=== PATIENT | male | born 1940 | race Caucasian/White ===

== ENCOUNTER 2017-03-02 06:58 | Day surgery (SDC) | payer MEDICARE, OTHER ==
[2017-02-28 13:22] VITALS: BMI 27.7
[~2017-03-02 06:58] MED LIST: HEPARIN SODIUM,PORCINE 5,000 UNIT/ML 1 ML VIAL SQ ONE; LACTATED RINGERS 1,000 ML IV SCH; ceFAZolin 2 GM in SODIUM CHLORIDE 0.9% 100 ML IVPB ONE; fentaNYL (PF) 50 MCG/ML 2 ML AMP IV PRN
[2017-03-02 07:57] LABS: Anisocytosis Slight; Basophils % (A) 0 %; CH 27.7; CHCM 29.9; Eosinophils # (A) 0.2 k/uL (0-0.7); Eosinophils % (A) 2 %; HCT 30.4 % (39.0-53.0); HDW 2.86; HGB 9.4 gm/dL (13.0-17.5); Hypochromasia Marked; Luc # (Auto) 0.19; Luc % (Auto) 3; Lymphocytes # (A) 1.1 k/uL (1.0-4.8); Lymphocytes % (A) 15 %; MCH 28.9 pg (25.0-35.0); MCHC 30.9 g/dL (31.0-37.0); MCV 93.3 fL (80.0-100.0); Mean Platelet Volume 8.1; Monocytes # (A) 0.6 k/uL (0-1.0); Monocytes % (A) 7 %; Neutrophils # (A) 5.5 k/uL (1.3-7.7); Neutrophils % (A) 73 %; RBC 3.26 m/uL (4.30-5.90); RDW 18.1 % (11.5-15.5); WBC 7.6 k/uL (3.8-10.6); WBC (Perox) 7.51
[2017-03-02] MEDS ORDERED: SODIUM CHLORIDE 0.9% 1,000 ML IV ONE (08:11)
[2017-03-02] MEDS ORDERED: LIDOCAINE 1% 20 ML VIAL (10MG/ML) FOR IV START INTRADERMA ONE (08:11)
[2017-03-02] MEDS ORDERED: DEXAMETHASONE SOD PHOSPHATE 10 MG/ML 1 ML VIAL IV ONE (08:12)
[2017-03-02] MEDS ORDERED: ONDANSETRON 4 MG/2 ML VIAL IVP ONE (08:12)
[2017-03-02 08:21] LABS: Calcium 8.9 mg/dL (8.4-10.2)
[2017-03-02] MEDS ORDERED: NEOSTIGMINE 1 MG/ML 10 ML VIAL ONE (08:34)
[2017-03-02] MEDS ORDERED: PROPOFOL 10 MG/ML 20 ML VIAL IV ONE (08:34)
[2017-03-02] MEDS ORDERED: SUCCINYLCHOLINE CHLORIDE 100 MG/5 ML SYR IV ONE (08:34)
[2017-03-02] MEDS ORDERED: GLYCOPYRROLATE 0.2 MG/ML 2 ML VIAL ONE (08:34)
[2017-03-02] MEDS ORDERED: ePHEDrine SULFATE/0.9% NACL/PF 50 MG/5 ML SYRINGE IV ONE (08:34)
[2017-03-02] MEDS ORDERED: MIDAZOLAM 2 MG/2 ML VIAL ONE (08:34)
[2017-03-02] MEDS ORDERED: fentaNYL (PF) 50 MCG/ML 2 ML AMP ONE (08:34)
[2017-03-02] MEDS ORDERED: ROCURONIUM BROMIDE 10 MG/ML 10 ML VIAL IV ONE (08:34)
[2017-03-02] MEDS ORDERED: MINERAL OIL 1 APPLIC/ML OIL TOPICAL ONE (09:02)
[2017-03-02] MEDS ORDERED: BUPIVACAIN-EPI 0.5%-1:200,000 30 ML VIAL SQ ONE ×2 (09:02)
[2017-03-02] MEDS ORDERED: HYDROcodone/APAP 5-325MG 1 EACH TAB PO PRN (10:03)
[2017-03-02] MEDS ORDERED: NALOXONE 0.4 MG/ML 1 ML VIAL IV PRN ×2 (10:03)
--- NOTE | 2017-03-02 10:07 | P.OP ---
Date of Procedure: 03/02/17 Procedure(s) Performed: PREOPERATIVE DIAGNOSIS: Renal failure, right more hernia POSTOPERATIVE DIAGNOSIS: Same PROCEDURE: Peritoneal dialysis catheter insertion, right inguinal herniorrhaphy with mesh SURGEON: Mirna EBL: Minimal ANESTHESIA: General COMPLICATIONS: None OPERATIVE PROCEDURE: The patient was placed in the operative table in the supine position. His abdomen was prepped and draped in usual sterile fashion. A small vertical incision was made in the left periumbilical location. Dissection down through the subcutaneous tissues took place using electrocautery. The anterior rectus was divided vertically using the scalpel. The rectus was bluntly. The posterior rectus was visualized. An 0 Vicryl pursestring was placed. A small opening in the posterior rectus fascia and peritoneum took place using a Metzenbaum scissors. There were no adhesions to the suture that was placed. The pigtail catheter was advanced into the pelvis over a stylette. No resistance was met. The inner cuff was secured to the fascia using the 0 Vicryl pursestring that was placed. The catheter was tunneled to an exit site in the left lateral lower quadrant. The catheter was connected to the 1 L bag of saline and approximated 800 mL of saline was easily introduced into the peritoneal cavity. The fluid was then allowed to evacuate. The majority of the fluid was returned. The anterior rectus fascia was then reapproximated using a running 0 Vicryl stitch. The subcutaneous tissues reprepped using 3-0 Vicryl sutures and the skin using 4-0 Monocryl sutures. The outpatient dialysis adapter was applied to the end of the catheter. Dermabond and subsequently a sterile dressing was placed over the operative site. An oblique incision was then made in the right groin. Dissection down through the subcutaneous tissues took place using electrocautery. The external oblique fascia was incised using a scalpel. This opening was lengthened using the Metzenbaum scissors. The spermatic cord was encircled with a Neil drain. The structures were identified and preserved. Careful dissection revealed an indirect hernia sac. This was carefully dissected back to the internal inguinal ring where it was ligated using 2 separate 0 silk stick tie sutures. A 3" x 6" Prolene mesh was cut to fit on the exposed fascia. This was sutured to the pubic tubercle the folding edge of the inguinal ligament and the conjoined tendon. A slit was created in the mesh and the mesh was wrapped around the spermatic cord and sutured back to itself. The external oblique was then reapproximated using a running 2-0 Vicryl suture. The subcutaneous tissues were reapproximated using a 3-0 Vicryl sutures. The skin was closed using 4-0 Monocryl sutures. Dermabond was then applied. DISPOSITION: Stable to recovery room
[2017-03-02] MEDS: HYDROmorphone 1 MG/ML 1 ML SYRINGE IVP PRN ×2 (10:20→10:26)
[2017-03-02 10:22] VITALS: TEMP 97.2
[2017-03-02] MEDS ORDERED: LACTATED RINGERS 1,000 ML IV ONE (10:28)
[2017-03-02] MEDS ORDERED: HYDROcodone/APAP 5-325MG 1 EACH TAB PO ONE (11:08)
[2017-03-02 12:21] VITALS: RESP 18
[2017-03-02 14:36] VITALS: BP 163/70; PULSE 54
== END 2017-03-02 15:11 | disposition home or self-care (01) ==
LOC: OR 06:58
PROVIDERS: ATTEND Surgery
DX: K40.90 Unilateral inguinal hernia, without obstruction or gangrene, not specified as recurrent (principal); I12.0 Hypertensive chronic kidney disease with stage 5 chronic kidney disease or end stage renal disease; M19.90 Unspecified osteoarthritis, unspecified site; Z86.73 Personal history of transient ischemic attack (TIA), and cerebral infarction without residual deficits; N25.81 Secondary hyperparathyroidism of renal origin; Z90.5 Acquired absence of kidney; J44.9 Chronic obstructive pulmonary disease, unspecified; E55.9 Vitamin D deficiency, unspecified; D50.9 Iron deficiency anemia, unspecified; N18.5 Chronic kidney disease, stage 5; Z95.1 Presence of aortocoronary bypass graft; Z88.8 Allergy status to other drugs, medicaments and biological substances; I25.10 Atherosclerotic heart disease of native coronary artery without angina pectoris; K21.9 Gastro-esophageal reflux disease without esophagitis; Z79.82 Long term (current) use of aspirin; Z79.899 Other long term (current) drug therapy
CPT/HCPCS: 80048; 85025; 88302; 49505; 49418; C1752; C1781; J2250; J1644; J1100; J2710; J0690; J2405; J3010; J1170; J0330; J2704

== ENCOUNTER 2017-03-02 19:56 | Emergency (ER) | payer MEDICARE, OTHER ==
[2017-03-02 20:39] VITALS: BP 172/76; PULSE 68; RESP 18; TEMP 97.8
--- NOTE | 2017-03-02 20:42 | ED ---
Male Urogenital HPI - General Chief complaint: Urogenital Stated complaint: Unable to urinate Time Seen by Provider: 03/02/17 20:24 Source: patient, family, RN notes reviewed Mode of arrival: wheelchair Limitations: no limitations - History of Present Illness Initial comments: This is a 76-year-old male who had a peritoneal dialysis catheter placed as well as a right hernia repair today. He catheterizes after the procedure. He couldn't pass urine who is back today with complaints of inability urinate. Also some increased bleeding around the peritoneal dialysis site. He denies any fevers chills nausea vomiting sweats shortness of breath or other new symptoms. He is in renal failure and is to start peritoneal dialysis soon. - Related Data Home Medications Medication Instructions Recorded Confirmed Aspirin [Adult Low Dose Aspirin EC] 81 mg PO DAILY 02/28/17 03/02/17 Diltiazem HCl [Cartia Xt] 120 mg PO BID 02/28/17 03/02/17 Epoetin Brandon [Procrit] 20,000 unit INJ [id number] PRN 02/28/17 03/02/17 Furosemide [Lasix] 20 mg PO DAILY PRN 02/28/17 03/02/17 HYDROcodone/APAP 5-325MG [[place] 1 tab PO Q6H PRN 02/28/17 03/02/17 5-325] Labetalol [Trandate] 100 mg PO BID 02/28/17 03/02/17 Nitroglycerin Sl Tabs [Nitrostat] 0.4 mg SUBLINGUAL Q5M PRN 02/28/17 03/02/17 Polyethylene Glycol 3350 [Miralax] 17 gm PO DAILY 02/28/17 03/02/17 Ranitidine HCl 150 mg PO DAILY PRN 02/28/17 03/02/17 Simvastatin [Zocor] 20 mg PO HS 02/28/17 03/02/17 hydrALAZINE HCL [Hydralazine HCl] 50 mg PO QAM 02/28/17 03/02/17 traZODone HCL [TraZODone HCl] 50 mg PO HS 02/28/17 03/02/17 Acetaminophen [Tylenol] 1,000 mg PO TID 03/02/17 03/02/17 Cholecalciferol [Vitamin D3] 5,000 unit PO DAILY 03/02/17 03/02/17 Isosorbide Dinitrate [Isordil] 10 mg PO BID 03/02/17 03/02/17 diphenhydrAMINE HCL [Benadryl] 25 mg PO QID PRN 03/02/17 03/02/17 hydrALAZINE HCL [Hydralazine HCl] 25 mg PO BID@1500,2200 03/02/17 03/02/17 Allergies Allergy/AdvReac Type Severity Reaction Status Date / Time tetanus and diphtheria Allergy Unknown Verified 03/02/17 21:19 toxoids diazepam [From Valium] AdvReac Anxiety Verified 03/02/17 21:19 Review of Systems ROS Statement: Those systems with pertinent positive or pertinent negative responses have been documented in the HPI. ROS Other: All systems not noted in ROS Statement are negative. Past Medical History Past Medical History: Coronary Artery Disease (CAD), COPD, CVA/TIA, Renal Disease Additional Past Medical History / Comment(s): anemia of unknown source, has had blood transfusions, frequent checks of HGB, inguinal hernia, PAD, has " multiple blockages in nedra. legs" History of Any Multi-Drug Resistant Organisms: None Reported Past Surgical History: Appendectomy, Coronary Bypass/CABG, Heart Catheterization With Stent, Orthopedic Surgery Additional Past Surgical History / Comment(s): right nephrectomy, PTBA of left kidney, arthroscopy of knee, carotid endartectomy, 3 bypass one failed. 6 or 7 stents to heart Past Anesthesia/Blood Transfusion Reactions: No Reported Reaction Additional Past Anesthesia/Blood Transfusion Reaction / Comment(s): has had blood transfusions without issues Date of Last Stent Placement:: 2006? Past Psychological History: Anxiety, Panic Disorder Smoking Status: Former smoker Past Alcohol Use History: None Reported Past Drug Use History: None Reported - Past Family History Son(s) Family Medical History: Cancer Additional Family Medical History / Comment(s): prostate General Exam - General Exam Comments Initial Comments: This is a well-developed well-nourished awake alert oriented 3 male Limitations: no limitations General appearance: alert, in no apparent distress Head exam: Present: atraumatic, normocephalic, normal inspection Eye exam: Present: normal appearance, PERRL, EOMI. Absent: scleral icterus, conjunctival injection, periorbital swelling ENT exam: Present: normal exam, mucous membranes moist Neck exam: Present: normal inspection. Absent: tenderness, meningismus, lymphadenopathy Respiratory exam: Present: normal lung sounds bilaterally. Absent: respiratory distress, wheezes, rales, rhonchi, stridor Cardiovascular Exam: Present: regular rate, normal rhythm, normal heart sounds. Absent: systolic murmur, diastolic murmur, rubs, gallop, clicks GI/Abdominal exam: Present: soft, normal bowel sounds, other (Distended bladder. The surgical site is examined with the dressing off. There was increased bleeding about the dressing at the site however no active bleeding this time.). Absent: distended, tenderness, guarding, rebound, rigid exam: Present: scrotal swelling, other (Uncircumcised genitalia) Extremities exam: Present: normal inspection, full ROM, normal capillary refill. Absent: tenderness, pedal edema, joint swelling, calf tenderness Back exam: Present: normal inspection Neurological exam: Present: alert, oriented X3, CN II-XII intact Psychiatric exam: Present: normal affect, normal mood Skin exam: Present: warm, dry, intact, normal color. Absent: rash Course Vital Signs 03/02/17 20:27 Temperature 97.8 F Pulse Rate 68 Respiratory 18 Rate Blood Pressure 172/76 O2 Sat by Pulse 92 L Oximetry Medical Decision Making - Medical Decision Making Patient did require a Salcedo catheter. He will be discharged with the same I did inspect the abdominal catheter entrance site no evidence of any active bleeding no dehiscence no evidence of infection. Dressing was placed by nursing staff. Disposition Clinical Impression: Acute urinary retention Disposition: HOME SELF-CARE Condition: Good Instructions: Urinary Retention in Men (ED) Referrals: Bess Mcclendon MD [Primary Care Provider] - 1-2 days
== END 2017-03-02 22:18 | disposition home or self-care (01) ==
LOC: SUPCPDRO 19:56 → EC 19:56
DX: R33.9 Retention of urine, unspecified (principal); I25.10 Atherosclerotic heart disease of native coronary artery without angina pectoris; J44.9 Chronic obstructive pulmonary disease, unspecified; F41.9 Anxiety disorder, unspecified; F41.0 Panic disorder [episodic paroxysmal anxiety]; Z87.891 Personal history of nicotine dependence; Z86.73 Personal history of transient ischemic attack (TIA), and cerebral infarction without residual deficits; Z79.82 Long term (current) use of aspirin; Z79.899 Other long term (current) drug therapy; Z88.7 Allergy status to serum and vaccine; Z88.8 Allergy status to other drugs, medicaments and biological substances
CPT/HCPCS: 51702; 51798; 99283

== ENCOUNTER 2017-03-03 09:41 | Emergency (ER) | payer MEDICARE, OTHER ==
--- NOTE | 2017-03-03 10:51 | ED ---
General Adult HPI - General Chief complaint: Urogenital Stated complaint: chest pain, needs catheter removed Time Seen by Provider: 03/03/17 10:00 Source: patient, RN notes reviewed Mode of arrival: wheelchair Limitations: no limitations - History of Present Illness Initial comments: This is a 76-year-old male who presents emergency department with past medical history significant for bypass surgery. Patient states he takes at least 3 nitroglycerin daily. Patient states he had surgery yesterday for a peritoneal catheter placement as well as an inguinal hernia. He went home last night but was unable to urinate some return to the emergency department. Patient came in and got a catheter placed and was up according to the family on and off all night long complaining of chest pain. Patient states it's no different than normal he states he took 6 nitroglycerin which is more than his average but not out of the ordinary. Patient states he feels no different than he does any other day he denies any shortness of breath or sweating. Patient denies any nausea vomiting. Patient's only complaint is that he does not like Having a catheter in place. Patient states he is only here today because his family made him come. Patient denies any fever chills per patient denies any abdominal pain. - Related Data Home Medications Medication Instructions Recorded Confirmed Aspirin [Adult Low Dose Aspirin EC] 81 mg PO DAILY 02/28/17 03/03/17 Diltiazem HCl [Cartia Xt] 120 mg PO BID 02/28/17 03/03/17 Epoetin Brandon [Procrit] 20,000 unit INJ [id number] PRN 02/28/17 03/03/17 Furosemide [Lasix] 20 mg PO DAILY PRN 02/28/17 03/03/17 HYDROcodone/APAP 5-325MG [[place] 1 tab PO Q6H PRN 02/28/17 03/03/17 5-325] Labetalol [Trandate] 100 mg PO BID 02/28/17 03/03/17 Nitroglycerin Sl Tabs [Nitrostat] 0.4 mg SUBLINGUAL Q5M PRN 02/28/17 03/03/17 Polyethylene Glycol 3350 [Miralax] 17 gm PO DAILY 02/28/17 03/03/17 Ranitidine HCl 150 mg PO DAILY PRN 02/28/17 03/03/17 Simvastatin [Zocor] 20 mg PO HS 02/28/17 03/03/17 hydrALAZINE HCL [Hydralazine HCl] 50 mg PO QAM 02/28/17 03/03/17 traZODone HCL [TraZODone HCl] 50 mg PO HS 02/28/17 03/03/17 Acetaminophen [Tylenol] 1,000 mg PO TID 03/02/17 03/03/17 Cholecalciferol [Vitamin D3] 5,000 unit PO DAILY 03/02/17 03/03/17 Isosorbide Dinitrate [Isordil] 10 mg PO BID 03/02/17 03/03/17 diphenhydrAMINE HCL [Benadryl] 25 mg PO QID PRN 03/02/17 03/03/17 hydrALAZINE HCL [Hydralazine HCl] 25 mg PO BID@1500,2200 03/02/17 03/03/17 Previous Rx's Medication Instructions Recorded Sodium Polystyrene Sulfonate 15 gm PO TID #180 ml 03/03/17 [Kayexalate] Allergies Allergy/AdvReac Type Severity Reaction Status Date / Time tetanus and diphtheria Allergy Unknown Verified 03/03/17 09:51 toxoids diazepam [From Valium] AdvReac Anxiety Verified 03/03/17 09:51 Review of Systems ROS Statement: Those systems with pertinent positive or pertinent negative responses have been documented in the HPI. ROS Other: All systems not noted in ROS Statement are negative. Past Medical History Past Medical History: Coronary Artery Disease (CAD), COPD, CVA/TIA, Renal Disease Additional Past Medical History / Comment(s): anemia of unknown source, has had blood transfusions, frequent checks of HGB, inguinal hernia, PAD, has " multiple blockages in nedra. legs" History of Any Multi-Drug Resistant Organisms: None Reported Past Surgical History: Appendectomy, Coronary Bypass/CABG, Heart Catheterization With Stent, Orthopedic Surgery Additional Past Surgical History / Comment(s): right nephrectomy, PTBA of left kidney, arthroscopy of knee, carotid endartectomy, 3 bypass one failed. 6 or 7 stents to heart Past Anesthesia/Blood Transfusion Reactions: No Reported Reaction Additional Past Anesthesia/Blood Transfusion Reaction / Comment(s): has had blood transfusions without issues Date of Last Stent Placement:: 2006? Past Psychological History: Anxiety, Panic Disorder Smoking Status: Former smoker Past Alcohol Use History: None Reported Past Drug Use History: None Reported - Past Family History Son(s) Family Medical History: Cancer Additional Family Medical History / Comment(s): prostate General Exam - General Exam Comments Initial Comments: GENERAL: Patient is well-developed and well-nourished. Patient is nontoxic and well- hydrated and is in no acute distress. ENT: Neck is soft and supple. No significant lymphadenopathy is noted. Oropharynx is clear. Moist mucous membranes. Neck has full range of motion without eliciting any pain. EYES: The sclera were anicteric and conjunctiva were pink and moist. Extraocular movements were intact and pupils were equal round and reactive to light. Eyelids were unremarkable. PULMONARY: Unlabored respirations. Good breath sounds bilaterally. No audible rales rhonchi or wheezing was noted. CARDIOVASCULAR: There is a regular rate and rhythm without any murmurs gallops or rubs. ABDOMEN: Soft and nontender with normal bowel sounds. No palpable organomegaly was noted. There is no palpable pulsatile mass. Patient has a catheter in place. SKIN: Skin is clear with no lesions or rashes and otherwise unremarkable. NEUROLOGIC: Patient is alert and oriented x3. Cranial nerves II through XII are grossly intact. Motor and sensory are also intact. Normal speech, volume and content. Symmetrical smile. MUSCULOSKELETAL: Normal extremities with adequate strength and full range of motion. LYMPHATICS: No significant lymphadenopathy is noted PSYCHIATRIC: Normal psychiatric evaluation. Limitations: no limitations Course Vital Signs 03/03/17 03/03/17 03/03/17 09:44 10:17 11:04 Temperature 97.6 F Pulse Rate 72 65 67 Respiratory 17 18 18 Rate Blood Pressure 170/76 167/75 145/68 O2 Sat by Pulse 94 L 95 95 Oximetry 03/03/17 12:29 Temperature 97.3 F L Pulse Rate 65 Respiratory 17 Rate Blood Pressure 166/75 O2 Sat by Pulse 96 Oximetry Medical Decision Making - Medical Decision Making EKG shows sinus rhythm with occasional PVCs at 70 bpm GA interval is 174 QRS is 1:30 QT interval 432 QTC is 466. Patient's EKG shows some T-wave inversions in leads 1 and aVL there is no ST segment elevation. Patient's cardiac enzymes were elevated and I indicated he needed to stay to have repeat levels and see cardiology he refused so is going to sign out AMA. Patient also wanted the Salcedo catheter removed so that was removed by the nursing staff. - Lab Data Result diagrams: 03/03/17 10:18 03/03/17 11:55 Lab Results 03/03/17 03/03/17 03/03/17 Range/Units 10:18 10:18 10:18 WBC 10.7 H (3.8-10.6) k/uL RBC 3.26 L (4.30-5.90) m/uL Hgb 9.2 L (13.0-17.5) gm/dL Hct 31.0 L (39.0-53.0) % MCV 95.1 (80.0-100.0) fL MCH 28.2 (25.0-35.0) pg MCHC 29.7 L (31.0-37.0) g/dL RDW 19.3 H (11.5-15.5) % Plt Count 182 (150-450) k/uL Neutrophils % 88 % Lymphocytes % 6 % Monocytes % 6 % Eosinophils % 0 % Basophils % 0 % Neutrophils # 9.4 H (1.3-7.7) k/uL Lymphocytes # 0.6 L (1.0-4.8) k/uL Monocytes # 0.6 (0-1.0) k/uL Eosinophils # 0.0 (0-0.7) k/uL Basophils # 0.0 (0-0.2) k/uL Hypochromasia Moderate Anisocytosis Slight Macrocytosis Slight PT (9.0-12.0) sec INR (<1.2) APTT (22.0-30.0) sec Sodium 134 L (137-145) mmol/L Potassium 5.5 H (3.5-5.1) mmol/L Chloride 105 (98-107) mmol/L Carbon Dioxide 15 L (22-30) mmol/L Anion Gap 14 mmol/L BUN 49 H (9-20) mg/dL Creatinine 4.65 H (0.66-1.25) mg/dL Est GFR (MDRD) Af Amer 15 (>60 ml/min/1.73 sqM) Est GFR (MDRD) Non-Af 12 (>60 ml/min/1.73 sqM) Glucose 121 H (74-99) mg/dL Calcium 9.3 (8.4-10.2) mg/dL Magnesium 2.2 (1.6-2.3) mg/dL Total Bilirubin 0.4 (0.2-1.3) mg/dL AST 15 L (17-59) U/L ALT 25 (21-72) U/L Alkaline Phosphatase 69 (38-126) U/L Total Creatine Kinase 101 (55-170) U/L CK-MB (CK-2) 4.6 H* (0.0-2.4) ng/mL CK-MB (CK-2) Rel Index 4.6 Troponin I 0.398 H* (0.000-0.034) ng/mL Total Protein 6.5 (6.3-8.2) g/dL Albumin 3.8 (3.5-5.0) g/dL 03/03/17 03/03/17 Range/Units 10:18 11:55 WBC (3.8-10.6) k/uL RBC (4.30-5.90) m/uL Hgb (13.0-17.5) gm/dL Hct (39.0-53.0) % MCV (80.0-100.0) fL MCH (25.0-35.0) pg MCHC (31.0-37.0) g/dL RDW (11.5-15.5) % Plt Count (150-450) k/uL Neutrophils % % Lymphocytes % % Monocytes % % Eosinophils % % Basophils % % Neutrophils # (1.3-7.7) k/uL Lymphocytes # (1.0-4.8) k/uL Monocytes # (0-1.0) k/uL Eosinophils # (0-0.7) k/uL Basophils # (0-0.2) k/uL Hypochromasia Anisocytosis Macrocytosis PT 10.7 (9.0-12.0) sec INR 1.1 (<1.2) APTT 24.2 (22.0-30.0) sec Sodium (137-145) mmol/L Potassium 5.6 H (3.5-5.1) mmol/L Chloride (98-107) mmol/L Carbon Dioxide (22-30) mmol/L Anion Gap mmol/L BUN (9-20) mg/dL Creatinine (0.66-1.25) mg/dL Est GFR (MDRD) Af Amer (>60 ml/min/1.73 sqM) Est GFR (MDRD) Non-Af (>60 ml/min/1.73 sqM) Glucose (74-99) mg/dL Calcium (8.4-10.2) mg/dL Magnesium (1.6-2.3) mg/dL Total Bilirubin (0.2-1.3) mg/dL AST (17-59) U/L ALT (21-72) U/L Alkaline Phosphatase (38-126) U/L Total Creatine Kinase (55-170) U/L CK-MB (CK-2) (0.0-2.4) ng/mL CK-MB (CK-2) Rel Index Troponin I (0.000-0.034) ng/mL Total Protein (6.3-8.2) g/dL Albumin (3.5-5.0) g/dL Disposition Clinical Impression: Chest pain, Renal failure, Hyperkalemia, Elevated troponin, Encounter for Salcedo catheter removal Disposition: Left Against Medical Advice Additional Instructions: Patient should follow-up with his primary medical care doctor so they can follow up on his hyperkalemia. Patient is having a more chest pain difficulty breathing or shortness of breath he needs to come back to the emergency department to be evaluated for his heart. Prescriptions: Sodium Polystyrene Sulfonate [Kayexalate] 15 gm PO TID #180 ml Referrals: Bess Mcclendon MD [Primary Care Provider] - 1-2 days Time of Disposition: 12:49
[2017-03-03 11:16] LABS: Anisocytosis Slight; Basophils % (A) 0 %; CH 28.8; CHCM 30.6; Eosinophils % (A) 0 %; HGB 9.2 gm/dL (13.0-17.5); Hypochromasia Moderate; Luc # (Auto) 0.11; Luc % (Auto) 1; Lymphocytes # (A) 0.6 k/uL (1.0-4.8); Lymphocytes % (A) 6 %; MCH 28.2 pg (25.0-35.0); MCHC 29.7 g/dL (31.0-37.0); MCV 95.1 fL (80.0-100.0); Macrocytosis Slight; Mean Platelet Volume 8.3; Monocytes # (A) 0.6 k/uL (0-1.0); Monocytes % (A) 6 %; Neutrophils # (A) 9.4 k/uL (1.3-7.7); Neutrophils % (A) 88 %; RBC 3.26 m/uL (4.30-5.90); RDW 19.3 % (11.5-15.5); WBC 10.7 k/uL (3.8-10.6); WBC (Perox) 11.34
[2017-03-03 11:22] LABS: INR 1.1 (<1.2); Partial Thromboplastin Time 24.2 sec (22.0-30.0); Prothrombin Time 10.7 sec (9.0-12.0)
[2017-03-03 11:27] LABS: Calcium 9.3 mg/dL (8.4-10.2); Magnesium 2.2 mg/dL (1.6-2.3); Potassium 5.5 mmol/L (3.5-5.1); Total Bilirubin 0.4 mg/dL (0.2-1.3); Total Protein 6.5 g/dL (6.3-8.2)
--- NOTE | 2017-03-03 11:31 | XR ---
EXAMINATION TYPE: XR chest 2V DATE OF EXAM: 03/03/2017 COMPARISON: NONE TECHNIQUE: PA and lateral views submitted. HISTORY: Shortness of breath FINDINGS: Aorta appears dilated measuring approximately 4.7 cm. There is a 1 cm nodule right upper lobe. Underl sheldon COPD, cardiomegaly and chronic interstitial lung disease suspected. There is fluid within the ma ifeanyi fissure. Small right pleural effusion. Hypertrophic and degenerative change of the spine. Postoperative changes seen in there is vascular calcifications in the axilla. IMPRESSION: 1. Interstitial pattern with small right effusion. Likely represents mild interstitial venous congest ion superimposed on a background of chronic interstitial lung disease and COPD. 2. 1 cm right upper lobe pulmonary nodule. Additional of the thoracic aorta measures approximately 4. 7 cm compatible with aneurysm. CT scan chest recommended.
[2017-03-03 12:08] LABS: Creatine Kinase MB 4.6 ng/mL (0.0-2.4); Troponin I 0.398 ng/mL (0.000-0.034)
[2017-03-03] MEDS ORDERED: SODIUM POLYSTYRENE SULFONATE 15 GM/60 ML BOTTLE PO ONE (12:53)
[2017-03-03 12:58] VITALS: BP 164/87; PULSE 69; RESP 18; TEMP 98
== END 2017-03-03 13:48 | disposition left against medical advice (07) ==
LOC: EC 09:41
DX: N19 Unspecified kidney failure (principal); E87.5 Hyperkalemia; R07.9 Chest pain, unspecified; R74.8 Abnormal levels of other serum enzymes; Z46.6 Encounter for fitting and adjustment of urinary device; I49.3 Ventricular premature depolarization; I25.10 Atherosclerotic heart disease of native coronary artery without angina pectoris; Z87.891 Personal history of nicotine dependence; Z79.82 Long term (current) use of aspirin; Z79.899 Other long term (current) drug therapy; Z88.7 Allergy status to serum and vaccine; Z88.8 Allergy status to other drugs, medicaments and biological substances; Z90.5 Acquired absence of kidney; Z98.890 Other specified postprocedural states; Z95.1 Presence of aortocoronary bypass graft
CPT/HCPCS: 36415; 71020; 80053; 82550; 82553; 83735; 84132; 84484; 85025; 85610; 85730; 93005; 99285

== ENCOUNTER 2017-03-03 23:49 | Inpatient (IN) | payer MEDICARE, OTHER ==
[2017-03-04] MEDS ORDERED: MORPHINE SULFATE 4 MG/ML SYRINGE IV STA (00:47)
[2017-03-04] MEDS ORDERED: NITROGLYCERIN OINT 1 INCH/GM PACKET TOPICAL STA (00:47)
[2017-03-04] MEDS ORDERED: ASPIRIN 81 MG PO STA (00:47)
[2017-03-04] MEDS ORDERED: HEPARIN SODIUM,PORCINE 5,000 UNIT/ML 1 ML VIAL IV PRN (00:48)
[2017-03-04] MEDS ORDERED: HEPARIN SODIUM,PORCINE 5,000 UNIT/ML 1 ML VIAL IV ONE (00:48)
[2017-03-04] MEDS ORDERED: RX INFO: IV CONTRAST WAS GIVEN 1 EACH MISC MISCELLANE PRN (00:50)
--- NOTE | 2017-03-04 00:59 | ED ---
SOB HPI - General Chief Complaint: Shortness of Breath Stated Complaint: Revisit-DASHA/Constipation Time Seen by Provider: 03/04/17 00:21 Source: patient Mode of arrival: wheelchair Limitations: no limitations - History of Present Illness Initial Comments: This patient is a 76-year-old man who presents with a number of complaints. The patient complains of being short of breath and having bilateral chest pain, that he refers to as being his usual angina. The patient states that he gets this pain every day. He usually takes up to 3 nitroglycerin per day for this. The pain had come on earlier today and over the course the day he has taken 6 nitroglycerin for it. The patient was seen here earlier today, told that his heart enzymes were elevated and it was recommended that he stay but he declined. Patient states that the chest pain and dyspnea did not resolve and so he would like to the reevaluated. He also is having a little bit of left lower abdominal pain that he indicates is at the site of the surgery. He states that it is not getting much more intense but it has been present since the surgery. Patient in addition has been having difficulties with urinary retention, having had a catheter after surgery. The catheter was discontinued this morning, and the patient states he was able to pass approximate 500 mL of urine over the course of the day. The patient is complaining of inability to have a bowel movement of the course the past week. MD Complaint: shortness of breath, chest pain Onset/Timin -: days(s) Severity: moderate Quality: aching Consistency: constant Improves With: nothing Worsens With: nothing Treatments Prior to Arrival: nitroglycerin - Related Data Home Medications Medication Instructions Recorded Confirmed Aspirin [Adult Low Dose Aspirin EC] 81 mg PO DAILY 02/28/17 03/04/17 Diltiazem HCl [Cartia Xt] 120 mg PO DAILY 02/28/17 03/04/17 Epoetin Brandon [Procrit] 20,000 unit INJ [id number] PRN 02/28/17 03/04/17 Furosemide [Lasix] 20 mg PO DAILY PRN 02/28/17 03/04/17 Nitroglycerin Sl Tabs [Nitrostat] 0.4 mg SUBLINGUAL Q5M PRN 02/28/17 03/04/17 Polyethylene Glycol 3350 [Miralax] 17 gm PO DAILY 02/28/17 03/04/17 Ranitidine HCl 150 mg PO DAILY PRN 02/28/17 03/04/17 Simvastatin [Zocor] 20 mg PO HS 02/28/17 03/04/17 traZODone HCL 50 mg PO HS 02/28/17 03/04/17 Cholecalciferol [Vitamin D3] 5,000 unit PO DAILY 03/02/17 03/04/17 Isosorbide Dinitrate [Isordil] 10 mg PO BID 03/02/17 03/04/17 diphenhydrAMINE HCL [Benadryl] 25 mg PO QID PRN 03/02/17 03/04/17 Previous Rx's Medication Instructions Recorded Clopidogrel [Plavix] 75 mg PO DAILY #0 tab 03/14/17 HYDROcodone/APAP 5-325MG [[place] 1 tab PO DAILY PRN #20 03/14/17 5-325] Metoprolol Tartrate [Lopressor] 50 mg PO BID tab 03/14/17 Ranolazine [Ranexa] 500 mg PO Q12HR tab 03/14/17 hydrALAZINE HCL [Apresoline] 50 mg PO TID tab 03/14/17 Allergies Allergy/AdvReac Type Severity Reaction Status Date / Time tetanus and diphtheria Allergy Unknown Verified 03/04/17 07:15 toxoids diazepam [From Valium] AdvReac Anxiety Verified 03/04/17 07:15 Review of Systems ROS Statement: Those systems with pertinent positive or pertinent negative responses have been documented in the HPI. ROS Other: All systems not noted in ROS Statement are negative. Constitutional: Denies: fever, chills Respiratory: Reports: dyspnea. Denies: cough, wheezes, hemoptysis Cardiovascular: Reports: chest pain, orthopnea. Denies: palpitations, dyspnea on exertion, edema, syncope Gastrointestinal: Reports: abdominal pain, constipation. Denies: nausea, vomiting, diarrhea, melena, hematochezia Genitourinary: Reports: as per HPI. Denies: dysuria, hematuria Musculoskeletal: Denies: back pain Skin: Denies: rash Neurological: Denies: headache, weakness, numbness Past Medical History Past Medical History: Coronary Artery Disease (CAD), COPD, CVA/TIA, Renal Disease Additional Past Medical History / Comment(s): anemia of unknown source, has had blood transfusions, frequent checks of HGB, inguinal hernia, PAD, has " multiple blockages in ned[place]. legs" History of Any Multi-Drug Resistant Organisms: None Reported Past Surgical History: Appendectomy, Coronary Bypass/CABG, Heart Catheterization With Stent, Orthopedic Surgery Additional Past Surgical History / Comment(s): right nephrectomy, PTBA of left kidney, arthroscopy of knee, carotid endartectomy, 3 bypass one failed. 6 or 7 stents to heart Past Anesthesia/Blood Transfusion Reactions: No Reported Reaction Additional Past Anesthesia/Blood Transfusion Reaction / Comment(s): has had blood transfusions without issues Date of Last Stent Placement:: 2006? Past Psychological History: Anxiety, Panic Disorder Smoking Status: Former smoker Past Alcohol Use History: None Reported Past Drug Use History: None Reported - Past Family History Son(s) Family Medical History: Cancer Additional Family Medical History / Comment(s): prostate Father Family Medical History: Coronary Artery Disease (CAD) Additional Family Medical History / Comment(s): Father in his late 60's during a cardiac cath when an artery was punctured. Mother Family Medical History: Coronary Artery Disease (CAD) Additional Family Medical History / Comment(s): Mother of an aneurysm "in her heart" in her late 60's. Brother(s) Additional Family Medical History / Comment(s): One brother at 52 yrs with CHF, another brother at 32 yrs from a [place]. General Exam Limitations: no limitations General appearance: alert, in distress Head exam: Present: atraumatic, normocephalic Eye exam: Present: normal appearance. Absent: scleral icterus, conjunctival injection ENT exam: Present: normal oropharynx Respiratory exam: Present: rales (Crackles at the bilateral bases). Absent: respiratory distress, wheezes, rhonchi, stridor, decreased breath sounds, prolonged expiratory Cardiovascular Exam: Present: regular rate, normal rhythm, normal heart sounds. Absent: systolic murmur, diastolic murmur, rubs, gallop GI/Abdominal exam: Present: soft, other (Patient's surgical site is clean dry and intact.). Absent: distended, tenderness, guarding, rebound, mass Extremities exam: Present: normal inspection, normal capillary refill. Absent: pedal edema, calf tenderness Back exam: Present: normal inspection. Absent: CVA tenderness (R), CVA tenderness (L) Neurological exam: Present: alert Skin exam: Present: warm, dry, intact, normal color. Absent: rash Course Vital Signs 03/03/17 03/04/17 03/04/17 23:53 00:38 00:39 Temperature 98.3 F Pulse Rate 86 89 Respiratory 20 22 22 Rate Blood Pressure 182/88 O2 Sat by Pulse 93 L 98 Oximetry 03/04/17 03/04/17 03/04/17 00:48 01:34 02:02 Temperature Pulse Rate 87 86 84 Respiratory 22 24 22 Rate Blood Pressure 175/75 179/85 168/74 O2 Sat by Pulse 98 93 L 94 L Oximetry 03/04/17 03/04/17 03/04/17 02:50 03:30 05:00 Temperature Pulse Rate 84 98 83 Respiratory 22 24 24 Rate Blood Pressure 179/82 168/74 166/78 O2 Sat by Pulse 94 L 94 L 94 L Oximetry 03/04/17 03/04/17 03/04/17 05:42 06:05 06:32 Temperature Pulse Rate 78 80 78 Respiratory 22 22 24 Rate Blood Pressure 149/69 168/76 161/70 O2 Sat by Pulse 95 95 97 Oximetry 03/04/17 03/04/17 07:01 07:53 Temperature 98.8 F Pulse Rate 78 78 Respiratory 22 20 Rate Blood Pressure 155/70 160/75 O2 Sat by Pulse 95 96 Oximetry Medical Decision Making - Medical Decision Making Patient is 76-year-old man with chest pains and elevated troponin. In addition , on the patient's chest x-ray he has widening of mediastinum and given his hypertension, he had computed tomography scan to rule out a dissection. There is no dissection only the visualized thoracic aneurysm. His cases been discussed with cardiology, Dr. Scott, and with the return to factory clerk, Dr. Ennis , and with Dr Olivera, from nephrology. Their recommendations have been incorporated. He has had significant improvement with medications. Will be admitted to intensive care unit. - Lab Data Result diagrams: 03/12/17 06:10 03/13/17 05:40 Lab Results 03/04/17 03/04/17 03/04/17 Range/Units 00:20 00:20 00:20 WBC 11.3 H (3.8-10.6) k/uL RBC 3.30 L (4.30-5.90) m/uL Hgb 9.5 L (13.0-17.5) gm/dL Hct 31.7 L (39.0-53.0) % MCV 95.9 (80.0-100.0) fL MCH 28.7 (25.0-35.0) pg MCHC 29.9 L (31.0-37.0) g/dL RDW 19.5 H (11.5-15.5) % Plt Count 190 (150-450) k/uL Neutrophils % 88 % Lymphocytes % 5 % Monocytes % 6 % Eosinophils % 1 % Basophils % 0 % Neutrophils # 9.9 H (1.3-7.7) k/uL Lymphocytes # 0.6 L (1.0-4.8) k/uL Monocytes # 0.6 (0-1.0) k/uL Eosinophils # 0.1 (0-0.7) k/uL Basophils # 0.0 (0-0.2) k/uL Hypochromasia Marked Anisocytosis Slight Macrocytosis Slight PT 10.7 (9.0-12.0) sec INR 1.1 (<1.2) APTT 25.9 (22.0-30.0) sec D-Dimer (<0.60) mg/L FEU Sodium (137-145) mmol/L Potassium (3.5-5.1) mmol/L Chloride (98-107) mmol/L Carbon Dioxide (22-30) mmol/L Anion Gap mmol/L BUN (9-20) mg/dL Creatinine (0.66-1.25) mg/dL Est GFR (MDRD) Af Amer (>60 ml/min/1.73 sqM) Est GFR (MDRD) Non-Af (>60 ml/min/1.73 sqM) Glucose (74-99) mg/dL Calcium (8.4-10.2) mg/dL Total Bilirubin (0.2-1.3) mg/dL AST (17-59) U/L ALT (21-72) U/L Alkaline Phosphatase (38-126) U/L Total Creatine Kinase 139 (55-170) U/L CK-MB (CK-2) 6.4 H* (0.0-2.4) ng/mL CK-MB (CK-2) Rel Index 4.6 Troponin I 1.000 H* (0.000-0.034) ng/mL NT-Pro-B Natriuret Pep pg/mL Total Protein (6.3-8.2) g/dL Albumin (3.5-5.0) g/dL 03/04/17 03/04/17 03/04/17 Range/Units 00:20 00:20 00:20 WBC (3.8-10.6) k/uL RBC (4.30-5.90) m/uL Hgb (13.0-17.5) gm/dL Hct (39.0-53.0) % MCV (80.0-100.0) fL MCH (25.0-35.0) pg MCHC (31.0-37.0) g/dL RDW (11.5-15.5) % Plt Count (150-450) k/uL Neutrophils % % Lymphocytes % % Monocytes % % Eosinophils % % Basophils % % Neutrophils # (1.3-7.7) k/uL Lymphocytes # (1.0-4.8) k/uL Monocytes # (0-1.0) k/uL Eosinophils # (0-0.7) k/uL Basophils # (0-0.2) k/uL Hypochromasia Anisocytosis Macrocytosis PT (9.0-12.0) sec INR (<1.2) APTT (22.0-30.0) sec D-Dimer 4.63 H (<0.60) mg/L FEU Sodium 133 L (137-145) mmol/L Potassium 5.0 (3.5-5.1) mmol/L Chloride 103 (98-107) mmol/L Carbon Dioxide 14 L (22-30) mmol/L Anion Gap 16 mmol/L BUN 53 H (9-20) mg/dL Creatinine 4.50 H (0.66-1.25) mg/dL Est GFR (MDRD) Af Amer 16 (>60 ml/min/1.73 sqM) Est GFR (MDRD) Non-Af 13 (>60 ml/min/1.73 sqM) Glucose 120 H (74-99) mg/dL Calcium 9.4 (8.4-10.2) mg/dL Total Bilirubin 0.5 (0.2-1.3) mg/dL AST 25 (17-59) U/L ALT 21 (21-72) U/L Alkaline Phosphatase 68 (38-126) U/L Total Creatine Kinase (55-170) U/L CK-MB (CK-2) (0.0-2.4) ng/mL CK-MB (CK-2) Rel Index Troponin I (0.000-0.034) ng/mL NT-Pro-B Natriuret Pep 39327 pg/mL Total Protein 6.6 (6.3-8.2) g/dL Albumin 3.9 (3.5-5.0) g/dL - EKG Data -: EKG Interpreted by Me EKG shows normal: sinus rhythm, axis (Normal), intervals (QRS duration slightly prolonged at 130 ms.) Rate: normal (Rate approximately 87 bpm) When compared to previous EKG there are: other Interpretation: LVH Critical Care Time Critical Care Time: Yes (35 minutes) Disposition Clinical Impression: Chest pain, Elevated troponin, Acute coronary syndrome, Thoracic aortic aneurysm Disposition: ADMITTED IP TO THIS HOSP Condition: Serious
[2017-03-04 01:06] LABS: Anisocytosis Slight; Basophils % (A) 0 %; CH 28.8; CHCM 30.4; Eosinophils # (A) 0.1 k/uL (0-0.7); Eosinophils % (A) 1 %; HCT 31.7 % (39.0-53.0); HDW 2.96; HGB 9.5 gm/dL (13.0-17.5); Hypochromasia Marked; Luc # (Auto) 0.09; Luc % (Auto) 1; Lymphocytes # (A) 0.6 k/uL (1.0-4.8); Lymphocytes % (A) 5 %; MCH 28.7 pg (25.0-35.0); MCHC 29.9 g/dL (31.0-37.0); MCV 95.9 fL (80.0-100.0); Macrocytosis Slight; Monocytes # (A) 0.6 k/uL (0-1.0); Monocytes % (A) 6 %; Neutrophils # (A) 9.9 k/uL (1.3-7.7); Neutrophils % (A) 88 %; RDW 19.5 % (11.5-15.5); WBC 11.3 k/uL (3.8-10.6); WBC (Perox) 11.87
[2017-03-04 01:19] LABS: INR 1.1 (<1.2); Partial Thromboplastin Time 25.9 sec (22.0-30.0); Prothrombin Time 10.7 sec (9.0-12.0)
[2017-03-04 01:21] LABS: Calcium 9.4 mg/dL (8.4-10.2); Total Bilirubin 0.5 mg/dL (0.2-1.3); Total Protein 6.6 g/dL (6.3-8.2)
[2017-03-04] MEDS ORDERED: ONDANSETRON 4 MG/2 ML VIAL IVP STA (01:30)
[2017-03-04 01:56] LABS: Creatine Kinase MB 6.4 ng/mL (0.0-2.4)
[2017-03-04] MEDS ORDERED: HYDROmorphone 1 MG/ML 1 ML SYRINGE IVP STA (03:35)
--- NOTE | 2017-03-04 03:47 | CT ---
EXAM: CT Angiography Chest Without and With Intravenous Contrast CLINICAL HISTORY: elevated [id number], SOB, r/o PE, hx of cath and stents, [id number]/100ml and 50ml saline, : Pain, r/o dissection TECHNIQUE: Axial computed tomographic angiography images of the chest without and with intravenous contrast using pulmonary embolism protocol. CTDI is 11. 8 mGy and DLP is 1339.5 mGy-cm. combined with CT abdomen dose. This CT exam was performed using one or more of the following dose reduction techniques: automated exposure control, adjustment of the mA and/or kV according to patient size, and/or use of iterative reconstruction technique. MIP reconstructed images were created and reviewed. Coronal and sagittal reformatted images were created and reviewed. Axial reformatted images were created and reviewed. COMPARISON: Chest x-ray today FINDINGS: Pulmonary arteries: No evidence of pulmonary embolism. Aorta: Atherosclerotic vascular disease. 4.2 cm aneurysmal ascending aorta. 4 cm at the proximal descending thoracic aorta, 4.2 cm distal descending thoracic aorta, 4.7 cm at the diaphragm. No evidence of dissection. No aortic leak or rupture. Lungs: Septal thickening and hazy lung opacities may be a pulmonary edema. Pleural space: Small right pleural effusion. Trace left pleural effusion. No pneumothorax. Heart: Cardiomegaly. Coronary artery disease. Evidence of cardiac surgery. No significant pericardial effusion. Bones/joints: Degenerative changes of the spine. No acute fracture. No dislocation. Soft tissues: Unremarkable. Lymph nodes: Small mediastinal lymph nodes. Calcified right hilar lymph nodes consistent with old granulomatous disease. IMPRESSION: 1. No evidence of pulmonary embolism. 2. Aortic aneurysm without dissection, or evidence of leak or rupture. 3. Septal thickening and hazy lung opacities likely pulmonary edema with small pleural effusions, greater on the right. Query CHF.
--- NOTE | 2017-03-04 04:03 | CT ---
EXAM: CT Angiography Abdomen Without and With Intravenous Contrast CLINICAL HISTORY: SOB, r/o PE, hx of cath and stents, hwrr276/100ml and 50ml saline, no prior, DLP 1339.50 recent cxr on 03-03-17 reports possible dissection, hx of appy, right nephrectomy and constipation, with sugery 2 days ago on hernia and dialysis catheter placement: dissection TECHNIQUE: Axial computed tomographic angiography images of the abdomen without and with intravenous contrast. CTDI is 11.8 mGy and DLP is 1339.5 mGy-cm. combined with CT chest dose This CT exam was performed using one or more of the following dose reduction techniques: automated exposure control, adjustment of the mA and/or kV according to patient size, and/or use of iterative reconstruction technique. MIP reconstructed images were created and reviewed. Coronal and sagittal reformatted images were created and reviewed. COMPARISON: No relevant prior studies available. FINDINGS: Lower thorax: Aortic aneurysm with the distal thoracic aorta measuring 4.7 cm at the hiatus of the diaphragmatic hiatus. Aorta measures 4.8 cm just above the SMA, 3.8 cm mid abdominal aorta and 3.2 cm above the bifurcation. There is 1.4 cm ectatic left common iliac artery. Aorta: Small pseudoaneurysm off the left posterior lateral wall of the mid abdominal aorta. No evidence of leak or rupture. No dissection. Celiac trunk and mesenteric arteries: No acute findings. No occlusion or significant stenosis. Renal arteries: Proximal left main renal artery stent. No occlusion or significant stenosis. Iliac arteries: There is a right common iliac artery stent. No occlusion. Liver: Unremarkable. No mass. Gallbladder and bile ducts: Unremarkable. No calcified stones. No ductal dilation. Pancreas: Unremarkable. No ductal dilation. No mass. Spleen: Unremarkable. No splenomegaly. Adrenals: Unremarkable. No mass. Kidneys and ureters: Right kidney absent. Small low-density lesions of the left kidney. Small hyperdense left renal cortical lesions, may be solid. No obstructive uropathy. Stomach and bowel: Large amount of stool within the colon measuring up to 7.7 cm is worrisome for constipation, possible obstipation. Suspicious areas of pneumatosis of the cecum. Small bowel is of normal caliber. No mucosal thickening. Intraperitoneal space: Unremarkable. No significant fluid collection. No free air. Bones/joints: No acute fracture. No dislocation. Soft tissues: Left anterior abdominal percutaneous dialysis catheter curled in the mid abdomen. Small fluid collection left anterior abdominal wall subcutaneous soft tissue may be small seromas or hematomas. Right lower anterior abdominal wall subcutaneous air likely due to recent procedure. Lymph nodes: Unremarkable. No enlarged lymph nodes. Other findings: IMPRESSION: 1. Abdominal aortic aneurysm measuring 4.8 cm just at the level of the SMA. Small pseudoaneurysm left posterior lateral wall of the mid abdominal aorta. No evidence of dissection, leak or rupture. 2. Severe atherosclerotic vascular disease with right JESUS and left main renal artery stents. 3. Right kidney absent. 4. Small low-density lesions of the left kidney. Small hyperdense left renal cortical lesions, may be solid. 5. Left anterior abdominal percutaneous dialysis catheter curled in the mid abdomen. Small fluid collections left anterior abdominal wall subcutaneous soft tissue may be small seromas or hematomas. 6. Right lower anterior abdominal wall subcutaneous air likely due to recent procedure. 7. Large amount of stool within the colon measuring up to 7.7 cm is worrisome for constipation, possible obstipation. Suspicious areas of pneumatosis of the cecum is nonspecific.
[2017-03-04] MEDS ORDERED: NITROGLYCERIN-D5W PMX 50 MG in DEXTROSE/WATER 1 250ML.BAG IV ONE (04:47)
[2017-03-04] MEDS ORDERED: hydrALAZINE HCL 50 MG TAB PO STA (04:49)
[2017-03-04] MEDS ORDERED: LABETALOL 100 MG TAB PO STA (04:49)
[2017-03-04] MEDS ORDERED: DILTIAZEM ORAL 60 MG TAB PO STA (04:50)
[2017-03-04] MEDS ORDERED: NITROGLYCERIN SL TABS 0.4 MG TAB SUBLINGUAL PRN (04:50)
[2017-03-04] MEDS ORDERED: diphenhydrAMINE 25 MG CAP PO PRN (04:54)
[2017-03-04] MEDS ORDERED: FAMOTIDINE 20 MG TAB PO PRN (04:54)
[2017-03-04] MEDS ORDERED: DARBEPOETIN ALFA 60 MCG/0.3 ML SYRINGE SQ PRN (04:54)
[2017-03-04] MEDS ORDERED: FUROSEMIDE 20 MG TAB PO PRN (04:54)
[2017-03-04] MEDS: HEPARIN SODIUM,PORCINE/D5W PMX 25,000 UNIT in DEXTROSE/WATER 1 500ML.BAG IV SCH (05:03)
[2017-03-04] MEDS ORDERED: SODIUM CHLORIDE 0.9% 1,000 ML IV STA ×2 (07:09→07:37)
[2017-03-04] MEDS: HYDROcodone/APAP 5-325MG 1 EACH TAB PO PRN ×3 (08:16→20:12)
[2017-03-04 08:30] LABS: Creatine Kinase MB 7.2 ng/mL (0.0-2.4); Troponin I 1.52 ng/mL (0.000-0.034)
--- NOTE | 2017-03-04 08:43 | P.NPCON ---
History of Present Illness - Reason for Consult chronic renal failure - History of Present Illness Reason for consultation: Chronic kidney disease History of present illness: Patient is a 76-year-old male seen in renal consultation for chronic kidney disease. Patient has chronic kidney disease stage V secondary to nephrosclerosis with atheromatous renal vascular disease. Patient underwent a right nephrectomy several years ago after a complication of appendectomy. He is also undergone PTBA of right renal artery for renal artery stenosis. There is also concern for underlying glomerulonephritis nephrotic range proteinuria however no renal biopsy was done due to his renal impairment and solitary kidney. Serologic workup as an outpatient was negative. Patient presented to the hospital with dyspnea and chest pain. Patient states he takes 3 tabs of Nitrol daily but his pain did not resolve this time. He did undergo a CTA and no evidence of aortic dissection was noted. However he does have a 4.8 cm aneurysm. His blood pressure was also elevated in the 170s to 180s on admission which is improving with medications. Most recent reading was 160/75. His pain is improved. However he remains dyspneic. Patient states he makes a good amount of urine. He is being prepared for peritoneal dialysis and had a PD catheter placed on March 02. No vomiting or diarrhea. Vital signs are stable. General: The patient appeared well nourished and normally developed. HEENT: Head exam is unremarkable. Neck is without jugular venous distension. LUNGS: Scattered rhonchi. Breath sounds decreased. HEART: Rate and Rhythm are regular. First and second heart sounds normal. No murmurs, rubs or gallops. ABDOMEN: Abdominal exam reveals normal bowel sounds. Non-tender and non- distended. EXTREMITITES: 1+ edema. Past Medical History Past Medical History: Coronary Artery Disease (CAD), COPD, CVA/TIA, Renal Disease Additional Past Medical History / Comment(s): anemia of unknown source, has had blood transfusions, frequent checks of HGB, inguinal hernia, PAD, has " multiple blockages in [place]. legs" History of Any Multi-Drug Resistant Organisms: None Reported Past Surgical History: Appendectomy, Coronary Bypass/CABG, Heart Catheterization With Stent, Orthopedic Surgery Additional Past Surgical History / Comment(s): right nephrectomy, PTBA of left kidney, arthroscopy of knee, carotid endartectomy, 3 bypass one failed. 6 or 7 stents to heart Past Anesthesia/Blood Transfusion Reactions: No Reported Reaction Additional Past Anesthesia/Blood Transfusion Reaction / Comment(s): has had blood transfusions without issues Date of Last Stent Placement:: 2006? Past Psychological History: Anxiety, Panic Disorder Smoking Status: Former smoker Past Alcohol Use History: None Reported Past Drug Use History: None Reported - Past Family History Son(s) Family Medical History: Cancer Additional Family Medical History / Comment(s): prostate Medications and Allergies Home Medications Medication Instructions Recorded Confirmed Type Aspirin [Adult Low Dose Aspirin EC] 81 mg PO DAILY 02/28/17 03/04/17 History Diltiazem HCl [Cartia Xt] 120 mg PO DAILY 02/28/17 03/04/17 History Epoetin [place] [Procrit] 20,000 unit INJ [id number] PRN 02/28/17 03/04/17 History Furosemide [Lasix] 20 mg PO DAILY PRN 02/28/17 03/04/17 History HYDROcodone/APAP 5-325MG [[place] 1 tab PO DAILY PRN 02/28/17 03/04/17 History 5-325] Labetalol [Trandate] 100 mg PO BID 02/28/17 03/04/17 History Nitroglycerin Sl Tabs [Nitrostat] 0.4 mg SUBLINGUAL Q5M PRN 02/28/17 03/04/17 History Polyethylene Glycol 3350 [Miralax] 17 gm PO DAILY 02/28/17 03/04/17 History Ranitidine HCl 150 mg PO DAILY PRN 02/28/17 03/04/17 History Simvastatin [Zocor] 20 mg PO HS 02/28/17 03/04/17 History hydrALAZINE HCL [Hydralazine HCl] 50 mg PO QAM 02/28/17 03/04/17 History traZODone HCL [TraZODone HCl] 50 mg PO HS 02/28/17 03/04/17 History Cholecalciferol [Vitamin D3] 5,000 unit PO DAILY 03/02/17 03/04/17 History Isosorbide Dinitrate [Isordil] 10 mg PO BID 03/02/17 03/04/17 History diphenhydrAMINE HCL [Benadryl] 25 mg PO QID PRN 03/02/17 03/04/17 History hydrALAZINE HCL [Hydralazine HCl] 25 mg PO BID@1500,2200 03/02/17 03/04/17 History Allergies Allergy/AdvReac Type Severity Reaction Status Date / Time tetanus and diphtheria Allergy Unknown Verified 03/04/17 07:15 toxoids diazepam [From Valium] AdvReac Anxiety Verified 03/04/17 07:15 Physical Exam Vitals: Vital Signs Temp Pulse Resp BP Pulse Ox 03/04/17 07:53 98.8 F 78 20 160/75 96 03/04/17 07:01 78 22 155/70 95 03/04/17 06:32 78 24 161/70 97 03/04/17 06:05 80 22 168/76 95 03/04/17 05:42 78 22 149/69 95 03/04/17 05:00 83 24 166/78 94 L 03/04/17 03:30 98 24 168/74 94 L 03/04/17 02:50 84 22 179/82 94 L 03/04/17 02:02 84 22 168/74 94 L 03/04/17 01:34 86 24 179/85 93 L 03/04/17 00:48 87 22 175/75 98 03/04/17 00:39 22 03/04/17 00:38 89 22 98 03/03/17 23:53 98.3 F 86 20 182/88 93 L Intake and Output 03/03/17 03/04/17 03/04/17 22:59 06:59 14:59 Other: Weight 80.603 kg Results - Lab Results Most recent lab results Calcium 9.4 mg/dL (8.4-10.2) 03/04/17 00:20 03/04/17 00:20 03/04/17 00:20 Assessment and Plan Plan: Assessment: #1. Chronic kidney disease stage IV secondary to nephrosclerosis and atheromatous renovascular disease. Patient also has a solitary left kidney. Also concern for glomerulonephritis due to proteinuria however no biopsy done due to solitary kidney. Patient is being prepared for peritoneal dialysis and had a catheter placed on March 02. #2. Dyspnea. There was concern for aortic dissection however was ruled out by CTA. Some evidence of fluid overload noted as well. Rule out cardiac etiology. #3. Anion gap metabolic acidosis secondary to chronic kidney disease. #4. Anemia of chronic kidney disease. Maintained on Aranesp. #5. Hypertension with chronic kidney disease. Partially volume sensitive. #6. Chronic kidney disease mineral bone disease. Plan: Hep-Lock IV fluids. Add Lasix 80 mg IV twice daily. Start oral sodium bicarbonate 1300 mg 3 times daily. Check phosphorus level. Resume home antihypertensives. I will add hydralazine 10 mg IV every 4 hours if systolic blood pressure greater than 160. No urgent need for renal replacement therapy at this time. Cardiology reccs pending. The patient did receive IV dye today for the CTA. However I will hold off on IV fluids as patient is quite dyspneic with edema. Thank you for the consultation. I will continue to follow the patient with you during his hospital stay.
[2017-03-04 08:51] LABS: Glucose,Whole Blood 116 mg/dL (75-99)
[2017-03-04] MEDS ORDERED: SODIUM POLYSTYRENE SULFONATE 15 GM/60 ML BOTTLE PO SCH (09:00)
[2017-03-04] MEDS: ACETAMINOPHEN TAB 500 MG TAB PO SCH ×3 (10:18→21:52)
[2017-03-04] MEDS: CHOLECALCIFEROL 1,000 UNIT TAB PO SCH (10:19)
[2017-03-04] MEDS: POLYETHYLENE GLYCOL 3350 17 GM POWD.PACK PO SCH (10:20)
[2017-03-04] MEDS: FUROSEMIDE 10 MG/ML 10 ML VIAL IV SCH ×2 (10:20→20:08)
[2017-03-04] MEDS: SODIUM BICARBONATE TAB 650 MG TAB PO SCH ×3 (10:21→21:52)
--- NOTE | 2017-03-04 11:15 | P.HPIM ---
History of Present Illness 77-year-old male came in with complains of chest pressure like sensation along which are as of breath and the patient has significant cardiac history. Patient chest pain was 8 x 10 in severity now around 6 x 10 in severity patient is on IV nitro drip and IV heparin. Patient has extensive complex history and patient had a history of coronary artery bypass grafting or locking with multiple stents in in the past. Patient had constant chest pain radiating down to the belly. Patient also had history of CK stage II 5 had episode peritoneal dialysis catheter that was placed recently patient also had a recent inguinal hernia repair on the right side with a possible hematoma in that area patient is presently on IV heparin drip on IV nitroglycerin drip. Patient's creatinine is around 4.5 and the patient had elevated troponin of around 1.5. Patient is admitted for non-ST elevation microinfarction patient does have pulmonary edema on the chest x-ray for which patient is an 80 IV twice a day of Lasix. Review of Systems REVIEW OF SYSTEMS: CONSTITUTIONAL: No fever, no malaise, no fatigue. HEENT: No recent visual problems or hearing problems. Denied any sore throat. CARDIOVASCULAR: no palpitations, no syncope. PULMONARY: No shortness of breath, no cough, no hemoptysis. GASTROINTESTINAL: No diarrhea, no nausea, no vomiting, no abdominal pain. Normoactive bowel sounds. NEUROLOGICAL: No headaches, no weakness, no numbness. HEMATOLOGICAL: Denies any bleeding or petechiae. GENITOURINARY: Denies any burning micturition, frequency, or urgency. MUSCULOSKELETAL/RHEUMATOLOGICAL: Denies any joint pain, swelling, or any muscle pain. ENDOCRINE: Denies any polyuria or polydipsia. The rest of the 14-point review of systems is negative. Past Medical History Past Medical History: Coronary Artery Disease (CAD), COPD, CVA/TIA, Renal Disease Additional Past Medical History / Comment(s): anemia of unknown source, has had blood transfusions, frequent checks of HGB, inguinal hernia, PAD, has " multiple blockages in ned[place]. legs" History of Any Multi-Drug Resistant Organisms: None Reported Past Surgical History: Appendectomy, Coronary Bypass/CABG, Heart Catheterization With Stent, Orthopedic Surgery Additional Past Surgical History / Comment(s): right nephrectomy, PTBA of left kidney, arthroscopy of knee, carotid endartectomy, 3 bypass one failed. 6 or 7 stents to heart Past Anesthesia/Blood Transfusion Reactions: No Reported Reaction Additional Past Anesthesia/Blood Transfusion Reaction / Comment(s): has had blood transfusions without issues Date of Last Stent Placement:: 2006? Smoking Status: Former smoker - Past Family History Son(s) Family Medical History: Cancer Additional Family Medical History / Comment(s): prostate Father Family Medical History: Coronary Artery Disease (CAD) Additional Family Medical History / Comment(s): Father in his late 60's during a cardiac cath when an artery was punctured. Mother Family Medical History: Coronary Artery Disease (CAD) Additional Family Medical History / Comment(s): Mother of an aneurysm "in her heart" in her late 60's. Brother(s) Additional Family Medical History / Comment(s): One brother at 52 yrs with CHF, another brother at 32 yrs from a ND. Medications and Allergies Home Medications Medication Instructions Recorded Confirmed Type Aspirin [Adult Low Dose Aspirin EC] 81 mg PO DAILY 02/28/17 03/04/17 History Diltiazem HCl [Cartia Xt] 120 mg PO DAILY 02/28/17 03/04/17 History Epoetin Brandon [Procrit] 20,000 unit INJ [id number] PRN 02/28/17 03/04/17 History Furosemide [Lasix] 20 mg PO DAILY PRN 02/28/17 03/04/17 History HYDROcodone/APAP 5-325MG [[place] 1 tab PO DAILY PRN 02/28/17 03/04/17 History 5-325] Labetalol [Trandate] 100 mg PO BID 02/28/17 03/04/17 History Nitroglycerin Sl Tabs [Nitrostat] 0.4 mg SUBLINGUAL Q5M PRN 02/28/17 03/04/17 History Polyethylene Glycol 3350 [Miralax] 17 gm PO DAILY 02/28/17 03/04/17 History Ranitidine HCl 150 mg PO DAILY PRN 02/28/17 03/04/17 History Simvastatin [Zocor] 20 mg PO HS 02/28/17 03/04/17 History hydrALAZINE HCL [Hydralazine HCl] 50 mg PO QAM 02/28/17 03/04/17 History traZODone HCL [TraZODone HCl] 50 mg PO HS 02/28/17 03/04/17 History Cholecalciferol [Vitamin D3] 5,000 unit PO DAILY 03/02/17 03/04/17 History Isosorbide Dinitrate [Isordil] 10 mg PO BID 03/02/17 03/04/17 History diphenhydrAMINE HCL [Benadryl] 25 mg PO QID PRN 03/02/17 03/04/17 History hydrALAZINE HCL [Hydralazine HCl] 25 mg PO BID@1500,2200 03/02/17 03/04/17 History Allergies Allergy/AdvReac Type Severity Reaction Status Date / Time tetanus and diphtheria Allergy Unknown Verified 03/04/17 07:15 toxoids diazepam [From Valium] AdvReac Anxiety Verified 03/04/17 07:15 Physical Exam Vitals: Vital Signs Temp Pulse Resp BP Pulse Ox 03/04/17 10:30 77 16 151/75 96 03/04/17 10:15 71 16 150/79 96 03/04/17 10:00 75 16 156/78 95 03/04/17 09:45 78 14 157/73 96 03/04/17 09:30 74 15 136/67 95 03/04/17 09:15 82 14 153/78 97 03/04/17 09:00 98.5 F 84 14 157/73 97 03/04/17 07:53 98.8 F 78 20 160/75 96 03/04/17 07:01 78 22 155/70 95 03/04/17 06:32 78 24 161/70 97 03/04/17 06:05 80 22 168/76 95 03/04/17 05:42 78 22 149/69 95 03/04/17 05:00 83 24 166/78 94 L 03/04/17 03:30 98 24 168/74 94 L 03/04/17 02:50 84 22 179/82 94 L 03/04/17 02:02 84 22 168/74 94 L 03/04/17 01:34 86 24 179/85 93 L 03/04/17 00:48 87 22 175/75 98 03/04/17 00:39 22 03/04/17 00:38 89 22 98 03/03/17 23:53 98.3 F 86 20 182/88 93 L Intake and Output 03/03/17 03/04/17 03/04/17 22:59 06:59 14:59 Intake Total 20 Output Total 250 Balance -230 Intake: IV 20 0.9 at KVO 20 Output: Urine 250 Other: Voiding Method Urinal Weight 80.603 kg 85.5 kg Patient Weight 03/05/17 06:59 Weight 85.5 kg PHYSICAL EXAMINATION: GENERAL: The patient is alert and oriented x3, not in any acute distress. Well developed, well nourished. HEENT: Pupils are round and equally reacting to light. EOMI. No scleral icterus. No conjunctival pallor. Normocephalic, atraumatic. No pharyngeal erythema. No thyromegaly. CARDIOVASCULAR: S1 and S2 present. No murmurs, rubs, or gallops. JVD is probably elevated. PULMONARY: Chest is clear to auscultation, no wheezing or crackles. ABDOMEN: Soft, nontender, nondistended, normoactive bowel sounds. No palpable organomegaly. MUSCULOSKELETAL: No joint swelling or deformity. EXTREMITIES: No cyanosis, clubbing, or pedal edema. NEUROLOGICAL: Gross neurological examination did not reveal any focal deficits. SKIN: No rashes. Results CBC & Chem 7: 03/04/17 00:20 03/04/17 00:20 Labs: Abnormal Lab Results - Last 24 Hours (Table) 03/04/17 03/04/17 03/04/17 Range/Units 00:20 00:20 00:20 WBC 11.3 H (3.8-10.6) k/uL RBC 3.30 L (4.30-5.90) m/uL Hgb 9.5 L (13.0-17.5) gm/dL Hct 31.7 L (39.0-53.0) % MCHC 29.9 L (31.0-37.0) g/dL RDW 19.5 H (11.5-15.5) % Neutrophils # 9.9 H (1.3-7.7) k/uL Lymphocytes # 0.6 L (1.0-4.8) k/uL D-Dimer (<0.60) mg/L FEU Sodium 133 L (137-145) mmol/L Carbon Dioxide 14 L (22-30) mmol/L BUN 53 H (9-20) mg/dL Creatinine 4.50 H (0.66-1.25) mg/dL Glucose 120 H (74-99) mg/dL POC Glucose (mg/dL) (75-99) mg/dL Phosphorus (2.5-4.5) mg/dL CK-MB (CK-2) 6.4 H* (0.0-2.4) ng/mL Troponin I 1.000 H* (0.000-0.034) ng/mL 03/04/17 03/04/17 03/04/17 Range/Units 00:20 07:10 07:10 WBC (3.8-10.6) k/uL RBC (4.30-5.90) m/uL Hgb (13.0-17.5) gm/dL Hct (39.0-53.0) % MCHC (31.0-37.0) g/dL RDW (11.5-15.5) % Neutrophils # (1.3-7.7) k/uL Lymphocytes # (1.0-4.8) k/uL D-Dimer 4.63 H (<0.60) mg/L FEU Sodium (137-145) mmol/L Carbon Dioxide (22-30) mmol/L BUN (9-20) mg/dL Creatinine (0.66-1.25) mg/dL Glucose (74-99) mg/dL POC Glucose (mg/dL) (75-99) mg/dL Phosphorus 5.6 H (2.5-4.5) mg/dL CK-MB (CK-2) 7.2 H* (0.0-2.4) ng/mL Troponin I 1.520 H* (0.000-0.034) ng/mL 03/04/17 Range/Units 08:49 WBC (3.8-10.6) k/uL RBC (4.30-5.90) m/uL Hgb (13.0-17.5) gm/dL Hct (39.0-53.0) % MCHC (31.0-37.0) g/dL RDW (11.5-15.5) % Neutrophils # (1.3-7.7) k/uL Lymphocytes # (1.0-4.8) k/uL D-Dimer (<0.60) mg/L FEU Sodium (137-145) mmol/L Carbon Dioxide (22-30) mmol/L BUN (9-20) mg/dL Creatinine (0.66-1.25) mg/dL Glucose (74-99) mg/dL POC Glucose (mg/dL) 116 H (75-99) mg/dL Phosphorus (2.5-4.5) mg/dL CK-MB (CK-2) (0.0-2.4) ng/mL Troponin I (0.000-0.034) ng/mL Thrombosis Risk Factor Assmnt - Choose All That Apply Any of the Below Risk Factors Present?: Yes Each Factor Represents 1 point: Abnormal pulmonary function (COPD), Acute ND, Medical pt on bed rest, Obesity (BMI >25) Other Risk Factors: Yes Each Risk Factor Represents 2 Points: Age 61-74 years Other congenital or acquired thrombophilia - If yes, enter type in comment: No Thrombosis Risk Factor Assessment Total Risk Factor Score: 6 Thrombosis Risk Factor Assessment Level: High Risk Assessment and Plan Plan: #1 non-ST elevation myocardial infarction: Patient on IV heparin drip patient does have a hematoma close clinical monitoring is needed and patient is on IV nitroglycerin drip. #2 congestive heart failure unsure whether patient has chronic systolic dysfunction at although patient does have acute exacerbation of COPD. Systolic function is not known at this time. #3 chronic kidney disease stage V: Patient may have acute kidney injury as well patient has a peroneal dialysis catheter in place and nephrology is following the patient. #4 possible right inguinal hematoma: Close clinical monitoring with repeat hemoglobin later in the day and the patient is on IV heparin at this time for non-ST elevation myocardial infarction. #5 hyponatremia: Hypervolemic hyponatremia which is expected to improve with IV Lasix. #6 hyperphosphatasemia: Secondary to metabolic bone disease from chronic kidney disease. #7 leukocytosis: Reactive in nature without any signs or symptoms of infection at this time. #8 history of severe coronary artery disease. #9 atherosclerotic renovascular and peripheral vascular disease. #10 hypertension #11 hyperlipidemia #12 recent right inguinal hernia repair. #13 COPD without any acute exacerbation
--- NOTE | 2017-03-04 11:49 | P.CNPUL ---
History of Present Illness Consult date: 03/04/17 Reason for consult: chest pain History of present illness: 77-year-old male patient who underwent a repair of a inguinal hernia and insertion of a peritoneal catheter for hemodialysis by general surgery on 2016. Since then the patient is been having episodes it chest pain. He had been in the emergency department for the same. He was noted to have elevated troponins however he decided to be released and go home. Yesterday the patient started having chest pain along with shortness of breath and based on his extensive cardiac history the patient came back to the burst department and the patient was found to have post his troponins which peaked at 1.5 and abnormal EKG that showed ST segment depressions involving the anterolateral leads in addition to sinus rhythm with LVH and widening of QRS with repolarization abnormality. An underlying SEPTAL infarct cannot be completely excluded. D- dimer was elevated at 4.6. The proBNP elevated was 33,000. Creatinine was abnormal due to his chronic renal failure with a creatinine of 4.5. A CT aorta the chest was done and it showed aortic aneurysm in the distal thoracic aorta measuring 4.7 cm in size at the level of the hiatus of the diaphragm. Aorta measures 4.8 cm size just above the SMA. 3.8 cm in the mid abdomen at 3.2 cm just above the bifurcation. There is also evidence of evidence of subcutaneous air likely related to the recent dialysis catheter insertion and the peritoneal cavity. There is also evidence of fecal impaction. CT of the chest was also done and it showed no evidence of any pulmonary embolism. The aortic aneurysm was noted without any dissection. There is also evidence of pulmonary edema with small bilateral pleural effusion right more than left. This is consistent with CHF. The patient also has been producing urine and he was in the process of being prepared for dialysis. Nephrology saw the patient special that his current contrast intake and to give the patient Lasix 80 mg IV every 12 hours. At this point that the patient is resting comfortably in the intensive care unit. He is minimal diffuse chest pain, on and off of varying severity. The patient has undergone coronary artery bypass surgery for diffuse CAD back in 1986. Since then he has had multiple myocardial infarctions for which she has required cardiac catheterization a total of 6 or 7 stents have been inserted over the years. 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 He has also known to have carotid artery disease and undergone right carotid endarterectomy. Review of Systems Constitutional: Reports fatigue, Reports poor appetite, Reports weakness Eyes: denies blurred vision, denies bulging eye, denies decreased vision Ears: deny: decreased hearing, ear discharge, earache Ears, nose, mouth and throat: Denies headache, Denies sore throat Cardiovascular: Reports chest pain, Reports decreased exercise tolerance, Reports dyspnea on exertion, Reports palpitations, Reports shortness of breath Respiratory: Reports dyspnea Gastrointestinal: Reports constipation Genitourinary: Reports as per HPI Musculoskeletal: Denies myalgias Musculoskeletal: bilateral: ankle swelling, absent: ankle pain, ankle stiffness Integumentary: Denies pruritus, Denies rash Neurological: Reports weakness (Right lower extremity and right upper extremity related to a CVA in the past), Denies numbness Psychiatric: Reports depression Endocrine: Denies fatigue, Denies weight change Past Medical History Past Medical History: Coronary Artery Disease (CAD), COPD, CVA/TIA, Renal Disease Additional Past Medical History / Comment(s): Coronary artery disease with a previous bypass surgery 1986, multiple previous myocardial infarctions with insertion of coronary stents at least 6 or 7 of them over the years, severe peripheral vascular disease with previous vascular intervention and stenting, carotid artery disease with a previous endarterectomy on the right, congestion heart failure, descending thoracic and abdominal aortic aneurysm please refer to the CTA report, hyperlipidemia, hypertension, stage 4-5 chronic renal failure awaiting peritoneal dialysis, right nephrectomy, left kidney vascular stent insertion, chronic anemia, recent right inguinal hernia repair on 2016 with insertion of a mesh, chronic lower oximetry edema, remote history of alcoholism, osteoarthritis, 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 History of Any Multi-Drug Resistant Organisms: None Reported Past Surgical History: Appendectomy, Coronary Bypass/CABG, Heart Catheterization With Stent, Orthopedic Surgery Additional Past Surgical History / Comment(s): right nephrectomy, PTBA of left kidney, arthroscopy of knee, carotid endartectomy, 3 bypass one failed. 6 or 7 stents to heart Past Anesthesia/Blood Transfusion Reactions: No Reported Reaction Additional Past Anesthesia/Blood Transfusion Reaction / Comment(s): has had blood transfusions without issues Date of Last Stent Placement:: 2006? Smoking Status: Former smoker - Past Family History Son(s) Family Medical History: Cancer Additional Family Medical History / Comment(s): prostate Father Family Medical History: Coronary Artery Disease (CAD) Additional Family Medical History / Comment(s): Father in his late 60's during a cardiac cath when an artery was punctured. Mother Family Medical History: Coronary Artery Disease (CAD) Additional Family Medical History / Comment(s): Mother of an aneurysm "in her heart" in her late 60's. Brother(s) Additional Family Medical History / Comment(s): One brother at 52 yrs with CHF, another brother at 32 yrs from a OR. Medications and Allergies Home Medications Medication Instructions Recorded Confirmed Type Aspirin [Adult Low Dose Aspirin EC] 81 mg PO DAILY 02/28/17 03/04/17 History Diltiazem HCl [Cartia Xt] 120 mg PO DAILY 02/28/17 03/04/17 History Epoetin Brandon [Procrit] 20,000 unit INJ [id number] PRN 02/28/17 03/04/17 History Furosemide [Lasix] 20 mg PO DAILY PRN 02/28/17 03/04/17 History HYDROcodone/APAP 5-325MG [[place] 1 tab PO DAILY PRN 02/28/17 03/04/17 History 5-325] Labetalol [Trandate] 100 mg PO BID 02/28/17 03/04/17 History Nitroglycerin Sl Tabs [Nitrostat] 0.4 mg SUBLINGUAL Q5M PRN 02/28/17 03/04/17 History Polyethylene Glycol 3350 [Miralax] 17 gm PO DAILY 02/28/17 03/04/17 History Ranitidine HCl 150 mg PO DAILY PRN 02/28/17 03/04/17 History Simvastatin [Zocor] 20 mg PO HS 02/28/17 03/04/17 History hydrALAZINE HCL [Hydralazine HCl] 50 mg PO QAM 02/28/17 03/04/17 History traZODone HCL [TraZODone HCl] 50 mg PO HS 02/28/17 03/04/17 History Cholecalciferol [Vitamin D3] 5,000 unit PO DAILY 03/02/17 03/04/17 History Isosorbide Dinitrate [Isordil] 10 mg PO BID 03/02/17 03/04/17 History diphenhydrAMINE HCL [Benadryl] 25 mg PO QID PRN 03/02/17 03/04/17 History hydrALAZINE HCL [Hydralazine HCl] 25 mg PO BID@1500,2200 03/02/17 03/04/17 History Allergies Allergy/AdvReac Type Severity Reaction Status Date / Time tetanus and diphtheria Allergy Unknown Verified 03/04/17 07:15 toxoids diazepam [From Valium] AdvReac Anxiety Verified 03/04/17 07:15 Physical Exam Vitals: Vital Signs Temp Pulse Resp BP Pulse Ox 03/04/17 10:30 77 16 151/75 96 03/04/17 10:15 71 16 150/79 96 03/04/17 10:00 75 16 156/78 95 03/04/17 09:45 78 14 157/73 96 03/04/17 09:30 74 15 136/67 95 03/04/17 09:15 82 14 153/78 97 03/04/17 09:00 98.5 F 84 14 157/73 97 03/04/17 07:53 98.8 F 78 20 160/75 96 03/04/17 07:01 78 22 155/70 95 03/04/17 06:32 78 24 161/70 97 03/04/17 06:05 80 22 168/76 95 03/04/17 05:42 78 22 149/69 95 03/04/17 05:00 83 24 166/78 94 L 03/04/17 03:30 98 24 168/74 94 L 03/04/17 02:50 84 22 179/82 94 L 03/04/17 02:02 84 22 168/74 94 L 03/04/17 01:34 86 24 179/85 93 L 03/04/17 00:48 87 22 175/75 98 03/04/17 00:39 22 03/04/17 00:38 89 22 98 03/03/17 23:53 98.3 F 86 20 182/88 93 L Intake and Output 03/03/17 03/04/17 03/04/17 22:59 06:59 14:59 Intake Total 20 Output Total 250 Balance -230 Intake: IV 20 0.9 at KVO 20 Output: Urine 250 Other: Voiding Method Urinal Weight 80.603 kg 85.5 kg Patient Weight 03/05/17 06:59 Weight 85.5 kg Gen. appearance is a mild degree of respiratory distress and episodic chest pains also being reported. Head is atraumatic normocephalic. Neck is positive for JVDs no goiter or neck masses point. There is a scar of a previous carotid endarterectomy on the right. Lung sounds are diminished bilaterally in the lung bases. Crackles are also appreciated lung bases. No wheezes or rhonchi. Heart sounds are regular, positive S1 and S2 without any significant murmurs.Abdominal exam revealed normal bowel sounds. The abdomen was soft, non- tender, and without masses, organomegaly, or appreciable enlargement of the abdominal aorta. The right inguinal surgical site is bruised and there is a potential he an underlying hematoma. No direct tenderness. No rebound tenderness. No guarding. The femoral pulses are obtainable . Extremities are showing + edema there is no cyanosis or clubbing. Pulses are quite diminished and there obtainable by Doppler signals. Skin is negative for any open wounds or sores or any ulceration. Neuro is or 83 and the neurologic exam is nonfocal at this point. Psych is negative for any mood or change in affect. Vascular the patient has Doppler signals in lower extremities bilaterally. The feet are cold. Pulses are present in the upper extremities bilaterally. Results - Laboratory Findings CBC and BMP: 03/04/17 00:20 03/04/17 00:20 PT/INR, D-dimer PT 10.7 sec (9.0-12.0) 03/04/17 00:20 INR 1.1 (<1.2) 03/04/17 00:20 D-Dimer 4.63 mg/L FEU (<0.60) H 03/04/17 00:20 Abnormal lab findings: Abnormal Labs 03/04/17 03/04/17 03/04/17 00:20 00:20 00:20 WBC 11.3 H RBC 3.30 L Hgb 9.5 L Hct 31.7 L MCHC 29.9 L RDW 19.5 H Neutrophils # 9.9 H Lymphocytes # 0.6 L D-Dimer Sodium 133 L Carbon Dioxide 14 L BUN 53 H Creatinine 4.50 H Glucose 120 H POC Glucose (mg/dL) Phosphorus CK-MB (CK-2) 6.4 H* Troponin I 1.000 H* 03/04/17 03/04/17 03/04/17 00:20 07:10 07:10 WBC RBC Hgb Hct MCHC RDW Neutrophils # Lymphocytes # D-Dimer 4.63 H Sodium Carbon Dioxide BUN Creatinine Glucose POC Glucose (mg/dL) Phosphorus 5.6 H CK-MB (CK-2) 7.2 H* Troponin I 1.520 H* 03/04/17 08:49 WBC RBC Hgb Hct MCHC RDW Neutrophils # Lymphocytes # D-Dimer Sodium Carbon Dioxide BUN Creatinine Glucose POC Glucose (mg/dL) 116 H Phosphorus CK-MB (CK-2) Troponin I - Diagnostic Findings Chest x-ray: image reviewed Assessment and Plan Plan: Assessment 1 acute non-ST segment elevation myocardial infarction with secondary chest pain shortness of breath 2 acute CHF exacerbation secondary to above. ProBNP is elevated and the CAT scan of the chest showing CHF/edema with small better pleural effusion. ProBNP level is quite elevated 3 chronic renal failure with stage 4-5 chronic kidney disease, awaiting hemodialysis. Is very much like to the patient will require dialysis soon as possible knowing that he has received conscious during this current hospitalization which probably is going to contribute to his renal failure progression 4 right inguinal hernia repair in 03/02/2017 along with placement of a mesh and insertion of a peritoneal dialysis catheter 5 right inguinal hematoma at the site of the surgical wound, note that the patient on IV heparin at this time 6 multivessel coronary disease with previous bypass surgery in 1986 7 multiple myocardial infarctions insertion of coronary stents at least 7 over the years and his 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 Peripheral vascular disease severe with previous vascular intervention and stenting 14 abdominal and descending thoracic aortic aneurysm, without evidence of any dissection 15 osteoarthritis 16 remote history of alcoholism 17 history of smoking 18 history of anxiety/panic. 19 hyponatremia probably a sedation was renal failure and Plan Titrate the nitroglycerin drip for blood pressure and chest pain. Continue aspirin. IV heparin and I'm going to ask the surgeon to immediately evaluated the right groin and was stopped IV heparin if there is resolution of any hematoma. Resume outpatient labetalol and Cardizem for now. Echocardiogram to assess his LV function. IV Lasix. Monitor renal function. We will discuss the possibility of initiating peritoneal dialysis with nephrology specially the patient is unable to produce adequate amount of urine output. He has some degree of fluid overload at this point currently 2 shortness of breath. Unsure if the cardiac catheter she is being planned however this may be a possibility. We will try to obtain records from his museum curator of his regarding his previous cardiac evaluations. Continue hydralazine for blood pressure control. Continue Zocor. Continue Procrit for chronic anemia. Her gross his poor baseline above-mentioned comorbidities. Awaiting cardiology evaluation. Keep in ICU for now.
[2017-03-04 12:58] LABS: Creatine Kinase MB 7.9 ng/mL (0.0-2.4)
[2017-03-04 13:11] LABS: Anisocytosis Slight; Basophils % (A) 0 %; CH 27.8; CHCM 28.4; Eosinophils # (A) 0.2 k/uL (0-0.7); Eosinophils % (A) 2 %; HCT 30.3 % (39.0-53.0); HDW 2.73; HGB 8.9 gm/dL (13.0-17.5); Hypochromasia Marked; Immature Gran Flag Marked; Luc # (Auto) 0.15; Luc % (Auto) 1; Lymphocytes # (A) 0.7 k/uL (1.0-4.8); Lymphocytes % (A) 7 %; MCH 28.8 pg (25.0-35.0); MCHC 29.2 g/dL (31.0-37.0); MCV 98.6 fL (80.0-100.0); Macrocytosis Slight; Mean Platelet Volume 8.2; Monocytes # (A) 0.7 k/uL (0-1.0); Monocytes % (A) 6 %; Neutrophils # (A) 9.2 k/uL (1.3-7.7); Neutrophils % (A) 84 %; RBC 3.07 m/uL (4.30-5.90); RDW 18.4 % (11.5-15.5); WBC (Perox) 11.11
--- NOTE | 2017-03-04 13:31 | P.CRDCN ---
History of Present Illness Consult date: 03/04/17 Chief complaint: Chest discomfort History of present illness: This is a pleasant 76-year-old gentleman who sees a health associate out of the town with an extensive cardiac and vascular surgery consistent of coronary artery disease and prior coronary artery bypass grafting was performed in 1986 with unknown details about the bypasses, severe underlying peripheral arterial disease with prior angioplasty of bilateral femoral arteries, hypertension, and dyslipidemia, presented to the emergency room complaining of chest discomfort. The patient initially presented early yesterday and he refused to be admitted to the hospital. His chest discomfort get worse and it was associated with shortness of breath and he decided to come to the hospital. He was ruled in for acute coronary syndrome. The cardiac enzymes came in to be severe lead elevated. The patient continues to have ongoing chest discomfort at this point of time. Beside that he is stage V chronic kidney disease and he has paratonia dialysis in place but he did not start dialysis yet. Past Medical History Past Medical History: Coronary Artery Disease (CAD), COPD, CVA/TIA, Renal Disease Additional Past Medical History / Comment(s): Coronary artery disease with a previous bypass surgery 1986, multiple previous myocardial infarctions with insertion of coronary stents at least 6 or 7 of them over the years, severe peripheral vascular disease with previous vascular intervention and stenting, carotid artery disease with a previous endarterectomy on the right, congestion heart failure, descending thoracic and abdominal aortic aneurysm please refer to the CTA report, hyperlipidemia, hypertension, stage 4-5 chronic renal failure awaiting peritoneal dialysis, right nephrectomy, left kidney vascular stent insertion, chronic anemia, recent right inguinal hernia repair on 2016 with insertion of a mesh, chronic lower oximetry edema, remote history of alcoholism, osteoarthritis, 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 History of Any Multi-Drug Resistant Organisms: None Reported Past Surgical History: Appendectomy, Coronary Bypass/CABG, Heart Catheterization With Stent, Orthopedic Surgery Additional Past Surgical History / Comment(s): right nephrectomy, PTBA of left kidney, arthroscopy of knee, carotid endartectomy, 3 bypass one failed. 6 or 7 stents to heart Past Anesthesia/Blood Transfusion Reactions: No Reported Reaction Additional Past Anesthesia/Blood Transfusion Reaction / Comment(s): has had blood transfusions without issues Date of Last Stent Placement:: 2006? Smoking Status: Former smoker - Past Family History Son(s) Family Medical History: Cancer Additional Family Medical History / Comment(s): prostate Father Family Medical History: Coronary Artery Disease (CAD) Additional Family Medical History / Comment(s): Father in his late 60's during a cardiac cath when an artery was punctured. Mother Family Medical History: Coronary Artery Disease (CAD) Additional Family Medical History / Comment(s): Mother of an aneurysm "in her heart" in her late 60's. Brother(s) Additional Family Medical History / Comment(s): One brother at 52 yrs with CHF, another brother at 32 [address] from a CT. Medications and Allergies Home Medications Medication Instructions Recorded Confirmed Type Aspirin [Adult Low Dose Aspirin EC] 81 mg PO DAILY 02/28/17 03/04/17 History Diltiazem HCl [Cartia Xt] 120 mg PO DAILY 02/28/17 03/04/17 History Epoetin Brandon [Procrit] 20,000 unit INJ [id number] PRN 02/28/17 03/04/17 History Furosemide [Lasix] 20 mg PO DAILY PRN 02/28/17 03/04/17 History HYDROcodone/APAP 5-325MG [[place] 1 tab PO DAILY PRN 02/28/17 03/04/17 History 5-325] Labetalol [Trandate] 100 mg PO BID 02/28/17 03/04/17 History Nitroglycerin Sl Tabs [Nitrostat] 0.4 mg SUBLINGUAL Q5M PRN 02/28/17 03/04/17 History Polyethylene Glycol 3350 [Miralax] 17 gm PO DAILY 02/28/17 03/04/17 History Ranitidine HCl 150 mg PO DAILY PRN 02/28/17 03/04/17 History Simvastatin [Zocor] 20 mg PO HS 02/28/17 03/04/17 History hydrALAZINE HCL [Hydralazine HCl] 50 mg PO QAM 02/28/17 03/04/17 History traZODone HCL [TraZODone HCl] 50 mg PO HS 02/28/17 03/04/17 History Cholecalciferol [Vitamin D3] 5,000 unit PO DAILY 03/02/17 03/04/17 History Isosorbide Dinitrate [Isordil] 10 mg PO BID 03/02/17 03/04/17 History diphenhydrAMINE HCL [Benadryl] 25 mg PO QID PRN 03/02/17 03/04/17 History hydrALAZINE HCL [Hydralazine HCl] 25 mg PO BID@1500,2200 03/02/17 03/04/17 History Allergies Allergy/AdvReac Type Severity Reaction Status Date / Time tetanus and diphtheria Allergy Unknown Verified 03/04/17 07:15 toxoids diazepam [From Valium] AdvReac Anxiety Verified 03/04/17 07:15 Physical Exam Vitals: Vital Signs Temp Pulse Resp BP Pulse Ox 03/04/17 12:00 98.3 F 60 12 130/58 94 L 03/04/17 11:30 64 14 135/63 95 03/04/17 11:00 68 15 146/73 94 L 03/04/17 10:30 77 16 151/75 96 03/04/17 10:15 71 16 150/79 96 03/04/17 10:00 75 16 156/78 95 03/04/17 09:45 78 14 157/73 96 03/04/17 09:30 74 15 136/67 95 03/04/17 09:15 82 14 153/78 97 03/04/17 09:00 98.5 F 84 14 157/73 97 03/04/17 07:53 98.8 F 78 20 160/75 96 03/04/17 07:01 78 22 155/70 95 03/04/17 06:32 78 24 161/70 97 03/04/17 06:05 80 22 168/76 95 03/04/17 05:42 78 22 149/69 95 03/04/17 05:00 83 24 166/78 94 L 03/04/17 03:30 98 24 168/74 94 L 03/04/17 02:50 84 22 179/82 94 L 03/04/17 02:02 84 22 168/74 94 L 03/04/17 01:34 86 24 179/85 93 L 03/04/17 00:48 87 22 175/75 98 03/04/17 00:39 22 03/04/17 00:38 89 22 98 03/03/17 23:53 98.3 F 86 20 182/88 93 L Intake and Output 09/03/04/17 03/04/17 22:59 06:59 14:59 Intake Total 208.288 Output Total 475 Balance -266.712 Intake: IV 60 0.9 at KVO 60 Intake, IV Titration 148.288 Amount Heparin Sodium,Porcine/ 148.288 D5w Pmx 25,000 unit In Dextrose/Water 1 500ml. bag @ 12 UNITS/KG/HR 19. 34 mls/hr IV .Q24H [facility] Rx #:[id number] Output: Urine 475 Other: Voiding Method Urinal Weight 80.603 kg 85.5 kg Patient Weight 03/05/17 06:59 Weight 85.5 kg - Constitutional General appearance: no acute distress Results 03/04/17 07:10 03/04/17 00:20 Cardiac Enzymes 03/04/17 03/04/17 03/04/17 Range/Units 00:20 00:20 07:10 AST 25 (17-59) U/L CK-MB (CK-2) 6.4 H* 7.2 H* (0.0-2.4) ng/mL Troponin I 1.000 H* 1.520 H* (0.000-0.034) ng/mL 03/04/17 Range/Units 11:48 AST (17-59) U/L CK-MB (CK-2) 7.9 H* (0.0-2.4) ng/mL Troponin I 2.000 H* (0.000-0.034) ng/mL Coagulation 03/04/17 03/04/17 03/04/17 Range/Units 00:20 07:10 11:48 PT 10.7 (9.0-12.0) sec APTT 25.9 29.4 31.4 H (22.0-30.0) sec CBC 03/04/17 03/04/17 Range/Units 00:20 07:10 WBC 11.3 H 11.0 H (3.8-10.6) k/uL RBC 3.30 L 3.07 L (4.30-5.90) m/uL Hgb 9.5 L 8.9 L (13.0-17.5) gm/dL Hct 31.7 L 30.3 L (39.0-53.0) % Plt Count 190 215 (150-450) k/uL Comprehensive Metabolic Panel 03/04/17 Range/Units 00:20 Sodium 133 L (137-145) mmol/L Potassium 5.0 (3.5-5.1) mmol/L Chloride 103 (98-107) mmol/L Carbon Dioxide 14 L (22-30) mmol/L BUN 53 H (9-20) mg/dL Creatinine 4.50 H (0.66-1.25) mg/dL Glucose 120 H (74-99) mg/dL Calcium 9.4 (8.4-10.2) mg/dL AST 25 (17-59) U/L ALT 21 (21-72) U/L Alkaline Phosphatase 68 (38-126) U/L Total Protein 6.6 (6.3-8.2) g/dL Albumin 3.9 (3.5-5.0) g/dL Current Medications Generic Name Dose Route Start Last Admin Trade Name Freq PRN Reason Stop Dose Admin Acetaminophen 1,000 mg 03/04/17 09:00 03/04/17 10:18 Tylenol Tab PO 1,000 mg TID [facility]ASS Administration Hydrocodone Bitart/Acetaminophen 1 each 03/04/17 04:54 03/04/17 08:16 [place] 5-325 PO 1 each Q6H PRN Administration Pain Aspirin 81 mg 03/05/17 09:00 Aspirin PO DAILY [facility] Atorvastatin Calcium 10 mg 03/04/17 21:00 Lipitor PO HS [facility] Cholecalciferol 5,000 unit 03/04/17 09:00 03/04/17 10:19 Vitamin D3 PO 5,000 unit DAILY CASS Administration Darbepoetin Brandon 60 mcg 03/04/17 04:54 Aranesp SQ [id number] PRN If HBG is below 10 Diltiazem HCl 120 mg 03/04/17 21:00 Cardizem Cd PO BID [facility] Diphenhydramine HCl 25 mg 03/04/17 04:54 Benadryl PO QID PRN Allergy Symptoms Famotidine 20 mg 03/04/17 13:00 Pepcid IV Q12HR [facility] Furosemide 20 mg 03/04/17 04:54 Lasix PO DAILY PRN Edema Furosemide 80 mg 03/04/17 09:00 03/04/17 10:20 Lasix IV 80 mg Q12HR [facility] Administration Heparin Sodium (Porcine) 0 unit 03/04/17 00:48 Heparin IV PER PROTOCOL PRN Low PTT Protocol Hydralazine HCl 50 mg 03/05/17 09:00 Apresoline PO QAM [facility] Hydralazine HCl 25 mg 03/04/17 15:00 Apresoline PO BID@1500,2200 [facility] Hydralazine HCl 10 mg 03/04/17 08:41 Apresoline IVP Q4HR PRN Blood Pressure - High Heparin Sodium/Dextrose 25,000 500 mls @ 19.34 mls/hr 03/04/17 01:00 12:44 unit/ IV Solution IV 15 units/kg/hr .Q24H [facility] 24.18 mls/hr Protocol Titration 12 UNITS/KG/HR Nitroglycerin/Dextrose 50 mg/ 250 mls @ 6 mls/hr 03/04/17 04:47 03/04/17 05: 08 IV Solution IV 03/05/17 04:46 20 mcg/min .Q24H ONE 6 mls/hr Protocol Administration 20 MCG/MIN Isosorbide Dinitrate 10 mg 03/05/17 09:00 Isordil PO BID [facility] Labetalol HCl 100 mg 03/04/17 21:00 Trandate PO BID [facility] Lactulose 30 gm 03/04/17 16:00 Cephulac PO TID [facility] Miscellaneous Information 1 each 03/04/17 00:50 Rx Info: Iv Contrast Was Given MISCELLANE 03/06/17 00:51 DAILY PRN Per Protocol Nitroglycerin 0.4 mg 03/04/17 04:50 Nitrostat SUBLINGUAL Q5M PRN Chest Pain Polyethylene Glycol 17 gm 03/04/17 09:00 03/04/17 10:20 Miralax PO 17 gm DAILY [facility] Administration Sodium Bicarbonate 1,300 mg 03/04/17 09:00 03/04/17 10:21 Sodium Bicarbonate Tab PO 1,300 mg TID [facility] Administration Trazodone HCl 50 mg 03/04/17 21:00 Desyrel PO HS [facility] Intake and Output 03/03/17 03/04/17 03/04/17 22:59 06:59 14:59 Intake Total 208.288 Output Total 475 Balance -266.712 Intake: IV 60 0.9 at KVO 60 Intake, IV Titration 148.288 Amount Heparin Sodium,Porcine/ 148.288 D5w Pmx 25,000 unit In Dextrose/Water 1 500ml. bag @ 12 UNITS/KG/HR 19. 34 mls/hr IV .Q24H [facility] Rx #:[id number] Output: Urine 475 Other: Voiding Method Urinal Weight 80.603 kg 85.5 kg Patient Weight 03/05/17 06:59 Weight 85.5 kg 03/04/17 07:10 03/04/17 00:20 Assessment and Plan Plan: This is a 76-year-old gentleman with known CAD and prior CABG, PAD and prior revascularization, as well as multiple comorbid conditions was admitted to the hospital with chest discomfort and was ruled in for acute coronary event. Currently the patient is on aspirin, heparin, beta j luis, and statin. Also he is on IV nitroglycerin which we will continue and titrate for the chest discomfort. The patient is a stage IV chronic kidney disease and he is a predialysis. He needs to have a heart catheterization. I will communicate with a neighborhood service center director. Meanwhile continue the current medical treatment. Obtain echocardiogram was Doppler.
[2017-03-04 13:50] LABS: Calcium 8.9 mg/dL (8.4-10.2); Magnesium 2.2 mg/dL (1.6-2.3); Potassium 4.7 mmol/L (3.5-5.1)
[2017-03-04] MEDS: FAMOTIDINE 20 MG/2 ML VIAL IV SCH ×2 (14:34→20:08)
--- NOTE | 2017-03-04 15:31 | XR ---
EXAMINATION TYPE: XR chest 1V DATE OF EXAM: 03/04/2017 COMPARISON: Prior chest x-ray dated 03/03/2017, chest CT 03/04/2017 HISTORY: Abnormal chest x-ray TECHNIQUE: Single frontal view of the chest is obtained. FINDINGS: Patient is post median sternotomy and the heart is enlarged. There are overlying cardiac l milton. Interstitium and central vascularity are prominent. No pneumothorax or pleural effusion evident . Dense vascular calcifications are present. Possible aortic aneurysm present within the thorax. IMPRESSION: There may be a component of volume overload, pulmonary venous hypertension and interstit ial edema.
[2017-03-04] MEDS: hydrALAZINE HCL 25 MG TAB PO SCH ×2 (15:40→21:54)
[2017-03-04] MEDS: LACTULOSE 20 GM/30 ML CUP PO SCH ×2 (15:41→21:52)
--- NOTE | 2017-03-04 20:02 | P.GSCN ---
History of Present Illness Consult date: 03/04/17 Reason for Consult: Right groin hematoma History of present illness: Patient is well-known to our service. The patient underwent a right inguinal herniorrhaphy and a concurrent peritoneal dialysis catheter insertion on 03/02. Following that the patient had issues requiring return to the ER including both chest pain and urinary retention. The patient was found to have elevated troponin but signed himself out AMA apparently. He came back to the hospital yesterday evening and was admitted for was thought to represent an acute ME. He is currently on a heparin drip. Cardiac catheterization is planned. He did have some ecchymosis in the right groin and this was noted increased slightly through the day today on anticoagulation. He denies pain in the right groin. He says he is having some pain at the catheter entrance site however. He did have a CAT scan performed but this did not include the pelvis. There is significant right-sided constipation noted without obstruction obvious. He had some air within the subcutaneous tissues at the operative site without large hematoma however this did not go low enough. He has passing gas. No bowel movement since surgery. Review of Systems The patient denies any acute changes in vision or hearing, no dysphagia or odynophagia, no dysuria or hematuria, no headache, no runny nose, no rectal bleeding or melena, no unexplained weight loss Past Medical History Past Medical History: Coronary Artery Disease (CAD), COPD, CVA/TIA, Renal Disease Additional Past Medical History / Comment(s): Coronary artery disease with a previous bypass surgery 1986, multiple previous myocardial infarctions with insertion of coronary stents at least 6 or 7 of them over the years, severe peripheral vascular disease with previous vascular intervention and stenting, carotid artery disease with a previous endarterectomy on the right, congestion heart failure, descending thoracic and abdominal aortic aneurysm please refer to the CTA report, hyperlipidemia, hypertension, stage 4-5 chronic renal failure awaiting peritoneal dialysis, right nephrectomy, left kidney vascular stent insertion, chronic anemia, recent right inguinal hernia repair on 2016 with insertion of a mesh, chronic lower oximetry edema, remote history of alcoholism, osteoarthritis, 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 History of Any Multi-Drug Resistant Organisms: None Reported Past Surgical History: Appendectomy, Coronary Bypass/CABG, Heart Catheterization With Stent, Orthopedic Surgery Additional Past Surgical History / Comment(s): right nephrectomy, PTBA of left kidney, arthroscopy of knee, carotid endartectomy, 3 bypass one failed. 6 or 7 stents to heart Past Anesthesia/Blood Transfusion Reactions: No Reported Reaction Additional Past Anesthesia/Blood Transfusion Reaction / Comm: has had blood transfusions without issues Date of Last Stent Placement:: 2006? Smoking Status: Former smoker - Past Family History Son(s) Family Medical History: Cancer Additional Family Medical History / Comment(s): prostate Father Family Medical History: Coronary Artery Disease (CAD) Additional Family Medical History / Comment(s): Father in his late 60's during a cardiac cath when an artery was punctured. Mother Family Medical History: Coronary Artery Disease (CAD) Additional Family Medical History / Comment(s): Mother of an aneurysm "in her heart" in her late 60's. Brother(s) Additional Family Medical History / Comment(s): One brother at 52 yrs with CHF, another brother at 32 yrs from a ME. Medications and Allergies Home Medications Medication Instructions Recorded Confirmed Type Aspirin [Adult Low Dose Aspirin EC] 81 mg PO DAILY 02/28/17 03/04/17 History Diltiazem HCl [Cartia Xt] 120 mg PO DAILY 02/28/17 03/04/17 History Epoetin Brandon [Procrit] 20,000 unit INJ [id number] PRN 02/28/17 03/04/17 History Furosemide [Lasix] 20 mg PO DAILY PRN 02/28/17 03/04/17 History HYDROcodone/APAP 5-325MG [[place] 1 tab PO DAILY PRN 02/28/17 03/04/17 History 5-325] Labetalol [Trandate] 100 mg PO BID 02/28/17 03/04/17 History Nitroglycerin Sl Tabs [Nitrostat] 0.4 mg SUBLINGUAL Q5M PRN 02/28/17 03/04/17 History Polyethylene Glycol 3350 [Miralax] 17 gm PO DAILY 02/28/17 03/04/17 History Ranitidine HCl 150 mg PO DAILY PRN 02/28/17 03/04/17 History Simvastatin [Zocor] 20 mg PO HS 02/28/17 03/04/17 History hydrALAZINE HCL [Hydralazine HCl] 50 mg PO QAM 02/28/17 03/04/17 History traZODone HCL [TraZODone HCl] 50 mg PO HS 02/28/17 03/04/17 History Cholecalciferol [Vitamin D3] 5,000 unit PO DAILY 03/02/17 03/04/17 History Isosorbide Dinitrate [Isordil] 10 mg PO BID 03/02/17 03/04/17 History diphenhydrAMINE HCL [Benadryl] 25 mg PO QID PRN 03/02/17 03/04/17 History hydrALAZINE HCL [Hydralazine HCl] 25 mg PO BID@1500,2200 03/02/17 03/04/17 History Allergies Allergy/AdvReac Type Severity Reaction Status Date / Time tetanus and diphtheria Allergy Unknown Verified 03/04/17 07:15 toxoids diazepam [From Valium] AdvReac Anxiety Verified 03/04/17 07:15 Surgical - Exam Vital Signs Temp Pulse Resp BP Pulse Ox 98.3 F 86 20 182/88 93 L 03/03/17 23:53 03/03/17 23:53 03/03/17 23:53 03/03/17 23:53 03/03/17 23:53 Physical exam: General: Well-developed, well-nourished HEENT: Normocephalic, sclerae nonicteric Abdomen: Mild incisional tenderness, mild distention, bowel sounds present, ecchymosis right groin without sizable hematoma Extremities: Edema present Neuro: Alert and oriented Results - Labs 03/04/17 07:10 03/04/17 07:10 Abnormal Lab Results - Last 24 Hours (Table) 03/04/17 03/04/17 03/04/17 Range/Units 00:20 00:20 00:20 WBC 11.3 H (3.8-10.6) k/uL RBC 3.30 L (4.30-5.90) m/uL Hgb 9.5 L (13.0-17.5) gm/dL Hct 31.7 L (39.0-53.0) % MCHC 29.9 L (31.0-37.0) g/dL RDW 19.5 H (11.5-15.5) % Neutrophils # 9.9 H (1.3-7.7) k/uL Lymphocytes # 0.6 L (1.0-4.8) k/uL APTT (22.0-30.0) sec D-Dimer (<0.60) mg/L FEU Sodium 133 L (137-145) mmol/L Carbon Dioxide 14 L (22-30) mmol/L BUN 53 H (9-20) mg/dL Creatinine 4.50 H (0.66-1.25) mg/dL Glucose 120 H (74-99) mg/dL POC Glucose (mg/dL) (75-99) mg/dL Phosphorus (2.5-4.5) mg/dL CK-MB (CK-2) 6.4 H* (0.0-2.4) ng/mL Troponin I 1.000 H* (0.000-0.034) ng/mL 03/04/17 03/04/17 03/04/17 Range/Units 00:20 07:10 07:10 WBC (3.8-10.6) k/uL RBC (4.30-5.90) m/uL Hgb (13.0-17.5) gm/dL Hct (39.0-53.0) % MCHC (31.0-37.0) g/dL RDW (11.5-15.5) % Neutrophils # (1.3-7.7) k/uL Lymphocytes # (1.0-4.8) k/uL APTT (22.0-30.0) sec D-Dimer 4.63 H (<0.60) mg/L FEU Sodium (137-145) mmol/L Carbon Dioxide (22-30) mmol/L BUN (9-20) mg/dL Creatinine (0.66-1.25) mg/dL Glucose (74-99) mg/dL POC Glucose (mg/dL) (75-99) mg/dL Phosphorus 5.6 H (2.5-4.5) mg/dL CK-MB (CK-2) 7.2 H* (0.0-2.4) ng/mL Troponin I 1.520 H* (0.000-0.034) ng/mL 03/04/17 03/04/17 03/04/17 Range/Units 07:10 07:10 08:49 WBC 11.0 H (3.8-10.6) k/uL RBC 3.07 L (4.30-5.90) m/uL Hgb 8.9 L (13.0-17.5) gm/dL Hct 30.3 L (39.0-53.0) % MCHC 29.2 L (31.0-37.0) g/dL RDW 18.4 H (11.5-15.5) % Neutrophils # 9.2 H (1.3-7.7) k/uL Lymphocytes # 0.7 L (1.0-4.8) k/uL APTT (22.0-30.0) sec D-Dimer (<0.60) mg/L FEU Sodium 135 L (137-145) mmol/L Carbon Dioxide 13 L (22-30) mmol/L BUN 53 H (9-20) mg/dL Creatinine 4.43 H (0.66-1.25) mg/dL Glucose 105 H (74-99) mg/dL POC Glucose (mg/dL) 116 H (75-99) mg/dL Phosphorus (2.5-4.5) mg/dL CK-MB (CK-2) (0.0-2.4) ng/mL Troponin I (0.000-0.034) ng/mL 03/04/17 03/04/17 03/04/17 Range/Units 11:48 11:48 18:56 WBC (3.8-10.6) k/uL RBC (4.30-5.90) m/uL Hgb (13.0-17.5) gm/dL Hct (39.0-53.0) % MCHC (31.0-37.0) g/dL RDW (11.5-15.5) % Neutrophils # (1.3-7.7) k/uL Lymphocytes # (1.0-4.8) k/uL APTT 31.4 H 43.9 H (22.0-30.0) sec D-Dimer (<0.60) mg/L FEU Sodium (137-145) mmol/L Carbon Dioxide (22-30) mmol/L BUN (9-20) mg/dL Creatinine (0.66-1.25) mg/dL Glucose (74-99) mg/dL POC Glucose (mg/dL) (75-99) mg/dL Phosphorus (2.5-4.5) mg/dL CK-MB (CK-2) 7.9 H* (0.0-2.4) ng/mL Troponin I 2.000 H* (0.000-0.034) ng/mL Diabetes panel 03/04/17 03/04/17 Range/Units 00:20 07:10 Sodium 133 L 135 L (137-145) mmol/L Potassium 5.0 4.7 (3.5-5.1) mmol/L Chloride 103 105 (98-107) mmol/L Carbon Dioxide 14 L 13 L (22-30) mmol/L BUN 53 H 53 H (9-20) mg/dL Creatinine 4.50 H 4.43 H (0.66-1.25) mg/dL Glucose 120 H 105 H (74-99) mg/dL Calcium 9.4 8.9 (8.4-10.2) mg/dL AST 25 (17-59) U/L ALT 21 (21-72) U/L Alkaline Phosphatase 68 (38-126) U/L Total Protein 6.6 (6.3-8.2) g/dL Albumin 3.9 (3.5-5.0) g/dL Calcium panel 03/04/17 03/04/17 03/04/17 Range/Units 00:20 07:10 07:10 Calcium 9.4 8.9 (8.4-10.2) mg/dL Phosphorus 5.6 H (2.5-4.5) mg/dL Albumin 3.9 (3.5-5.0) g/dL Pituitary panel 03/04/17 03/04/17 Range/Units 00:20 07:10 Sodium 133 L 135 L (137-145) mmol/L Potassium 5.0 4.7 (3.5-5.1) mmol/L Chloride 103 105 (98-107) mmol/L Carbon Dioxide 14 L 13 L (22-30) mmol/L BUN 53 H 53 H (9-20) mg/dL Creatinine 4.50 H 4.43 H (0.66-1.25) mg/dL Glucose 120 H 105 H (74-99) mg/dL Calcium 9.4 8.9 (8.4-10.2) mg/dL Adrenal panel 03/04/17 03/04/17 Range/Units 00:20 07:10 Sodium 133 L 135 L (137-145) mmol/L Potassium 5.0 4.7 (3.5-5.1) mmol/L Chloride 103 105 (98-107) mmol/L Carbon Dioxide 14 L 13 L (22-30) mmol/L BUN 53 H 53 H (9-20) mg/dL Creatinine 4.50 H 4.43 H (0.66-1.25) mg/dL Glucose 120 H 105 H (74-99) mg/dL Calcium 9.4 8.9 (8.4-10.2) mg/dL Total Bilirubin 0.5 (0.2-1.3) mg/dL AST 25 (17-59) U/L ALT 21 (21-72) U/L Alkaline Phosphatase 68 (38-126) U/L Total Protein 6.6 (6.3-8.2) g/dL Albumin 3.9 (3.5-5.0) g/dL Assessment and Plan (1) Groin hematoma Narrative/Plan: Continue IV heparin. We'll monitor incisional sites. Continue stool softeners. Status: Acute
[2017-03-04] MEDS: traZODone HCL 50 MG TAB PO SCH (20:07)
[2017-03-04] MEDS: ATORVASTATIN 10 MG TAB PO SCH (20:08)
[2017-03-04] MEDS: LABETALOL 100 MG TAB PO SCH (20:08)
[2017-03-04] MEDS: DILTIAZEM CD 120 MG CAP.ER.24H PO SCH (20:08)
[2017-03-04] MEDS: BISACODYL 10 MG SUPP RECTAL SCH (20:12)
[2017-03-04] MEDS: hydrALAZINE HCL 20 MG/ML 1 ML VIAL IVP PRN (20:37)
--- NOTE | 2017-03-04 21:47 | ECHOF ---
Referral Reason:Eval LV function/NON stemi MEASUREMENTS -------- HEIGHT: 170.2 cm WEIGHT: 85.3 kg BP: 136/57 RVIDd: 2.5 cm (< 3.3) IVSd: 1.1 cm (0.6 - 1.1) LVIDd: 5.0 cm (3.9 - 5.3) LVPWd: 1.1 cm (0.6 - 1.1) IVSs: 1.2 cm LVIDs: 4.1 cm LVPWs: 1.5 cm LAESV Index (A-L): 33.00 ml/m Ao Diam: 3.4 cm (2.0 - 3.7) AV Cusp: 1.5 cm (1.5 - 2.6) LA Diam: 4.6 cm (2.7 - 3.8) MV EXCURSION: 19.436 mm (> 18.000) MV EF SLOPE: 89 mm/s (70 - 150) EPSS: 3.1 cm MV E Andrew: 1.12 m/s MV DecT: 221 ms MV A Andrew: 0.54 m/s MV E/A Ratio: 2.09 RAP: 15.00 mmHg RVSP: 43.11 mmHg FINDINGS -------- Sinus rhythm with extra systolic beats. This was a technically adequate study. The left ventricular size is normal. There is borderline concentric left ventricular hypertrophy. Overall left ventricular systolic function is moderate-severely impaired with, an EF between 30 - 35 %. Global hypokinesis The right ventricle is mild to moderately enlarged. The right ventricular systolic function is mildly impaired. LA is midly dilated 29-33ml/m2. RA appears enlarged. Aortic valve is trileaflet and is mildly thickened. There is no evidence of aortic regurgitation. There is no evidence of aortic stenosis. The mitral valve leaflets are mildly thickened. There is trace to mild mitral regurgitation. Trace tricuspid regurgitation present. There is mild pulmonary hypertension. The right ventricular systolic pressure, as measured by Doppler, is 43.11mmHg. The aortic root size is normal. The inferior vena cava is dilated with poor inspiratory collapse which is consistent with estimated right atrial pressure of 20 mmHg. There is no pericardial effusion. CONCLUSIONS -------- 1. Sinus rhythm with extra systolic beats. 2. RA appears enlarged. 3. Aortic valve is trileaflet and is mildly thickened. 4. The mitral valve leaflets are mildly thickened. 5. There is trace to mild mitral regurgitation. 6. Trace tricuspid regurgitation present. 7. There is mild pulmonary hypertension. 8. The right ventricular systolic pressure, as measured by Doppler, is 43.11mmHg. 9. The aortic root size is normal. 10. The inferior vena cava is dilated with poor inspiratory collapse which is consistent with estimated right atrial pressure of 20 mmHg. 11. There is no pericardial effusion. 12. This was a technically adequate study. 13. The left ventricular size is normal. 14. There is borderline concentric left ventricular hypertrophy. 15. Overall left ventricular systolic function is moderate-severely impaired with, an EF between 30 - 35 %. 16. Global hypokinesis 17. The right ventricle is mild to moderately enlarged. 18. The right ventricular systolic function is mildly impaired. 19. LA is midly dilated 29-33ml/m2. DOOR WORKER: Lj Stratton RDCS
[2017-03-05] MEDS: HEPARIN SODIUM,PORCINE/D5W PMX 25,000 UNIT in DEXTROSE/WATER 1 500ML.BAG IV SCH (01:17)
[2017-03-05 05:07] LABS: Anisocytosis Slight; Basophils % (A) 0 %; CH 28.7; CHCM 30.2; Eosinophils # (A) 0.2 k/uL (0-0.7); Eosinophils % (A) 2 %; HCT 28.6 % (39.0-53.0); HDW 2.88; HGB 8.4 gm/dL (13.0-17.5); Hypochromasia Marked; Luc # (Auto) 0.11; Luc % (Auto) 1; Lymphocytes # (A) 0.8 k/uL (1.0-4.8); Lymphocytes % (A) 9 %; MCH 28.1 pg (25.0-35.0); MCHC 29.3 g/dL (31.0-37.0); Macrocytosis Slight; Mean Platelet Volume 8.4; Monocytes # (A) 0.7 k/uL (0-1.0); Monocytes % (A) 8 %; Neutrophils # (A) 6.7 k/uL (1.3-7.7); Neutrophils % (A) 79 %; RBC 2.98 m/uL (4.30-5.90); WBC 8.5 k/uL (3.8-10.6); WBC (Perox) 9.03
[2017-03-05 05:35] LABS: Calcium 8.9 mg/dL (8.4-10.2); Magnesium 2.2 mg/dL (1.6-2.3); Phosphorus 6.7 mg/dL (2.5-4.5); Total Bilirubin 0.5 mg/dL (0.2-1.3); Total Protein 6.1 g/dL (6.3-8.2)
[2017-03-05] MEDS: HYDROcodone/APAP 5-325MG 1 EACH TAB PO PRN ×4 (05:44→22:46)
[2017-03-05 06:16] LABS: Potassium 4.1 mmol/L (3.5-5.1)
[2017-03-05] MEDS: NITROGLYCERIN-D5W PMX 50 MG in DEXTROSE/WATER 1 250ML.BAG IV SCH ×2 (06:48→22:50)
[2017-03-05] MEDS: hydrALAZINE HCL 20 MG/ML 1 ML VIAL IVP PRN (06:50)
--- NOTE | 2017-03-05 07:44 | XR ---
EXAMINATION TYPE: XR chest 1V DATE OF EXAM: 03/05/2017 HISTORY: F/U. REFERENCE: Previous study dated 03/04/2017. FINDINGS: The heart is enlarged. There is vascular congestion and subtle interstitial change. Pleural spaces are clear. IMPRESSION: FINDINGS MOST CONSISTENT WITH MILD HEART FAILURE. THIS IS ESSENTIALLY UNCHANGED FROM PREVIOUS.
[2017-03-05] MEDS: CHOLECALCIFEROL 1,000 UNIT TAB PO SCH (08:48)
[2017-03-05] MEDS: LABETALOL 100 MG TAB PO SCH ×2 (08:49→20:34)
[2017-03-05] MEDS: SODIUM BICARBONATE TAB 650 MG TAB PO SCH ×3 (08:49→22:01)
[2017-03-05] MEDS: ASPIRIN 81 MG PO SCH (08:50)
[2017-03-05] MEDS: DILTIAZEM CD 120 MG CAP.ER.24H PO SCH ×2 (08:50→20:34)
[2017-03-05] MEDS: POLYETHYLENE GLYCOL 3350 17 GM POWD.PACK PO SCH (08:50)
[2017-03-05] MEDS: FUROSEMIDE 10 MG/ML 10 ML VIAL IV SCH ×2 (08:51→20:34)
[2017-03-05] MEDS: FAMOTIDINE 20 MG/2 ML VIAL IV SCH ×2 (08:51→20:34)
[2017-03-05] MEDS: hydrALAZINE HCL 50 MG TAB PO SCH (08:51)
[2017-03-05] MEDS: LACTULOSE 20 GM/30 ML CUP PO SCH ×4 (08:52→22:05)
[2017-03-05] MEDS ORDERED: ISOSORBIDE DINITRATE 10 MG TAB PO SCH (09:00)
--- NOTE | 2017-03-05 10:06 | P.PN ---
Subjective Principal diagnosis: Hematoma Patient still having chest pain and some shortness of breath. Denies groin discomfort. He says he has ongoing discomfort at his dialysis insertion site. For the nursing staff there is been any ongoing low volume bloody fluid emanating from the catheter exit site. Per the nursing staff a hematoma has developed at the left paramedian incision site. Objective - Vital Signs Vital signs: Vital Signs Temp 98.6 F 03/05/17 08:00 Pulse 89 03/05/17 09:30 Resp 21 03/05/17 09:30 BP 118/76 03/05/17 09:30 Pulse Ox 97 03/05/17 09:30 Intake & Output 03/04/17 03/05/17 03/05/17 18:59 06:59 18:59 Intake Total 388.388 599.345 365.98 Output Total 1340 1725 600 Balance -951.612 -1125.655 -234.02 Weight 85.5 kg 86.3 kg Intake: IV 180 130 20 0.9 at KVO 180 130 20 Intake, IV Titration 208.388 319.345 225.98 Amount Heparin Sodium,Porcine/ 148.288 319.345 224.68 D5w Pmx 25,000 unit In Dextrose/Water 1 500ml. bag @ 12 UNITS/KG/HR 19. 34 mls/hr IV .Q24H [facility] Rx #:[id number] Nitroglycerin-D5w Pmx 50 60.1 mg In Dextrose/Water 1 250ml.bag @ 20 MCG/MIN 6 mls/hr IV .Q24H [facility] Rx#: [id number] Nitroglycerin-D5w Pmx 50 1.3 mg In Dextrose/Water 1 250ml.bag @ 20 MCG/MIN 6 mls/hr IV .Q24H [facility] Rx#: [id number] Oral 150 120 Output: Urine 1340 1725 600 Other: Voiding Method Urinal Urinal # Voids 0 - Exam Abdomen: Soft, slightly distended, right groin hematoma stable, ecchymosis essentially unchanged in that location, left paramedian incision with hematoma present that was not there yesterday evening, mildly tender, nonpulsatile - Labs CBC & Chem 7: 03/05/17 04:55 03/05/17 04:55 Labs: Abnormal Lab Results - Last 24 Hours (Table) 03/04/17 03/04/1703/04/17 Range/Units 07:10 07:10 07:10 WBC 11.0 H (3.8-10.6) k/uL RBC 3.07 L (4.30-5.90) m/uL Hgb 8.9 L (13.0-17.5) gm/dL Hct 30.3 L (39.0-53.0) % MCHC 29.2 L (31.0-37.0) g/dL RDW 18.4 H (11.5-15.5) % Neutrophils # 9.2 H (1.3-7.7) k/uL Lymphocytes # 0.7 L (1.0-4.8) k/uL APTT (22.0-30.0) sec Sodium 135 L (137-145) mmol/L Carbon Dioxide 13 L (22-30) mmol/L BUN 53 H (9-20) mg/dL Creatinine 4.43 H (0.66-1.25) mg/dL Glucose 105 H (74-99) mg/dL Phosphorus 5.6 H (2.5-4.5) mg/dL CK-MB (CK-2) (0.0-2.4) ng/mL Troponin I (0.000-0.034) ng/mL Total Protein (6.3-8.2) g/dL Albumin (3.5-5.0) g/dL 03/04/17 03/04/17 03/04/17 Range/Units 11:48 11:48 18:56 WBC (3.8-10.6) k/uL RBC (4.30-5.90) m/uL Hgb (13.0-17.5) gm/dL Hct (39.0-53.0) % MCHC (31.0-37.0) g/dL RDW (11.5-15.5) % Neutrophils # (1.3-7.7) k/uL Lymphocytes # (1.0-4.8) k/uL APTT 31.4 H 43.9 H (22.0-30.0) sec Sodium (137-145) mmol/L Carbon Dioxide (22-30) mmol/L BUN (9-20) mg/dL Creatinine (0.66-1.25) mg/dL Glucose (74-99) mg/dL Phosphorus (2.5-4.5) mg/dL CK-MB (CK-2) 7.9 H* (0.0-2.4) ng/mL Troponin I 2.000 H* (0.000-0.034) ng/mL Total Protein (6.3-8.2) g/dL Albumin (3.5-5.0) g/dL 03/04/17 03/05/17 03/05/17 Range/Units 23:51 04:55 04:55 WBC (3.8-10.6) k/uL RBC 2.98 L (4.30-5.90) m/uL Hgb 8.4 L (13.0-17.5) gm/dL Hct 28.6 L (39.0-53.0) % MCHC 29.3 L (31.0-37.0) g/dL RDW 19.0 H (11.5-15.5) % Neutrophils # (1.3-7.7) k/uL Lymphocytes # 0.8 L (1.0-4.8) k/uL APTT 56.4 H (22.0-30.0) sec Sodium (137-145) mmol/L Carbon Dioxide 17 L (22-30) mmol/L BUN 56 H (9-20) mg/dL Creatinine 4.40 H (0.66-1.25) mg/dL Glucose 104 H (74-99) mg/dL Phosphorus 6.7 H (2.5-4.5) mg/dL CK-MB (CK-2) (0.0-2.4) ng/mL Troponin I (0.000-0.034) ng/mL Total Protein 6.1 L (6.3-8.2) g/dL Albumin 3.4 L (3.5-5.0) g/dL 03/05/17 03/05/17 Range/Units 04:55 04:55 WBC (3.8-10.6) k/uL RBC (4.30-5.90) m/uL Hgb (13.0-17.5) gm/dL Hct (39.0-53.0) % MCHC (31.0-37.0) g/dL RDW (11.5-15.5) % Neutrophils # (1.3-7.7) k/uL Lymphocytes # (1.0-4.8) k/uL APTT 59.6 H (22.0-30.0) sec Sodium (137-145) mmol/L Carbon Dioxide (22-30) mmol/L BUN (9-20) mg/dL Creatinine (0.66-1.25) mg/dL Glucose (74-99) mg/dL Phosphorus (2.5-4.5) mg/dL CK-MB (CK-2) (0.0-2.4) ng/mL Troponin I 1.800 H* (0.000-0.034) ng/mL Total Protein (6.3-8.2) g/dL Albumin (3.5-5.0) g/dL Assessment and Plan (1) Groin hematoma Narrative/Plan: Case discussed with the blintze roller. The heparin had already been held. I did discuss this with cardiology as well and they were comfortable with heparin being held. Considerations for cardiac catheterization still underway. We'll follow closely with you. Status: Acute
[2017-03-05] MEDS: BISACODYL 10 MG SUPP RECTAL SCH (12:21)
--- NOTE | 2017-03-05 13:33 | P.PN ---
Subjective 77-year-old male patient who underwent a repair of a inguinal hernia and insertion of a peritoneal catheter for hemodialysis by general surgery on 2016. Since then the patient is been having episodes it chest pain. He had been in the emergency department for the same. He was noted to have elevated troponins however he decided to be released and go home. Yesterday the patient started having chest pain along with shortness of breath and based on his extensive cardiac history the patient came back to the burst department and the patient was found to have post his troponins which peaked at 1.5 and abnormal EKG that showed ST segment depressions involving the anterolateral leads in addition to sinus rhythm with LVH and widening of QRS with repolarization abnormality. An underlying SEPTAL infarct cannot be completely excluded. D- dimer was elevated at 4.6. The proBNP elevated was 33,000. Creatinine was abnormal due to his chronic renal failure with a creatinine of 4.5. A CT aorta the chest was done and it showed aortic aneurysm in the distal thoracic aorta measuring 4.7 cm in size at the level of the hiatus of the diaphragm. Aorta measures 4.8 cm size just above the SMA. 3.8 cm in the mid abdomen at 3.2 cm just above the bifurcation. There is also evidence of evidence of subcutaneous air likely related to the recent dialysis catheter insertion and the peritoneal cavity. There is also evidence of fecal impaction. CT of the chest was also done and it showed no evidence of any pulmonary embolism. The aortic aneurysm was noted without any dissection. There is also evidence of pulmonary edema with small bilateral pleural effusion right more than left. This is consistent with CHF. The patient also has been producing urine and he was in the process of being prepared for dialysis. Nephrology saw the patient special that his current contrast intake and to give the patient Lasix 80 mg IV every 12 hours. At this point that the patient is resting comfortably in the intensive care unit. He is minimal diffuse chest pain, on and off of varying severity. The patient has undergone coronary artery bypass surgery for diffuse CAD back in 1986. Since then he has had multiple myocardial infarctions for which she has required cardiac catheterization a total of 6 or 7 stents have been inserted over the years. He was being followed up by energy derivatives trader in [facility]. 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 He has also known to have carotid artery disease and undergone right carotid endarterectomy. On 03/05/2017, the patient is being seen in follow-up in intensive care unit. On and off is still having chest pain. He still IV heparin. IV heparin was stopped this morning I give the patient is developing some increased hematoma over the anterior abdominal wall at the site of the insertion of the peritoneal dialysis catheter. There is also a hematoma in his right groin area/and this has extended to his scrotum and back. Nevertheless the right inguinal hematomas quite soft. Hemoglobin is dropped by half a gram and for that reason I stopped IV heparin. Awaiting final cardiology recommendations regarding the possibility of the need for cardiac catheterization. Meanwhile the patient is receiving Lasix and he is diuresing well and he is a negative fluid balance. Renal function stable with a GFR of 13 and a creatinine of 4.4. No hyperkalemia. Hemoglobin is at 8.4. The chest x-ray showed CHF and unchanged compared to yesterday's study. The echocardiogram showed an ejection fraction of 30-35% with some dilation of the right ventricle and right atrium. The right ventricular systolic pressure was 43 mmHg. No other major abnormalities noted. Objective - Vital Signs Vital signs: Vital Signs Temp 98.6 F 03/05/17 08:00 Pulse 69 03/05/17 11:00 Resp 14 03/05/17 11:00 BP 137/70 03/05/17 11:00 Pulse Ox 98 03/05/17 11:00 Intake & Output 03/04/17 03/05/17 03/05/17 18:59 06:59 18:59 Intake Total 388.388 599.345 665.98 Output Total 1340 1725 1200 Balance -951.612 -1125.655 -534.02 Weight 85.5 kg 86.3 kg 86.3 kg Intake: IV 180 130 80 0.9 at KVO 180 130 80 Intake, IV Titration 208.388 319.345 225.98 Amount Heparin Sodium,Porcine/ 148.288 319.345 224.68 D5w Pmx 25,000 unit In Dextrose/Water 1 500ml. bag @ 12 UNITS/KG/HR 19. 34 mls/hr IV .Q24H [facility] Rx #:[id number] Nitroglycerin-D5w Pmx 50 60.1 mg In Dextrose/Water 1 250ml.bag @ 20 MCG/MIN 6 mls/hr IV .Q24H [facility] Rx#: [id number] Nitroglycerin-D5w Pmx 50 1.3 mg In Dextrose/Water 1 250ml.bag @ 20 MCG/MIN 6 mls/hr IV .Q24H [facility] Rx#: [id number] Oral 150 360 Output: Urine 1340 1725 1200 Other: Voiding Method Urinal Urinal Urinal # Voids 0 0 - Exam Gen. appearance is a mild degree of respiratory distress and episodic chest pains also being reported. Head is atraumatic normocephalic. Neck is positive for JVDs no goiter or neck masses point. There is a scar of a previous carotid endarterectomy on the right. Lung sounds are diminished bilaterally in the lung bases. Crackles are also appreciated lung bases. No wheezes or rhonchi. Heart sounds are regular, positive S1 and S2 without any significant murmurs.Abdominal exam revealed normal bowel sounds. The abdomen was soft, non- tender, and without masses, organomegaly, or appreciable enlargement of the abdominal aorta. The right inguinal surgical site is bruised and there is a potential he an underlying hematoma. The hematomas extending to his scrotum and to the back. There is also another hematoma over the anterior abdominal wall and set of the surgical wound site for peritoneal catheter insertion. This hematomas is slightly more firm and has also increased in size compared to yesterday's evaluation. No direct tenderness. No rebound tenderness. No guarding. The femoral pulses are obtainable . Extremities are showing + edema there is no cyanosis or clubbing. Pulses are quite diminished and there obtainable by Doppler signals. Skin is negative for any open wounds or sores or any ulceration. Neuro is or 83 and the neurologic exam is nonfocal at this point. Psych is negative for any mood or change in affect. Vascular the patient has Doppler signals in lower extremities bilaterally. The feet are cold. Pulses are present in the upper extremities bilaterally. - Labs CBC & Chem 7: 03/05/17 04:55 03/05/17 04:55 Labs: Abnormal Lab Results - Last 24 Hours (Table) 03/04/17 03/04/17 03/04/17 Range/Units 07:10 18:56 23:51 RBC (4.30-5.90) m/uL Hgb (13.0-17.5) gm/dL Hct (39.0-53.0) % MCHC (31.0-37.0) g/dL RDW (11.5-15.5) % Lymphocytes # (1.0-4.8) k/uL APTT 43.9 H 56.4 H (22.0-30.0) sec Sodium 135 L (137-145) mmol/L Carbon Dioxide 13 L (22-30) mmol/L BUN 53 H (9-20) mg/dL Creatinine 4.43 H (0.66-1.25) mg/dL Glucose 105 H (74-99) mg/dL Phosphorus (2.5-4.5) mg/dL Troponin I (0.000-0.034) ng/mL Total Protein (6.3-8.2) g/dL Albumin (3.5-5.0) g/dL 03/05/17 03/05/17 03/05/17 Range/Units 04:55 04:55 04:55 RBC 2.98 L (4.30-5.90) m/uL Hgb 8.4 L (13.0-17.5) gm/dL Hct 28.6 L (39.0-53.0) % MCHC 29.3 L (31.0-37.0) g/dL RDW 19.0 H (11.5-15.5) % Lymphocytes # 0.8 L (1.0-4.8) k/uL APTT 59.6 H (22.0-30.0) sec Sodium (137-145) mmol/L Carbon Dioxide 17 L (22-30) mmol/L BUN 56 H (9-20) mg/dL Creatinine 4.40 H (0.66-1.25) mg/dL Glucose 104 H (74-99) mg/dL Phosphorus 6.7 H (2.5-4.5) mg/dL Troponin I (0.000-0.034) ng/mL Total Protein 6.1 L (6.3-8.2) g/dL Albumin 3.4 L (3.5-5.0) g/dL 03/05/17 Range/Units 04:55 RBC (4.30-5.90) m/uL Hgb (13.0-17.5) gm/dL Hct (39.0-53.0) % MCHC (31.0-37.0) g/dL RDW (11.5-15.5) % Lymphocytes # (1.0-4.8) k/uL APTT (22.0-30.0) sec Sodium (137-145) mmol/L Carbon Dioxide (22-30) mmol/L BUN (9-20) mg/dL Creatinine (0.66-1.25) mg/dL Glucose (74-99) mg/dL Phosphorus (2.5-4.5) mg/dL Troponin I 1.800 H* (0.000-0.034) ng/mL Total Protein (6.3-8.2) g/dL Albumin (3.5-5.0) g/dL Assessment and Plan Plan: Assessment 1 acute non-ST segment elevation myocardial infarction with secondary chest pain shortness of breath. The patient continues to have episodes of chest pain and IV heparin has been discontinued due to evaluation of an abdominal and the right inguinal hematoma. 2 acute CHF exacerbation secondary to above. ProBNP is elevated and the CAT scan of the chest showing CHF/edema with small better pleural effusion. ProBNP level is quite elevated 3 chronic renal failure with stage 4-5 chronic kidney disease, awaiting hemodialysis. Is very much like to the patient will require dialysis soon as possible knowing that he has received contrast dye during this current hospitalization which probably is going to contribute to his renal failure progression 4 right inguinal hernia repair in 03/02/2017 along with placement of a mesh and insertion of a peritoneal dialysis catheter 5 right inguinal hematoma at the site of the surgical wound, in addition to another hematoma over the anterior abdominal wall and the site of insertion of a PD catheter. Hematoma slightly extended in size on physical examination along with that there is some mild drop in hemoglobin for that reason we'll stop the anticoagulation for now. There was evidence inspected by the general surgeon. 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 Peripheral vascular disease severe with previous vascular intervention and stenting 14 abdominal and descending thoracic aortic aneurysm, without evidence of any dissection 15 osteoarthritis 16 remote history of alcoholism 17 history of smoking 18 history of anxiety/panic. 19 hyponatremia , improved and the sodium level is up to 137 Plan Monitor the hematoma. Stop IV heparin. Cardiology to make a decision on the need for cardiac catheterization. Continue IV Lasix. Monitor urine output. Monitor electrolytes. Monitor renal function. He remains in congestion heart failure. Prognosis extremely poor baseline above-mentioned comorbidities. We' ll follow. Keep him in ICU for now.
--- NOTE | 2017-03-05 13:50 | P.PN ---
Subjective Principal diagnosis: Non-STEMI This is a pleasant 76-year-old gentleman who sees a bicycle mechanic out of the town with an extensive cardiac and vascular surgery consistent of coronary artery disease and prior coronary artery bypass grafting was performed in 1986 with unknown details about the bypasses, severe underlying peripheral arterial disease with prior angioplasty of bilateral femoral arteries, hypertension, and dyslipidemia, presented to the emergency room complaining of chest discomfort. The patient initially presented early yesterday and he refused to be admitted to the hospital. His chest discomfort get worse and it was associated with shortness of breath and he decided to come to the hospital. He was ruled in for acute coronary syndrome. The cardiac enzymes came in to be severe lead elevated. On follow-up with the patient today and March 062016, he continues to have chest discomfort. He still on nitro drip. The heparin drip was stopped in view of hematoma which was enlarging. Beside that he is on dual antiplatelet therapy and statin as well as beta j luis. Objective - Vital Signs Vital signs: Vital Signs Temp 98.0 F 03/05/17 12:00 Pulse 72 03/05/17 13:30 Resp 30 H 03/05/17 13:30 BP 133/58 03/05/17 13:30 Pulse Ox 95 03/05/17 13:30 Intake & Output 03/04/17 03/05/17 03/05/17 18:59 06:59 18:59 Intake Total 388.388 599.345 665.98 Output Total 1340 1725 1200 Balance -951.612 -1125.655 -534.02 Weight 85.5 kg 86.3 kg 86.3 kg Intake: IV 180 130 80 0.9 at KVO 180 130 80 Intake, IV Titration 208.388 319.345 225.98 Amount Heparin Sodium,Porcine/ 148.288 319.345 224.68 D5w Pmx 25,000 unit In Dextrose/Water 1 500ml. bag @ 12 UNITS/KG/HR 19. 34 mls/hr IV .Q24H [facility] Rx #:[id number] Nitroglycerin-D5w Pmx 50 60.1 mg In Dextrose/Water 1 250ml.bag @ 20 MCG/MIN 6 mls/hr IV .Q24H [facility] Rx#: [id number] Nitroglycerin-D5w Pmx 50 1.3 mg In Dextrose/Water 1 250ml.bag @ 20 MCG/MIN 6 mls/hr IV .Q24H [facility] Rx#: [id number] Oral 150 360 Output: Urine 1340 1725 1200 Other: Voiding Method Urinal Urinal Urinal # Voids 0 0 - Constitutional General appearance: Present: no acute distress - Respiratory Respiratory: bilateral: rales - Cardiovascular Rhythm: regular Heart sounds: normal: S1, S2 - Labs CBC & Chem 7: 03/05/17 04:55 03/05/17 04:55 Labs: Abnormal Lab Results - Last 24 Hours (Table) 03/04/17 03/04/17 03/04/17 Range/Units 07:10 18:56 23:51 RBC (4.30-5.90) m/uL Hgb (13.0-17.5) gm/dL Hct (39.0-53.0) % MCHC (31.0-37.0) g/dL RDW (11.5-15.5) % Lymphocytes # (1.0-4.8) k/uL APTT 43.9 H 56.4 H (22.0-30.0) sec Sodium 135 L (137-145) mmol/L Carbon Dioxide 13 L (22-30) mmol/L BUN 53 H (9-20) mg/dL Creatinine 4.43 H (0.66-1.25) mg/dL Glucose 105 H (74-99) mg/dL Phosphorus (2.5-4.5) mg/dL Troponin I (0.000-0.034) ng/mL Total Protein (6.3-8.2) g/dL Albumin (3.5-5.0) g/dL 03/05/17 03/05/17 03/05/17 Range/Units 04:55 04:55 04:55 RBC 2.98 L (4.30-5.90) m/uL Hgb 8.4 L (13.0-17.5) gm/dL Hct 28.6 L (39.0-53.0) % MCHC 29.3 L (31.0-37.0) g/dL RDW 19.0 H (11.5-15.5) % Lymphocytes # 0.8 L (1.0-4.8) k/uL APTT 59.6 H (22.0-30.0) sec Sodium (137-145) mmol/L Carbon Dioxide 17 L (22-30) mmol/L BUN 56 H (9-20) mg/dL Creatinine 4.40 H (0.66-1.25) mg/dL Glucose 104 H (74-99) mg/dL Phosphorus 6.7 H (2.5-4.5) mg/dL Troponin I (0.000-0.034) ng/mL Total Protein 6.1 L (6.3-8.2) g/dL Albumin 3.4 L (3.5-5.0) g/dL 03/05/17 Range/Units 04:55 RBC (4.30-5.90) m/uL Hgb (13.0-17.5) gm/dL Hct (39.0-53.0) % MCHC (31.0-37.0) g/dL RDW (11.5-15.5) % Lymphocytes # (1.0-4.8) k/uL APTT (22.0-30.0) sec Sodium (137-145) mmol/L Carbon Dioxide (22-30) mmol/L BUN (9-20) mg/dL Creatinine (0.66-1.25) mg/dL Glucose (74-99) mg/dL Phosphorus (2.5-4.5) mg/dL Troponin I 1.800 H* (0.000-0.034) ng/mL Total Protein (6.3-8.2) g/dL Albumin (3.5-5.0) g/dL Assessment and Plan Plan: This is a 76-year-old gentleman with known CAD and prior CABG, PAD and prior revascularization, as well as multiple comorbid conditions was admitted to the hospital with chest discomfort and was ruled in for acute coronary event. Currently the patient is on aspirin, heparin, beta j luis, and statin. Also he is on IV nitroglycerin which we will continue and titrate for the chest discomfort. The patient is a stage IV chronic kidney disease and he is a predialysis. He needs to have a heart catheterization. I will communicate with a grades 9 thru 12 visiting teacher. Meanwhile continue the current medical treatment.
[2017-03-05] MEDS: ACETAMINOPHEN TAB 500 MG TAB PO SCH ×3 (14:21→22:01)
[2017-03-05] MEDS: hydrALAZINE HCL 25 MG TAB PO SCH ×2 (16:58→22:01)
[2017-03-05 18:01] LABS: Anisocytosis Slight; Basophils % (A) 0 %; CH 28.8; CHCM 30.2; Eosinophils # (A) 0.2 k/uL (0-0.7); Eosinophils % (A) 3 %; HCT 28.2 % (39.0-53.0); HDW 2.83; HGB 8.4 gm/dL (13.0-17.5); Hypochromasia Marked; Luc # (Auto) 0.14; Luc % (Auto) 2; Lymphocytes # (A) 0.7 k/uL (1.0-4.8); Lymphocytes % (A) 10 %; MCH 28.7 pg (25.0-35.0); MCHC 29.9 g/dL (31.0-37.0); MCV 96.2 fL (80.0-100.0); Macrocytosis Slight; Mean Platelet Volume 7.8; Monocytes # (A) 0.7 k/uL (0-1.0); Monocytes % (A) 9 %; Neutrophils # (A) 5.6 k/uL (1.3-7.7); Neutrophils % (A) 76 %; RBC 2.94 m/uL (4.30-5.90); WBC 7.4 k/uL (3.8-10.6); WBC (Perox) 8.26
[2017-03-05] MEDS: traZODone HCL 50 MG TAB PO SCH (20:34)
[2017-03-05] MEDS: ATORVASTATIN 10 MG TAB PO SCH (22:01)
--- NOTE | 2017-03-05 22:59 | PN ---
PROGRESS NOTE Patient is seen for followup for CKD, stage 5. He was admitted to the hospital 1 day after PD catheter placement and had chest pain and ruled in for non-ST elevation ND. The patient was on heparin and developed bleeding in the abdominal wall. He seems to have a hematoma. He is otherwise doing fairly okay with no ongoing chest pain. He is maintained on low-dose nitroglycerin drip. Hemoglobin appears to be stable at about 8.4 g/dL. Cardiology is considering cardiac catheterization. EXAMINATION: Blood pressure is 127, 62, heart rate 77 per minute. Patient is afebrile. HEART: S1, S2. LUNGS: Bilateral breath sounds are heard. ABDOMEN: Soft. There is an abdominal wall hematoma noted in the anterior abdomen as well as the site of the hernia repair. PHYSICIAN INTERNIST: Grossly intact. Patient moving all 4 extremities. LUNGS: Clear with decreased breath sounds at bases. HEART: Sounds are heard. There is no evidence of edema in his lower extremities. LABS: Sodium 137, potassium 4.1, chloride 103, BUN 56, serum creatinine 4.4, CO2 17. Hemoglobin 8.4 g/dL. Phosphorus 6.7. Troponin was at 2.0. It is now at 1.8. ASSESSMENT: 1. Chronic kidney disease stage 5, currently not yet on dialysis. Patient had his peritoneal dialysis catheter placed about 2 days ago. He has a fair amount of urine output. If cardiac catheterization is needed, we can proceed with the procedure, as patient will be starting dialysis soon. 2. Bruising/hematoma in abdominal wall, fairly stable. Heparin is on hold. Repeat hemoglobin is stable at 8.4 g/dL. 3. Anemia of chronic disease. Patient is maintained on Aranesp. 4. Status post [id number] myocardial infarction. PLAN: Okay to proceed with cardiac catheterization from Nephrology standpoint. Continue with Aranesp. Continue with the IV Lasix. Patient will be evaluated for need for renal replacement therapy on a daily basis. MMODL / IJN: [id number] /
--- NOTE | 2017-03-05 23:38 | P.PN ---
Subjective Principal diagnosis: Acute non-ST elevated OR Patient is a 76-year-old male with a known history of coronary artery disease and history of CABG, CKD stage 5 and had peritoneal dialysis as well as recent right inguinal hernia repair came to the hospital with complaints of pressure- like sensation in the chest and was found to have elevated troponin level. Patient is being treated for acute non-ST elevated OR. Chest x-ray initially showed pulmonary edema. On 03/05/2017 Patient was found to have possible hematoma at the peritoneal masses catheter insertion and also right inguinal area. IV heparin has been stopped. Cardiology and nephrology and pulmonary is following this patient. Chest x-ray showed pulmonary edema consistent with CHF. 2-D echo cardiac exam showed his ejection fraction 30-35 percent. Patient denied any complaints of chest pain are worse and short of breath patient does complain of pain at the surgical site and abdominal. Patient has been afebrile. No nausea vomiting. Patient is diuresing well with IV Lasix. All other 14 point review of systems negative except level. Current medications reviewed Objective - Vital Signs Vital signs: Vital Signs Temp 98.0 F 03/05/17 12:00 Pulse 77 03/05/17 19:00 Resp 15 03/05/17 19:00 BP 127/62 03/05/17 19:00 Pulse Ox 97 03/05/17 19:00 Intake & Output 03/05/17 03/05/17 03/06/17 06:59 18:59 06:59 Intake Total 717.706 1902.98 20 Output Total 1725 1550 120 Balance -1125.655 -174.02 -100 Weight 86.3 kg 86.3 kg Intake: IV 130 190 20 0.9 at KVO 130 190 20 Intake, IV Titration 319.345 225.98 Amount Heparin Sodium,Porcine/ 319.345 224.68 D5w Pmx 25,000 unit In Dextrose/Water 1 500ml. bag @ 12 UNITS/KG/HR 19. 34 mls/hr IV .Q24H [facility] Rx #:[id number] Nitroglycerin-D5w Pmx 50 1.3 mg In Dextrose/Water 1 250ml.bag @ 20 MCG/MIN 6 mls/hr IV .Q24H [facility] Rx#: [id number] Oral 150 960 Output: Urine 1725 1550 120 Other: Voiding Method Urinal Urinal Urinal # Voids 0 0 0 - Exam PHYSICAL EXAMINATION: Patient is lying in the bed comfortably, no acute distress, awake alert and oriented.. HEENT: Normocephalic. Neck is supple. Pupils reactive. Nostrils clear. Oral cavity is moist. Ears reveal no drainage. Neck reveals no JVD, carotid bruits, or thyromegaly. CHEST EXAMINATION: Trachea is central. Symmetrical expansion. Bilateral bases are diminished sounds and crackles present CARDIAC: Normal S1, S2 with no gallops. No murmurs ABDOMEN: Soft. Bowel sounds normal. No tenderness. Bruising over the right inguinal surgical site as well as peritoneal dialysis catheter insertion site. Increased swelling compared to yesterday with possible hematoma Extremities 2+ edema. No clubbing or cyanosis . Pulses feeble Neurologically awake, alert, oriented x3 with well-coordinated movements. Skin: no rash or skin lesions Musculoskeletal: no joint swelling or deformity. - Labs CBC & Chem 7: 03/05/17 17:36 03/05/17 04:55 Labs: Abnormal Lab Results - Last 24 Hours (Table) 03/04/17 03/05/17 03/05/17 Range/Units 23:51 04:55 04:55 RBC 2.98 L (4.30-5.90) m/uL Hgb 8.4 L (13.0-17.5) gm/dL Hct 28.6 L (39.0-53.0) % MCHC 29.3 L (31.0-37.0) g/dL RDW 19.0 H (11.5-15.5) % Lymphocytes # 0.8 L (1.0-4.8) k/uL APTT 56.4 H (22.0-30.0) sec Carbon Dioxide 17 L (22-30) mmol/L BUN 56 H (9-20) mg/dL Creatinine 4.40 H (0.66-1.25) mg/dL Glucose 104 H (74-99) mg/dL Phosphorus 6.7 H (2.5-4.5) mg/dL Troponin I (0.000-0.034) ng/mL Total Protein 6.1 L (6.3-8.2) g/dL Albumin 3.4 L (3.5-5.0) g/dL 03/05/17 03/05/17 03/05/17 Range/Units 04:55 04:55 17:36 RBC 2.94 L (4.30-5.90) m/uL Hgb 8.4 L (13.0-17.5) gm/dL Hct 28.2 L (39.0-53.0) % MCHC 29.9 L (31.0-37.0) g/dL RDW 19.0 H (11.5-15.5) % Lymphocytes # 0.7 L (1.0-4.8) k/uL APTT 59.6 H (22.0-30.0) sec Carbon Dioxide (22-30) mmol/L BUN (9-20) mg/dL Creatinine (0.66-1.25) mg/dL Glucose (74-99) mg/dL Phosphorus (2.5-4.5) mg/dL Troponin I 1.800 H* (0.000-0.034) ng/mL Total Protein (6.3-8.2) g/dL Albumin (3.5-5.0) g/dL Assessment and Plan Plan: #1 acute non-ST elevation myocardial infarction: Patient was on IV heparin. Stopped due to worsening abdominal wall swelling with possible hematoma at the surgical site. #2 acute CHF with systolic dysfunction ejection fraction 30-35%. #3 chronic kidney disease stage V: Patient may have acute kidney injury as well patient has a peroneal dialysis catheter in place and nephrology is following the patient. #4 possible right inguinal hematoma #5 right inguinal hernia repair in 03/02/2017 along with placement of a mesh and insertion of a peritoneal dialysis catheter #6 hyponatremia: Hypervolemic hyponatremia which is expected to improve with IV Lasix. #7 hyperphosphatasemia: Secondary to metabolic bone disease from chronic kidney disease. #8 history of severe coronary artery disease. With the multiple stents in the past. #9 atherosclerotic renovascular and peripheral vascular disease and carotid endarterectomy. 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 Plan: IV heparin has been on hold due to developing hematoma. Continue to monitor H& H. Patient will be continued on IV Lasix due to CHF and pulmonary edema. Continue with home blood pressures medications. Continue with aspirin and statins. Nephrology and pulmonary is following this patient. Awaiting cardiology recommendations. Prognosis is guarded. Further recommendations based on the clinical course. Time with Patient: Greater than 30
[2017-03-06] MEDS: HEPARIN SODIUM,PORCINE/D5W PMX 25,000 UNIT in DEXTROSE/WATER 1 500ML.BAG IV SCH (03:26)
[2017-03-06 04:56] LABS: Anisocytosis Slight; Basophils % (A) 0 %; CH 28.9; CHCM 30.3; Eosinophils # (A) 0.2 k/uL (0-0.7); Eosinophils % (A) 2 %; HCT 30.5 % (39.0-53.0); HDW 2.83; HGB 9.3 gm/dL (13.0-17.5); Hypochromasia Moderate; Luc # (Auto) 0.13; Luc % (Auto) 2; Lymphocytes # (A) 0.8 k/uL (1.0-4.8); Lymphocytes % (A) 9 %; MCH 29.5 pg (25.0-35.0); MCHC 30.6 g/dL (31.0-37.0); MCV 96.4 fL (80.0-100.0); Macrocytosis Slight; Mean Platelet Volume 7.6; Monocytes # (A) 0.7 k/uL (0-1.0); Monocytes % (A) 9 %; Neutrophils # (A) 6.5 k/uL (1.3-7.7); Neutrophils % (A) 78 %; RBC 3.16 m/uL (4.30-5.90); RDW 19.1 % (11.5-15.5); WBC 8.3 k/uL (3.8-10.6); WBC (Perox) 8.13
[2017-03-06 05:11] LABS: Calcium 9.2 mg/dL (8.4-10.2); Magnesium 2.2 mg/dL (1.6-2.3); Phosphorus 7.1 mg/dL (2.5-4.5)
[2017-03-06] MEDS: HYDROcodone/APAP 5-325MG 1 EACH TAB PO PRN (05:26)
[2017-03-06 05:33] LABS: INR 1.1 (<1.2); Prothrombin Time 10.6 sec (9.0-12.0)
--- NOTE | 2017-03-06 07:01 | XR ---
EXAMINATION TYPE: XR chest 1V DATE OF EXAM: 03/06/2017 HISTORY: F/U. REFERENCE: Previous study dated 03/05/2017. FINDINGS: The heart remains enlarged. Pulmonary vasculature has improved. No definite interstitial ch ronna is seen at this time. I cannot exclude tiny, bilateral effusions. IMPRESSION: IMPROVING CHANGES OF CONGESTIVE HEART FAILURE.
[2017-03-06] MEDS: CHOLECALCIFEROL 1,000 UNIT TAB PO SCH (08:31)
[2017-03-06] MEDS: LACTULOSE 20 GM/30 ML CUP PO SCH ×3 (08:31→23:04)
[2017-03-06] MEDS: FUROSEMIDE 10 MG/ML 10 ML VIAL IV SCH ×2 (08:31→21:37)
[2017-03-06] MEDS: ACETAMINOPHEN TAB 500 MG TAB PO SCH ×3 (08:31→21:39)
[2017-03-06] MEDS: POLYETHYLENE GLYCOL 3350 17 GM POWD.PACK PO SCH (08:31)
[2017-03-06] MEDS: SODIUM BICARBONATE TAB 650 MG TAB PO SCH ×3 (08:32→23:02)
[2017-03-06] MEDS: ASPIRIN 81 MG PO SCH (08:32)
[2017-03-06] MEDS: DILTIAZEM CD 120 MG CAP.ER.24H PO SCH ×2 (08:32→21:37)
[2017-03-06] MEDS: LABETALOL 100 MG TAB PO SCH ×2 (08:32→21:39)
[2017-03-06] MEDS: FAMOTIDINE 20 MG/2 ML VIAL IV SCH ×2 (08:33→21:38)
[2017-03-06] MEDS: hydrALAZINE HCL 50 MG TAB PO SCH (08:33)
[2017-03-06] MEDS: ONDANSETRON 4 MG/2 ML VIAL IVP PRN (09:03)
--- NOTE | 2017-03-06 10:03 | P.PN ---
Subjective Principal diagnosis: Hematoma Patient doing well today. Still no flatus or bowel movement. Mild abdominal discomfort. Tolerating liquid diet. Pulmonary status stable. Objective - Vital Signs Vital signs: Vital Signs Temp 98.6 F 03/06/17 04:30 Pulse 87 03/06/17 07:30 Resp 30 H 03/06/17 07:30 BP 164/80 03/06/17 07:30 Pulse Ox 97 03/06/17 07:30 Intake & Output 03/05/17 03/06/17 03/06/17 18:59 06:59 18:59 Intake Total 1375.98 263.125 Output Total 1550 1620 Balance -174.02 -1356.875 Weight 86.3 kg 83.3 kg Intake: IV 190 110 0.9 at KVO 190 110 Intake, IV Titration 225.98 153.125 Amount Heparin Sodium,Porcine/ 224.68 D5w Pmx 25,000 unit In Dextrose/Water 1 500ml. bag @ 12 UNITS/KG/HR 19. 34 mls/hr IV .Q24H [facility] Rx #:[id number] Nitroglycerin-D5w Pmx 50 1.3 153.125 mg In Dextrose/Water 1 250ml.bag @ 20 MCG/MIN 6 mls/hr IV .Q24H [facility] Rx#: [id number] Oral 960 Output: Urine 1550 1620 Other: Voiding Method Urinal Urinal # Voids 0 0 - Exam Abdomen: Soft, mild distention, minimal tenderness, incision clean and dry - Labs CBC & Chem 7: 03/06/17 04:11 03/06/17 04:11 Labs: Abnormal Lab Results - Last 24 Hours (Table) 03/05/17 03/06/17 03/06/17 Range/Units 17:36 04:11 04:11 RBC 2.94 L 3.16 L (4.30-5.90) m/uL Hgb 8.4 L 9.3 L (13.0-17.5) gm/dL Hct 28.2 L 30.5 L (39.0-53.0) % MCHC 29.9 L 30.6 L (31.0-37.0) g/dL RDW 19.0 H 19.1 H (11.5-15.5) % Lymphocytes # 0.7 L 0.8 L (1.0-4.8) k/uL Carbon Dioxide 20 L (22-30) mmol/L BUN 56 H (9-20) mg/dL Creatinine 4.70 H (0.66-1.25) mg/dL Glucose 115 H (74-99) mg/dL Phosphorus 7.1 H (2.5-4.5) mg/dL Assessment and Plan (1) Groin hematoma Narrative/Plan: Will advance diet at this time. Continue IC observation for now. Status: Acute
[2017-03-06] MEDS ORDERED: MAG HYDROX/AL HYDROX/SIMETH 30 ML CUP PO PRN (12:40)
--- NOTE | 2017-03-06 12:50 | P.PN ---
Subjective 77-year-old male patient who underwent a repair of a inguinal hernia and insertion of a peritoneal catheter for hemodialysis by general surgery on 2016. Since then the patient is been having episodes it chest pain. He had been in the emergency department for the same. He was noted to have elevated troponins however he decided to be released and go home. Yesterday the patient started having chest pain along with shortness of breath and based on his extensive cardiac history the patient came back to the burst department and the patient was found to have post his troponins which peaked at 1.5 and abnormal EKG that showed ST segment depressions involving the anterolateral leads in addition to sinus rhythm with LVH and widening of QRS with repolarization abnormality. An underlying SEPTAL infarct cannot be completely excluded. D- dimer was elevated at 4.6. The proBNP elevated was 33,000. Creatinine was abnormal due to his chronic renal failure with a creatinine of 4.5. A CT aorta the chest was done and it showed aortic aneurysm in the distal thoracic aorta measuring 4.7 cm in size at the level of the hiatus of the diaphragm. Aorta measures 4.8 cm size just above the SMA. 3.8 cm in the mid abdomen at 3.2 cm just above the bifurcation. There is also evidence of evidence of subcutaneous air likely related to the recent dialysis catheter insertion and the peritoneal cavity. There is also evidence of fecal impaction. CT of the chest was also done and it showed no evidence of any pulmonary embolism. The aortic aneurysm was noted without any dissection. There is also evidence of pulmonary edema with small bilateral pleural effusion right more than left. This is consistent with CHF. The patient also has been producing urine and he was in the process of being prepared for dialysis. Nephrology saw the patient special that his current contrast intake and to give the patient Lasix 80 mg IV every 12 hours. At this point that the patient is resting comfortably in the intensive care unit. He is minimal diffuse chest pain, on and off of varying severity. The patient has undergone coronary artery bypass surgery for diffuse CAD back in 1986. Since then he has had multiple myocardial infarctions for which she has required cardiac catheterization a total of 6 or 7 stents have been inserted over the years. He was being followed up by endoscopy nurse in [facility]. 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 He has also known to have carotid artery disease and undergone right carotid endarterectomy. On 03/05/2017, the patient is being seen in follow-up in intensive care unit. On and off is still having chest pain. He still IV heparin. IV heparin was stopped this morning I give the patient is developing some increased hematoma over the anterior abdominal wall at the site of the insertion of the peritoneal dialysis catheter. There is also a hematoma in his right groin area/and this has extended to his scrotum and back. Nevertheless the right inguinal hematomas quite soft. Hemoglobin is dropped by half a gram and for that reason I stopped IV heparin. Awaiting final cardiology recommendations regarding the possibility of the need for cardiac catheterization. Meanwhile the patient is receiving Lasix and he is diuresing well and he is a negative fluid balance. Renal function stable with a GFR of 13 and a creatinine of 4.4. No hyperkalemia. Hemoglobin is at 8.4. The chest x-ray showed CHF and unchanged compared to yesterday's study. The echocardiogram showed an ejection fraction of 30-35% with some dilation of the right ventricle and right atrium. The right ventricular systolic pressure was 43 mmHg. No other major abnormalities noted. On 03/06/2017, the patient is being seen in follow-up. He is still having on and off chest pain. I took the patient off heparin due to concern of a abdominal hematoma and the right groin hematoma. The hematoma itself is unchanged and stable for today. The patient is clinically the same. He remains in CHF. He continues to have angina. He will be undergoing a cardiac catheterization tomorrow. He remains on nitroglycerin drip which is being titrated based on his chest pain. The patient's renal function is stable and his GFR is still around 10. He'll be undergoing a cardiac catheterization by Dr. Snow tomorrow. He is on IV Lasix 80 mg every 12 hours. The patient is producing urine output and the negative of 2 L for yesterday another 1.5 L for today. Chest x-ray is consistent with CHF. Objective - Vital Signs Vital signs: Vital Signs Temp 97.2 F L 03/06/17 08:30 Pulse 79 03/06/17 10:00 Resp 14 03/06/17 10:00 BP 151/64 03/06/17 10:00 Pulse Ox 98 03/06/17 10:00 Intake & Output 03/05/17 03/06/17 03/06/17 18:59 06:59 18:59 Intake Total 1375.98 263.125 270 Output Total 1550 1620 600 Balance -174.02 -1356.875 -330 Weight 86.3 kg 83.3 kg 83.3 kg Intake: IV 190 110 30 0.9 at KVO 190 110 30 Intake, IV Titration 225.98 153.125 Amount Heparin Sodium,Porcine/ 224.68 D5w Pmx 25,000 unit In Dextrose/Water 1 500ml. bag @ 12 UNITS/KG/HR 19. 34 mls/hr IV .Q24H [facility] Rx #:[id number] Nitroglycerin-D5w Pmx 50 1.3 153.125 mg In Dextrose/Water 1 250ml.bag @ 20 MCG/MIN 6 mls/hr IV .Q24H [facility] Rx#: [id number] Oral 960 240 Output: Urine 1550 1620 400 Emesis 200 Other: Voiding Method Urinal Urinal Urinal # Voids 0 0 0 - Exam Gen. appearance is a mild degree of respiratory distress and episodic chest pains also being reported. Head is atraumatic normocephalic. Neck is positive for JVDs no goiter or neck masses point. There is a scar of a previous carotid endarterectomy on the right. Lung sounds are diminished bilaterally in the lung bases. Crackles are also appreciated lung bases. No wheezes or rhonchi. Heart sounds are regular, positive S1 and S2 without any significant murmurs.Abdominal exam revealed normal bowel sounds. The abdomen was soft, non- tender, and without masses, organomegaly, or appreciable enlargement of the abdominal aorta. The right inguinal surgical site is bruised and there is a potential he an underlying hematoma. The hematomas extending to his scrotum and to the back. There is also another hematoma over the anterior abdominal wall and set of the surgical wound site for peritoneal catheter insertion. This hematomas is slightly more firm and has also increased in size compared to yesterday's evaluation. No direct tenderness. No rebound tenderness. No guarding. The femoral pulses are obtainable . Extremities are showing + edema there is no cyanosis or clubbing. Pulses are quite diminished and there obtainable by Doppler signals. Skin is negative for any open wounds or sores or any ulceration. Neuro is or 83 and the neurologic exam is nonfocal at this point. Psych is negative for any mood or change in affect. Vascular the patient has Doppler signals in lower extremities bilaterally. The feet are cold. Pulses are present in the upper extremities bilaterally. - Labs CBC & Chem 7: 03/06/17 04:11 03/06/17 04:11 Labs: Abnormal Lab Results - Last 24 Hours (Table) 03/05/17 03/06/17 03/06/17 Range/Units 17:36 04:11 04:11 RBC 2.94 L 3.16 L (4.30-5.90) m/uL Hgb 8.4 L 9.3 L (13.0-17.5) gm/dL Hct 28.2 L 30.5 L (39.0-53.0) % MCHC 29.9 L 30.6 L (31.0-37.0) g/dL RDW 19.0 H 19.1 H (11.5-15.5) % Lymphocytes # 0.7 L 0.8 L (1.0-4.8) k/uL Carbon Dioxide 20 L (22-30) mmol/L BUN 56 H (9-20) mg/dL Creatinine 4.70 H (0.66-1.25) mg/dL Glucose 115 H (74-99) mg/dL Phosphorus 7.1 H (2.5-4.5) mg/dL Assessment and Plan Plan: Assessment 1 acute non-ST segment elevation myocardial infarction with secondary chest pain shortness of breath. The patient continues to have episodes of chest pain and IV heparin has been discontinued due to evaluation of an abdominal and the right inguinal hematoma. 2 acute CHF exacerbation secondary to above. ProBNP is elevated and the CAT scan of the chest showing CHF/edema with small better pleural effusion. ProBNP level is quite elevated 3 chronic renal failure with stage 4-5 chronic kidney disease, awaiting hemodialysis. Is very much like to the patient will require dialysis soon as possible knowing that he has received contrast dye during this current hospitalization which probably is going to contribute to his renal failure progression 4 right inguinal hernia repair in 03/02/2017 along with placement of a mesh and insertion of a peritoneal dialysis catheter 5 right inguinal hematoma at the site of the surgical wound, in addition to another hematoma over the anterior abdominal wall and the site of insertion of a PD catheter. 6 multivessel coronary disease with previous bypass surgery in 1986 7 multiple myocardial infarctions insertion of coronary stents at least 7 over the years and his endoscopy nurse at [facility] 8 COPD was currently inactive in stable 9 CVA with some minimal residual right-sided weakness 10 hyperlipidemia 11 hypertension 12 chronic anemia maintained on Aranesp injections 13 Peripheral vascular disease severe with previous vascular intervention and stenting 14 abdominal and descending thoracic aortic aneurysm, without evidence of any dissection 15 osteoarthritis 16 remote history of alcoholism 17 history of smoking 18 history of anxiety/panic. 19 hyponatremia , improved and the sodium level is up to 137 Plan Monitor the hematoma. We'll keep the patient off heparin. Titrate the nitroglycerin for chest pain. Continue diuresis and the patient has been a negative fluid balance of more than 3-1/2 L over the past 2 days. Chest x-ray still consistent with CHF. The patient is still having some shortness of breath and he has positive neck veins and it remains in heart failure. He'll be undergoing a cardiac catheterization tomorrow regarding his ongoing angina and chest pain. Meanwhile, continue IV Lasix and monitor renal function. He is producing adequate amount of urine output. The hematoma is stable. This was also suspected by general surgery. Condition is critical. Prognosis poor. We'll continue to follow.
[2017-03-06] MEDS: BISACODYL 10 MG SUPP RECTAL SCH (12:54)
--- NOTE | 2017-03-06 14:02 | P.PN ---
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 The patient initially presented early yesterday and he refused to be admitted to the hospital. His chest discomfort get worse and it was associated with shortness of breath and he decided to come to the hospital. He was ruled in for acute coronary syndrome. The cardiac enzymes came in to be severe lead elevated. On follow-up with the patient today and March [id number], he continues to have chest discomfort. He still on nitro drip. The heparin drip was stopped in view of hematoma which was enlarging. Beside that he is on dual antiplatelet therapy and statin as well as beta j luis. Objective - Vital Signs Vital signs: Vital Signs Temp 97.2 F L 03/06/17 08:30 Pulse 79 03/06/17 10:00 Resp 14 03/06/17 10:00 BP 151/64 03/06/17 10:00 Pulse Ox 98 03/06/17 10:00 Intake & Output 03/05/17 03/06/17 03/06/17 18:59 06:59 18:59 Intake Total 1375.98 263.125 270 Output Total 1550 1620 600 Balance -174.02 -1356.875 -330 Weight 86.3 kg 83.3 kg 83.3 kg Intake: IV 190 110 30 0.9 at KVO 190 110 30 Intake, IV Titration 225.98 153.125 Amount Heparin Sodium,Porcine/ 224.68 D5w Pmx 25,000 unit In Dextrose/Water 1 500ml. bag @ 12 UNITS/KG/HR 19. 34 mls/hr IV .Q24H [facility] Rx #:[id number] Nitroglycerin-D5w Pmx 50 1.3 153.125 mg In Dextrose/Water 1 250ml.bag @ 20 MCG/MIN 6 mls/hr IV .Q24H [facility] Rx#: [id number] Oral 960 240 Output: Urine 1550 1620 400 Emesis 200 Other: Voiding Method Urinal Urinal Urinal # Voids 0 0 0 - Constitutional General appearance: Present: no acute distress - Respiratory Respiratory: bilateral: diminished - Cardiovascular Heart sounds: normal: S1, S2 Abnormal Heart Sounds: Present: systolic murmur - Labs CBC & Chem 7: 03/06/17 04:11 03/06/17 04:11 Labs: Abnormal Lab Results - Last 24 Hours (Table) 03/05/17 03/06/17 03/06/17 Range/Units 17:36 04:11 04:11 RBC 2.94 L 3.16 L (4.30-5.90) m/uL Hgb 8.4 L 9.3 L (13.0-17.5) gm/dL Hct 28.2 L 30.5 L (39.0-53.0) % MCHC 29.9 L 30.6 L (31.0-37.0) g/dL RDW 19.0 H 19.1 H (11.5-15.5) % Lymphocytes # 0.7 L 0.8 L (1.0-4.8) k/uL Carbon Dioxide 20 L (22-30) mmol/L BUN 56 H (9-20) mg/dL Creatinine 4.70 H (0.66-1.25) mg/dL Glucose 115 H (74-99) mg/dL Phosphorus 7.1 H (2.5-4.5) mg/dL Assessment and Plan Plan: This is a 76-year-old gentleman with known CAD and prior CABG, PAD and prior revascularization, as well as multiple comorbid conditions was admitted to the hospital with chest discomfort and was ruled in for acute coronary event. Currently the patient is on aspirin, heparin, beta j luis, and statin. We will proceed with a heart catheterization tomorrow.
[2017-03-06] MEDS ORDERED: MINERAL OIL 133 ML ENEMA RECTAL STA (14:38)
[2017-03-06] MEDS: hydrALAZINE HCL 25 MG TAB PO SCH ×2 (15:14→23:04)
--- NOTE | 2017-03-06 21:32 | PN ---
PROGRESS NOTE Patient is seen for followup for CKD, stage 5. Currently patient remains in the ICU. He states he still feels poorly. He is complaining of some abdominal pain secondary to the abdominal wall hematoma. No other new complaints. He denies any chest pains. EXAMINATION: Blood pressure 135/64, heart rate 71 per minute. Patient is afebrile. Examination of the heart, S1 and S2. Examination of the lungs, bilateral breath sounds are heard. Decreased breath sounds at bases. Abdomen is soft. There is tenderness noted at the site of the bruising. Bruising in the right groin area also is stable. 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 LABS: Serum creatinine 4.7, sodium 137, potassium 4.0, hemoglobin 9.3 g/dL. ASSESSMENT: 1. Chronic kidney disease, stage 5, not yet on dialysis, status post PD catheter placement on 03/02/2017. At this time, patient does not need to start hemodialysis and we can continue to monitor for now. He is maintained on Lasix 80 mg IV q.12 hours for fluid overload, which we can continue. 2. Fluid overload, currently stable and improved. Chest x-ray from today shows improving changes of congestive heart failure. 3. Abdominal wall hematoma and bleeding at the site of the inguinal hernia repair, currently stable. Hemoglobin has not dropped further. 4. Non-ST elevation myocardial infarction. Scheduled for cardiac cath tomorrow. PLAN: Continue current dose of Lasix, monitor hemoglobin and we will continue to evaluate on a daily basis for need for hemodialysis. The PD catheter is not ready yet, however, if he can get by with 1 week post placement of catheter we can possibly start low volume exchanges. However, in view of the inguinal hernia repair, I feel it will be better to start hemodialysis rather than PD as we would like the abdomen to rest with the recent hernia repair and the abdominal wall hematoma. MMODL / IJN: [id number] /
[2017-03-06] MEDS: ATORVASTATIN 10 MG TAB PO SCH (21:37)
[2017-03-06] MEDS: traZODone HCL 50 MG TAB PO SCH (21:39)
--- NOTE | 2017-03-06 23:43 | P.PN ---
Subjective Principal diagnosis: Acute non-ST elevated MS Patient is a 76-year-old male with a known history of coronary artery disease and history of CABG, CKD stage 5 and had peritoneal dialysis as well as recent right inguinal hernia repair came to the hospital with complaints of pressure- like sensation in the chest and was found to have elevated troponin level. Patient is being treated for acute non-ST elevated MS. Chest x-ray initially showed pulmonary edema. On 03/05/2017 Patient was found to have possible hematoma at the peritoneal masses catheter insertion and also right inguinal area. IV heparin has been stopped. Cardiology and nephrology and pulmonary is following this patient. Chest x-ray showed pulmonary edema consistent with CHF. 2-D echo cardiac exam showed his ejection fraction 30-35 percent. Patient denied any complaints of chest pain are worse and short of breath patient does complain of pain at the surgical site and abdominal. Patient has been afebrile. No nausea vomiting. Patient is diuresing well with IV Lasix. 03/06/2017 Patient is still having chest pain in the morning today. Patient is being continued on nitro drip. Right inguinal hematoma seems to be reduced in size. Hemoglobin is stable. Patient denied any short of breath. No nausea vomiting. No fever no chills. Cardiac catheterization tomorrow. All other 14 point review of systems negative except level. Current medications reviewed Objective - Vital Signs Vital signs: Vital Signs Temp 98.4 F 03/06/17 20:00 Pulse 79 03/06/17 20:00 Resp 15 03/06/17 20:00 BP 135/55 03/06/17 20:00 Pulse Ox 93 L 03/06/17 20:00 Intake & Output 03/06/17 03/06/17 03/07/17 06:59 18:59 06:59 Intake Total 263.125 940 20 Output Total 1620 2775 160 Balance -1356.875 -1835 -140 Weight 83.3 kg 83.3 kg Intake: IV 110 100 20 0.9 at KVO 110 100 20 Intake, IV Titration 153.125 Amount Nitroglycerin-D5w Pmx 50 153.125 mg In Dextrose/Water 1 250ml.bag @ 20 MCG/MIN 6 mls/hr IV .Q24H [facility] Rx#: [id number] Oral 840 Output: Urine 1620 2475 160 Emesis 300 Other: Voiding Method Urinal Urinal # Voids 0 0 # Bowel Movements 2 - Exam PHYSICAL EXAMINATION: Patient is lying in the bed comfortably, no acute distress, awake alert and oriented.. HEENT: Normocephalic. Neck is supple. Pupils reactive. Nostrils clear. Oral cavity is moist. Ears reveal no drainage. Neck reveals no JVD, carotid bruits, or thyromegaly. CHEST EXAMINATION: Trachea is central. Symmetrical expansion. Bilateral bases are diminished sounds and crackles present CARDIAC: Normal S1, S2 with no gallops. No murmurs ABDOMEN: Soft. Bowel sounds normal. No tenderness. Bruising over the right inguinal surgical site as well as peritoneal dialysis catheter insertion site. Increased swelling compared to yesterday with possible hematoma Extremities 2+ edema. No clubbing or cyanosis . Pulses feeble Neurologically awake, alert, oriented x3 with well-coordinated movements. Skin: no rash or skin lesions Musculoskeletal: no joint swelling or deformity. - Labs CBC & Chem 7: 03/06/17 04:11 03/06/17 04:11 Labs: Abnormal Lab Results - Last 24 Hours (Table) 03/06/17 03/06/17 Range/Units 04:11 04:11 RBC 3.16 L (4.30-5.90) m/uL Hgb 9.3 L (13.0-17.5) gm/dL Hct 30.5 L (39.0-53.0) % MCHC 30.6 L (31.0-37.0) g/dL RDW 19.1 H (11.5-15.5) % Lymphocytes # 0.8 L (1.0-4.8) k/uL Carbon Dioxide 20 L (22-30) mmol/L BUN 56 H (9-20) mg/dL Creatinine 4.70 H (0.66-1.25) mg/dL Glucose 115 H (74-99) mg/dL Phosphorus 7.1 H (2.5-4.5) mg/dL Assessment and Plan Plan: #1 acute non-ST elevation myocardial infarction: Patient was on IV heparin. Stopped due to worsening abdominal wall swelling with possible hematoma at the surgical site. #2 acute CHF with systolic dysfunction ejection fraction 30-35%. #3 chronic kidney disease stage V: Patient may have acute kidney injury as well patient has a peroneal dialysis catheter in place and nephrology is following the patient. #4 possible right inguinal hematoma #5 right inguinal hernia repair in 03/02/2017 along with placement of a mesh and insertion of a peritoneal dialysis catheter #6 hyponatremia: Hypervolemic hyponatremia which is expected to improve with IV Lasix. #7 hyperphosphatasemia: Secondary to metabolic bone disease from chronic kidney disease. #8 history of severe coronary artery disease. With the multiple stents in the past. #9 atherosclerotic renovascular and peripheral vascular disease and carotid endarterectomy. 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 Plan: IV heparin has been on hold due to developing hematoma. Continue to monitor H& H. Patient will be continued on IV Lasix due to CHF and pulmonary edema. Continue with home blood pressures medications. Continue with aspirin and statins. Nephrology and pulmonary is following this patient. Cardiology is planning for catheterization tomorrow. Prognosis is guarded. Further recommendations based on the clinical course. Time with Patient: Greater than 30
[2017-03-07] MEDS: NITROGLYCERIN-D5W PMX 50 MG in DEXTROSE/WATER 1 250ML.BAG IV SCH ×3 (03:00→09:33)
[2017-03-07] MEDS: HEPARIN SODIUM,PORCINE/D5W PMX 25,000 UNIT in DEXTROSE/WATER 1 500ML.BAG IV SCH (03:11)
[2017-03-07 04:50] LABS: Anisocytosis Slight; Basophils % (A) 0 %; CH 28.7; CHCM 30.6; Eosinophils # (A) 0.1 k/uL (0-0.7); Eosinophils % (A) 1 %; HCT 28.3 % (39.0-53.0); HDW 2.77; HGB 8.5 gm/dL (13.0-17.5); Hypochromasia Moderate; Luc # (Auto) 0.09; Luc % (Auto) 1; Lymphocytes # (A) 0.5 k/uL (1.0-4.8); Lymphocytes % (A) 7 %; MCH 28.6 pg (25.0-35.0); MCHC 30.1 g/dL (31.0-37.0); MCV 94.8 fL (80.0-100.0); Macrocytosis Slight; Mean Platelet Volume 7.7; Monocytes # (A) 0.6 k/uL (0-1.0); Monocytes % (A) 8 %; Neutrophils # (A) 6.3 k/uL (1.3-7.7); Neutrophils % (A) 82 %; RBC 2.98 m/uL (4.30-5.90); RDW 18.9 % (11.5-15.5); WBC 7.7 k/uL (3.8-10.6); WBC (Perox) 8.04
[2017-03-07 05:11] LABS: Calcium 8.8 mg/dL (8.4-10.2); Magnesium 2.3 mg/dL (1.6-2.3); Phosphorus 6.6 mg/dL (2.5-4.5); Potassium 3.5 mmol/L (3.5-5.1)
--- NOTE | 2017-03-07 08:22 | XR ---
EXAMINATION TYPE: XR chest 1V DATE OF EXAM: 03/07/2017 COMPARISON: 03/06/2017 HISTORY: Follow-up abnormal x-ray TECHNIQUE: Single frontal view of the chest is obtained. FINDINGS: Postsurgical change and cardiomegaly stable. Atherosclerotic change of the left axilla art harley. Ectasia and prominence of the thoracic aorta stable. Interstitium is unchanged. No sizable pneumothorax tiny right-sided pleural effusion stable. No consolidative pneumonia. IMPRESSION: 1. Stable mild central interstitial prominence may been the basis of residual venous congestion. 2. Stable tiny right pleural effusion. 3. cardiomegaly and thoracic aortic enlargement.
[2017-03-07] MEDS ORDERED: LIDOCAINE 2% INJ 20 MG/ML (20 ML MDV) ONE (08:57)
[2017-03-07] MEDS ORDERED: ASPIRIN 325 MG TAB ONE (08:57)
[2017-03-07] MEDS ORDERED: MIDAZOLAM 2 MG/2 ML VIAL ONE ×2 (09:07→09:57)
[2017-03-07] MEDS ORDERED: diphenhydrAMINE 50 MG/ML 1 ML VIAL ONE (09:08)
[2017-03-07] MEDS ORDERED: ASPIRIN 325 MG TAB PO ONE (09:20)
[2017-03-07] MEDS ORDERED: IV FLUID CONTINUATION 500 ML IV ONE (09:31)
[2017-03-07] MEDS: MIDAZOLAM 2 MG/2 ML VIAL IV ONE ×2 (09:42→09:46)
[2017-03-07] MEDS ORDERED: diphenhydrAMINE 50 MG/ML 1 ML VIAL IVP ONE (09:42)
[2017-03-07] MEDS ORDERED: LIDOCAINE 2% INJ 20 MG/ML SQ ONE (09:45)
[2017-03-07] MEDS ORDERED: fentaNYL (PF) 50 MCG/ML 2 ML AMP ONE (09:49)
[2017-03-07] MEDS ORDERED: fentaNYL (PF) 50 MCG/ML 2 ML AMP IV ONE (09:52)
[2017-03-07] MEDS ORDERED: MIDAZOLAM 2 MG/2 ML VIAL IV ONE (10:01)
[2017-03-07] MEDS ORDERED: IODIXANOL 320 MG/ML 100 ML INTRAARTER ONE (10:36)
[2017-03-07] MEDS ORDERED: RX INFO: IV CONTRAST WAS GIVEN 1 EACH MISC MISCELLANE PRN (10:37)
[2017-03-07] MEDS ORDERED: SODIUM CHLORIDE 0.9% 1,000 ML IV SCH (10:45)
--- NOTE | 2017-03-07 11:00 | CC ---
CARDIAC CATHETERIZATION REPORT DATE OF SERVICE: 03/07/2017 PERFORMING PHYSICIAN: Sae France MD. PROCEDURE PERFORMED: 1. Selective left and right coronary angiogram. 2. Left internal mammary artery angiogram. 3. Right internal mammary artery angiogram. 4. Selective left common femoral artery angiogram. INDICATION: This is a pleasant 76-year-old gentleman who is known to have CAD and prior coronary artery bypass grafting in 1993 where based on the last heart catheterization in 2014, he was found to have severe triple-vessel CAD with patent STEPHENS to the left circumflex and patent STEPHENS to LAD, presented to the hospital with chest discomfort and was ruled in for acute non-STEMI. He continues to have ongoing chest discomfort during his stay in the ICU. In view of that, we decided to pursue with a heart catheterization. APPROACH: Left common femoral artery. COMPLICATION: None. LEVEL OF SEDATION: Moderate with sedation length of 45 minutes. PROCEDURE DESCRIPTION: After obtaining informed consent, the patient was brought to the [facility]. The left common femoral artery was cannulated using micropuncture technique under ultrasound guidance, the micropuncture wire passed easily. Then I placed a 6-Yoruba sheath in the left common femoral artery. Subsequently, I did selective left and right coronary angiogram using JL4 and JR4 catheters. After that, I did right internal mammary artery angiogram using a Pettus catheter and left internal mammary artery angiogram using an IM catheter. The procedure was completed without any complication. SELECTIVE CORONARY ANGIOGRAM: 1. The left main is 100% occluded by the ostium. 2. The right coronary artery is 100% occluded as well by the ostium. 3. Coronary bypass angiogram. The CHAS to LAD is patent. 4. The STEPHENS to the left circumflex is patent as well. CONCLUSION: 1. Occluded left main coronary artery. 2. Occluded right coronary artery. 3. Patent CHAS to left anterior descending artery. 4. Patent STEPHENS to left circumflex. POSTPROCEDURE MANAGEMENT: Maximize medical treatment and follow up with the patient. MMODL / IJN: [id number] /
[2017-03-07] MEDS: ACETAMINOPHEN TAB 500 MG TAB PO SCH ×3 (11:45→21:51)
[2017-03-07] MEDS: ASPIRIN 81 MG PO SCH (11:46)
[2017-03-07] MEDS: CHOLECALCIFEROL 1,000 UNIT TAB PO SCH (11:46)
[2017-03-07] MEDS: BISACODYL 10 MG SUPP RECTAL SCH (11:46)
[2017-03-07] MEDS: DILTIAZEM CD 120 MG CAP.ER.24H PO SCH ×2 (11:47→21:51)
[2017-03-07] MEDS: FAMOTIDINE 20 MG/2 ML VIAL IV SCH (11:47)
[2017-03-07] MEDS: FUROSEMIDE 10 MG/ML 10 ML VIAL IV SCH ×2 (11:48→22:22)
[2017-03-07] MEDS: SODIUM BICARBONATE TAB 650 MG TAB PO SCH ×3 (11:50→21:51)
[2017-03-07] MEDS: POLYETHYLENE GLYCOL 3350 17 GM POWD.PACK PO SCH (11:50)
[2017-03-07] MEDS: LACTULOSE 20 GM/30 ML CUP PO SCH ×3 (11:51→21:59)
[2017-03-07] MEDS: LABETALOL 100 MG TAB PO SCH ×2 (11:51→21:50)
[2017-03-07] MEDS: hydrALAZINE HCL 50 MG TAB PO SCH (11:51)
[2017-03-07] MEDS: CLOPIDOGREL 75 MG TAB PO SCH (11:56)
[2017-03-07] MEDS: SEVELAMER 800 MG TAB PO SCH ×2 (13:09→18:28)
--- NOTE | 2017-03-07 14:06 | P.PN ---
Subjective Principal diagnosis: Acute non-ST segment elevation myocardial infarction 77-year-old male patient who underwent a repair of a inguinal hernia and insertion of a peritoneal catheter for hemodialysis by general surgery on 2016. Since then the patient is been having episodes it chest pain. He had been in the emergency department for the same. He was noted to have elevated troponins however he decided to be released and go home. Yesterday the patient started having chest pain along with shortness of breath and based on his extensive cardiac history the patient came back to the burst department and the patient was found to have post his troponins which peaked at 1.5 and abnormal EKG that showed ST segment depressions involving the anterolateral leads in addition to sinus rhythm with LVH and widening of QRS with repolarization abnormality. An underlying SEPTAL infarct cannot be completely excluded. D- dimer was elevated at 4.6. The proBNP elevated was 33,000. Creatinine was abnormal due to his chronic renal failure with a creatinine of 4.5. A CT aorta the chest was done and it showed aortic aneurysm in the distal thoracic aorta measuring 4.7 cm in size at the level of the hiatus of the diaphragm. Aorta measures 4.8 cm size just above the SMA. 3.8 cm in the mid abdomen at 3.2 cm just above the bifurcation. There is also evidence of evidence of subcutaneous air likely related to the recent dialysis catheter insertion and the peritoneal cavity. There is also evidence of fecal impaction. CT of the chest was also done and it showed no evidence of any pulmonary embolism. The aortic aneurysm was noted without any dissection. There is also evidence of pulmonary edema with small bilateral pleural effusion right more than left. This is consistent with CHF. The patient also has been producing urine and he was in the process of being prepared for dialysis. Nephrology saw the patient special that his current contrast intake and to give the patient Lasix 80 mg IV every 12 hours. At this point that the patient is resting comfortably in the intensive care unit. He is minimal diffuse chest pain, on and off of varying severity. The patient has undergone coronary artery bypass surgery for diffuse CAD back in 1986. Since then he has had multiple myocardial infarctions for which she has required cardiac catheterization a total of 6 or 7 stents have been inserted over the years. He was being followed up by [facility] in [facility]. 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 He has also known to have carotid artery disease and undergone right carotid endarterectomy. On 03/05/2017, the patient is being seen in follow-up in intensive care unit. On and off is still having chest pain. He still IV heparin. IV heparin was stopped this morning I give the patient is developing some increased hematoma over the anterior abdominal wall at the site of the insertion of the peritoneal dialysis catheter. There is also a hematoma in his right groin area/and this has extended to his scrotum and back. Nevertheless the right inguinal hematomas quite soft. Hemoglobin is dropped by half a gram and for that reason I stopped IV heparin. Awaiting final cardiology recommendations regarding the possibility of the need for cardiac catheterization. Meanwhile the patient is receiving Lasix and he is diuresing well and he is a negative fluid balance. Renal function stable with a GFR of 13 and a creatinine of 4.4. No hyperkalemia. Hemoglobin is at 8.4. The chest x-ray showed CHF and unchanged compared to yesterday's study. The echocardiogram showed an ejection fraction of 30-35% with some dilation of the right ventricle and right atrium. The right ventricular systolic pressure was 43 mmHg. No other major abnormalities noted. On 03/06/2017, the patient is being seen in follow-up. He is still having on and off chest pain. I took the patient off heparin due to concern of a abdominal hematoma and the right groin hematoma. The hematoma itself is unchanged and stable for today. The patient is clinically the same. He remains in CHF. He continues to have angina. He will be undergoing a cardiac catheterization tomorrow. He remains on nitroglycerin drip which is being titrated based on his chest pain. The patient's renal function is stable and his GFR is still around 10. He'll be undergoing a cardiac catheterization by Dr. Snow tomorrow. He is on IV Lasix 80 mg every 12 hours. The patient is producing urine output and the negative of 2 L for yesterday another 1.5 L for today. Chest x-ray is consistent with CHF. Patient was reevaluated today on 03/07/2017, underwent cardiac catheterization, and the plan is mostly medical therapy. Report of the cardiac catheterization was noted. Pulmonary-ramos, the patient denies any cough no wheezing no shortness of breath and no chest pain at present. Chest x-ray showed mild interstitial prominence and tiny right pleural effusion. Labs were reviewed, hemoglobin is 8.5 WBC count is 7.7. Basic metabolic profile is normal, BUN is 56 creatinine is 4.70. Objective - Vital Signs Vital signs: Vital Signs Temp 98.6 F 03/07/17 08:00 Pulse 57 L 03/07/17 13:30 Resp 13 03/07/17 13:30 BP 98/39 03/07/17 13:30 Pulse Ox 99 03/07/17 13:30 Intake & Output 03/06/17 03/07/17 03/07/17 18:59 06:59 18:59 Intake Total 940 249.300 172.875 Output Total 2775 280 500 Balance -1835 -30.700 -327.125 Weight 83.3 kg 81.6 kg Intake: IV 100 120 129 0.9 at KVO 100 120 50 Intake, IV Titration 129.300 43.875 Amount Nitroglycerin-D5w Pmx 50 129.300 43.875 mg In Dextrose/Water 1 250ml.bag @ 20 MCG/MIN 6 mls/hr IV .Q24H [facility] Rx#: [id number] Oral 840 Output: Urine 2475 280 500 Emesis 300 Other: Voiding Method Urinal Urinal # Voids 0 1 # Bowel Movements 1 1 - Exam Gen. appearance is a mild degree of respiratory distress and episodic chest pains also being reported. Head is atraumatic normocephalic. Neck is positive for JVDs no goiter or neck masses point. There is a scar of a previous carotid endarterectomy on the right. Lung sounds are diminished bilaterally in the lung bases. Crackles are also appreciated lung bases. No wheezes or rhonchi. Heart sounds are regular, positive S1 and S2 without any significant murmurs. Abdominal exam revealed normal bowel sounds. The abdomen was soft, non-tender, and without masses, organomegaly, or appreciable enlargement of the abdominal aorta. The right inguinal surgical site is bruised and there is a potential he an underlying hematoma. The hematomas extending to his scrotum and to the back There is also another hematoma over the anterior abdominal wall and set of the surgical wound site for peritoneal catheter insertion. This hematomas is slightly more firm and has also increased in size compared to yesterday's evaluation. No direct tenderness. No rebound tenderness. No guarding. The femoral pulses are obtainable . Extremities are showing + edema there is no cyanosis or clubbing. Pulses are quite diminished and there obtainable by Doppler signals. Skin is negative for any open wounds or sores or any ulceration. Neuro is or 83 and the neurologic exam is nonfocal at this point. Psych is negative for any mood or change in affect. Vascular the patient has Doppler signals in lower extremities bilaterally. The feet are cold. Pulses are present in the upper extremities bilaterally. - Labs CBC & Chem 7: 03/07/17 03:43 03/07/17 03:43 Labs: Abnormal Lab Results - Last 24 Hours (Table) 03/07/17 03/07/17 Range/Units 03:43 03:43 RBC 2.98 L (4.30-5.90) m/uL Hgb 8.5 L (13.0-17.5) gm/dL Hct 28.3 L (39.0-53.0) % MCHC 30.1 L (31.0-37.0) g/dL RDW 18.9 H (11.5-15.5) % Lymphocytes # 0.5 L (1.0-4.8) k/uL Carbon Dioxide 19 L (22-30) mmol/L BUN 56 H (9-20) mg/dL Creatinine 4.70 H (0.66-1.25) mg/dL Glucose 102 H (74-99) mg/dL Phosphorus 6.6 H (2.5-4.5) mg/dL Assessment and Plan Plan: 1 acute non-ST segment elevation myocardial infarction with secondary chest pain shortness of breath. The patient continues to have episodes of chest pain and IV heparin has been discontinued due to evaluation of an abdominal and the right inguinal hematoma. 2 acute CHF exacerbation secondary to above. ProBNP is elevated and the CAT scan of the chest showing CHF/edema with small better pleural effusion. ProBNP level is quite elevated 3 chronic renal failure with stage 4-5 chronic kidney disease, awaiting hemodialysis. Is very much like to the patient will require dialysis soon as possible knowing that he has received contrast dye during this current hospitalization which probably is going to contribute to his renal failure progression 4 right inguinal hernia repair in 03/02/2017 along with placement of a mesh and insertion of a peritoneal dialysis catheter 5 right inguinal hematoma at the site of the surgical wound, in addition to another hematoma over the anterior abdominal wall and the site of insertion of a PD catheter. 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 19 hyponatremia , improved and the sodium level is up to 137 Recommendation: Continue present supportive care measures, continue to monitor the hematoma, patient remains off heparin, his medical therapy for his acute myocardial infarction and coronary artery disease will be optimized by cardiology, surgery is not an option at this point according to cardiology. Renal ramos, the patient is being followed by nephrology, may eventually require peritoneal dialysis. Time with Patient: Less than 30
--- NOTE | 2017-03-07 15:37 | P.PN ---
Subjective Principal diagnosis: Hematoma Patient underwent his cardiac catheterization today. Apparently that study was better than expected. No new stents were placed. He did have multiple bowel movements last night. Only mild abdominal pain at this time. Objective - Vital Signs Vital signs: Vital Signs Temp 98.6 F 03/07/17 08:00 Pulse 59 L 03/07/17 15:15 Resp 15 03/07/17 15:15 BP 125/53 03/07/17 15:15 Pulse Ox 98 03/07/17 15:15 Intake & Output 03/06/17 03/07/17 03/07/17 18:59 06:59 18:59 Intake Total 940 249.300 206.075 Output Total 2775 280 500 Balance -1835 -30.700 -293.925 Weight 83.3 kg 81.6 kg Intake: IV 100 120 149 0.9 at KVO 100 120 70 Intake, IV Titration 129.300 57.075 Amount Nitroglycerin-D5w Pmx 50 129.300 57.075 mg In Dextrose/Water 1 250ml.bag @ 20 MCG/MIN 6 mls/hr IV .Q24H [facility] Rx#: [id number] Oral 840 Output: Urine 2475 280 500 Emesis 300 Other: Voiding Method Urinal Urinal # Voids 0 1 # Bowel Movements 1 1 - Exam Abdomen: Soft, mild distention, mild tenderness at catheter insertion site, hematoma smaller - Labs CBC & Chem 7: 03/07/17 03:43 03/07/17 03:43 Labs: Abnormal Lab Results - Last 24 Hours (Table) 03/07/17 03/07/17 Range/Units 03:43 03:43 RBC 2.98 L (4.30-5.90) m/uL Hgb 8.5 L (13.0-17.5) gm/dL Hct 28.3 L (39.0-53.0) % MCHC 30.1 L (31.0-37.0) g/dL RDW 18.9 H (11.5-15.5) % Lymphocytes # 0.5 L (1.0-4.8) k/uL Carbon Dioxide 19 L (22-30) mmol/L BUN 56 H (9-20) mg/dL Creatinine 4.70 H (0.66-1.25) mg/dL Glucose 102 H (74-99) mg/dL Phosphorus 6.6 H (2.5-4.5) mg/dL Assessment and Plan (1) Groin hematoma Narrative/Plan: Continue stool softeners. Advance diet. Status: Acute
[2017-03-07] MEDS: hydrALAZINE HCL 25 MG TAB PO SCH ×2 (16:12→21:50)
[2017-03-07] MEDS: ATORVASTATIN 10 MG TAB PO SCH (21:51)
[2017-03-07] MEDS: traZODone HCL 50 MG TAB PO SCH (21:51)
--- NOTE | 2017-03-07 23:51 | P.PN ---
Subjective Principal diagnosis: Acute non-ST elevated MD Patient is a 76-year-old male with a known history of coronary artery disease and history of CABG, CKD stage 5 and had peritoneal dialysis as well as recent right inguinal hernia repair came to the hospital with complaints of pressure- like sensation in the chest and was found to have elevated troponin level. Patient is being treated for acute non-ST elevated MD. Chest x-ray initially showed pulmonary edema. On 03/05/2017 Patient was found to have possible hematoma at the peritoneal masses catheter insertion and also right inguinal area. IV heparin has been stopped. Cardiology and nephrology and pulmonary is following this patient. Chest x-ray showed pulmonary edema consistent with CHF. 2-D echo cardiac exam showed his ejection fraction 30-35 percent. Patient denied any complaints of chest pain are worse and short of breath patient does complain of pain at the surgical site and abdominal. Patient has been afebrile. No nausea vomiting. Patient is diuresing well with IV Lasix. 03/06/2017 Patient is still having chest pain in the morning today. Patient is being continued on nitro drip. Right inguinal hematoma seems to be reduced in size. Hemoglobin is stable. Patient denied any short of breath. No nausea vomiting. No fever no chills. Cardiac catheterization tomorrow. 03/07/2017 Patient says that his abdominal pain is better. Patient had cardiac catheterization today and no new stents were placed. No complaints of chest pain or short of breath. No acute overnight serious issues. All other 14 point review of systems negative except level. Current medications reviewed Objective - Vital Signs Vital signs: Vital Signs Temp 98.4 F 03/07/17 16:00 Pulse 80 03/07/17 21:00 Resp 34 H 03/07/17 21:00 BP 136/63 03/07/17 21:00 Pulse Ox 99 03/07/17 21:00 Intake & Output 03/07/17 03/07/17 03/08/17 06:59 18:59 06:59 Intake Total 249.300 541.075 Output Total 280 1150 Balance -30.700 -608.925 Weight 81.6 kg Intake: IV 120 109 0.9 at KVO 120 30 Intake, IV Titration 129.300 432.075 Amount Nitroglycerin-D5w Pmx 50 129.300 57.075 mg In Dextrose/Water 1 250ml.bag @ 20 MCG/MIN 6 mls/hr IV .Q24H [facility] Rx#: [id number] Sodium Chloride 0.9% 1, 375 000 ml @ 75 mls/hr IV . [id number] [facility] Rx#:[id number] Output: Urine 280 1150 Other: Voiding Method Urinal # Voids 1 # Bowel Movements 1 1 - Exam PHYSICAL EXAMINATION: Patient is lying in the bed comfortably, no acute distress, awake alert and oriented.. HEENT: Normocephalic. Neck is supple. Pupils reactive. Nostrils clear. Oral cavity is moist. Ears reveal no drainage. Neck reveals no JVD, carotid bruits, or thyromegaly. CHEST EXAMINATION: Trachea is central. Symmetrical expansion. Bilateral bases are diminished sounds and crackles present CARDIAC: Normal S1, S2 with no gallops. No murmurs ABDOMEN: Soft. Bowel sounds normal. No tenderness. Bruising over the right inguinal surgical site as well as peritoneal dialysis catheter insertion site. Increased swelling compared to yesterday with possible hematoma Extremities 2+ edema. No clubbing or cyanosis . Pulses feeble Neurologically awake, alert, oriented x3 with well-coordinated movements. Skin: no rash or skin lesions Musculoskeletal: no joint swelling or deformity. - Labs CBC & Chem 7: 03/07/17 03:43 03/07/17 03:43 Labs: Abnormal Lab Results - Last 24 Hours (Table) 03/07/17 03/07/17 Range/Units 03:43 03:43 RBC 2.98 L (4.30-5.90) m/uL Hgb 8.5 L (13.0-17.5) gm/dL Hct 28.3 L (39.0-53.0) % MCHC 30.1 L (31.0-37.0) g/dL RDW 18.9 H (11.5-15.5) % Lymphocytes # 0.5 L (1.0-4.8) k/uL Carbon Dioxide 19 L (22-30) mmol/L BUN 56 H (9-20) mg/dL Creatinine 4.70 H (0.66-1.25) mg/dL Glucose 102 H (74-99) mg/dL Phosphorus 6.6 H (2.5-4.5) mg/dL Assessment and Plan Plan: #1 acute non-ST elevation myocardial infarction: Patient was on IV heparin. Stopped due to worsening abdominal wall swelling with possible hematoma at the surgical site. #2 acute CHF with systolic dysfunction ejection fraction 30-35%. #3 chronic kidney disease stage V: Patient may have acute kidney injury as well patient has a peroneal dialysis catheter in place and nephrology is following the patient. #4 possible right inguinal hematoma #5 right inguinal hernia repair in 03/02/2017 along with placement of a mesh and insertion of a peritoneal dialysis catheter #6 hyponatremia: Hypervolemic hyponatremia which is expected to improve with IV Lasix. #7 hyperphosphatasemia: Secondary to metabolic bone disease from chronic kidney disease. #8 history of severe coronary artery disease. With the multiple stents in the past. #9 atherosclerotic renovascular and peripheral vascular disease and carotid endarterectomy. 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 Plan: IV heparin has been on hold due to developing hematoma. Patient is status post cardiac catheterization today. No new stents were placed. Continue to monitor H&H. Patient will be continued on IV Lasix due to CHF and pulmonary edema. Continue with home blood pressures medications. Continue with aspirin and statins. Nephrology and pulmonary is following this patient. Prognosis is guarded with multiple medical problems and comorbid conditions. Further recommendations based on the clinical course. Time with Patient: Greater than 30
[2017-03-08] MEDS: HYDROcodone/APAP 5-325MG 1 EACH TAB PO PRN (04:30)
[2017-03-08 04:31] LABS: Anisocytosis Slight; Basophils % (A) 0 %; CH 28.9; CHCM 30.9; Eosinophils # (A) 0.3 k/uL (0-0.7); Eosinophils % (A) 3 %; HCT 29.4 % (39.0-53.0); HGB 8.7 gm/dL (13.0-17.5); Hypochromasia Moderate; Luc # (Auto) 0.13; Luc % (Auto) 1; Lymphocytes # (A) 0.7 k/uL (1.0-4.8); Lymphocytes % (A) 7 %; MCHC 29.7 g/dL (31.0-37.0); MCV 94.3 fL (80.0-100.0); Macrocytosis Slight; Mean Platelet Volume 7.7; Monocytes # (A) 0.8 k/uL (0-1.0); Monocytes % (A) 9 %; Neutrophils # (A) 7.3 k/uL (1.3-7.7); Neutrophils % (A) 80 %; RBC 3.12 m/uL (4.30-5.90); RDW 18.6 % (11.5-15.5); WBC 9.1 k/uL (3.8-10.6); WBC (Perox) 9.94
[2017-03-08 04:44] LABS: Magnesium 2.3 mg/dL (1.6-2.3); Phosphorus 5.4 mg/dL (2.5-4.5); Potassium 3.5 mmol/L (3.5-5.1)
[2017-03-08] MEDS: ONDANSETRON 4 MG/2 ML VIAL IVP PRN ×2 (05:44→12:12)
[2017-03-08] MEDS ORDERED: POTASSIUM CHLORIDE 20 MEQ, LIDOCAINE 2% INJ 20 MG in SODIUM CHLORIDE 0.9% 100 ML IVPB SCH (06:00)
[2017-03-08] MEDS: HYDROmorphone 1 MG/ML 1 ML SYRINGE IVP PRN ×5 (06:43→23:24)
[2017-03-08] MEDS: POTASSIUM CHLORIDE 10 MEQ, LIDOCAINE 2% INJ 10 MG in SODIUM CHLORIDE 0.9% 100 ML IVPB SCH ×3 (06:46→12:12)
--- NOTE | 2017-03-08 07:48 | XR ---
EXAMINATION TYPE: XR abdomen 1V DATE OF EXAM: 03/08/2017 6:52 AM CLINICAL HISTORY: Abdominal pain and distention TECHNIQUE: Two supine KUB images of the abdomen are obtained. COMPARISON: CT aorta from 4 days ago.. FINDINGS: Gas dilated small bowel loops occupy the majority of the abdomen. This is more prominent ve rsus prior study. There is persistent gas prominent colonic loops along the periphery. Vascular calcification is present. There is degenerative spurring and disc space narrowing in the vis ualized spine. Percutaneous drainage catheter overlies the pelvis may be related to peritoneal dialys is. The lung bases are not included. IMPRESSION: Overall nonspecific bowel gas pattern. Increasing small bowel gaseous distention and dila tation is noted.
--- NOTE | 2017-03-08 08:15 | CT ---
EXAMINATION TYPE: CT abdomen pelvis wo con DATE OF EXAM: 03/08/2017 HISTORY: Abdominal distention and pain CT DLP: 1046 mGycm. Automated Exposure Control for Dose Reduction was Utilized. TECHNIQUE: CT scan of the abdomen and pelvis is performed without oral or IV contrast. COMPARISON: CT abdomen and pelvis from 4 days earlier FINDINGS: Within the limitations of a non-contrast study, the following observations are made. LUNG BASES: Post CABG changes with mediastinal clips and sternal wires is minimally imaged. There is persistent tiny right pleural effusion slightly improved from prior. There is bibasilar dependent ate lectasis. There are scattered calcified nodules right hilar and lower lobe redemonstrated. Cardiomega ly is redemonstrated. LIVER/GB: Scattered calcifications throughout the liver are redemonstrated. High dense material in ga llbladder is consistent with vicarious excretion of IV contrast from CTA chest performed 4 days earli er. PANCREAS: No significant abnormality is seen. SPLEEN: Scattered calcifications throughout the spleen are redemonstrated. Right basilar as well as l iver and spleen findings are consistent with product of old granulomatous disease. ADRENALS: Right adrenal gland is not seen and felt surgically absent. Left adrenal gland nodularity m easuring 1.9 x 0.9 cm on axial image 23 favors benign process such as lipid rich adenoma on axial chucky ge 23 KIDNEYS: Right kidney is felt surgically absent. There is cortical thinning and several simple appear ing cysts scattered throughout remnant left kidney. Retained contrast from contrast-enhanced CT 4 day s ago is noted. There is peritoneal dialysis catheter in the anterior pelvis. Some contrast excretion into bladder is noted. BOWEL: Air-fluid level is seen in prominent stomach slightly more distended versus prior. There is fl uid-filled prominent third portion of duodenum. Remainder of duodenal sweep is not as well seen, not suspiciously dilated. There is now fluid filled dilated small bowel loops throughout majority of the mid to lower abdomen. Bowel loops measure up to 3.9 cm in diameter on coronal image 46. Fecal material is seen in nondistended colon. Colon is slightly more prominent and fecal filled at le abelardo of proximal transverse and right colon. This is improved from prior. Terminal ileum is not dilate d seen best on coronal image 64. There is swirling of central mesenteric vessels noted seen best on c oronal images 36 through 44. Internal hernia cannot be excluded. GENITAL ORGANS: Prostate gland is heterogeneous in appearance and enlarged in size bulging on bladder base, underlying BPH is suspected. LYMPH NODES: No greater than 1cm abdominal or pelvic lymph nodes are appreciated. OSSEOUS STRUCTURES: Fairly moderate multilevel spurring in the spine is present. There is moderate keshia int space loss, spurring, and subchondral cystic change in both hips. OTHER: There is fairly severe calcified plaque in the aorta extending into pelvic branch vessels. Ect atic course identified. Aneurysmal change is seen. Aorta measures 4.8 cm transversely proximal segmen t at celiac origin on axial image 25. Aorta also measures 4.0 cm transversely on axial image 41 dista l aspect. Stent graft right common iliac artery and left central renal artery near origin are felt pr esent. There is scar tissue bilateral groin region. Narrow umbilicus just left of midline in the anterior abdominal wall there are small thin-walled flui d collection measuring 1.6 x 1.5 cm of indeterminate etiology. Possible seroma. Likely stable from pr ior. IMPRESSION: 1. New developing distal small bowel obstruction with new fluid dilated small bowel loops occupying m ajority of the abdomen, terminal ileum is nondilated, there appears to be a second partial obstructio n at level of first portion of duodenum. Underlying internal hernia is not excluded as there is swirl ing of mesenteric vessels present. Persistent mild to moderate proximal colonic fecal stasis improved from prior.
--- NOTE | 2017-03-08 08:36 | XR ---
EXAMINATION TYPE: XR chest 1V DATE OF EXAM: 03/08/2017 COMPARISON: 03/07/2017 HISTORY: Abnormal x-ray TECHNIQUE: Single frontal view of the chest is obtained. FINDINGS: Postsurgical change and cardiomegaly stable. Atherosclerotic change of the left axilla art harley. Ectasia and prominence of the thoracic aorta stable. Interstitium is unchanged. No sizable pneum othorax tiny right-sided pleural effusion stable. No consolidative pneumonia. IMPRESSION: 1. Stable mild central interstitial prominence may been the basis of residual venous congestion. 2. Stable tiny right pleural effusion. 3. Cardiomegaly and thoracic aortic enlargement. 4. Prominent bowel loops in the upper abdomen correlate clinically. If there is concern for free air dedicated abdominal series would be required.
[2017-03-08] MEDS ORDERED: ISOSORBIDE MONONITRATE ER 30 MG TAB.ER.24H PO SCH (09:00)
--- NOTE | 2017-03-08 09:05 | P.PN ---
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 The patient initially presented early yesterday and he refused to be admitted to the hospital. His chest discomfort get worse and it was associated with shortness of breath and he decided to come to the hospital. He was ruled in for acute coronary syndrome. The cardiac enzymes came in to be severe lead elevated. The patient underwent a heart catheterization yesterday which showed occluded left main, occluded RCA, patent CHAS to LAD, and patent STEPHENS to left circumflex. Maximize medical treatment was recommended. He was experiencing abdominal discomfort overnight and the computed tomography scan of the abdomen was performed and showed possible small bowel obstruction. General surgery service is on the case. The blood pressure continues to be not well-controlled and I'm going to increase the dose of hydralazine. Meanwhile I will keep the patient on the current medical treatment was dual antiplatelet therapy and statin. Objective - Vital Signs Vital signs: Vital Signs Temp 99.0 F 03/08/17 04:00 Pulse 72 03/08/17 07:00 Resp 16 03/08/17 06:00 BP 176/63 03/08/17 07:00 Pulse Ox 99 03/08/17 07:00 Intake & Output 03/07/17 03/08/17 03/08/17 18:59 06:59 18:59 Intake Total 541.075 100 20 Output Total 1150 675 20 Balance -608.925 -575 0 Weight 81.6 kg Intake: IV 109 100 20 0.9 at KVO 30 100 20 Intake, IV Titration 432.075 Amount Nitroglycerin-D5w Pmx 50 57.075 mg In Dextrose/Water 1 250ml.bag @ 20 MCG/MIN 6 mls/hr IV .Q24H [facility] Rx#: [id number] Sodium Chloride 0.9% 1, 375 000 ml @ 75 mls/hr IV . [id number] [facility] Rx#:[id number] Output: Urine 1150 675 20 Other: Voiding Method Urinal Urinal # Bowel Movements 1 - Constitutional General appearance: Present: mild distress - Respiratory Respiratory: bilateral: CTA - Cardiovascular Rhythm: regular Heart sounds: normal: S1, S2 - Labs CBC & Chem 7: 03/08/17 03:51 03/08/17 03:51 Labs: Abnormal Lab Results - Last 24 Hours (Table) 03/08/17 03/08/17 Range/Units 03:51 03:51 RBC 3.12 L (4.30-5.90) m/uL Hgb 8.7 L (13.0-17.5) gm/dL Hct 29.4 L (39.0-53.0) % MCHC 29.7 L (31.0-37.0) g/dL RDW 18.6 H (11.5-15.5) % Lymphocytes # 0.7 L (1.0-4.8) k/uL Chloride 97 L (98-107) mmol/L BUN 58 H (9-20) mg/dL Creatinine 5.00 H* (0.66-1.25) mg/dL Phosphorus 5.4 H (2.5-4.5) mg/dL Assessment and Plan Plan: This is a 76-year-old gentleman with known CAD and prior CABG, PAD and prior revascularization, as well as multiple comorbid conditions was admitted to the hospital with chest discomfort and was ruled in for acute coronary event. The patient underwent a heart catheterization and the findings are as above. Maximize medical treatment was recommended. The computed tomography scan of the abdomen showed possible small bowel obstruction. He is followed by general surgery.
[2017-03-08] MEDS: SEVELAMER 800 MG TAB PO SCH ×3 (09:29→19:07)
[2017-03-08] MEDS: FUROSEMIDE 10 MG/ML 10 ML VIAL IV SCH ×2 (09:38→20:00)
[2017-03-08] MEDS: ASPIRIN 81 MG PO SCH (09:38)
[2017-03-08] MEDS: ISOSORBIDE MONONITRATE ER 30 MG TAB.ER.24H PO SCH (09:38)
[2017-03-08] MEDS: FAMOTIDINE 20 MG/2 ML VIAL IV SCH (09:38)
[2017-03-08] MEDS: CLOPIDOGREL 75 MG TAB PO SCH ×2 (09:39→16:32)
[2017-03-08] MEDS: DILTIAZEM CD 120 MG CAP.ER.24H PO SCH ×2 (09:39→20:01)
[2017-03-08] MEDS: ACETAMINOPHEN TAB 500 MG TAB PO SCH ×3 (09:39→21:26)
[2017-03-08] MEDS: LABETALOL 100 MG TAB PO SCH ×2 (09:39→20:00)
[2017-03-08] MEDS: LACTULOSE 20 GM/30 ML CUP PO SCH (09:43)
--- NOTE | 2017-03-08 09:55 | P.PN ---
Subjective Patient is seen in follow-up for acute kidney injury on chronic kidney disease. Patient has chronic kidney disease stage V secondary to solitary left kidney as well as nephrosclerosis and atheromatous renal disease. His creatinine is up to 5 today. He did undergo a cardiac catheterization on March 07 which revealed an occluded left main as well as right coronary artery. No interventions were done. He is complaining of abdominal pain. He underwent a CAT scan of the abdomen and pelvis which is suggestive of small bowel obstruction. He has a PD catheter in place that was placed on March 02. His last bowel movement was on Tuesday. He is nonoliguric. Vital signs are stable. General: The patient appeared well nourished and normally developed. HEENT: Head exam is unremarkable. Neck is without jugular venous distension. LUNGS: Lungs are clear to auscultation and percussion. Breath sounds decreased. HEART: Rate and Rhythm are regular. First and second heart sounds normal. No murmurs, rubs or gallops. ABDOMEN: Bowel sounds present. Generalized tenderness to palpation. EXTREMITITES: No clubbing, cyanosis, or edema. Objective - Vital Signs Vital signs: Vital Signs Temp 99.0 F 03/08/17 04:00 Pulse 72 03/08/17 07:00 Resp 16 03/08/17 06:00 BP 176/63 03/08/17 07:00 Pulse Ox 99 03/08/17 07:00 Intake & Output 03/07/17 03/08/17 03/08/17 18:59 06:59 18:59 Intake Total 541.075 100 20 Output Total 1150 675 20 Balance -608.925 -575 0 Weight 81.6 kg Intake: IV 109 100 20 0.9 at KVO 30 100 20 Intake, IV Titration 432.075 Amount Nitroglycerin-D5w Pmx 50 57.075 mg In Dextrose/Water 1 250ml.bag @ 20 MCG/MIN 6 mls/hr IV .Q24H [facility] Rx#: [id number] Sodium Chloride 0.9% 1, 375 000 ml @ 75 mls/hr IV . [id number] [facility] Rx#:[id number] Output: Urine 1150 675 20 Other: Voiding Method Urinal Urinal # Bowel Movements 1 - Labs CBC & Chem 7: 03/08/17 03:51 03/08/17 03:51 Labs: Abnormal Lab Results - Last 24 Hours (Table) 03/08/17 03/08/17 Range/Units 03:51 03:51 RBC 3.12 L (4.30-5.90) m/uL Hgb 8.7 L (13.0-17.5) gm/dL Hct 29.4 L (39.0-53.0) % MCHC 29.7 L (31.0-37.0) g/dL RDW 18.6 H (11.5-15.5) % Lymphocytes # 0.7 L (1.0-4.8) k/uL Chloride 97 L (98-107) mmol/L BUN 58 H (9-20) mg/dL Creatinine 5.00 H* (0.66-1.25) mg/dL Phosphorus 5.4 H (2.5-4.5) mg/dL Assessment and Plan Plan: Assessment: #1. Chronic kidney disease stage IV secondary to nephrosclerosis and atheromatous renovascular disease. Patient also has a solitary left kidney. Also concern for glomerulonephritis due to proteinuria however no biopsy done due to solitary kidney. Patient is being prepared for peritoneal dialysis and had a catheter placed on March 02. #2. Dyspnea. There was concern for aortic dissection however was ruled out by CTA done March 04. Some evidence of fluid overload noted as well. #3. Anion gap metabolic acidosis secondary to chronic kidney disease. Improved. #4. Anemia of chronic kidney disease. Maintained on Aranesp. #5. Hypertension with chronic kidney disease. Partially volume sensitive. Also component of pain. #6. Chronic kidney disease mineral bone disease. #7. Coronary artery disease status post cardiac catheterization on March 07 revealing an occluded left main and right coronary artery. No interventions done. #8. Nonoliguric acute kidney injury secondary to ATN due to contrast-induced nephropathy and diuresis. She did receive IV contrast on March 04 as well as March 07. #9. Abdominal pain. CAT scan suggestive of small bowel obstruction. Gen. surgery following. #10. Hypokalemia secondary to diuresis. Plan: Continue Lasix 80 mg IV twice daily. Decrease oral sodium bicarbonate to 650 mg 2 times daily. Maintain current antihypertensives. Continue hydralazine 10 mg IV every 4 hours if systolic blood pressure greater than 160. No urgent need for renal replacement therapy at this time. May use lactulose as needed for constipation. Replace potassium. 40 mEq today. Continue to monitor renal function and urine output. If need for renal replacement therapy arises, he will need a permacath for hemodialysis.
--- NOTE | 2017-03-08 12:52 | P.PN ---
Subjective Principal diagnosis: Hematoma Patient this morning started having increased pain right lower quadrant. No additional bowel movement. Some nausea. X-rays were performed which did not show free air. Subsequent CAT scan was performed which shows findings suspicious for small bowel obstruction. Patient was made nothing by mouth at that point. He is refusing nasogastric tube placement. Objective - Vital Signs Vital signs: Vital Signs Temp 98.5 F 03/08/17 08:00 Pulse 82 03/08/17 10:00 Resp 19 03/08/17 10:00 BP 163/68 03/08/17 10:00 Pulse Ox 95 03/08/17 10:00 Intake & Output 03/07/17 03/08/17 03/08/17 18:59 06:59 18:59 Intake Total 541.075 100 450 Output Total 1150 675 215 Balance -608.925 -575 235 Weight 81.6 kg 81.6 kg Intake: IV 109 100 60 0.9 at KVO 30 100 60 Intake, IV Titration 432.075 300 Amount Nitroglycerin-D5w Pmx 50 57.075 mg In Dextrose/Water 1 250ml.bag @ 20 MCG/MIN 6 mls/hr IV .Q24H [facility] Rx#: [id number] Potassium Chloride 10 meq 300 Lidocaine 2% Inj 10 mg In Sodium Chloride 0.9% 100 ml @ 100 mls/hr IVPB Q1HR [facility] Rx#:[id number] Sodium Chloride 0.9% 1, 375 000 ml @ 75 mls/hr IV . [id number] [facility] Rx#:[id number] Oral 90 Output: Urine 1150 675 215 Other: Voiding Method Urinal Urinal Urinal # Voids 1 # Bowel Movements 1 - Exam Abdomen: Soft, mild tenderness diffusely increased in right lower quadrant and left paramedian, mild distention - Labs CBC & Chem 7: 03/08/17 03:51 03/08/17 03:51 Labs: Abnormal Lab Results - Last 24 Hours (Table) 03/08/17 03/08/17 Range/Units 03:51 03:51 RBC 3.12 L (4.30-5.90) m/uL Hgb 8.7 L (13.0-17.5) gm/dL Hct 29.4 L (39.0-53.0) % MCHC 29.7 L (31.0-37.0) g/dL RDW 18.6 H (11.5-15.5) % Lymphocytes # 0.7 L (1.0-4.8) k/uL Chloride 97 L (98-107) mmol/L BUN 58 H (9-20) mg/dL Creatinine 5.00 H* (0.66-1.25) mg/dL Phosphorus 5.4 H (2.5-4.5) mg/dL Assessment and Plan (1) Groin hematoma Narrative/Plan: Patient with CAT scan performed this morning showing small bowel obstruction. This may represent ileus given all this patient's other medical issues at this time. Patient is not a good surgical candidate given the recent cardiac event. Conservative approach is advised initially. Patient currently refusing nasogastric tube placement. He will consider this as the day goes on and hopefully come to an agreement. Repeat x-rays for tomorrow as ordered. Status: Acute
--- NOTE | 2017-03-08 13:16 | P.PN ---
Subjective Principal diagnosis: Acute non-ST segment elevation myocardial infarction 77-year-old male patient who underwent a repair of a inguinal hernia and insertion of a peritoneal catheter for hemodialysis by general surgery on 2016. Since then the patient is been having episodes it chest pain. He had been in the emergency department for the same. He was noted to have elevated troponins however he decided to be released and go home. Yesterday the patient started having chest pain along with shortness of breath and based on his extensive cardiac history the patient came back to the burst department and the patient was found to have post his troponins which peaked at 1.5 and abnormal EKG that showed ST segment depressions involving the anterolateral leads in addition to sinus rhythm with LVH and widening of QRS with repolarization abnormality. An underlying SEPTAL infarct cannot be completely excluded. D- dimer was elevated at 4.6. The proBNP elevated was 33,000. Creatinine was abnormal due to his chronic renal failure with a creatinine of 4.5. A CT aorta the chest was done and it showed aortic aneurysm in the distal thoracic aorta measuring 4.7 cm in size at the level of the hiatus of the diaphragm. Aorta measures 4.8 cm size just above the SMA. 3.8 cm in the mid abdomen at 3.2 cm just above the bifurcation. There is also evidence of evidence of subcutaneous air likely related to the recent dialysis catheter insertion and the peritoneal cavity. There is also evidence of fecal impaction. CT of the chest was also done and it showed no evidence of any pulmonary embolism. The aortic aneurysm was noted without any dissection. There is also evidence of pulmonary edema with small bilateral pleural effusion right more than left. This is consistent with CHF. The patient also has been producing urine and he was in the process of being prepared for dialysis. Nephrology saw the patient special that his current contrast intake and to give the patient Lasix 80 mg IV every 12 hours. At this point that the patient is resting comfortably in the intensive care unit. He is minimal diffuse chest pain, on and off of varying severity. The patient has undergone coronary artery bypass surgery for diffuse CAD back in 1986. Since then he has had multiple myocardial infarctions for which she has required cardiac catheterization a total of 6 or 7 stents have been inserted over the years. He was being followed up by byproduct engineer in [facility]. 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 He has also known to have carotid artery disease and undergone right carotid endarterectomy. On 03/05/2017, the patient is being seen in follow-up in intensive care unit. On and off is still having chest pain. He still IV heparin. IV heparin was stopped this morning I give the patient is developing some increased hematoma over the anterior abdominal wall at the site of the insertion of the peritoneal dialysis catheter. There is also a hematoma in his right groin area/and this has extended to his scrotum and back. Nevertheless the right inguinal hematomas quite soft. Hemoglobin is dropped by half a gram and for that reason I stopped IV heparin. Awaiting final cardiology recommendations regarding the possibility of the need for cardiac catheterization. Meanwhile the patient is receiving Lasix and he is diuresing well and he is a negative fluid balance. Renal function stable with a GFR of 13 and a creatinine of 4.4. No hyperkalemia. Hemoglobin is at 8.4. The chest x-ray showed CHF and unchanged compared to yesterday's study. The echocardiogram showed an ejection fraction of 30-35% with some dilation of the right ventricle and right atrium. The right ventricular systolic pressure was 43 mmHg. No other major abnormalities noted. On 03/06/2017, the patient is being seen in follow-up. He is still having on and off chest pain. I took the patient off heparin due to concern of a abdominal hematoma and the right groin hematoma. The hematoma itself is unchanged and stable for today. The patient is clinically the same. He remains in CHF. He continues to have angina. He will be undergoing a cardiac catheterization tomorrow. He remains on nitroglycerin drip which is being titrated based on his chest pain. The patient's renal function is stable and his GFR is still around 10. He'll be undergoing a cardiac catheterization by Dr. Snow tomorrow. He is on IV Lasix 80 mg every 12 hours. The patient is producing urine output and the negative of 2 L for yesterday another 1.5 L for today. Chest x-ray is consistent with CHF. Patient was reevaluated today on 03/07/2017, underwent cardiac catheterization, and the plan is mostly medical therapy. Report of the cardiac catheterization was noted. Pulmonary-ramos, the patient denies any cough no wheezing no shortness of breath and no chest pain at present. Chest x-ray showed mild interstitial prominence and tiny right pleural effusion. Labs were reviewed, hemoglobin is 8.5 WBC count is 7.7. Basic metabolic profile is normal, BUN is 56 creatinine is 4.70. Reevaluated today on 03/08/2017, patient is doing well from the pulmonary perspective, however he developed severe abdominal pain mostly in the right lower quadrant. CT of the abdomen is consistent with possible small bowel obstruction. Patient is refusing nasogastric tube placement, hence he was seen by Dr. dick and he recommended that the patient remains nothing by mouth. Patient is also against the idea of surgery is considered at any point. However he is complaining of pain and tenderness in the lower right lower quadrant. No bowel movements. No nausea no vomiting at this point. CBC is relatively unremarkable. Renal profile is worsening with a BUN of 58 creatinine of 5.0. Objective - Vital Signs Vital signs: Vital Signs Temp 98.5 F 03/08/17 08:00 Pulse 82 03/08/17 10:00 Resp 19 03/08/17 10:00 BP 163/68 03/08/17 10:00 Pulse Ox 95 03/08/17 10:00 Intake & Output 03/07/17 03/08/17 03/08/17 18:59 06:59 18:59 Intake Total 541.075 100 450 Output Total 1150 675 215 Balance -608.925 -575 235 Weight 81.6 kg 81.6 kg Intake: IV 109 100 60 0.9 at KVO 30 100 60 Intake, IV Titration 432.075 300 Amount Nitroglycerin-D5w Pmx 50 57.075 mg In Dextrose/Water 1 250ml.bag @ 20 MCG/MIN 6 mls/hr IV .Q24H [facility] Rx#: [id number] Potassium Chloride 10 meq 300 Lidocaine 2% Inj 10 mg In Sodium Chloride 0.9% 100 ml @ 100 mls/hr IVPB Q1HR [facility] Rx#:[id number] Sodium Chloride 0.9% 1, 375 000 ml @ 75 mls/hr IV . [id number] [facility] Rx#:[id number] Oral 90 Output: Urine 1150 675 215 Other: Voiding Method Urinal Urinal Urinal # Voids 1 # Bowel Movements 1 - Exam Gen. appearance is a mild degree of respiratory distress and episodic chest pains also being reported. Head is atraumatic normocephalic. Neck is positive for JVDs no goiter or neck masses point. There is a scar of a previous carotid endarterectomy on the right. Lung sounds are diminished bilaterally in the lung bases. Crackles are also appreciated lung bases. No wheezes or rhonchi. Heart sounds are regular, positive S1 and S2 without any significant murmurs. Abdominal exam revealed normal bowel sounds. Abdomen seems to be quite tender, no rebound, no guarding, negative bowel sounds. No organomegaly, The right inguinal surgical site is bruised and there is a potential he an underlying hematoma. The subcutaneous hematomas extending to his scrotum and to the back There is also another hematoma over the anterior abdominal wall and set of the surgical wound site for peritoneal catheter insertion. This hematoma is slightly more firm and has also increased in size compared to yesterday's evaluation. The femoral pulses are obtainable . Extremities are showing + edema there is no cyanosis or clubbing. Pulses are quite diminished and there obtainable by Doppler signals. Skin is negative for any open wounds or sores or any ulceration. Neuro is or 83 and the neurologic exam is nonfocal at this point. Psych is negative for any mood or change in affect. Vascular the patient has Doppler signals in lower extremities bilaterally. The feet are cold. Pulses are present in the upper extremities bilaterally. - Labs CBC & Chem 7: 03/08/17 03:51 03/08/17 03:51 Labs: Abnormal Lab Results - Last 24 Hours (Table) 03/08/17 03/08/17 Range/Units 03:51 03:51 RBC 3.12 L (4.30-5.90) m/uL Hgb 8.7 L (13.0-17.5) gm/dL Hct 29.4 L (39.0-53.0) % MCHC 29.7 L (31.0-37.0) g/dL RDW 18.6 H (11.5-15.5) % Lymphocytes # 0.7 L (1.0-4.8) k/uL Chloride 97 L (98-107) mmol/L BUN 58 H (9-20) mg/dL Creatinine 5.00 H* (0.66-1.25) mg/dL Phosphorus 5.4 H (2.5-4.5) mg/dL Assessment and Plan Plan: 1 acute non-ST segment elevation myocardial infarction with secondary chest pain shortness of breath. The patient continues to have episodes of chest pain and IV heparin has been discontinued due to evaluation of an abdominal and the right inguinal hematoma. 2 acute CHF exacerbation secondary to above. ProBNP is elevated and the CAT scan of the chest showing CHF/edema with small better pleural effusion. ProBNP level is quite elevated 3 chronic renal failure with stage 4-5 chronic kidney disease, awaiting hemodialysis. Is very much like to the patient will require dialysis soon as possible knowing that he has received contrast dye during this current hospitalization which probably is going to contribute to his renal failure progression 4 right inguinal hernia repair in 03/02/2017 along with placement of a mesh and insertion of a peritoneal dialysis catheter 5 right inguinal hematoma at the site of the surgical wound, in addition to another hematoma over the anterior abdominal wall and the site of insertion of a PD catheter. 6 multivessel coronary disease with previous bypass surgery in 1986 7 multiple myocardial infarctions insertion of coronary stents at least 7 over the years and his byproduct engineer at [place] 8 COPD was currently inactive in stable 9 CVA with some minimal residual right-sided weakness 10 hyperlipidemia 11 hypertension 12 chronic anemia maintained on Aranesp injections 13 Peripheral vascular disease severe with previous vascular intervention and stenting 14 abdominal and descending thoracic aortic aneurysm, without evidence of any dissection 15 osteoarthritis 16 remote history of alcoholism 17 history of smoking 18 history of anxiety/panic. 19 hyponatremia , improved 20: Suspect small bowel obstruction, seen and evaluated by general surgery, at this point patient refuses nasogastric tube, and he was placed nothing by mouth , patient is being closely monitored by surgery on the case. Recommendation: Continue present supportive care measures, continue to monitor his abdominal pain and hematoma,, patient remains off heparin, his medical therapy for his acute myocardial infarction and coronary artery disease will be optimized by cardiology, surgery is not an option at this point according to cardiology. Renal ramos, the patient is being followed by nephrology, may eventually require peritoneal dialysis. Time with Patient: Less than 30
--- NOTE | 2017-03-08 13:59 | P.PN ---
Subjective Acute non-ST elevated AR Patient is a 76-year-old male with a known history of coronary artery disease and history of CABG, CKD stage 5 and had peritoneal dialysis as well as recent right inguinal hernia repair came to the hospital with complaints of pressure- like sensation in the chest and was found to have elevated troponin level. Patient is being treated for acute non-ST elevated AR. Chest x-ray initially showed pulmonary edema. On 03/05/2017 Patient was found to have possible hematoma at the peritoneal masses catheter insertion and also right inguinal area. IV heparin has been stopped. Cardiology and nephrology and pulmonary is following this patient. Chest x-ray showed pulmonary edema consistent with CHF. 2-D echo cardiac exam showed his ejection fraction 30-35 percent. Patient denied any complaints of chest pain are worse and short of breath patient does complain of pain at the surgical site and abdominal. Patient has been afebrile. No nausea vomiting. Patient is diuresing well with IV Lasix. 03/06/2017 Patient is still having chest pain in the morning today. Patient is being continued on nitro drip. Right inguinal hematoma seems to be reduced in size. Hemoglobin is stable. Patient denied any short of breath. No nausea vomiting. No fever no chills. Cardiac catheterization tomorrow. 03/07/2017 Patient says that his abdominal pain is better. Patient had cardiac catheterization today and no new stents were placed. No complaints of chest pain or short of breath. No acute overnight serious issues. 03/08/2017 Patient's cardiac catheterization did not show any significant atherosclerotic occlusive disease, patient's abdomen is still distended patient is declining NG tube at this point of time patient will be nothing by mouth patient appears to have ileus does have fairly good bowel sounds and passing gas. Patient denied any chest pain, shortness of breath, dysuria new focal weakness does have some abdominal pain as mentioned above Objective - Vital Signs Vital signs: Vital Signs Temp 98.5 F 03/08/17 08:00 Pulse 82 03/08/17 10:00 Resp 19 03/08/17 10:00 BP 163/68 03/08/17 10:00 Pulse Ox 95 03/08/17 10:00 Intake & Output 03/07/17 03/08/17 03/08/17 18:59 06:59 18:59 Intake Total 541.075 100 450 Output Total 1150 675 215 Balance -608.925 -575 235 Weight 81.6 kg 81.6 kg Intake: IV 109 100 60 0.9 at KVO 30 100 60 Intake, IV Titration 432.075 300 Amount Nitroglycerin-D5w Pmx 50 57.075 mg In Dextrose/Water 1 250ml.bag @ 20 MCG/MIN 6 mls/hr IV .Q24H [facility] Rx#: [id number] Potassium Chloride 10 meq 300 Lidocaine 2% Inj 10 mg In Sodium Chloride 0.9% 100 ml @ 100 mls/hr IVPB Q1HR [facility] Rx#:[id number] Sodium Chloride 0.9% 1, 375 000 ml @ 75 mls/hr IV . [id number] [facility] Rx#:[id number] Oral 90 Output: Urine 1150 675 215 Other: Voiding Method Urinal Urinal Urinal # Voids 1 # Bowel Movements 1 - Exam Patient is lying in the bed comfortably, no acute distress, awake alert and oriented.. HEENT: Normocephalic. Neck is supple. Pupils reactive. Nostrils clear. Oral cavity is moist. Ears reveal no drainage. Neck reveals no JVD, carotid bruits, or thyromegaly. CHEST EXAMINATION: Trachea is central. Symmetrical expansion. Bilateral bases are diminished sounds and crackles present CARDIAC: Normal S1, S2 with no gallops. No murmurs ABDOMEN: Distended, sluggish bowel sounds, tympanic. No tenderness. Bruising over the right inguinal surgical site as well as peritoneal dialysis catheter insertion site. Extremities 2+ edema. No clubbing or cyanosis . Pulses feeble Neurologically awake, alert, oriented x3 with well-coordinated movements. Skin: no rash or skin lesions Musculoskeletal: no joint swelling or deformity. - Labs CBC & Chem 7: 03/08/17 03:51 03/08/17 03:51 Labs: Abnormal Lab Results - Last 24 Hours (Table) 03/08/17 03/08/17 Range/Units 03:51 03:51 RBC 3.12 L (4.30-5.90) m/uL Hgb 8.7 L (13.0-17.5) gm/dL Hct 29.4 L (39.0-53.0) % MCHC 29.7 L (31.0-37.0) g/dL RDW 18.6 H (11.5-15.5) % Lymphocytes # 0.7 L (1.0-4.8) k/uL Chloride 97 L (98-107) mmol/L BUN 58 H (9-20) mg/dL Creatinine 5.00 H* (0.66-1.25) mg/dL Phosphorus 5.4 H (2.5-4.5) mg/dL Assessment and Plan Plan: #1 elevated troponin: Secondary to demand ischemia and patient underwent cardiac catheterization as mentioned above. #2 acute CHF with systolic dysfunction ejection fraction 30-35%, was in significant acute exacerbation which improved now patient is fairly euvolemic. #3 chronic kidney disease stage V: Patient may have acute kidney injury as well patient has a peroneal dialysis catheter in place and nephrology is following the patient. Patient will be started on peritoneal dialysis #4 possible right inguinal hematoma #5 right inguinal hernia repair in 03/02/2017 along with placement of a mesh and insertion of a peritoneal dialysis catheter, patient presently appears to help partial small bowel obstruction or ileus for which patient will be nothing by mouth, bowel rest. #6 hyponatremia: Hypervolemic hyponatremia which is expected to improve with IV Lasix. #7 hyperphosphatasemia: Secondary to metabolic bone disease from chronic kidney disease. #8 history of severe coronary artery disease. With the multiple stents in the past. #9 atherosclerotic renovascular and peripheral vascular disease and carotid endarterectomy. 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
[2017-03-08] MEDS: hydrALAZINE HCL 25 MG TAB PO SCH ×2 (16:30→21:27)
[2017-03-08] MEDS: BISACODYL 10 MG SUPP RECTAL SCH (16:32)
[2017-03-08] MEDS: CHOLECALCIFEROL 1,000 UNIT TAB PO SCH (16:32)
[2017-03-08] MEDS: traZODone HCL 50 MG TAB PO SCH (20:00)
[2017-03-08] MEDS: ATORVASTATIN 10 MG TAB PO SCH (20:00)
[2017-03-08] MEDS ORDERED: SODIUM BICARBONATE TAB 650 MG TAB PO SCH (21:00)
[2017-03-09] MEDS ORDERED: ACETAMINOPHEN TAB 500 MG TAB PO PRN (02:02)
[2017-03-09 06:12] LABS: Anisocytosis Slight; Basophils % (A) 0 %; CH 28.5; CHCM 30.1; Eosinophils # (A) 0.1 k/uL (0-0.7); Eosinophils % (A) 1 %; HCT 30.8 % (39.0-53.0); HDW 2.65; HGB 9.1 gm/dL (13.0-17.5); Hypochromasia Marked; Luc # (Auto) 0.05; Luc % (Auto) 1; Lymphocytes # (A) 0.4 k/uL (1.0-4.8); Lymphocytes % (A) 9 %; MCH 28.1 pg (25.0-35.0); MCHC 29.4 g/dL (31.0-37.0); MCV 95.6 fL (80.0-100.0); Macrocytosis Slight; Monocytes # (A) 0.4 k/uL (0-1.0); Monocytes % (A) 11 %; Neutrophils % (A) 77 %; RBC 3.23 m/uL (4.30-5.90); RDW 18.3 % (11.5-15.5); WBC 3.9 k/uL (3.8-10.6); WBC (Perox) 3.76
[2017-03-09 06:33] LABS: Calcium 9.2 mg/dL (8.4-10.2); Magnesium 2.3 mg/dL (1.6-2.3); Phosphorus 5.9 mg/dL (2.5-4.5); Potassium 4.1 mmol/L (3.5-5.1)
--- NOTE | 2017-03-09 08:38 | XR ---
EXAMINATION TYPE: XR abdomen 2V DATE OF EXAM: 03/09/2017 COMPARISON: 03/08/2017 HISTORY: Bowel obstruction TECHNIQUE: 2 view abdominal series FINDINGS: The osseous structures are intact. The bowel gas pattern is nonspecific. Persistent air-fluid levels in dilated bowel loops are noted. Hypertrophic and degenerative changes spine. Postsurgical change overlying the mediastinum. Tubing ov erlying the lower pelvis may be related to catheter or external to the patient. Vascular stent with m ay be within the left renal artery suggested. Correlate clinically. Arthropathy of the hips. IMPRESSION: 1. Correlate for high-grade small bowel obstruction
--- NOTE | 2017-03-09 08:43 | XR ---
EXAMINATION TYPE: XR chest 1V DATE OF EXAM: 03/09/2017 COMPARISON: 03/08/2017 HISTORY: Abnormal x-ray TECHNIQUE: Single frontal view of the chest is obtained. FINDINGS: Postsurgical change and cardiomegaly stable. Atherosclerotic change of the left axilla art harley. Ectasia and prominence of the thoracic aorta stable. Interstitium is unchanged. No sizable pneum othorax tiny right-sided pleural effusion stable. No consolidative pneumonia. Prominence of the thoracic aorta again noted. Hyperinflation suggests COPD. Granuloma overlying the l iver. Surgical clip in the epigastrium. IMPRESSION: 1. Stable mild central interstitial prominence may be on the basis of residual venous congestion. Und erlying chronic interstitial lung disease and COPD suspected. 2. Stable tiny right pleural effusion. Bibasilar subsegmental consolidations. Atelectasis versus infi ltrate. 3. Cardiomegaly and thoracic aortic enlargement. Correlate for thoracic aortic aneurysm. 4. Prominent bowel loops in the upper abdomen correlate clinically. If there is concern for free air dedicated abdominal series would be required.
[2017-03-09] MEDS: FUROSEMIDE 10 MG/ML 10 ML VIAL IV SCH ×2 (09:19→21:43)
[2017-03-09] MEDS: ACETAMINOPHEN TAB 500 MG TAB PO SCH ×3 (09:19→21:43)
[2017-03-09] MEDS: ISOSORBIDE MONONITRATE ER 30 MG TAB.ER.24H PO SCH (09:19)
[2017-03-09] MEDS: FAMOTIDINE 20 MG/2 ML VIAL IV SCH (09:19)
[2017-03-09] MEDS: LABETALOL 100 MG TAB PO SCH ×2 (09:20→21:43)
[2017-03-09] MEDS: ASPIRIN 81 MG PO SCH (09:20)
[2017-03-09] MEDS: CHOLECALCIFEROL 1,000 UNIT TAB PO SCH (09:20)
[2017-03-09] MEDS: DILTIAZEM CD 120 MG CAP.ER.24H PO SCH ×2 (09:20→21:44)
[2017-03-09] MEDS: hydrALAZINE HCL 25 MG TAB PO SCH ×3 (09:21→23:01)
--- NOTE | 2017-03-09 09:40 | P.PN ---
Subjective Patient is seen in follow-up for acute kidney injury on chronic kidney disease. Patient has chronic kidney disease stage V secondary to solitary left kidney as well as nephrosclerosis and atheromatous renal disease. His creatinine is up to 5.34 today. He did undergo a cardiac catheterization on March 07 which revealed an occluded left main as well as right coronary artery. No interventions were done. He is noted to have a small bowel obstruction. Denies abdominal pain. He has been passing gas. He did have a bowel movement this morning. He has a PD catheter in place that was placed on March 02. Vital signs are stable. General: The patient appeared well nourished and normally developed. HEENT: Head exam is unremarkable. Neck is without jugular venous distension. LUNGS: Lungs are clear to auscultation and percussion. Breath sounds decreased. HEART: Rate and Rhythm are regular. First and second heart sounds normal. No murmurs, rubs or gallops. ABDOMEN: Bowel sounds present. Mild generalized tenderness to palpation. EXTREMITITES: No clubbing, cyanosis, or edema. Objective - Vital Signs Vital signs: Vital Signs Temp 98.1 F 03/09/17 04:00 Pulse 67 03/09/17 04:00 Resp 18 03/09/17 04:00 BP 119/58 03/09/17 04:00 Pulse Ox 94 L 03/09/17 04:00 Intake & Output 03/08/17 03/09/17 03/09/17 18:59 06:59 18:59 Intake Total 580 20 Output Total 815 100 Balance -235 -80 Weight 81.6 kg 78.6 kg Intake: IV 100 20 0.9 at KVO 100 20 Intake, IV Titration 300 Amount Potassium Chloride 10 meq 300 Lidocaine 2% Inj 10 mg In Sodium Chloride 0.9% 100 ml @ 100 mls/hr IVPB Q1HR [facility] Rx#:[id number] Oral 180 Output: Urine 815 100 Other: Voiding Method Urinal Urinal # Voids 1 1 # Bowel Movements 1 - Labs CBC & Chem 7: 03/09/17 05:20 03/09/17 05:20 Labs: Abnormal Lab Results - Last 24 Hours (Table) 03/09/17 03/09/17 Range/Units 05:20 05:20 RBC 3.23 L (4.30-5.90) m/uL Hgb 9.1 L (13.0-17.5) gm/dL Hct 30.8 L (39.0-53.0) % MCHC 29.4 L (31.0-37.0) g/dL RDW 18.3 H (11.5-15.5) % Lymphocytes # 0.4 L (1.0-4.8) k/uL Carbon Dioxide 21 L (22-30) mmol/L BUN 64 H (9-20) mg/dL Creatinine 5.34 H* (0.66-1.25) mg/dL Glucose 112 H (74-99) mg/dL Phosphorus 5.9 H (2.5-4.5) mg/dL Assessment and Plan Plan: Assessment: #1. Chronic kidney disease stage IV secondary to nephrosclerosis and atheromatous renovascular disease. Patient also has a solitary left kidney. Also concern for glomerulonephritis due to proteinuria however no biopsy done due to solitary kidney. Patient is being prepared for peritoneal dialysis and had a catheter placed on March 02. #2. Dyspnea. There was concern for aortic dissection however was ruled out by CTA done March 04. Some evidence of fluid overload noted as well. #3. Anion gap metabolic acidosis secondary to chronic kidney disease. Improved. #4. Anemia of chronic kidney disease. Maintained on Aranesp. #5. Hypertension with chronic kidney disease. Partially volume sensitive. Also component of pain. Controlled. #6. Chronic kidney disease mineral bone disease. #7. Coronary artery disease status post cardiac catheterization on March 07 revealing an occluded left main and right coronary artery. No interventions done. #8. Nonoliguric acute kidney injury secondary to ATN due to contrast-induced nephropathy and diuresis. He did receive IV contrast on March 04 as well as March 07. #9. Abdominal pain. CAT scan suggestive of small bowel obstruction. Gen. surgery following. #10. Hypokalemia secondary to diuresis. Improved. Plan: Continue Lasix 80 mg IV twice daily. Continue oral sodium bicarbonate to 650 mg 2 times daily. Maintain current antihypertensives. Continue hydralazine 10 mg IV every 4 hours if systolic blood pressure greater than 160. May use lactulose as needed for constipation. Continue to monitor renal function and urine output. With worsening renal function, will consult vascular surgery for permacath placement. Will plan on first treatment of hemodialysis tomorrow. He will eventually be transitioned over to peritoneal dialysis as an outpatient.
--- NOTE | 2017-03-09 11:08 | P.PN ---
Subjective Principal diagnosis: Hematoma Patient says he is doing better today. He did have a bowel movement. Denies nausea or vomiting. Abdominal x-rays from today however show no significant changes and still appear consistent with a small bowel obstruction. Objective - Vital Signs Vital signs: Vital Signs Temp 98.2 F 03/09/17 08:40 Pulse 61 03/09/17 08:40 Resp 18 03/09/17 08:40 BP 149/44 03/09/17 08:40 Pulse Ox 99 03/09/17 08:40 Intake & Output 03/08/17 03/09/17 03/09/17 18:59 06:59 18:59 Intake Total 580 20 Output Total 815 100 Balance -235 -80 Weight 81.6 kg 78.6 kg Intake: IV 100 20 0.9 at KVO 100 20 Intake, IV Titration 300 Amount Potassium Chloride 10 meq 300 Lidocaine 2% Inj 10 mg In Sodium Chloride 0.9% 100 ml @ 100 mls/hr IVPB Q1HR [facility] Rx#:[id number] Oral 180 Output: Urine 815 100 Other: Voiding Method Urinal Urinal # Voids 1 1 # Bowel Movements 1 - Exam Abdomen: Soft, less distended, minimal tenderness, incisions clean - Labs CBC & Chem 7: 03/09/17 05:20 03/09/17 05:20 Labs: Abnormal Lab Results - Last 24 Hours (Table) 03/09/17 03/09/17 Range/Units 05:20 05:20 RBC 3.23 L (4.30-5.90) m/uL Hgb 9.1 L (13.0-17.5) gm/dL Hct 30.8 L (39.0-53.0) % MCHC 29.4 L (31.0-37.0) g/dL RDW 18.3 H (11.5-15.5) % Lymphocytes # 0.4 L (1.0-4.8) k/uL Carbon Dioxide 21 L (22-30) mmol/L BUN 64 H (9-20) mg/dL Creatinine 5.34 H* (0.66-1.25) mg/dL Glucose 112 H (74-99) mg/dL Phosphorus 5.9 H (2.5-4.5) mg/dL Assessment and Plan (1) Groin hematoma Narrative/Plan: Keep nothing by mouth for now. Patient still refusing nasogastric tube placement. Reevaluate tomorrow but will hold off on diet until x-rays show demonstrable improvement. Status: Acute
--- NOTE | 2017-03-09 13:16 | P.PN ---
Subjective Principal diagnosis: Acute non-ST segment elevation myocardial infarction 77-year-old male patient who underwent a repair of a inguinal hernia and insertion of a peritoneal catheter for hemodialysis by general surgery on 2016. Since then the patient is been having episodes it chest pain. He had been in the emergency department for the same. He was noted to have elevated troponins however he decided to be released and go home. Yesterday the patient started having chest pain along with shortness of breath and based on his extensive cardiac history the patient came back to the burst department and the patient was found to have post his troponins which peaked at 1.5 and abnormal EKG that showed ST segment depressions involving the anterolateral leads in addition to sinus rhythm with LVH and widening of QRS with repolarization abnormality. An underlying SEPTAL infarct cannot be completely excluded. D- dimer was elevated at 4.6. The proBNP elevated was 33,000. Creatinine was abnormal due to his chronic renal failure with a creatinine of 4.5. A CT aorta the chest was done and it showed aortic aneurysm in the distal thoracic aorta measuring 4.7 cm in size at the level of the hiatus of the diaphragm. Aorta measures 4.8 cm size just above the SMA. 3.8 cm in the mid abdomen at 3.2 cm just above the bifurcation. There is also evidence of evidence of subcutaneous air likely related to the recent dialysis catheter insertion and the peritoneal cavity. There is also evidence of fecal impaction. CT of the chest was also done and it showed no evidence of any pulmonary embolism. The aortic aneurysm was noted without any dissection. There is also evidence of pulmonary edema with small bilateral pleural effusion right more than left. This is consistent with CHF. The patient also has been producing urine and he was in the process of being prepared for dialysis. Nephrology saw the patient special that his current contrast intake and to give the patient Lasix 80 mg IV every 12 hours. At this point that the patient is resting comfortably in the intensive care unit. He is minimal diffuse chest pain, on and off of varying severity. The patient has undergone coronary artery bypass surgery for diffuse CAD back in 1986. Since then he has had multiple myocardial infarctions for which she has required cardiac catheterization a total of 6 or 7 stents have been inserted over the years. 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 He has also known to have carotid artery disease and undergone right carotid endarterectomy. On 03/05/2017, the patient is being seen in follow-up in intensive care unit. On and off is still having chest pain. He still IV heparin. IV heparin was stopped this morning I give the patient is developing some increased hematoma over the anterior abdominal wall at the site of the insertion of the peritoneal dialysis catheter. There is also a hematoma in his right groin area/and this has extended to his scrotum and back. Nevertheless the right inguinal hematomas quite soft. Hemoglobin is dropped by half a gram and for that reason I stopped IV heparin. Awaiting final cardiology recommendations regarding the possibility of the need for cardiac catheterization. Meanwhile the patient is receiving Lasix and he is diuresing well and he is a negative fluid balance. Renal function stable with a GFR of 13 and a creatinine of 4.4. No hyperkalemia. Hemoglobin is at 8.4. The chest x-ray showed CHF and unchanged compared to yesterday's study. The echocardiogram showed an ejection fraction of 30-35% with some dilation of the right ventricle and right atrium. The right ventricular systolic pressure was 43 mmHg. No other major abnormalities noted. On 03/06/2017, the patient is being seen in follow-up. He is still having on and off chest pain. I took the patient off heparin due to concern of a abdominal hematoma and the right groin hematoma. The hematoma itself is unchanged and stable for today. The patient is clinically the same. He remains in CHF. He continues to have angina. He will be undergoing a cardiac catheterization tomorrow. He remains on nitroglycerin drip which is being titrated based on his chest pain. The patient's renal function is stable and his GFR is still around 10. He'll be undergoing a cardiac catheterization by Dr. Snow tomorrow. He is on IV Lasix 80 mg every 12 hours. The patient is producing urine output and the negative of 2 L for yesterday another 1.5 L for today. Chest x-ray is consistent with CHF. Patient was reevaluated today on 03/07/2017, underwent cardiac catheterization, and the plan is mostly medical therapy. Report of the cardiac catheterization was noted. Pulmonary-ramos, the patient denies any cough no wheezing no shortness of breath and no chest pain at present. Chest x-ray showed mild interstitial prominence and tiny right pleural effusion. Labs were reviewed, hemoglobin is 8.5 WBC count is 7.7. Basic metabolic profile is normal, BUN is 56 creatinine is 4.70. Reevaluated today on 03/08/2017, patient is doing well from the pulmonary perspective, however he developed severe abdominal pain mostly in the right lower quadrant. CT of the abdomen is consistent with possible small bowel obstruction. Patient is refusing nasogastric tube placement, hence he was seen by Dr. dick and he recommended that the patient remains nothing by mouth. Patient is also against the idea of surgery is considered at any point. However he is complaining of pain and tenderness in the lower right lower quadrant. No bowel movements. No nausea no vomiting at this point. CBC is relatively unremarkable. Renal profile is worsening with a BUN of 58 creatinine of 5.0. Reevaluated today on 03/09/2017, patient isn't ready feeling better, his abdominal pain is less, apparently had a bowel movement today. Continues to refuse nasogastric tube, patient will likely undergo dialysis and I believe if vascular surgery consult was initiated for dialysis catheter placement. Less abdominal pain is noted today. No shortness of breath no cough no wheezing. CBC is relatively normal hemoglobin is 9.1. Electrodes lites are normal. BUN is on the rise at 64 creatinine is 5.34. Chest x-ray is showing mild congestive heart failure changes. Objective - Vital Signs Vital signs: Vital Signs Temp 98.2 F 03/09/17 08:40 Pulse 61 03/09/17 08:40 Resp 18 03/09/17 08:40 BP 149/44 03/09/17 08:40 Pulse Ox 99 03/09/17 08:40 Intake & Output 03/08/17 03/09/17 03/09/17 18:59 06:59 18:59 Intake Total 580 20 Output Total 815 100 Balance -235 -80 Weight 81.6 kg 78.6 kg Intake: IV 100 20 0.9 at KVO 100 20 Intake, IV Titration 300 Amount Potassium Chloride 10 meq 300 Lidocaine 2% Inj 10 mg In Sodium Chloride 0.9% 100 ml @ 100 mls/hr IVPB Q1HR [facility] Rx#:[id number] Oral 180 Output: Urine 815 100 Other: Voiding Method Urinal Urinal # Voids 1 1 # Bowel Movements 1 - Exam Gen. appearance , patient is not in any form of respiratory distress at present. Comfortable, sitting in a chair next to bed. Head is atraumatic normocephalic. Neck is positive for JVDs no goiter or neck masses point. There is a scar of a previous carotid endarterectomy on the right. Lung sounds are diminished bilaterally in the lung bases. Crackles are also appreciated lung bases. No wheezes or rhonchi. Heart sounds are regular, positive S1 and S2 without any significant murmurs. Abdominal exam revealed normal bowel sounds. Abdomen seems to be slightly tender, no rebound, no guarding, negative bowel sounds. No organomegaly, The right inguinal surgical site is bruised and there is a potential he an underlying hematoma. The subcutaneous hematomas extending to his scrotum and to the back There is also another hematoma over the anterior abdominal wall and set of the surgical wound site for peritoneal catheter insertion. This hematoma is slightly more firm and has also increased in size compared to yesterday's evaluation. The femoral pulses are obtainable . Extremities are showing + edema there is no cyanosis or clubbing. Pulses are quite diminished and there obtainable by Doppler signals. Skin is negative for any open wounds or sores or any ulceration. Neuro is or 83 and the neurologic exam is nonfocal at this point. Psych is negative for any mood or change in affect. Vascular the patient has Doppler signals in lower extremities bilaterally. The feet are cold. Pulses are present in the upper extremities bilaterally. - Labs CBC & Chem 7: 03/09/17 05:20 03/09/17 05:20 Labs: Abnormal Lab Results - Last 24 Hours (Table) 03/09/17 03/09/17 Range/Units 05:20 05:20 RBC 3.23 L (4.30-5.90) m/uL Hgb 9.1 L (13.0-17.5) gm/dL Hct 30.8 L (39.0-53.0) % MCHC 29.4 L (31.0-37.0) g/dL RDW 18.3 H (11.5-15.5) % Lymphocytes # 0.4 L (1.0-4.8) k/uL Carbon Dioxide 21 L (22-30) mmol/L BUN 64 H (9-20) mg/dL Creatinine 5.34 H* (0.66-1.25) mg/dL Glucose 112 H (74-99) mg/dL Phosphorus 5.9 H (2.5-4.5) mg/dL Assessment and Plan Plan: 1 acute non-ST segment elevation myocardial infarction with secondary chest pain shortness of breath. The patient continues to have episodes of chest pain and IV heparin has been discontinued due to evaluation of an abdominal and the right inguinal hematoma. 2 acute CHF exacerbation secondary to above. ProBNP is elevated and the CAT scan of the chest showing CHF/edema with small better pleural effusion. ProBNP level is quite elevated 3 chronic renal failure with stage 4-5 chronic kidney disease, awaiting hemodialysis. Is very much like to the patient will require dialysis soon as possible knowing that he has received contrast dye during this current hospitalization which probably is going to contribute to his renal failure progression 4 right inguinal hernia repair in 03/02/2017 along with placement of a mesh and insertion of a peritoneal dialysis catheter 5 right inguinal hematoma at the site of the surgical wound, in addition to another hematoma over the anterior abdominal wall and the site of insertion of a PD catheter. 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 19 hyponatremia , improved 20: Suspect small bowel obstruction, seen and evaluated by general surgery, at this point patient refuses nasogastric tube, and he was placed nothing by mouth , patient is being closely monitored by surgery on the case. Recommendation: Continue present supportive care measures, continue to monitor his abdominal pain and hematoma,, patient remains off heparin, his medical therapy for his acute myocardial infarction and coronary artery disease will be optimized by cardiology, surgery is not an option at this point according to cardiology. Renal ramos, the patient is being followed by nephrology, may eventually require dialysis. Time with Patient: Less than 30
--- NOTE | 2017-03-09 13:20 | P.PN ---
Subjective Acute non-ST elevated DC Patient is a 76-year-old male with a known history of coronary artery disease and history of CABG, CKD stage 5 and had peritoneal dialysis as well as recent right inguinal hernia repair came to the hospital with complaints of pressure- like sensation in the chest and was found to have elevated troponin level. Patient is being treated for acute non-ST elevated DC. Chest x-ray initially showed pulmonary edema. On 03/05/2017 Patient was found to have possible hematoma at the peritoneal masses catheter insertion and also right inguinal area. IV heparin has been stopped. Cardiology and nephrology and pulmonary is following this patient. Chest x-ray showed pulmonary edema consistent with CHF. 2-D echo cardiac exam showed his ejection fraction 30-35 percent. Patient denied any complaints of chest pain are worse and short of breath patient does complain of pain at the surgical site and abdominal. Patient has been afebrile. No nausea vomiting. Patient is diuresing well with IV Lasix. 03/06/2017 Patient is still having chest pain in the morning today. Patient is being continued on nitro drip. Right inguinal hematoma seems to be reduced in size. Hemoglobin is stable. Patient denied any short of breath. No nausea vomiting. No fever no chills. Cardiac catheterization tomorrow. 03/07/2017 Patient says that his abdominal pain is better. Patient had cardiac catheterization today and no new stents were placed. No complaints of chest pain or short of breath. No acute overnight serious issues. 03/08/2017 Patient's cardiac catheterization did not show any significant atherosclerotic occlusive disease, patient's abdomen is still distended patient is declining NG tube at this point of time patient will be nothing by mouth patient appears to have ileus does have fairly good bowel sounds and passing gas. March 09: Patient's abdomen is still distended does have fairly good bowel sounds did have a bowel movement repeat abdominal x-ray did show continued ileus Patient denied any chest pain, shortness of breath, dysuria new focal weakness does have some abdominal pain as mentioned above Objective - Vital Signs Vital signs: Vital Signs Temp 98.2 F 03/09/17 08:40 Pulse 61 03/09/17 08:40 Resp 18 03/09/17 08:40 BP 149/44 03/09/17 08:40 Pulse Ox 99 03/09/17 08:40 Intake & Output 03/08/17 03/09/1717 18:59 06:59 18:59 Intake Total 580 20 Output Total 815 100 Balance -235 -80 Weight 81.6 kg 78.6 kg Intake: IV 100 20 0.9 at KVO 100 20 Intake, IV Titration 300 Amount Potassium Chloride 10 meq 300 Lidocaine 2% Inj 10 mg In Sodium Chloride 0.9% 100 ml @ 100 mls/hr IVPB Q1HR [facility] Rx#:[id number] Oral 180 Output: Urine 815 100 Other: Voiding Method Urinal Urinal # Voids 1 1 # Bowel Movements 1 - Exam Patient is lying in the bed comfortably, no acute distress, awake alert and oriented.. HEENT: Normocephalic. Neck is supple. Pupils reactive. Nostrils clear. Oral cavity is moist. Ears reveal no drainage. Neck reveals no JVD, carotid bruits, or thyromegaly. CHEST EXAMINATION: Trachea is central. Symmetrical expansion. Bilateral bases are diminished sounds and crackles present CARDIAC: Normal S1, S2 with no gallops. No murmurs ABDOMEN: Distended, sluggish bowel sounds, tympanic. No tenderness. Bruising over the right inguinal surgical site as well as peritoneal dialysis catheter insertion site. Extremities 2+ edema. No clubbing or cyanosis . Pulses feeble Neurologically awake, alert, oriented x3 with well-coordinated movements. Skin: no rash or skin lesions Musculoskeletal: no joint swelling or deformity. - Labs CBC & Chem 7: 03/09/17 05:20 03/09/17 05:20 Labs: Abnormal Lab Results - Last 24 Hours (Table) 03/09/17 03/09/17 Range/Units 05:20 05:20 RBC 3.23 L (4.30-5.90) m/uL Hgb 9.1 L (13.0-17.5) gm/dL Hct 30.8 L (39.0-53.0) % MCHC 29.4 L (31.0-37.0) g/dL RDW 18.3 H (11.5-15.5) % Lymphocytes # 0.4 L (1.0-4.8) k/uL Carbon Dioxide 21 L (22-30) mmol/L BUN 64 H (9-20) mg/dL Creatinine 5.34 H* (0.66-1.25) mg/dL Glucose 112 H (74-99) mg/dL Phosphorus 5.9 H (2.5-4.5) mg/dL Assessment and Plan Plan: #1 elevated troponin: Secondary to demand ischemia and patient underwent cardiac catheterization as mentioned above. #2 acute CHF with systolic dysfunction ejection fraction 30-35%, was in significant acute exacerbation which improved now patient is fairly euvolemic. #3 chronic kidney disease stage V: Patient may have acute kidney injury as well patient has a peroneal dialysis catheter in place and nephrology is following the patient. Patient will undergo hemodialysis and patient's hemodialysis catheter is being placed today. #4 possible right inguinal hematoma #5 right inguinal hernia repair in 03/02/2017 along with placement of a mesh and insertion of a peritoneal dialysis catheter, patient presently appears to help partial small bowel obstruction or ileus for which patient will be nothing by mouth, bowel rest. #6 hyponatremia: Hypervolemic hyponatremia which resolved now with Lasix. 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 #8 history of severe coronary artery disease. With the multiple stents in the past. #9 atherosclerotic renovascular and peripheral vascular disease and carotid endarterectomy. 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
--- NOTE | 2017-03-09 13:26 | P.PN ---
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 The patient initially presented the day prior to admission and he refused to be admitted to the hospital. His chest discomfort got worse and it was associated with shortness of breath and he decided to come to the hospital. He was ruled in for acute coronary syndrome. The cardiac enzymes came in to be severe lead elevated. The patient underwent a heart catheterization which showed occluded left main, occluded RCA, patent CHAS to LAD, and patent STEPHENS to left circumflex. Maximize medical treatment was recommended. He was experiencing abdominal discomfort and a computed tomography scan of the abdomen was performed and showed possible small bowel obstruction. General surgery service is on the case. The blood pressure is better controlled on diltiazem 120mg daily, hydralazine 75mg TID and labetalol 100mg BID. He remains on lasix 80mg IV push every 12 hours. Upon examination, patient is sitting up in a chair. He denies complaints at this time. Objective - Vital Signs Vital signs: Vital Signs Temp 98.2 F 03/09/17 08:40 Pulse 61 03/09/17 08:40 Resp 18 03/09/17 08:40 BP 149/44 03/09/17 08:40 Pulse Ox 99 03/09/17 08:40 Intake & Output 03/08/17 03/09/17 03/09/17 18:59 06:59 18:59 Intake Total 580 20 Output Total 815 100 Balance -235 -80 Weight 81.6 kg 78.6 kg Intake: IV 100 20 0.9 at KVO 100 20 Intake, IV Titration 300 Amount Potassium Chloride 10 meq 300 Lidocaine 2% Inj 10 mg In Sodium Chloride 0.9% 100 ml @ 100 mls/hr IVPB Q1HR [facility] Rx#:[id number] Oral 180 Output: Urine 815 100 Other: Voiding Method Urinal Urinal # Voids 1 1 # Bowel Movements 1 - Exam PHYSICAL EXAMINATION: HEENT: Head is atraumatic, normocephalic. Pupils equal, round. Neck is supple. There is no elevated jugular venous pressure. HEART EXAMINATION: Heart sounds regular, S1 and S2 normal. No murmur or gallop heard. CHEST EXAMINATION: Lungs are clear to auscultation and precussion. No chest wall tenderness is noted on palpation or with deep breathing. EXTREMITIES: 2+ peripheral pulses with no evidence of peripheral edema and no calf tenderness noted. NEUROLOGIC patient is awake, alert and oriented x3. . - Labs CBC & Chem 7: 03/09/17 05:20 03/09/17 05:20 Labs: Abnormal Lab Results - Last 24 Hours (Table) 03/09/17 03/09/17 Range/Units 05:20 05:20 RBC 3.23 L (4.30-5.90) m/uL Hgb 9.1 L (13.0-17.5) gm/dL Hct 30.8 L (39.0-53.0) % MCHC 29.4 L (31.0-37.0) g/dL RDW 18.3 H (11.5-15.5) % Lymphocytes # 0.4 L (1.0-4.8) k/uL Carbon Dioxide 21 L (22-30) mmol/L BUN 64 H (9-20) mg/dL Creatinine 5.34 H* (0.66-1.25) mg/dL Glucose 112 H (74-99) mg/dL Phosphorus 5.9 H (2.5-4.5) mg/dL Assessment and Plan Plan: Assessment and plan #1 Coronary artery disease and prior CABG, catheterization shows patent STEPHENS to the left circumflex and CHAS to LAD. #2 hypertension #3 dyslipidemia #4 PAD with prior revascularization #5 renal failure #6 ischemic cardiomyopathy From phototypesetter operator perspective, medications were reviewed and we will continue the same. Continue maximize medical therapy. Diuretics per nephrology. We will continue to follow the patient and provide further recommendations accordingly. STRIKE PLATE ATTACHER note has been reviewed, I agree with a documented findings and plan of care. Patient was seen and examined.
[2017-03-09] MEDS ORDERED: IV FLUID CONTINUATION 650 ML IV ONE (17:17)
[2017-03-09] MEDS ORDERED: MIDAZOLAM 2 MG/2 ML VIAL IV ONE (17:30)
[2017-03-09] MEDS ORDERED: LIDOCAINE 2% INJ 20 MG/ML SQ ONE (17:32)
[2017-03-09] MEDS ORDERED: fentaNYL (PF) 50 MCG/ML 2 ML AMP IV ONE (17:33)
[2017-03-09] MEDS ORDERED: HEPARIN SODIUM 1,000 UN/ML (10ML VL) IV ONE (17:49)
--- NOTE | 2017-03-09 18:36 | XR ---
EXAMINATION TYPE: XR chest 1V portable DATE OF EXAM: 03/09/2017 COMPARISON: Today HISTORY: Catheter insertion TECHNIQUE: Single frontal view of the chest is obtained. FINDINGS: There is a right side dual lumen central venous catheter with the tip over the right atriu m. There is no sign of pneumothorax. Lungs are clear. There is no heart failure. There are sternal wi res. IMPRESSION: Catheter tip appears in good position. There is improved aeration of the lungs compared to the exam this morning.
--- NOTE | 2017-03-09 20:12 | CONS ---
CONSULTATION This is a 76-year-old gentleman who I am seeing on consult for urgent dialysis catheter placement. This patient has peritoneal dialysis. The patient has a bowel obstruction. Patient's BUN and creatinine is high and I was consulted for placement of dialysis catheter. EXAMINATION: Head is unremarkable. Lungs are clear. First and second heart sounds normal. Abdomen is distended, mild generalized tenderness. Femoral pulses are present. PAST SURGICAL HISTORY: Patient had a left carotid endarterectomy in the past and also had a coronary artery bypass. CAT scan of the abdomen suggests small bowel obstruction. General surgery is following. PLAN: Placement of the dialysis catheter. Risks and complication discussed. MMODL / IJN: [id number] /
[2017-03-09] MEDS: ATORVASTATIN 10 MG TAB PO SCH (21:43)
[2017-03-09] MEDS: traZODone HCL 50 MG TAB PO SCH (21:44)
--- NOTE | 2017-03-09 22:21 | PCN ---
PROCEDURE NOTE PREOPERATIVE DIAGNOSIS: Acute on chronic renal failure with bowel obstruction. PROCEDURE: Ultrasound-guided 28-cm dialysis catheter via right internal jugular approach. The patient was brought to the custodial laborer. Prior to that, her neck and chest was prepped in the usual sterile manner. 1% lidocaine was infiltrated into the neck and chest area. Ultrasound-guided micropuncture into the right internal jugular vein. Micropuncture guidewire was passed and 4-Greek dilator advanced on the top of the guidewire and then a tunnel was created. Through the tunnel, we brought a 28- cm dialysis catheter. The dilator was then advanced on top of the guidewire and then the sheath was advanced. Through the sheath, we introduced the dialysis catheter. The tip of the catheter in the superior vena cava. Then it was flushed with heparin saline and secured with Vicryl and nylon. Dressing applied. Patient tolerated the procedure well. MMODL / IJN: [id number] /
[2017-03-10 06:44] LABS: Anisocytosis Slight; Basophils % (A) 0 %; CH 27.7; CHCM 29.1; Eosinophils # (A) 0.1 k/uL (0-0.7); Eosinophils % (A) 1 %; HDW 2.53; HGB 8.5 gm/dL (13.0-17.5); Hypochromasia Marked; Luc # (Auto) 0.12; Luc % (Auto) 3; Lymphocytes # (A) 0.6 k/uL (1.0-4.8); Lymphocytes % (A) 13 %; MCH 28.1 pg (25.0-35.0); MCHC 29.3 g/dL (31.0-37.0); MCV 95.8 fL (80.0-100.0); Macrocytosis Slight; Mean Platelet Volume 7.4; Monocytes # (A) 0.6 k/uL (0-1.0); Monocytes % (A) 13 %; Neutrophils # (A) 3.1 k/uL (1.3-7.7); Neutrophils % (A) 69 %; RBC 3.03 m/uL (4.30-5.90); RDW 17.3 % (11.5-15.5); WBC 4.5 k/uL (3.8-10.6); WBC (Perox) 4.67
[2017-03-10 06:52] LABS: Calcium 8.6 mg/dL (8.4-10.2)
[2017-03-10] MEDS: hydrALAZINE HCL 25 MG TAB PO SCH ×2 (08:28→15:40)
[2017-03-10] MEDS: CHOLECALCIFEROL 1,000 UNIT TAB PO SCH (08:28)
[2017-03-10] MEDS: FAMOTIDINE 20 MG/2 ML VIAL IV SCH (08:28)
[2017-03-10] MEDS: FUROSEMIDE 10 MG/ML 10 ML VIAL IV SCH ×2 (08:28→21:27)
[2017-03-10] MEDS: LABETALOL 100 MG TAB PO SCH ×2 (08:29→21:27)
[2017-03-10] MEDS: ISOSORBIDE MONONITRATE ER 30 MG TAB.ER.24H PO SCH (08:29)
[2017-03-10] MEDS: ACETAMINOPHEN TAB 500 MG TAB PO SCH ×2 (08:29→15:40)
[2017-03-10] MEDS: DILTIAZEM CD 120 MG CAP.ER.24H PO SCH ×2 (08:29→21:27)
[2017-03-10] MEDS: ASPIRIN 81 MG PO SCH (08:29)
--- NOTE | 2017-03-10 08:43 | IR ---
EXAMINATION TYPE: IR cvc insert central tunneled DATE OF EXAM: 03/09/2017 COMPARISON: NONE HISTORY: Peripheral vascular occlusive disease. Fluoroscopy was provided to the referring clinician.
--- NOTE | 2017-03-10 08:56 | P.PN ---
Subjective Patient is seen in follow-up for acute kidney injury on chronic kidney disease. Patient has chronic kidney disease stage V secondary to solitary left kidney as well as nephrosclerosis and atheromatous renal disease. His creatinine is up to 5.44 today. He did undergo a cardiac catheterization on March 07 which revealed an occluded left main as well as right coronary artery. No interventions were done. He is noted to have a small bowel obstruction. Denies abdominal pain. He has been passing gas. He did have a bowel movement yest morning. He is frustrated as wants to eat. He has a PD catheter in place that was placed on March 02. Vital signs are stable. General: The patient appeared well nourished and normally developed. HEENT: Head exam is unremarkable. Neck is without jugular venous distension. LUNGS: Lungs are clear to auscultation and percussion. Breath sounds decreased. HEART: Rate and Rhythm are regular. First and second heart sounds normal. No murmurs, rubs or gallops. ABDOMEN: Bowel sounds present. Mild generalized tenderness to palpation. EXTREMITITES: No clubbing, cyanosis, or edema. Objective - Vital Signs Vital signs: Vital Signs Temp 98.5 F 03/10/17 04:00 Pulse 73 03/10/17 04:00 Resp 18 03/10/17 04:00 BP 107/48 03/10/17 04:00 Pulse Ox 93 L 03/10/17 04:00 Intake & Output 03/09/17 03/10/17 03/10/17 18:59 06:59 18:59 Intake Total 100 Output Total 200 400 Balance -100 -400 Weight 77.7 kg Intake: IV 100 Output: Urine 200 400 Other: Voiding Method Urinal # Voids 1 # Bowel Movements 1 - Labs CBC & Chem 7: 03/10/17 05:21 03/10/17 05:21 Labs: Abnormal Lab Results - Last 24 Hours (Table) 03/10/17 03/10/17 Range/Units 05:21 05:21 RBC 3.03 L (4.30-5.90) m/uL Hgb 8.5 L (13.0-17.5) gm/dL Hct 29.0 L (39.0-53.0) % MCHC 29.3 L (31.0-37.0) g/dL RDW 17.3 H (11.5-15.5) % Lymphocytes # 0.6 L (1.0-4.8) k/uL Carbon Dioxide 20 L (22-30) mmol/L BUN 73 H (9-20) mg/dL Creatinine 5.44 H* (0.66-1.25) mg/dL Assessment and Plan Plan: Assessment: #1. Chronic kidney disease stage V secondary to nephrosclerosis and atheromatous renovascular disease. Patient also has a solitary left kidney. Also concern for glomerulonephritis due to proteinuria however no biopsy done due to solitary kidney. Patient is being prepared for peritoneal dialysis and had a catheter placed on March 02. P-cath placed 03/09/17 for HD. #2. Dyspnea. There was concern for aortic dissection however was ruled out by CTA done March 04. Some evidence of fluid overload noted as well. #3. Anion gap metabolic acidosis secondary to chronic kidney disease. #4. Anemia of chronic kidney disease. Maintained on Aranesp. #5. Hypertension with chronic kidney disease. Partially volume sensitive. Also component of pain. Controlled. #6. Chronic kidney disease mineral bone disease. #7. Coronary artery disease status post cardiac catheterization on March 07 revealing an occluded left main and right coronary artery. No interventions done. #8. Nonoliguric acute kidney injury secondary to ATN due to contrast-induced nephropathy and diuresis. He did receive IV contrast on March 04 as well as March 07. #9. Abdominal pain. CAT scan suggestive of small bowel obstruction. Gen. surgery following. #10. Hypokalemia secondary to diuresis. Improved. Plan: Continue Lasix 80 mg IV twice daily. Continue oral sodium bicarbonate to 650 mg 2 times daily. Maintain current antihypertensives. Continue hydralazine 10 mg IV every 4 hours if systolic blood pressure greater than 160. May use lactulose as needed for constipation. First treatment of HD today. Will transition over to PD once SBO resolves and PD catheter cleared for use by surgery.
--- NOTE | 2017-03-10 09:30 | P.PN ---
Subjective Principal diagnosis: Hematoma Patient doing better today. Denies nausea or vomiting. He says he is passing large amounts of flatus. Objective - Vital Signs Vital signs: Vital Signs Temp 98.2 F 03/10/17 08:00 Pulse 70 03/10/17 08:00 Resp 20 03/10/17 08:00 BP 140/73 03/10/17 08:00 Pulse Ox 93 L 03/10/17 08:00 Intake & Output 03/09/17 03/10/17 03/10/17 18:59 06:59 18:59 Intake Total 100 20 Output Total 200 400 200 Balance -100 -400 -180 Weight 77.7 kg Intake: IV 100 0 0.9 at KVO 0 Oral 20 Output: Urine 200 400 200 Other: Voiding Method Urinal Urinal # Voids 1 # Bowel Movements 1 - Exam Abdomen with minimal if any distention definitely improved, mild incisional tenderness - Labs CBC & Chem 7: 03/10/17 05:21 03/10/17 05:21 Labs: Abnormal Lab Results - Last 24 Hours (Table) 03/10/17 03/10/17 Range/Units 05:21 05:21 RBC 3.03 L (4.30-5.90) m/uL Hgb 8.5 L (13.0-17.5) gm/dL Hct 29.0 L (39.0-53.0) % MCHC 29.3 L (31.0-37.0) g/dL RDW 17.3 H (11.5-15.5) % Lymphocytes # 0.6 L (1.0-4.8) k/uL Carbon Dioxide 20 L (22-30) mmol/L BUN 73 H (9-20) mg/dL Creatinine 5.44 H* (0.66-1.25) mg/dL Assessment and Plan (1) Groin hematoma Narrative/Plan: Will check abdominal x-rays today. If improved begin clear liquids. Status: Acute
--- NOTE | 2017-03-10 13:21 | XR ---
EXAMINATION TYPE: XR abdomen 2V DATE OF EXAM: 03/10/2017 10:31 AM CLINICAL HISTORY: Postsurgical abdominal pain. TECHNIQUE: Single supine KUB image of the abdomen is obtained. COMPARISON: 03/09/2017. FINDINGS: Persistent dilated loops of small bowel are seen throughout the abdomen measuring up tor 4. 5 cm. Air-fluid levels are seen within the upright abdomen, decreased in number from the prior exam. Rectal fecal gas and stool are identified. Postsurgical changes of the chest and partial visualization of a right-sided central venous catheter are seen. Degenerative changes of the osseous structures and atherosclerosis of the abdominal aorta a nd its branches are noted. Again tubing over the pelvis may be internal or external to the patient, l imited and a single projection. IMPRESSION: Persistent multifocal dilated loops of small bowel representing either partial small bowel obstructio n or severe ileus as rectal fecal gas is identified. Serial abdominal radiograph's are recommended to ensure resolution.
--- NOTE | 2017-03-10 13:46 | P.PN ---
Subjective Principal diagnosis: Acute non-ST segment elevation myocardial infarction 77-year-old male patient who underwent a repair of a inguinal hernia and insertion of a peritoneal catheter for hemodialysis by general surgery on 2016. Since then the patient is been having episodes it chest pain. He had been in the emergency department for the same. He was noted to have elevated troponins however he decided to be released and go home. Yesterday the patient started having chest pain along with shortness of breath and based on his extensive cardiac history the patient came back to the burst department and the patient was found to have post his troponins which peaked at 1.5 and abnormal EKG that showed ST segment depressions involving the anterolateral leads in addition to sinus rhythm with LVH and widening of QRS with repolarization abnormality. An underlying SEPTAL infarct cannot be completely excluded. D- dimer was elevated at 4.6. The proBNP elevated was 33,000. Creatinine was abnormal due to his chronic renal failure with a creatinine of 4.5. A CT aorta the chest was done and it showed aortic aneurysm in the distal thoracic aorta measuring 4.7 cm in size at the level of the hiatus of the diaphragm. Aorta measures 4.8 cm size just above the SMA. 3.8 cm in the mid abdomen at 3.2 cm just above the bifurcation. There is also evidence of evidence of subcutaneous air likely related to the recent dialysis catheter insertion and the peritoneal cavity. There is also evidence of fecal impaction. CT of the chest was also done and it showed no evidence of any pulmonary embolism. The aortic aneurysm was noted without any dissection. There is also evidence of pulmonary edema with small bilateral pleural effusion right more than left. This is consistent with CHF. The patient also has been producing urine and he was in the process of being prepared for dialysis. Nephrology saw the patient special that his current contrast intake and to give the patient Lasix 80 mg IV every 12 hours. At this point that the patient is resting comfortably in the intensive care unit. He is minimal diffuse chest pain, on and off of varying severity. The patient has undergone coronary artery bypass surgery for diffuse CAD back in 1986. Since then he has had multiple myocardial infarctions for which she has required cardiac catheterization a total of 6 or 7 stents have been inserted over the years. He was being followed up by gore cutter in [facility]. 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 He has also known to have carotid artery disease and undergone right carotid endarterectomy. On 03/05/2017, the patient is being seen in follow-up in intensive care unit. On and off is still having chest pain. He still IV heparin. IV heparin was stopped this morning I give the patient is developing some increased hematoma over the anterior abdominal wall at the site of the insertion of the peritoneal dialysis catheter. There is also a hematoma in his right groin area/and this has extended to his scrotum and back. Nevertheless the right inguinal hematomas quite soft. Hemoglobin is dropped by half a gram and for that reason I stopped IV heparin. Awaiting final cardiology recommendations regarding the possibility of the need for cardiac catheterization. Meanwhile the patient is receiving Lasix and he is diuresing well and he is a negative fluid balance. Renal function stable with a GFR of 13 and a creatinine of 4.4. No hyperkalemia. Hemoglobin is at 8.4. The chest x-ray showed CHF and unchanged compared to yesterday's study. The echocardiogram showed an ejection fraction of 30-35% with some dilation of the right ventricle and right atrium. The right ventricular systolic pressure was 43 mmHg. No other major abnormalities noted. On 03/06/2017, the patient is being seen in follow-up. He is still having on and off chest pain. I took the patient off heparin due to concern of a abdominal hematoma and the right groin hematoma. The hematoma itself is unchanged and stable for today. The patient is clinically the same. He remains in CHF. He continues to have angina. He will be undergoing a cardiac catheterization tomorrow. He remains on nitroglycerin drip which is being titrated based on his chest pain. The patient's renal function is stable and his GFR is still around 10. He'll be undergoing a cardiac catheterization by Dr. Snow tomorrow. He is on IV Lasix 80 mg every 12 hours. The patient is producing urine output and the negative of 2 L for yesterday another 1.5 L for today. Chest x-ray is consistent with CHF. Patient was reevaluated today on 03/07/2017, underwent cardiac catheterization, and the plan is mostly medical therapy. Report of the cardiac catheterization was noted. Pulmonary-ramos, the patient denies any cough no wheezing no shortness of breath and no chest pain at present. Chest x-ray showed mild interstitial prominence and tiny right pleural effusion. Labs were reviewed, hemoglobin is 8.5 WBC count is 7.7. Basic metabolic profile is normal, BUN is 56 creatinine is 4.70. Reevaluated today on 03/08/2017, patient is doing well from the pulmonary perspective, however he developed severe abdominal pain mostly in the right lower quadrant. CT of the abdomen is consistent with possible small bowel obstruction. Patient is refusing nasogastric tube placement, hence he was seen by Dr. dick and he recommended that the patient remains nothing by mouth. Patient is also against the idea of surgery is considered at any point. However he is complaining of pain and tenderness in the lower right lower quadrant. No bowel movements. No nausea no vomiting at this point. CBC is relatively unremarkable. Renal profile is worsening with a BUN of 58 creatinine of 5.0. Reevaluated today on 03/09/2017, patient isn't ready feeling better, his abdominal pain is less, apparently had a bowel movement today. Continues to refuse nasogastric tube, patient will likely undergo dialysis and I believe if vascular surgery consult was initiated for dialysis catheter placement. Less abdominal pain is noted today. No shortness of breath no cough no wheezing. CBC is relatively normal hemoglobin is 9.1. Electrodes lites are normal. BUN is on the rise at 64 creatinine is 5.34. Chest x-ray is showing mild congestive heart failure changes. Reevaluated today on 03/10/2017, patient seems to be doing well from the GI perspective, passing some flatus , no nausea no vomiting less abdominal discomfort, and he already had a right subclavian hemodialysis catheter placed to hopefully start dialysis today or tomorrow. Pulmonary-ramos, no cough no wheezing no shortness of breath, patient is doing well from the pulmonary perspective. Objective - Vital Signs Vital signs: Vital Signs Temp 98.0 F 03/10/17 12:00 Pulse 63 03/10/17 12:00 Resp 18 03/10/17 12:00 BP 119/64 03/10/17 12:00 Pulse Ox 96 03/10/17 12:00 Intake & Output 03/09/17 03/10/17 03/10/17 18:59 06:59 18:59 Intake Total 100 20 Output Total 200 400 200 Balance -100 -400 -180 Weight 77.7 kg Intake: IV 100 0 0.9 at KVO 0 Oral 20 Output: Urine 200 400 200 Other: Voiding Method Urinal Urinal # Voids 1 # Bowel Movements 1 - Exam Gen. appearance , patient is not in any form of respiratory distress at present. Comfortable, sitting in a chair next to bed. Head is atraumatic normocephalic. Neck is positive for JVDs no goiter or neck masses point. There is a scar of a previous carotid endarterectomy on the right. Lung sounds are diminished bilaterally in the lung bases. Crackles are also appreciated lung bases. No wheezes or rhonchi. Right subclavian hemodialysis catheter was noted Heart sounds are regular, positive S1 and S2 without any significant murmurs. Abdominal exam revealed normal bowel sounds. Abdomen seems to be slightly tender, no rebound, no guarding, negative bowel sounds. No organomegaly, The right inguinal surgical site is bruised and there is a potential he an underlying hematoma. The subcutaneous hematomas extending to his scrotum and to the back There is also another hematoma over the anterior abdominal wall and set of the surgical wound site for peritoneal catheter insertion. The femoral pulses are obtainable . Extremities are showing + edema there is no cyanosis or clubbing. Pulses are quite diminished and there obtainable by Doppler signals. Skin is negative for any open wounds or sores or any ulceration. Neuro is or 83 and the neurologic exam is nonfocal at this point. Psych is negative for any mood or change in affect. Vascular Pulses are present in the upper extremities bilaterally. - Labs CBC & Chem 7: 03/10/17 05:21 03/10/17 05:21 Labs: Abnormal Lab Results - Last 24 Hours (Table) 03/10/17 03/10/17 Range/Units 05:21 05:21 RBC 3.03 L (4.30-5.90) m/uL Hgb 8.5 L (13.0-17.5) gm/dL Hct 29.0 L (39.0-53.0) % MCHC 29.3 L (31.0-37.0) g/dL RDW 17.3 H (11.5-15.5) % Lymphocytes # 0.6 L (1.0-4.8) k/uL Carbon Dioxide 20 L (22-30) mmol/L BUN 73 H (9-20) mg/dL Creatinine 5.44 H* (0.66-1.25) mg/dL Assessment and Plan Plan: 1 acute non-ST segment elevation myocardial infarction with secondary chest pain shortness of breath. The patient continues to have episodes of chest pain and IV heparin has been discontinued due to evaluation of an abdominal and the right inguinal hematoma. 2 acute CHF exacerbation secondary to above. ProBNP is elevated and the CAT scan of the chest showing CHF/edema with small better pleural effusion. ProBNP level is quite elevated 3 chronic renal failure with stage 4-5 chronic kidney disease, awaiting hemodialysis. Is very much like to the patient will require dialysis soon as possible knowing that he has received contrast dye during this current hospitalization which probably is going to contribute to his renal failure progression 4 right inguinal hernia repair in 03/02/2017 along with placement of a mesh and insertion of a peritoneal dialysis catheter 5 right inguinal hematoma at the site of the surgical wound, in addition to another hematoma over the anterior abdominal wall and the site of insertion of a PD catheter. 6 multivessel coronary disease with previous bypass surgery in 1986 7 multiple myocardial infarctions insertion of coronary stents at least 7 over the years and his gore cutter at [place] 8 COPD was currently inactive in stable 9 CVA with some minimal residual right-sided weakness 10 hyperlipidemia 11 hypertension 12 chronic anemia maintained on Aranesp injections 13 Peripheral vascular disease severe with previous vascular intervention and stenting 14 abdominal and descending thoracic aortic aneurysm, without evidence of any dissection 15 osteoarthritis 16 remote history of alcoholism 17 history of smoking 18 history of anxiety/panic. 19 hyponatremia , improved 20: Suspect small bowel obstruction, seen and evaluated by general surgery, at this point patient refuses nasogastric tube, and he was placed nothing by mouth , patient is being closely monitored by surgery on the case. Clinically his GI symptoms seems to be improving, and at least his passing some flatus Recommendation: Continue present supportive care measures, patient will likely have dialysis started tomorrow since his dialysis catheter was placed, his GI issues are being addressed by Dr. dick, reviewed the abdominal film with him and with his family at bedside today. We'll continue to follow. Time with Patient: Less than 30
--- NOTE | 2017-03-10 15:05 | P.PN ---
Subjective Principal diagnosis: Non-STEMI This is a pleasant 76-year-old gentleman who sees a manager nc out of the town with an extensive cardiac and vascular history consistent with coronary artery disease and prior coronary artery bypass grafting was performed in 1986 with unknown details about the bypasses, severe underlying peripheral arterial disease with prior angioplasty of bilateral femoral arteries, hypertension, and dyslipidemia, presented to the emergency room complaining of chest discomfort. The patient initially presented the day prior to admission and he refused to be admitted to the hospital. His chest discomfort got worse and it was associated with shortness of breath and he decided to come to the hospital. He was ruled in for acute coronary syndrome. The cardiac enzymes came in to be severe lead elevated. The patient underwent a heart catheterization which showed occluded left main, occluded RCA, patent CHSA to LAD, and patent STEPHENS to left circumflex. Maximize medical treatment was recommended. He was experiencing abdominal discomfort and a computed tomography scan of the abdomen was performed and showed possible small bowel obstruction. General surgery service is on the case. The blood pressure is better controlled on diltiazem 120mg daily, hydralazine 75mg TID and labetalol 100mg BID. He remains on lasix 80mg IV push every 12 hours. Upon examination, patient is sleeping, awakens easily to verbal stimuli. He continues to complain of minimal chest discomfort that is chronic for him. His main complaint today is of feeling very tired. A hemodialysis catheter was placed last night and will likely begin hemodialysis tomorrow. Current labs show a BUN of 73 and creatinine 5.44. Objective - Vital Signs Vital signs: Vital Signs Temp 98.0 F 03/10/17 12:00 Pulse 63 03/10/17 12:00 Resp 18 03/10/17 12:00 BP 119/64 03/10/17 12:00 Pulse Ox 96 03/10/17 12:00 Intake & Output 03/09/17 03/10/17 03/10/17 18:59 06:59 18:59 Intake Total 100 20 Output Total 200 400 200 Balance -100 -400 -180 Weight 77.7 kg Intake: IV 100 0 0.9 at KVO 0 Oral 20 Output: Urine 200 400 200 Other: Voiding Method Urinal Urinal # Voids 1 # Bowel Movements 1 - Exam PHYSICAL EXAMINATION: HEENT: Head is atraumatic, normocephalic. Pupils equal, round. Neck is supple. There is no elevated jugular venous pressure. HEART EXAMINATION: Heart sounds regular, S1 and S2 normal. No murmur or gallop heard. CHEST EXAMINATION: Lungs are clear to auscultation and precussion. No chest wall tenderness is noted on palpation or with deep breathing. EXTREMITIES: 2+ peripheral pulses with no evidence of peripheral edema and no calf tenderness noted. NEUROLOGIC patient is sleeping, easily arousable and oriented x3. . - Labs CBC & Chem 7: 03/10/17 05:21 03/10/17 05:21 Labs: Abnormal Lab Results - Last 24 Hours (Table) 03/10/17 03/10/17 Range/Units 05:21 05:21 RBC 3.03 L (4.30-5.90) m/uL Hgb 8.5 L (13.0-17.5) gm/dL Hct 29.0 L (39.0-53.0) % MCHC 29.3 L (31.0-37.0) g/dL RDW 17.3 H (11.5-15.5) % Lymphocytes # 0.6 L (1.0-4.8) k/uL Carbon Dioxide 20 L (22-30) mmol/L BUN 73 H (9-20) mg/dL Creatinine 5.44 H* (0.66-1.25) mg/dL Assessment and Plan Plan: Assessment and plan #1 Coronary artery disease and prior CABG, catheterization shows patent STEPHENS to the left circumflex and CHAS to LAD. #2 hypertension #3 dyslipidemia #4 PAD with prior revascularization #5 renal failure #6 ischemic cardiomyopathy From manager nc perspective, medications were reviewed and we will continue the same. Continue maximize medical therapy. Diuretics per nephrology. We will continue to follow the patient and provide further recommendations accordingly. NETWORK SYSTEMS ADMINISTRATOR note has been reviewed, I agree with a documented findings and plan of care. Patient was seen and examined.
--- NOTE | 2017-03-10 16:28 | P.PN ---
Subjective Acute non-ST elevated PA Patient is a 76-year-old male with a known history of coronary artery disease and history of CABG, CKD stage 5 and had peritoneal dialysis as well as recent right inguinal hernia repair came to the hospital with complaints of pressure- like sensation in the chest and was found to have elevated troponin level. Patient is being treated for acute non-ST elevated PA. Chest x-ray initially showed pulmonary edema. On 03/05/2017 Patient was found to have possible hematoma at the peritoneal masses catheter insertion and also right inguinal area. IV heparin has been stopped. Cardiology and nephrology and pulmonary is following this patient. Chest x-ray showed pulmonary edema consistent with CHF. 2-D echo cardiac exam showed his ejection fraction 30-35 percent. Patient denied any complaints of chest pain are worse and short of breath patient does complain of pain at the surgical site and abdominal. Patient has been afebrile. No nausea vomiting. Patient is diuresing well with IV Lasix. 03/06/2017 Patient is still having chest pain in the morning today. Patient is being continued on nitro drip. Right inguinal hematoma seems to be reduced in size. Hemoglobin is stable. Patient denied any short of breath. No nausea vomiting. No fever no chills. Cardiac catheterization tomorrow. 03/07/2017 Patient says that his abdominal pain is better. Patient had cardiac catheterization today and no new stents were placed. No complaints of chest pain or short of breath. No acute overnight serious issues. 03/08/2017 Patient's cardiac catheterization did not show any significant atherosclerotic occlusive disease, patient's abdomen is still distended patient is declining NG tube at this point of time patient will be nothing by mouth patient appears to have ileus does have fairly good bowel sounds and passing gas. March 09: Patient's abdomen is still distended does have fairly good bowel sounds did have a bowel movement repeat abdominal x-ray did show continued ileus 03/09/2017 Patient's ileus improved as per the abdominal x-ray today patient does feel much better today, abdomen although is still quite distended passing gas Patient denied any chest pain, shortness of breath, dysuria new focal weakness does have some abdominal pain as mentioned above Objective - Vital Signs Vital signs: Vital Signs Temp 98.0 F 03/10/17 12:00 Pulse 63 03/10/17 12:00 Resp 18 03/10/17 12:00 BP 119/64 03/10/17 12:00 Pulse Ox 96 03/10/17 12:00 Intake & Output 03/09/17 03/10/17 03/10/17 18:59 06:59 18:59 Intake Total 100 20 Output Total 200 400 202 Balance -100 -400 -182 Weight 77.7 kg Intake: IV 100 0 0.9 at KVO 0 Oral 20 Output: Urine 200 400 202 Other: Voiding Method Urinal Urinal # Voids 1 # Bowel Movements 1 - Exam Patient is lying in the bed comfortably, no acute distress, awake alert and oriented.. HEENT: Normocephalic. Neck is supple. Pupils reactive. Nostrils clear. Oral cavity is moist. Ears reveal no drainage. Neck reveals no JVD, carotid bruits, or thyromegaly. CHEST EXAMINATION: Trachea is central. Symmetrical expansion. Bilateral bases are diminished sounds and crackles present CARDIAC: Normal S1, S2 with no gallops. No murmurs ABDOMEN: Distended, sluggish bowel sounds, tympanic. No tenderness. Bruising over the right inguinal surgical site as well as peritoneal dialysis catheter insertion site. Extremities 2+ edema. No clubbing or cyanosis . Pulses feeble Neurologically awake, alert, oriented x3 with well-coordinated movements. Skin: no rash or skin lesions Musculoskeletal: no joint swelling or deformity. - Labs CBC & Chem 7: 03/10/17 05:21 03/10/17 05:21 Labs: Abnormal Lab Results - Last 24 Hours (Table) 03/10/17 03/10/17 Range/Units 05:21 05:21 RBC 3.03 L (4.30-5.90) m/uL Hgb 8.5 L (13.0-17.5) gm/dL Hct 29.0 L (39.0-53.0) % MCHC 29.3 L (31.0-37.0) g/dL RDW 17.3 H (11.5-15.5) % Lymphocytes # 0.6 L (1.0-4.8) k/uL Carbon Dioxide 20 L (22-30) mmol/L BUN 73 H (9-20) mg/dL Creatinine 5.44 H* (0.66-1.25) mg/dL Assessment and Plan Plan: #1 elevated troponin: Secondary to demand ischemia and patient underwent cardiac catheterization as mentioned above. #2 acute CHF with systolic dysfunction ejection fraction 30-35%, was in significant acute exacerbation which improved now patient is fairly euvolemic. #3 chronic kidney disease stage V: Patient may have acute kidney injury as well patient has a peroneal dialysis catheter in place and nephrology is following the patient. Patient will undergo hemodialysis and patient's hemodialysis catheter is being placed yesterday. #4 possible right inguinal hematoma #5 right inguinal hernia repair in 03/02/2017 along with placement of a mesh and insertion of a peritoneal dialysis catheter, patient presently appears to help partial small bowel obstruction or ileus for which patient will be nothing by mouth, bowel rest. #6 hyponatremia: Hypervolemic hyponatremia which resolved now with Lasix. 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 #8 history of severe coronary artery disease. With the multiple stents in the past. #9 atherosclerotic renovascular and peripheral vascular disease and carotid endarterectomy. 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 #15 ileus: Slow improvement patient is being started on clear liquid diet today
[2017-03-10] MEDS ORDERED: HEPARIN SODIUM,PORCINE 5,000 UNIT/ML 1 ML VIAL ONE (17:30)
[2017-03-10] MEDS: traZODone HCL 50 MG TAB PO SCH (21:27)
[2017-03-10] MEDS: ATORVASTATIN 10 MG TAB PO SCH (21:27)
[2017-03-11] MEDS: hydrALAZINE HCL 25 MG TAB PO SCH ×4 (00:03→22:51)
[2017-03-11] MEDS: ACETAMINOPHEN TAB 500 MG TAB PO SCH ×4 (00:04→22:51)
[2017-03-11] MEDS: POLYETHYLENE GLYCOL 3350 17 GM POWD.PACK PO SCH (07:21)
[2017-03-11] MEDS: hydrALAZINE HCL 50 MG TAB PO SCH (07:21)
[2017-03-11] MEDS: SODIUM BICARBONATE TAB 650 MG TAB PO SCH (07:22)
[2017-03-11] MEDS: DILTIAZEM CD 120 MG CAP.ER.24H PO SCH ×2 (08:34→20:28)
[2017-03-11] MEDS: ASPIRIN 81 MG PO SCH (08:34)
[2017-03-11] MEDS: FUROSEMIDE 10 MG/ML 10 ML VIAL IV SCH ×2 (08:34→20:28)
[2017-03-11] MEDS: LABETALOL 100 MG TAB PO SCH (08:34)
[2017-03-11] MEDS: FAMOTIDINE 20 MG/2 ML VIAL IV SCH (08:35)
[2017-03-11] MEDS: ISOSORBIDE MONONITRATE ER 30 MG TAB.ER.24H PO SCH (08:35)
[2017-03-11] MEDS: CHOLECALCIFEROL 1,000 UNIT TAB PO SCH (08:35)
--- NOTE | 2017-03-11 10:04 | P.PN ---
Subjective Patient is seen in follow-up for acute kidney injury on chronic kidney disease. Patient has chronic kidney disease stage V secondary to solitary left kidney as well as nephrosclerosis and atheromatous renal disease. Patient was started on hemodialysis this admission. He did undergo a cardiac catheterization on March 07 which revealed an occluded left main as well as right coronary artery. No interventions were done. He is noted to have a small bowel obstruction and diet was advanced yesterday. Denies abdominal pain. He has been passing gas. He has a PD catheter in place that was placed on March 02. Vital signs are stable. General: The patient appeared well nourished and normally developed. HEENT: Head exam is unremarkable. Neck is without jugular venous distension. LUNGS: Lungs are clear to auscultation and percussion. Breath sounds decreased. HEART: Rate and Rhythm are regular. First and second heart sounds normal. No murmurs, rubs or gallops. ABDOMEN: Bowel sounds present. Mild generalized tenderness to palpation. EXTREMITITES: No clubbing, cyanosis, or edema. Objective - Vital Signs Vital signs: Vital Signs Temp 97.2 F L 03/11/17 08:00 Pulse 70 03/11/17 08:00 Resp 18 03/11/17 08:00 BP 137/63 03/11/17 08:00 Pulse Ox 94 L 03/11/17 09:14 Intake & Output 03/10/17 03/11/17 03/11/17 18:59 06:59 18:59 Intake Total 400 160 540 Output Total 302 300 Balance 98 -140 540 Weight 77.2 kg Intake: IV 0 160 240 0.9 at KVO 0 160 240 Oral 400 300 Output: Urine 302 300 Other: Voiding Method Urinal Urinal Urinal # Voids 1 - Labs CBC & Chem 7: 03/10/17 05:21 03/10/17 05:21 Assessment and Plan Plan: Assessment: #1. Chronic kidney disease stage V secondary to nephrosclerosis and atheromatous renovascular disease. Patient also has a solitary left kidney. Also concern for glomerulonephritis due to proteinuria however no biopsy done due to solitary kidney. Patient is being prepared for peritoneal dialysis and had PD catheter placed on March 02. Currently receiving hemodialysis via P- cath. #2. Dyspnea. There was concern for aortic dissection however was ruled out by CTA done March 04. Fluid overload noted as well. #3. Anion gap metabolic acidosis secondary to chronic kidney disease. #4. Anemia of chronic kidney disease. Maintained on Aranesp. #5. Hypertension with chronic kidney disease. Partially volume sensitive. Also component of pain. Controlled. #6. Chronic kidney disease mineral bone disease. #7. Coronary artery disease status post cardiac catheterization on March 07 revealing an occluded left main and right coronary artery. No interventions done. #8. Nonoliguric acute kidney injury secondary to ATN due to contrast-induced nephropathy and diuresis. He did receive IV contrast on March 04 as well as March 07. Now hemodialysis dependent. #9. Abdominal pain. CAT scan suggestive of small bowel obstruction. Gen. surgery following. Plan: Continue Lasix 80 mg IV twice daily. Continue oral sodium bicarbonate to 650 mg 2 times daily. Maintain current antihypertensives. Continue hydralazine 10 mg IV every 4 hours if systolic blood pressure greater than 160. May use lactulose as needed for constipation. Second treatment of HD today and will schedule for third treatment tomorrow. Will transition over to PD once SBO resolves and PD catheter cleared for use by surgery.
[2017-03-11 10:34] VITALS: BMI 26.6
--- NOTE | 2017-03-11 12:42 | P.PN ---
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 The patient initially presented the day prior to admission and he refused to be admitted to the hospital. His chest discomfort got worse and it was associated with shortness of breath and he decided to come to the hospital. He was ruled in for acute coronary syndrome. The cardiac enzymes came in to be severe lead elevated. The patient underwent a heart catheterization which showed occluded left main, occluded RCA, patent CHAS to LAD, and patent STEPHENS to left circumflex. Maximize medical treatment was recommended. He was experiencing abdominal discomfort and a computed tomography scan of the abdomen was performed and showed possible small bowel obstruction. General surgery service is on the case. The blood pressure is better controlled on diltiazem 120mg daily, hydralazine 75mg TID and labetalol 100mg BID. He remains on lasix 80mg IV push every 12 hours. Upon examination, patient is undergoing hemodialysis and doing well with this. He is on a clear liquid diet and tolerating this well. He denies any complaint of distress. His chest pain is stable and unchanged. Objective - Vital Signs Vital signs: Vital Signs Temp 99.4 F 03/11/17 11:35 Pulse 60 03/11/17 11:36 Resp 16 03/11/17 11:36 BP 92/45 03/11/17 11:35 Pulse Ox 95 03/11/17 11:35 Intake & Output 03/10/17 03/11/17 03/11/17 18:59 06:59 18:59 Intake Total 400 160 540 Output Total 302 300 Balance 98 -140 540 Weight 77.2 kg 77.2 kg Intake: IV 0 160 240 0.9 at KVO 0 160 240 Oral 400 300 Output: Urine 302 300 Other: Voiding Method Urinal Urinal Urinal # Voids 1 - Exam PHYSICAL EXAMINATION: HEENT: Head is atraumatic, normocephalic. Pupils equal, round. Neck is supple. There is no elevated jugular venous pressure. HEART EXAMINATION: Heart sounds regular, S1 and S2 normal. No murmur or gallop heard. CHEST EXAMINATION: Lungs are clear to auscultation and precussion. No chest wall tenderness is noted on palpation or with deep breathing. EXTREMITIES: 2+ peripheral pulses with no evidence of peripheral edema and no calf tenderness noted. NEUROLOGIC patient is awake, alert and oriented x3. . - Labs CBC & Chem 7: 03/10/17 05:21 03/10/17 05:21 Assessment and Plan Plan: Assessment and plan #1 Coronary artery disease and prior CABG, catheterization shows patent STEPHENS to the left circumflex and CHAS to LAD. #2 hypertension #3 dyslipidemia #4 PAD with prior revascularization #5 renal failure #6 ischemic cardiomyopathy From ammonia refrigeration worker perspective, medications were reviewed and we will continue the same. Continue maximize medical therapy. Diuretics per nephrology. We will continue to follow the patient and provide further recommendations accordingly. SUBSTANCE ABUSE PREVENTION COORDINATOR note has been reviewed, I agree with a documented findings and plan of care. Patient was seen and examined.
[2017-03-11] MEDS: CLOPIDOGREL 75 MG TAB PO SCH (15:03)
--- NOTE | 2017-03-11 15:10 | P.PN ---
Subjective Acute non-ST elevated NM Patient is a 76-year-old male with a known history of coronary artery disease and history of CABG, CKD stage 5 and had peritoneal dialysis as well as recent right inguinal hernia repair came to the hospital with complaints of pressure- like sensation in the chest and was found to have elevated troponin level. Patient is being treated for acute non-ST elevated NM. Chest x-ray initially showed pulmonary edema. On 03/05/2017 Patient was found to have possible hematoma at the peritoneal masses catheter insertion and also right inguinal area. IV heparin has been stopped. Cardiology and nephrology and pulmonary is following this patient. Chest x-ray showed pulmonary edema consistent with CHF. 2-D echo cardiac exam showed his ejection fraction 30-35 percent. Patient denied any complaints of chest pain are worse and short of breath patient does complain of pain at the surgical site and abdominal. Patient has been afebrile. No nausea vomiting. Patient is diuresing well with IV Lasix. 03/06/2017 Patient is still having chest pain in the morning today. Patient is being continued on nitro drip. Right inguinal hematoma seems to be reduced in size. Hemoglobin is stable. Patient denied any short of breath. No nausea vomiting. No fever no chills. Cardiac catheterization tomorrow. 03/07/2017 Patient says that his abdominal pain is better. Patient had cardiac catheterization today and no new stents were placed. No complaints of chest pain or short of breath. No acute overnight serious issues. 03/08/2017 Patient's cardiac catheterization did not show any significant atherosclerotic occlusive disease, patient's abdomen is still distended patient is declining NG tube at this point of time patient will be nothing by mouth patient appears to have ileus does have fairly good bowel sounds and passing gas. March 09: 17 Patient's abdomen is still distended does have fairly good bowel sounds did have a bowel movement repeat abdominal x-ray did show continued ileus 03/09/2017 Patient's ileus improved as per the abdominal x-ray today patient does feel much better today, abdomen although is still quite distended passing gas 03/11/2017 Patient's abdominal distention improved patient is still passing as not unable to move his bowel yet. Patient blood pressure is low because of which limit was changed to metoprolol and decrease the dose of hydralazine. Patient denied any chest pain, shortness of breath, dysuria new focal weakness does have some abdominal pain as mentioned above Objective - Vital Signs Vital signs: Vital Signs Temp 98.4 F 03/11/17 15:04 Pulse 60 03/11/17 15:06 Resp 18 03/11/17 15:06 BP 134/61 03/11/17 15:04 Pulse Ox 95 03/11/17 15:04 Intake & Output 03/10/17 03/11/17 03/11/17 18:59 06:59 18:59 Intake Total 400 160 900 Output Total 302 300 200 Balance 98 -140 700 Weight 77.2 kg 77.2 kg Intake: IV 0 160 240 0.9 at KVO 0 160 240 Oral 400 660 Output: Urine 302 300 200 Other: Voiding Method Urinal Urinal Urinal # Voids 1 1 - Exam Patient is lying in the bed comfortably, no acute distress, awake alert and oriented.. HEENT: Normocephalic. Neck is supple. Pupils reactive. Nostrils clear. Oral cavity is moist. Ears reveal no drainage. Neck reveals no JVD, carotid bruits, or thyromegaly. CHEST EXAMINATION: Trachea is central. Symmetrical expansion. Bilateral bases are diminished sounds and crackles present CARDIAC: Normal S1, S2 with no gallops. No murmurs ABDOMEN: Distended but improved compared to yesterday, good bowel sounds , tympanic. No tenderness. Bruising over the right inguinal surgical site as well as peritoneal dialysis catheter insertion site. Extremities 2+ edema. No clubbing or cyanosis . Pulses feeble Neurologically awake, alert, oriented x3 with well-coordinated movements. Skin: no rash or skin lesions Musculoskeletal: no joint swelling or deformity. - Labs CBC & Chem 7: 03/10/17 05:21 03/10/17 05:21 Assessment and Plan Plan: #1 elevated troponin: Secondary to demand ischemia and patient underwent cardiac catheterization as mentioned above. #2 acute CHF with systolic dysfunction ejection fraction 30-35%, was in significant acute exacerbation which improved now patient is fairly euvolemic. #3 chronic kidney disease stage V: Patient may have acute kidney injury as well patient has a peroneal dialysis catheter in place and nephrology is following the patient. Patient will undergo hemodialysis and patient's hemodialysis catheter is being placed yesterday. #4 possible right inguinal hematoma #5 right inguinal hernia repair in 03/02/2017 along with placement of a mesh and insertion of a peritoneal dialysis catheter, patient presently appears to help partial small bowel obstruction or ileus for which patient will be nothing by mouth, bowel rest. #6 hyponatremia: Hypervolemic hyponatremia which resolved now with Lasix. 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 #8 history of severe coronary artery disease. With the multiple stents in the past. #9 atherosclerotic renovascular and peripheral vascular disease and carotid endarterectomy. #10 hypertension and patient is hypotensive today above-mentioned changes to his medications were made. 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 #15 ileus: Improving patient is doing much better
--- NOTE | 2017-03-11 16:00 | P.PN ---
Subjective Principal diagnosis: Acute non-ST segment elevation myocardial infarction 77-year-old male patient who underwent a repair of a inguinal hernia and insertion of a peritoneal catheter for hemodialysis by general surgery on 2016. Since then the patient is been having episodes it chest pain. He had been in the emergency department for the same. He was noted to have elevated troponins however he decided to be released and go home. Yesterday the patient started having chest pain along with shortness of breath and based on his extensive cardiac history the patient came back to the burst department and the patient was found to have post his troponins which peaked at 1.5 and abnormal EKG that showed ST segment depressions involving the anterolateral leads in addition to sinus rhythm with LVH and widening of QRS with repolarization abnormality. An underlying SEPTAL infarct cannot be completely excluded. D- dimer was elevated at 4.6. The proBNP elevated was 33,000. Creatinine was abnormal due to his chronic renal failure with a creatinine of 4.5. A CT aorta the chest was done and it showed aortic aneurysm in the distal thoracic aorta measuring 4.7 cm in size at the level of the hiatus of the diaphragm. Aorta measures 4.8 cm size just above the SMA. 3.8 cm in the mid abdomen at 3.2 cm just above the bifurcation. There is also evidence of evidence of subcutaneous air likely related to the recent dialysis catheter insertion and the peritoneal cavity. There is also evidence of fecal impaction. CT of the chest was also done and it showed no evidence of any pulmonary embolism. The aortic aneurysm was noted without any dissection. There is also evidence of pulmonary edema with small bilateral pleural effusion right more than left. This is consistent with CHF. The patient also has been producing urine and he was in the process of being prepared for dialysis. Nephrology saw the patient special that his current contrast intake and to give the patient Lasix 80 mg IV every 12 hours. At this point that the patient is resting comfortably in the intensive care unit. He is minimal diffuse chest pain, on and off of varying severity. The patient has undergone coronary artery bypass surgery for diffuse CAD back in 1986. Since then he has had multiple myocardial infarctions for which she has required cardiac catheterization a total of 6 or 7 stents have been inserted over the years. 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 He has also known to have carotid artery disease and undergone right carotid endarterectomy. On 03/05/2017, the patient is being seen in follow-up in intensive care unit. On and off is still having chest pain. He still IV heparin. IV heparin was stopped this morning I give the patient is developing some increased hematoma over the anterior abdominal wall at the site of the insertion of the peritoneal dialysis catheter. There is also a hematoma in his right groin area/and this has extended to his scrotum and back. Nevertheless the right inguinal hematomas quite soft. Hemoglobin is dropped by half a gram and for that reason I stopped IV heparin. Awaiting final cardiology recommendations regarding the possibility of the need for cardiac catheterization. Meanwhile the patient is receiving Lasix and he is diuresing well and he is a negative fluid balance. Renal function stable with a GFR of 13 and a creatinine of 4.4. No hyperkalemia. Hemoglobin is at 8.4. The chest x-ray showed CHF and unchanged compared to yesterday's study. The echocardiogram showed an ejection fraction of 30-35% with some dilation of the right ventricle and right atrium. The right ventricular systolic pressure was 43 mmHg. No other major abnormalities noted. On 03/06/2017, the patient is being seen in follow-up. He is still having on and off chest pain. I took the patient off heparin due to concern of a abdominal hematoma and the right groin hematoma. The hematoma itself is unchanged and stable for today. The patient is clinically the same. He remains in CHF. He continues to have angina. He will be undergoing a cardiac catheterization tomorrow. He remains on nitroglycerin drip which is being titrated based on his chest pain. The patient's renal function is stable and his GFR is still around 10. He'll be undergoing a cardiac catheterization by Dr. Snow tomorrow. He is on IV Lasix 80 mg every 12 hours. The patient is producing urine output and the negative of 2 L for yesterday another 1.5 L for today. Chest x-ray is consistent with CHF. Patient was reevaluated today on 03/07/2017, underwent cardiac catheterization, and the plan is mostly medical therapy. Report of the cardiac catheterization was noted. Pulmonary-ramos, the patient denies any cough no wheezing no shortness of breath and no chest pain at present. Chest x-ray showed mild interstitial prominence and tiny right pleural effusion. Labs were reviewed, hemoglobin is 8.5 WBC count is 7.7. Basic metabolic profile is normal, BUN is 56 creatinine is 4.70. Reevaluated today on 03/08/2017, patient is doing well from the pulmonary perspective, however he developed severe abdominal pain mostly in the right lower quadrant. CT of the abdomen is consistent with possible small bowel obstruction. Patient is refusing nasogastric tube placement, hence he was seen by Dr. dick and he recommended that the patient remains nothing by mouth. Patient is also against the idea of surgery is considered at any point. However he is complaining of pain and tenderness in the lower right lower quadrant. No bowel movements. No nausea no vomiting at this point. CBC is relatively unremarkable. Renal profile is worsening with a BUN of 58 creatinine of 5.0. Reevaluated today on 03/09/2017, patient isn't ready feeling better, his abdominal pain is less, apparently had a bowel movement today. Continues to refuse nasogastric tube, patient will likely undergo dialysis and I believe if vascular surgery consult was initiated for dialysis catheter placement. Less abdominal pain is noted today. No shortness of breath no cough no wheezing. CBC is relatively normal hemoglobin is 9.1. Electrodes lites are normal. BUN is on the rise at 64 creatinine is 5.34. Chest x-ray is showing mild congestive heart failure changes. Reevaluated today on 03/10/2017, patient seems to be doing well from the GI perspective, passing some flatus , no nausea no vomiting less abdominal discomfort, and he already had a right subclavian hemodialysis catheter placed to hopefully start dialysis today or tomorrow. Pulmonary-ramos, no cough no wheezing no shortness of breath, patient is doing well from the pulmonary perspective. Reevaluated today on 03/11/2017, patient continues to do well, he is on a full liquid diet, he is receiving dialysis today for the first time. Relatively asymptomatic. Continues to have some vague abdominal discomfort. But no bloating, and no nausea or vomiting. CBC was reviewed hemoglobin is 8.5 basic metabolic profile is normal BUN is 73 creatinine 5.44. No chest x-ray and no abdominal x-rays were done today. Objective - Vital Signs Vital signs: Vital Signs Temp 98.4 F 03/11/17 15:04 Pulse 60 03/11/17 15:06 Resp 18 03/11/17 15:06 BP 134/61 03/11/17 15:04 Pulse Ox 95 03/11/17 15:04 Intake & Output 03/10/17 03/11/17 03/11/17 18:59 06:59 18:59 Intake Total 400 160 900 Output Total 302 300 200 Balance 98 -140 700 Weight 77.2 kg 77.2 kg Intake: IV 0 160 240 0.9 at KVO 0 160 240 Oral 400 660 Output: Urine 302 300 200 Other: Voiding Method Urinal Urinal Urinal # Voids 1 1 - Exam Gen. appearance , patient is not in any form of respiratory distress at present. Comfortable, sitting in a chair next to bed. Head is atraumatic normocephalic. Neck is positive for JVDs no goiter or neck masses point. There is a scar of a previous carotid endarterectomy on the right. Lung sounds are diminished bilaterally in the lung bases. Crackles are also appreciated lung bases. No wheezes or rhonchi. Right subclavian hemodialysis catheter was noted Heart sounds are regular, positive S1 and S2 without any significant murmurs. Abdominal exam revealed normal bowel sounds. Abdomen seems to be slightly tender, no rebound, no guarding, negative bowel sounds. No organomegaly, The right inguinal surgical site is bruised and there is a potential he an underlying hematoma. The subcutaneous hematomas extending to his scrotum and to the back There is also another hematoma over the anterior abdominal wall and set of the surgical wound site for peritoneal catheter insertion. The femoral pulses are obtainable . Extremities are showing + edema there is no cyanosis or clubbing. Pulses are quite diminished and there obtainable by Doppler signals. Skin is negative for any open wounds or sores or any ulceration. Neuro is or 83 and the neurologic exam is nonfocal at this point. Psych is negative for any mood or change in affect. Vascular Pulses are present in the upper extremities bilaterally. - Labs CBC & Chem 7: 03/10/17 05:21 03/10/17 05:21 Assessment and Plan Plan: 1 acute non-ST segment elevation myocardial infarction with secondary chest pain shortness of breath. The patient continues to have episodes of chest pain and IV heparin has been discontinued due to evaluation of an abdominal and the right inguinal hematoma. 2 acute CHF exacerbation secondary to above. ProBNP is elevated and the CAT scan of the chest showing CHF/edema with small better pleural effusion. ProBNP level is quite elevated 3 chronic renal failure with stage 4-5 chronic kidney disease, awaiting hemodialysis. Is very much like to the patient will require dialysis soon as possible knowing that he has received contrast dye during this current hospitalization which probably is going to contribute to his renal failure progression 4 right inguinal hernia repair in 03/02/2017 along with placement of a mesh and insertion of a peritoneal dialysis catheter 5 right inguinal hematoma at the site of the surgical wound, in addition to another hematoma over the anterior abdominal wall and the site of insertion of a PD catheter. 6 multivessel coronary disease with previous bypass surgery in 1986 7 multiple myocardial infarctions insertion of coronary stents at least 7 over the years and his host/hostess head at [place] 8 COPD was currently inactive in stable 9 CVA with some minimal residual right-sided weakness 10 hyperlipidemia 11 hypertension 12 chronic anemia maintained on Aranesp injections 13 Peripheral vascular disease severe with previous vascular intervention and stenting 14 abdominal and descending thoracic aortic aneurysm, without evidence of any dissection 15 osteoarthritis 16 remote history of alcoholism 17 history of smoking 18 history of anxiety/panic. 19 hyponatremia , improved 20: Partial small bowel obstruction, improved, patient is presently on full liquid diet. Recommendation: Continue present supportive care measures, patient tolerated dialysis well, we'll continue to follow. Time with Patient: Less than 30
[2017-03-11] MEDS: METOPROLOL TARTRATE 50 MG TAB PO SCH (20:28)
[2017-03-11] MEDS: ATORVASTATIN 10 MG TAB PO SCH (20:28)
[2017-03-11] MEDS: traZODone HCL 50 MG TAB PO SCH (20:28)
[2017-03-12 06:35] LABS: Anisocytosis Slight; Basophils % (A) 0 %; CH 28.4; Eosinophils # (A) 0.1 k/uL (0-0.7); Eosinophils % (A) 1 %; HDW 2.63; HGB 8.3 gm/dL (13.0-17.5); Hypochromasia Marked; Luc # (Auto) 0.13; Luc % (Auto) 2; Lymphocytes % (A) 12 %; MCH 28.3 pg (25.0-35.0); MCHC 29.7 g/dL (31.0-37.0); MCV 95.2 fL (80.0-100.0); Macrocytosis Slight; Mean Platelet Volume 8.5; Monocytes # (A) 0.7 k/uL (0-1.0); Monocytes % (A) 9 %; Neutrophils # (A) 5.9 k/uL (1.3-7.7); Neutrophils % (A) 76 %; RBC 2.94 m/uL (4.30-5.90); RDW 17.8 % (11.5-15.5); WBC 7.8 k/uL (3.8-10.6)
[2017-03-12 07:42] LABS: Calcium 8.5 mg/dL (8.4-10.2); Potassium 3.2 mmol/L (3.5-5.1)
[2017-03-12] MEDS ORDERED: HEPARIN SODIUM,PORCINE 5,000 UNIT/ML 1 ML VIAL ONE (09:05)
--- NOTE | 2017-03-12 09:07 | P.PN ---
Subjective Principal diagnosis: Small Bowel Obstruction Patient seen and examined at bedside. He is currently undergoing hemodialysis and tolerating it well. He states he is tolerating his clear liquid diet without any nausea or vomiting. He states his last bowel movement was 2 days ago however he continues to pass a lot of flatus. He denies any abdominal pain. Objective - Vital Signs Vital signs: Vital Signs Temp 99.2 F 03/12/17 04:00 Pulse 55 L 03/12/17 04:00 Resp 18 03/12/17 04:00 BP 143/65 03/12/17 04:00 Pulse Ox 97 03/12/17 04:00 Intake & Output 03/11/17 03/12/17 03/12/17 18:59 06:59 18:59 Intake Total 1300 Output Total 350 200 Balance 950 -200 Weight 77.2 kg 76.8 kg Intake: IV 240 0.9 at KVO 240 Oral 1060 Output: Urine 350 200 Other: Voiding Method Urinal Urinal # Voids 1 1 - Constitutional General appearance: Present: cooperative, no acute distress - EENT Eyes: Present: EOMI, PERRLA ENT: Present: hearing grossly normal - Neck Neck: Present: normal ROM. Absent: lymphadenopathy - Respiratory Details: No difficulty with respiration - Cardiovascular Rhythm: regular Heart sounds: normal: S1, S2 - Gastrointestinal Gastrointestinal Comment(s): Soft, nontender, mildly distended, no rebound, no guarding - Psychiatric Psychiatric: Present: A&O x's 3, appropriate affect, intact judgment & insight - Labs CBC & Chem 7: 03/12/17 06:10 03/12/17 06:10 Labs: Abnormal Lab Results - Last 24 Hours (Table) 03/12/17 03/12/17 Range/Units 06:10 06:10 RBC 2.94 L (4.30-5.90) m/uL Hgb 8.3 L (13.0-17.5) gm/dL Hct 28.0 L (39.0-53.0) % MCHC 29.7 L (31.0-37.0) g/dL RDW 17.8 H (11.5-15.5) % Potassium 3.2 L (3.5-5.1) mmol/L BUN 34 H (9-20) mg/dL Creatinine 3.41 H (0.66-1.25) mg/dL Assessment and Plan (1) Small bowel obstruction Status: Acute Plan: The patient is currently having bowel function with flatus. He has been tolerating his clear liquid diet. I will advance him to a full liquid diet at this time. He states he wants to move slowly with his diet. Continue medical care.
[2017-03-12] MEDS: FUROSEMIDE 10 MG/ML 10 ML VIAL IV SCH ×2 (09:57→21:41)
[2017-03-12] MEDS: CHOLECALCIFEROL 1,000 UNIT TAB PO SCH (09:58)
[2017-03-12] MEDS: ACETAMINOPHEN TAB 500 MG TAB PO SCH ×3 (09:58→23:53)
[2017-03-12] MEDS: ASPIRIN 81 MG PO SCH (09:58)
[2017-03-12] MEDS: DILTIAZEM CD 120 MG CAP.ER.24H PO SCH ×2 (09:59→21:41)
[2017-03-12] MEDS: CLOPIDOGREL 75 MG TAB PO SCH (09:59)
[2017-03-12] MEDS: ISOSORBIDE MONONITRATE ER 30 MG TAB.ER.24H PO SCH (10:00)
[2017-03-12] MEDS: hydrALAZINE HCL 25 MG TAB PO SCH (10:00)
[2017-03-12] MEDS: FAMOTIDINE 20 MG TAB PO SCH (10:00)
[2017-03-12] MEDS: METOPROLOL TARTRATE 50 MG TAB PO SCH ×2 (10:01→21:41)
--- NOTE | 2017-03-12 11:24 | P.PN ---
Subjective Principal diagnosis: Acute non-ST segment elevation myocardial infarction 77-year-old male patient who underwent a repair of a inguinal hernia and insertion of a peritoneal catheter for hemodialysis by general surgery on 2016. Since then the patient is been having episodes it chest pain. He had been in the emergency department for the same. He was noted to have elevated troponins however he decided to be released and go home. Yesterday the patient started having chest pain along with shortness of breath and based on his extensive cardiac history the patient came back to the burst department and the patient was found to have post his troponins which peaked at 1.5 and abnormal EKG that showed ST segment depressions involving the anterolateral leads in addition to sinus rhythm with LVH and widening of QRS with repolarization abnormality. An underlying SEPTAL infarct cannot be completely excluded. D- dimer was elevated at 4.6. The proBNP elevated was 33,000. Creatinine was abnormal due to his chronic renal failure with a creatinine of 4.5. A CT aorta the chest was done and it showed aortic aneurysm in the distal thoracic aorta measuring 4.7 cm in size at the level of the hiatus of the diaphragm. Aorta measures 4.8 cm size just above the SMA. 3.8 cm in the mid abdomen at 3.2 cm just above the bifurcation. There is also evidence of evidence of subcutaneous air likely related to the recent dialysis catheter insertion and the peritoneal cavity. There is also evidence of fecal impaction. CT of the chest was also done and it showed no evidence of any pulmonary embolism. The aortic aneurysm was noted without any dissection. There is also evidence of pulmonary edema with small bilateral pleural effusion right more than left. This is consistent with CHF. The patient also has been producing urine and he was in the process of being prepared for dialysis. Nephrology saw the patient special that his current contrast intake and to give the patient Lasix 80 mg IV every 12 hours. At this point that the patient is resting comfortably in the intensive care unit. He is minimal diffuse chest pain, on and off of varying severity. The patient has undergone coronary artery bypass surgery for diffuse CAD back in 1986. Since then he has had multiple myocardial infarctions for which she has required cardiac catheterization a total of 6 or 7 stents have been inserted over the years. 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 He has also known to have carotid artery disease and undergone right carotid endarterectomy. On 03/05/2017, the patient is being seen in follow-up in intensive care unit. On and off is still having chest pain. He still IV heparin. IV heparin was stopped this morning I give the patient is developing some increased hematoma over the anterior abdominal wall at the site of the insertion of the peritoneal dialysis catheter. There is also a hematoma in his right groin area/and this has extended to his scrotum and back. Nevertheless the right inguinal hematomas quite soft. Hemoglobin is dropped by half a gram and for that reason I stopped IV heparin. Awaiting final cardiology recommendations regarding the possibility of the need for cardiac catheterization. Meanwhile the patient is receiving Lasix and he is diuresing well and he is a negative fluid balance. Renal function stable with a GFR of 13 and a creatinine of 4.4. No hyperkalemia. Hemoglobin is at 8.4. The chest x-ray showed CHF and unchanged compared to yesterday's study. The echocardiogram showed an ejection fraction of 30-35% with some dilation of the right ventricle and right atrium. The right ventricular systolic pressure was 43 mmHg. No other major abnormalities noted. On 03/06/2017, the patient is being seen in follow-up. He is still having on and off chest pain. I took the patient off heparin due to concern of a abdominal hematoma and the right groin hematoma. The hematoma itself is unchanged and stable for today. The patient is clinically the same. He remains in CHF. He continues to have angina. He will be undergoing a cardiac catheterization tomorrow. He remains on nitroglycerin drip which is being titrated based on his chest pain. The patient's renal function is stable and his GFR is still around 10. He'll be undergoing a cardiac catheterization by Dr. Snow tomorrow. He is on IV Lasix 80 mg every 12 hours. The patient is producing urine output and the negative of 2 L for yesterday another 1.5 L for today. Chest x-ray is consistent with CHF. Patient was reevaluated today on 03/07/2017, underwent cardiac catheterization, and the plan is mostly medical therapy. Report of the cardiac catheterization was noted. Pulmonary-ramos, the patient denies any cough no wheezing no shortness of breath and no chest pain at present. Chest x-ray showed mild interstitial prominence and tiny right pleural effusion. Labs were reviewed, hemoglobin is 8.5 WBC count is 7.7. Basic metabolic profile is normal, BUN is 56 creatinine is 4.70. Reevaluated today on 03/08/2017, patient is doing well from the pulmonary perspective, however he developed severe abdominal pain mostly in the right lower quadrant. CT of the abdomen is consistent with possible small bowel obstruction. Patient is refusing nasogastric tube placement, hence he was seen by Dr. dick and he recommended that the patient remains nothing by mouth. Patient is also against the idea of surgery is considered at any point. However he is complaining of pain and tenderness in the lower right lower quadrant. No bowel movements. No nausea no vomiting at this point. CBC is relatively unremarkable. Renal profile is worsening with a BUN of 58 creatinine of 5.0. Reevaluated today on 03/09/2017, patient isn't ready feeling better, his abdominal pain is less, apparently had a bowel movement today. Continues to refuse nasogastric tube, patient will likely undergo dialysis and I believe if vascular surgery consult was initiated for dialysis catheter placement. Less abdominal pain is noted today. No shortness of breath no cough no wheezing. CBC is relatively normal hemoglobin is 9.1. Electrodes lites are normal. BUN is on the rise at 64 creatinine is 5.34. Chest x-ray is showing mild congestive heart failure changes. Reevaluated today on 03/10/2017, patient seems to be doing well from the GI perspective, passing some flatus , no nausea no vomiting less abdominal discomfort, and he already had a right subclavian hemodialysis catheter placed to hopefully start dialysis today or tomorrow. Pulmonary-ramos, no cough no wheezing no shortness of breath, patient is doing well from the pulmonary perspective. Reevaluated today on 03/11/2017, patient continues to do well, he is on a full liquid diet, he is receiving dialysis today for the first time. Relatively asymptomatic. Continues to have some vague abdominal discomfort. But no bloating, and no nausea or vomiting. CBC was reviewed hemoglobin is 8.5 basic metabolic profile is normal BUN is 73 creatinine 5.44. No chest x-ray and no abdominal x-rays were done today. Reevaluated today on 03/12/2017, patient is doing relatively well, his diet will be advanced today, patient is passing gas, but no bowel movement yet. Patient is tolerating dialysis and he received another dialysis today. Continues to have a peritoneal catheter in place, but has not been used yet. Patient is now on hemodialysis via right supple and dialysis catheter which was placed recently by vascular surgery. Pulmonary-ramos, no cough no wheezing no shortness of breath. GI ramos, slight bloating, but no abdominal pain, no nausea no vomiting. Labs were reviewed hemoglobin is 8.3 potassium is 3.2 renal profile is improving with dialysis. Objective - Vital Signs Vital signs: Vital Signs Temp 98.3 F 03/12/17 08:00 Pulse 68 03/12/17 08:00 Resp 18 03/12/17 08:00 BP 142/54 03/12/17 08:00 Pulse Ox 100 03/12/17 08:00 Intake & Output 03/11/17 03/12/17 03/12/17 18:59 06:59 18:59 Intake Total 1300 680 Output Total 350 200 200 Balance 950 -200 480 Weight 77.2 kg 76.8 kg Intake: IV 240 0.9 at KVO 240 Oral 1060 680 Output: Urine 350 200 200 Other: Voiding Method Urinal Urinal Urinal # Voids 1 1 - Exam Gen. appearance , patient is not in any form of respiratory distress at present. Comfortable, sitting in a chair next to bed. Head is atraumatic normocephalic. Neck is positive for JVDs no goiter or neck masses point. There is a scar of a previous carotid endarterectomy on the right. Lung sounds are diminished bilaterally in the lung bases. Crackles are also appreciated lung bases. No wheezes or rhonchi. Right subclavian hemodialysis catheter was noted Heart sounds are regular, positive S1 and S2 without any significant murmurs. Abdominal exam revealed normal bowel sounds. Abdomen seems to be slightly tender, no rebound, no guarding, negative bowel sounds. No organomegaly, The right inguinal surgical site is bruised and there is a potential he an underlying hematoma. Peritoneal dialysis catheter is noted in the left lower quadrant area. The subcutaneous hematomas extending to his scrotum and to the back There is also another hematoma over the anterior abdominal wall and set of the surgical wound site for peritoneal catheter insertion. The femoral pulses are obtainable . Extremities are showing + edema there is no cyanosis or clubbing. Pulses are quite diminished and there obtainable by Doppler signals. Skin is negative for any open wounds or sores or any ulceration. Neuro is or 83 and the neurologic exam is nonfocal at this point. Psych is negative for any mood or change in affect. - Labs CBC & Chem 7: 03/12/17 06:10 03/12/17 06:10 Labs: Abnormal Lab Results - Last 24 Hours (Table) 03/12/17 03/12/17 Range/Units 06:10 06:10 RBC 2.94 L (4.30-5.90) m/uL Hgb 8.3 L (13.0-17.5) gm/dL Hct 28.0 L (39.0-53.0) % MCHC 29.7 L (31.0-37.0) g/dL RDW 17.8 H (11.5-15.5) % Potassium 3.2 L (3.5-5.1) mmol/L BUN 34 H (9-20) mg/dL Creatinine 3.41 H (0.66-1.25) mg/dL Assessment and Plan Plan: 1 acute non-ST segment elevation myocardial infarction with secondary chest pain shortness of breath. The patient continues to have episodes of chest pain and IV heparin has been discontinued due to evaluation of an abdominal and the right inguinal hematoma. 2 acute CHF exacerbation secondary to above. ProBNP is elevated and the CAT scan of the chest showing CHF/edema with small better pleural effusion. ProBNP level is quite elevated 3 chronic renal failure with stage 4-5 chronic kidney disease, awaiting hemodialysis. Is very much like to the patient will require dialysis soon as possible knowing that he has received contrast dye during this current hospitalization which probably is going to contribute to his renal failure progression 4 right inguinal hernia repair in 03/02/2017 along with placement of a mesh and insertion of a peritoneal dialysis catheter 5 right inguinal hematoma at the site of the surgical wound, in addition to another hematoma over the anterior abdominal wall and the site of insertion of a PD catheter. 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 19 hyponatremia , improved 20: Partial small bowel obstruction, improved, patient is presently on full liquid diet. Recommendation: Continue present supportive care measures, patient is already receiving hemodialysis, his GI symptoms have significantly improved, and he has no active pulmonary symptoms today. Time with Patient: Less than 30
--- NOTE | 2017-03-12 11:53 | P.PN ---
Subjective This is a 76-year-old male who is new on dialysis. He is known with chronic kidney disease stage V secondary to solitary kidney and nephrosclerosis. He had a CAPD catheter and the hernia repair on 2016. He was readmitted on 03/04/2017 with chest pain and had an acute CT.. In the past has had coronary artery bypass graft and multiple stents. Here in the hospital he also had small bowel obstruction. He is started on hemodialysis temporarily until the CAPD catheter can be used. His been dialyzed today and is feeling much better. Denies any dizziness chest pain shortness of breath and sweating. His appetite is improving is currently on full liquid diet this morning. He has moved his bowels. Is able to walk. Objective - Vital Signs Vital signs: Vital Signs Temp 98.3 F 03/12/17 08:00 Pulse 68 03/12/17 08:00 Resp 18 03/12/17 08:00 BP 142/54 03/12/17 08:00 Pulse Ox 100 03/12/17 08:00 Intake & Output 03/11/17 03/12/17 03/12/17 18:59 06:59 18:59 Intake Total 1300 680 Output Total 350 200 200 Balance 950 -200 480 Weight 77.2 kg 76.8 kg Intake: IV 240 0.9 at KVO 240 Oral 1060 680 Output: Urine 350 200 200 Other: Voiding Method Urinal Urinal Urinal # Voids 1 1 On examination is awake alert oriented comfortable on room air A chin exam no JVP neck supple no facial asymmetry Lungs are clear to auscultation percussion good air entry bilaterally Heart sounds are unremarkable for any murmur rub gallop Abdomen soft nontender no organomegaly ascites masses His abdominal wall shows fair amount of subcutaneous hematoma. PD catheter exit site has dressing. Extremity exam was no edema Neurologically awake alert oriented. No focal motor deficit - Labs CBC & Chem 7: 03/12/17 06:10 03/12/17 06:10 Labs: Abnormal Lab Results - Last 24 Hours (Table) 03/12/17 03/12/17 Range/Units 06:10 06:10 RBC 2.94 L (4.30-5.90) m/uL Hgb 8.3 L (13.0-17.5) gm/dL Hct 28.0 L (39.0-53.0) % MCHC 29.7 L (31.0-37.0) g/dL RDW 17.8 H (11.5-15.5) % Potassium 3.2 L (3.5-5.1) mmol/L BUN 34 H (9-20) mg/dL Creatinine 3.41 H (0.66-1.25) mg/dL Assessment and Plan Plan: Impression. 1. New end-stage renal failure, etiology is solitary kidney secondary to right nephrectomy and history of PTCA of the left kidney and therefore etiology is both ischemic as well as nephrosclerosis. 2. CAPD catheter inserted 03/02/2017 with inguinal hernia repair 3. Readmission with acute CT 03/02/2017 with small bowel obstruction additionally. Improving on by mouth clear liquid diet and advanced to full liquids today 4. Started on hemodialysis with a permacath. Doing better dialyzed today Tuesday 5. History of ASHD with CABG and multiple stents in the past 6. Anemia was 8.3 going down as 7. Os dialysis hypokalemia potassium is 3.2 this morning, he was dialyzed yesterday also Recommendation. 1. No changes in medications for right now. 2. No need to in replace potassium expecting that over the next 48 hours his potassium will go up with food intake 3. Next dialysis Tuesday, day after tomorrow 4. Check iron saturation
--- NOTE | 2017-03-12 12:36 | P.PN ---
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 The patient initially presented the day prior to admission and he refused to be admitted to the hospital. His chest discomfort got worse and it was associated with shortness of breath and he decided to come to the hospital. He was ruled in for acute coronary syndrome. The cardiac enzymes came in to be severe lead elevated. The patient underwent a heart catheterization which showed occluded left main, occluded RCA, patent CHAS to LAD, and patent STEPHENS to left circumflex. Maximize medical treatment was recommended. He was experiencing abdominal discomfort and a computed tomography scan of the abdomen was performed and showed possible small bowel obstruction. General surgery service is on the case. The blood pressure is better controlled on diltiazem 120mg daily, hydralazine 75mg TID and labetalol 100mg BID. He remains on lasix 80mg IV push every 12 hours. We started plavix yesterday. Upon examination, patient is undergoing hemodialysis and doing well with this. He is on a clear liquid diet and tolerating this well. He denies any complaint of distress. His chest pain is stable and unchanged, constant. Objective - Vital Signs Vital signs: Vital Signs Temp 98.3 F 03/12/17 08:00 Pulse 68 03/12/17 08:00 Resp 18 03/12/17 08:00 BP 142/54 03/12/17 08:00 Pulse Ox 100 03/12/17 08:00 Intake & Output 03/11/17 03/12/17 03/12/17 18:59 06:59 18:59 Intake Total 1300 680 Output Total 350 200 200 Balance 950 -200 480 Weight 77.2 kg 76.8 kg Intake: IV 240 0.9 at KVO 240 Oral 1060 680 Output: Urine 350 200 200 Other: Voiding Method Urinal Urinal Urinal # Voids 1 1 - Exam PHYSICAL EXAMINATION: HEENT: Head is atraumatic, normocephalic. Pupils equal, round. Neck is supple. There is no elevated jugular venous pressure. HEART EXAMINATION: Heart sounds regular, S1 and S2 normal. No murmur or gallop heard. CHEST EXAMINATION: Lungs are clear to auscultation and precussion. No chest wall tenderness is noted on palpation or with deep breathing. EXTREMITIES: 2+ peripheral pulses with no evidence of peripheral edema and no calf tenderness noted. NEUROLOGIC patient is awake, alert and oriented x3. . - Labs CBC & Chem 7: 03/12/17 06:10 03/12/17 06:10 Labs: Abnormal Lab Results - Last 24 Hours (Table) 03/12/17 03/12/17 Range/Units 06:10 06:10 RBC 2.94 L (4.30-5.90) m/uL Hgb 8.3 L (13.0-17.5) gm/dL Hct 28.0 L (39.0-53.0) % MCHC 29.7 L (31.0-37.0) g/dL RDW 17.8 H (11.5-15.5) % Potassium 3.2 L (3.5-5.1) mmol/L BUN 34 H (9-20) mg/dL Creatinine 3.41 H (0.66-1.25) mg/dL Assessment and Plan Plan: Assessment and plan #1 Coronary artery disease and prior CABG, catheterization shows patent STEPHENS to the left circumflex and CHAS to LAD. #2 hypertension #3 dyslipidemia #4 PAD with prior revascularization #5 renal failure #6 ischemic cardiomyopathy From process operator perspective, we will add Ranexa 500 mg by mouth twice a day. Diuretics per nephrology. Continue to monitor renal function. We will continue to follow the patient and provide further recommendations accordingly. PEARL GLUE DRIER note has been reviewed, I agree with a documented findings and plan of care. Patient was seen and examined.
--- NOTE | 2017-03-12 15:49 | P.PN ---
Subjective Acute non-ST elevated [place] Patient is a 76-year-old male with a known history of coronary artery disease and history of CABG, CKD stage 5 and had peritoneal dialysis as well as recent right inguinal hernia repair came to the hospital with complaints of pressure- like sensation in the chest and was found to have elevated troponin level. Patient is being treated for acute non-ST elevated [place]. Chest x-ray initially showed pulmonary edema. On 03/05/2017 Patient was found to have possible hematoma at the peritoneal masses catheter insertion and also right inguinal area. IV heparin has been stopped. Cardiology and nephrology and pulmonary is following this patient. Chest x-ray showed pulmonary edema consistent with CHF. 2-D echo cardiac exam showed his ejection fraction 30-35 percent. Patient denied any complaints of chest pain are worse and short of breath patient does complain of pain at the surgical site and abdominal. Patient has been afebrile. No nausea vomiting. Patient is diuresing well with IV Lasix. 03/06/2017 Patient is still having chest pain in the morning today. Patient is being continued on nitro drip. Right inguinal hematoma seems to be reduced in size. Hemoglobin is stable. Patient denied any short of breath. No nausea vomiting. No fever no chills. Cardiac catheterization tomorrow. 03/07/2017 Patient says that his abdominal pain is better. Patient had cardiac catheterization today and no new stents were placed. No complaints of chest pain or short of breath. No acute overnight serious issues. 03/08/2017 Patient's cardiac catheterization did not show any significant atherosclerotic occlusive disease, patient's abdomen is still distended patient is declining NG tube at this point of time patient will be nothing by mouth patient appears to have ileus does have fairly good bowel sounds and passing gas. March 09: 17 Patient's abdomen is still distended does have fairly good bowel sounds did have a bowel movement repeat abdominal x-ray did show continued ileus 03/09/2017 Patient's ileus improved as per the abdominal x-ray today patient does feel much better today, abdomen although is still quite distended passing gas 03/11/2017 Patient's abdominal distention improved patient is still passing as not unable to move his bowel yet. Patient blood pressure is low because of which limit was changed to metoprolol and decrease the dose of hydralazine. 03/12/2017 Patient did have a small bowel movement today abdominal distention did improve patient is doing much better today and hydralazine will be increased to 75 mg today Patient denied any chest pain, shortness of breath, dysuria new focal weakness does have some abdominal pain as mentioned above Objective - Vital Signs Vital signs: Vital Signs Temp 98.1 F 03/12/17 12:00 Pulse 53 L 03/12/17 12:00 Resp 17 03/12/17 12:00 BP 150/62 03/12/17 12:00 Pulse Ox 98 03/12/17 12:00 Intake & Output 03/11/17 03/12/17 03/12/17 18:59 06:59 18:59 Intake Total 1300 680 Output Total 350 200 200 Balance 950 -200 480 Weight 77.2 kg 76.8 kg Intake: IV 240 0.9 at KVO 240 Oral 1060 680 Output: Urine 350 200 200 Other: Voiding Method Urinal Urinal Urinal # Voids 1 1 - Exam Patient is lying in the bed comfortably, no acute distress, awake alert and oriented.. HEENT: Normocephalic. Neck is supple. Pupils reactive. Nostrils clear. Oral cavity is moist. Ears reveal no drainage. Neck reveals no JVD, carotid bruits, or thyromegaly. CHEST EXAMINATION: Trachea is central. Symmetrical expansion. Bilateral bases are diminished sounds and crackles present CARDIAC: Normal S1, S2 with no gallops. No murmurs ABDOMEN: Distended but improved compared to yesterday, good bowel sounds , tympanic. No tenderness. Bruising over the right inguinal surgical site as well as peritoneal dialysis catheter insertion site. Extremities 2+ edema. No clubbing or cyanosis . Pulses feeble Neurologically awake, alert, oriented x3 with well-coordinated movements. Skin: no rash or skin lesions Musculoskeletal: no joint swelling or deformity. - Labs CBC & Chem 7: 03/12/17 06:10 03/12/17 06:10 Labs: Abnormal Lab Results - Last 24 Hours (Table) 03/12/17 03/12/17 Range/Units 06:10 06:10 RBC 2.94 L (4.30-5.90) m/uL Hgb 8.3 L (13.0-17.5) gm/dL Hct 28.0 L (39.0-53.0) % MCHC 29.7 L (31.0-37.0) g/dL RDW 17.8 H (11.5-15.5) % Potassium 3.2 L (3.5-5.1) mmol/L BUN 34 H (9-20) mg/dL Creatinine 3.41 H (0.66-1.25) mg/dL Assessment and Plan Plan: #1 elevated troponin: Secondary to demand ischemia and patient underwent cardiac catheterization as mentioned above. #2 acute CHF with systolic dysfunction ejection fraction 30-35%, was in significant acute exacerbation which improved now patient is fairly euvolemic. #3 chronic kidney disease stage V: Patient may have acute kidney injury as well patient has a peroneal dialysis catheter in place and nephrology is following the patient. Patient will undergo hemodialysis and patient's hemodialysis catheter is being placed yesterday. #4 possible right inguinal hematoma #5 right inguinal hernia repair in 03/02/2017 along with placement of a mesh and insertion of a peritoneal dialysis catheter, patient presently appears to help partial small bowel obstruction or ileus for which patient will be nothing by mouth, bowel rest. #6 hyponatremia: Hypervolemic hyponatremia which resolved now with Lasix. 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 #8 history of severe coronary artery disease. With the multiple stents in the past. #9 atherosclerotic renovascular and peripheral vascular disease and carotid endarterectomy. #10 hypertension and patient is hypotensive today above-mentioned changes to his medications were made. 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 #15 ileus: Improving patient is doing much better
[2017-03-12] MEDS ORDERED: hydrALAZINE HCL 25 MG TAB PO SCH (16:00)
[2017-03-12] MEDS: RANOLAZINE 500 MG TAB.ER.12H PO SCH ×2 (17:04→21:40)
[2017-03-12] MEDS: traZODone HCL 50 MG TAB PO SCH (21:41)
[2017-03-12] MEDS: ATORVASTATIN 40 MG TAB PO SCH (21:42)
[2017-03-12] MEDS: hydrALAZINE HCL 50 MG TAB PO SCH (23:53)
[2017-03-13 06:35] LABS: Calcium 8.3 mg/dL (8.4-10.2); Potassium 3.4 mmol/L (3.5-5.1)
[2017-03-13] MEDS: RANOLAZINE 500 MG TAB.ER.12H PO SCH ×2 (08:23→21:30)
[2017-03-13] MEDS: ACETAMINOPHEN TAB 500 MG TAB PO SCH ×3 (08:24→21:35)
[2017-03-13] MEDS: CHOLECALCIFEROL 1,000 UNIT TAB PO SCH (08:25)
[2017-03-13] MEDS: ASPIRIN 81 MG PO SCH (08:25)
[2017-03-13] MEDS: CLOPIDOGREL 75 MG TAB PO SCH (08:26)
[2017-03-13] MEDS: DILTIAZEM CD 120 MG CAP.ER.24H PO SCH ×2 (08:26→21:32)
[2017-03-13] MEDS: FAMOTIDINE 20 MG TAB PO SCH (08:27)
[2017-03-13] MEDS: FUROSEMIDE 10 MG/ML 10 ML VIAL IV SCH ×2 (08:27→21:32)
[2017-03-13] MEDS: hydrALAZINE HCL 50 MG TAB PO SCH ×3 (08:30→21:32)
[2017-03-13] MEDS: METOPROLOL TARTRATE 50 MG TAB PO SCH ×2 (08:30→21:31)
[2017-03-13] MEDS: ISOSORBIDE MONONITRATE ER 30 MG TAB.ER.24H PO SCH (08:30)
--- NOTE | 2017-03-13 10:48 | P.PN ---
Subjective Principal diagnosis: Small Bowel Obstruction Patient seen and examined at bedside. He states he had a bowel movement last night. He states his abdominal distention has improved. He has been tolerating his full liquid diet. He has no additional complaints at this time. Objective - Vital Signs Vital signs: Vital Signs Temp 97.1 F L 03/13/17 08:00 Pulse 65 03/13/17 08:00 Resp 16 03/13/17 08:00 BP 180/70 03/13/17 08:00 Pulse Ox 99 03/13/17 08:00 Intake & Output 03/12/17 03/13/17 03/13/17 18:59 06:59 18:59 Intake Total 680 10 10 Output Total 200 Balance 480 10 10 Weight 78.6 kg Intake: IV 10 10 FLush 10 10 Oral 680 Output: Urine 200 Other: Voiding Method Urinal Urinal # Voids 2 - Constitutional General appearance: Present: cooperative, no acute distress - EENT Eyes: Present: EOMI, PERRLA ENT: Present: hearing grossly normal - Neck Neck: Present: normal ROM. Absent: lymphadenopathy, stridor - Respiratory Details: No difficulty with respiration - Cardiovascular Rhythm: regular Heart sounds: normal: S1, S2 - Gastrointestinal Gastrointestinal Comment(s): Soft, nontender, mildly distended, no rebound, no guarding, incision site with hematoma stable - Psychiatric Psychiatric: Present: A&O x's 3, appropriate affect, intact judgment & insight - Labs CBC & Chem 7: 03/12/17 06:10 03/13/17 05:40 Labs: Abnormal Lab Results - Last 24 Hours (Table) 03/13/17 Range/Units 05:40 Potassium 3.4 L (3.5-5.1) mmol/L Chloride 97 L (98-107) mmol/L BUN 23 H (9-20) mg/dL Creatinine 2.91 H (0.66-1.25) mg/dL Calcium 8.3 L (8.4-10.2) mg/dL Assessment and Plan (1) Small bowel obstruction Status: Acute Plan: I will advance the patient to a soft diet today. Continue medical care.
--- NOTE | 2017-03-13 11:10 | P.PN ---
Subjective Acute non-ST elevated [place] Patient is a 76-year-old male with a known history of coronary artery disease and history of CABG, CKD stage 5 and had peritoneal dialysis as well as recent right inguinal hernia repair came to the hospital with complaints of pressure- like sensation in the chest and was found to have elevated troponin level. Patient is being treated for acute non-ST elevated [place]. Chest x-ray initially showed pulmonary edema. On 03/05/2017 Patient was found to have possible hematoma at the peritoneal masses catheter insertion and also right inguinal area. IV heparin has been stopped. Cardiology and nephrology and pulmonary is following this patient. Chest x-ray showed pulmonary edema consistent with CHF. 2-D echo cardiac exam showed his ejection fraction 30-35 percent. Patient denied any complaints of chest pain are worse and short of breath patient does complain of pain at the surgical site and abdominal. Patient has been afebrile. No nausea vomiting. Patient is diuresing well with IV Lasix. 03/06/2017 Patient is still having chest pain in the morning today. Patient is being continued on nitro drip. Right inguinal hematoma seems to be reduced in size. Hemoglobin is stable. Patient denied any short of breath. No nausea vomiting. No fever no chills. Cardiac catheterization tomorrow. 03/07/2017 Patient says that his abdominal pain is better. Patient had cardiac catheterization today and no new stents were placed. No complaints of chest pain or short of breath. No acute overnight serious issues. 03/08/2017 Patient's cardiac catheterization did not show any significant atherosclerotic occlusive disease, patient's abdomen is still distended patient is declining NG tube at this point of time patient will be nothing by mouth patient appears to have ileus does have fairly good bowel sounds and passing gas. March 09: 17 Patient's abdomen is still distended does have fairly good bowel sounds did have a bowel movement repeat abdominal x-ray did show continued ileus 03/09/2017 Patient's ileus improved as per the abdominal x-ray today patient does feel much better today, abdomen although is still quite distended passing gas 03/11/2017 Patient's abdominal distention improved patient is still passing as not unable to move his bowel yet. Patient blood pressure is low because of which limit was changed to metoprolol and decrease the dose of hydralazine. 03/12/2017 Patient did have a small bowel movement today abdominal distention did improve patient is doing much better today and hydralazine will be increased to 75 mg today 03/13/2017 Patient has good bowel movement is clinically doing well PT and OT evaluation depending on which patient will be the discharge home tomorrow or to rehabilitation tomorrow Patient denied any chest pain, shortness of breath, dysuria new focal weakness does have some abdominal pain as mentioned above Objective - Vital Signs Vital signs: Vital Signs Temp 97.1 F L 03/13/17 08:00 Pulse 65 03/13/17 08:00 Resp 16 03/13/17 08:00 BP 180/70 03/13/17 08:00 Pulse Ox 99 03/13/17 08:00 Intake & Output 03/12/17 03/13/17 03/13/17 18:59 06:59 18:59 Intake Total 680 10 10 Output Total 200 Balance 480 10 10 Weight 78.6 kg Intake: IV 10 10 FLush 10 10 Oral 680 Output: Urine 200 Other: Voiding Method Urinal Urinal # Voids 2 - Exam Patient is lying in the bed comfortably, no acute distress, awake alert and oriented.. HEENT: Normocephalic. Neck is supple. Pupils reactive. Nostrils clear. Oral cavity is moist. Ears reveal no drainage. Neck reveals no JVD, carotid bruits, or thyromegaly. CHEST EXAMINATION: Trachea is central. Symmetrical expansion. Bilateral bases are diminished sounds and crackles present CARDIAC: Normal S1, S2 with no gallops. No murmurs ABDOMEN: Soft nontender nondistended today, good bowel sounds , tympanic. No tenderness. Bruising over the right inguinal surgical site as well as peritoneal dialysis catheter insertion site. Extremities 2+ edema. No clubbing or cyanosis . Pulses feeble Neurologically awake, alert, oriented x3 with well-coordinated movements. Skin: no rash or skin lesions Musculoskeletal: no joint swelling or deformity. - Labs CBC & Chem 7: 03/12/17 06:10 03/13/17 05:40 Labs: Abnormal Lab Results - Last 24 Hours (Table) 03/13/17 Range/Units 05:40 Potassium 3.4 L (3.5-5.1) mmol/L Chloride 97 L (98-107) mmol/L BUN 23 H (9-20) mg/dL Creatinine 2.91 H (0.66-1.25) mg/dL Calcium 8.3 L (8.4-10.2) mg/dL Assessment and Plan Plan: #1 elevated troponin: Secondary to demand ischemia and patient underwent cardiac catheterization as mentioned above, nonobstructive coronary disease. #2 acute CHF with systolic dysfunction ejection fraction 30-35%, was in significant acute exacerbation which improved now patient is fairly euvolemic. #3 chronic kidney disease stage V: Patient may have acute kidney injury as well patient has a peroneal dialysis catheter in place and nephrology is following the patient. Patient will undergo hemodialysis and patient's hemodialysis catheter is being placed yesterday. #4 possible right inguinal hematoma #5 right inguinal hernia repair in 03/02/2017 along with placement of a mesh and insertion of a peritoneal dialysis catheter. #6 hyponatremia: Hypervolemic hyponatremia which resolved now with Lasix. 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 #8 history of severe coronary artery disease. With the multiple stents in the past. #9 atherosclerotic renovascular and peripheral vascular disease and carotid endarterectomy. #10 hypertension and patient is hypotensive today above-mentioned changes to his medications were made. 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 #15 ileus: Improved and possible discharge tomorrow
--- NOTE | 2017-03-13 11:12 | P.PN ---
Subjective Principal diagnosis: Acute non-ST segment elevation myocardial infarction 77-year-old male patient who underwent a repair of a inguinal hernia and insertion of a peritoneal catheter for hemodialysis by general surgery on 2016. Since then the patient is been having episodes it chest pain. He had been in the emergency department for the same. He was noted to have elevated troponins however he decided to be released and go home. Yesterday the patient started having chest pain along with shortness of breath and based on his extensive cardiac history the patient came back to the burst department and the patient was found to have post his troponins which peaked at 1.5 and abnormal EKG that showed ST segment depressions involving the anterolateral leads in addition to sinus rhythm with LVH and widening of QRS with repolarization abnormality. An underlying SEPTAL infarct cannot be completely excluded. D- dimer was elevated at 4.6. The proBNP elevated was 33,000. Creatinine was abnormal due to his chronic renal failure with a creatinine of 4.5. A CT aorta the chest was done and it showed aortic aneurysm in the distal thoracic aorta measuring 4.7 cm in size at the level of the hiatus of the diaphragm. Aorta measures 4.8 cm size just above the SMA. 3.8 cm in the mid abdomen at 3.2 cm just above the bifurcation. There is also evidence of evidence of subcutaneous air likely related to the recent dialysis catheter insertion and the peritoneal cavity. There is also evidence of fecal impaction. CT of the chest was also done and it showed no evidence of any pulmonary embolism. The aortic aneurysm was noted without any dissection. There is also evidence of pulmonary edema with small bilateral pleural effusion right more than left. This is consistent with CHF. The patient also has been producing urine and he was in the process of being prepared for dialysis. Nephrology saw the patient special that his current contrast intake and to give the patient Lasix 80 mg IV every 12 hours. At this point that the patient is resting comfortably in the intensive care unit. He is minimal diffuse chest pain, on and off of varying severity. The patient has undergone coronary artery bypass surgery for diffuse CAD back in 1986. Since then he has had multiple myocardial infarctions for which she has required cardiac catheterization a total of 6 or 7 stents have been inserted over the years. 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 He has also known to have carotid artery disease and undergone right carotid endarterectomy. On 03/05/2017, the patient is being seen in follow-up in intensive care unit. On and off is still having chest pain. He still IV heparin. IV heparin was stopped this morning I give the patient is developing some increased hematoma over the anterior abdominal wall at the site of the insertion of the peritoneal dialysis catheter. There is also a hematoma in his right groin area/and this has extended to his scrotum and back. Nevertheless the right inguinal hematomas quite soft. Hemoglobin is dropped by half a gram and for that reason I stopped IV heparin. Awaiting final cardiology recommendations regarding the possibility of the need for cardiac catheterization. Meanwhile the patient is receiving Lasix and he is diuresing well and he is a negative fluid balance. Renal function stable with a GFR of 13 and a creatinine of 4.4. No hyperkalemia. Hemoglobin is at 8.4. The chest x-ray showed CHF and unchanged compared to yesterday's study. The echocardiogram showed an ejection fraction of 30-35% with some dilation of the right ventricle and right atrium. The right ventricular systolic pressure was 43 mmHg. No other major abnormalities noted. On 03/06/2017, the patient is being seen in follow-up. He is still having on and off chest pain. I took the patient off heparin due to concern of a abdominal hematoma and the right groin hematoma. The hematoma itself is unchanged and stable for today. The patient is clinically the same. He remains in CHF. He continues to have angina. He will be undergoing a cardiac catheterization tomorrow. He remains on nitroglycerin drip which is being titrated based on his chest pain. The patient's renal function is stable and his GFR is still around 10. He'll be undergoing a cardiac catheterization by Dr. Snow tomorrow. He is on IV Lasix 80 mg every 12 hours. The patient is producing urine output and the negative of 2 L for yesterday another 1.5 L for today. Chest x-ray is consistent with CHF. Patient was reevaluated today on 03/07/2017, underwent cardiac catheterization, and the plan is mostly medical therapy. Report of the cardiac catheterization was noted. Pulmonary-ramos, the patient denies any cough no wheezing no shortness of breath and no chest pain at present. Chest x-ray showed mild interstitial prominence and tiny right pleural effusion. Labs were reviewed, hemoglobin is 8.5 WBC count is 7.7. Basic metabolic profile is normal, BUN is 56 creatinine is 4.70. Reevaluated today on 03/08/2017, patient is doing well from the pulmonary perspective, however he developed severe abdominal pain mostly in the right lower quadrant. CT of the abdomen is consistent with possible small bowel obstruction. Patient is refusing nasogastric tube placement, hence he was seen by Dr. dick and he recommended that the patient remains nothing by mouth. Patient is also against the idea of surgery is considered at any point. However he is complaining of pain and tenderness in the lower right lower quadrant. No bowel movements. No nausea no vomiting at this point. CBC is relatively unremarkable. Renal profile is worsening with a BUN of 58 creatinine of 5.0. Reevaluated today on 03/09/2017, patient isn't ready feeling better, his abdominal pain is less, apparently had a bowel movement today. Continues to refuse nasogastric tube, patient will likely undergo dialysis and I believe if vascular surgery consult was initiated for dialysis catheter placement. Less abdominal pain is noted today. No shortness of breath no cough no wheezing. CBC is relatively normal hemoglobin is 9.1. Electrodes lites are normal. BUN is on the rise at 64 creatinine is 5.34. Chest x-ray is showing mild congestive heart failure changes. Reevaluated today on 03/10/2017, patient seems to be doing well from the GI perspective, passing some flatus , no nausea no vomiting less abdominal discomfort, and he already had a right subclavian hemodialysis catheter placed to hopefully start dialysis today or tomorrow. Pulmonary-ramos, no cough no wheezing no shortness of breath, patient is doing well from the pulmonary perspective. Reevaluated today on 03/11/2017, patient continues to do well, he is on a full liquid diet, he is receiving dialysis today for the first time. Relatively asymptomatic. Continues to have some vague abdominal discomfort. But no bloating, and no nausea or vomiting. CBC was reviewed hemoglobin is 8.5 basic metabolic profile is normal BUN is 73 creatinine 5.44. No chest x-ray and no abdominal x-rays were done today. Reevaluated today on 03/12/2017, patient is doing relatively well, his diet will be advanced today, patient is passing gas, but no bowel movement yet. Patient is tolerating dialysis and he received another dialysis today. Continues to have a peritoneal catheter in place, but has not been used yet. Patient is now on hemodialysis via right supple and dialysis catheter which was placed recently by vascular surgery. Pulmonary-ramos, no cough no wheezing no shortness of breath. GI ramos, slight bloating, but no abdominal pain, no nausea no vomiting. Labs were reviewed hemoglobin is 8.3 potassium is 3.2 renal profile is improving with dialysis. Reevaluated today on 03/13/2017, patient is doing well, this is the best he has felt today. No cough no wheezing no shortness of breath no nausea no vomiting no abdominal pain, patient is heading to the bathroom to have a bowel movement from the way he felt. Again he feels much better today and much improved compared to the last few days. On his labs were reviewed. Renal profile continues to show BUN of 23 creatinine 2.91, patient is now on hemodialysis. Objective - Vital Signs Vital signs: Vital Signs Temp 97.1 F L 03/13/17 08:00 Pulse 65 03/13/17 08:00 Resp 16 03/13/17 08:00 BP 180/70 03/13/17 08:00 Pulse Ox 99 03/13/17 08:00 Intake & Output 03/12/17 03/13/17 03/13/17 18:59 06:59 18:59 Intake Total 680 10 10 Output Total 200 Balance 480 10 10 Weight 78.6 kg Intake: IV 10 10 FLush 10 10 Oral 680 Output: Urine 200 Other: Voiding Method Urinal Urinal # Voids 2 - Exam Gen. appearance , patient is not in any form of respiratory distress at present. Comfortable, sitting in a chair next to bed. Head is atraumatic normocephalic. Neck is positive for JVDs no goiter or neck masses point. There is a scar of a previous carotid endarterectomy on the right. Lung sounds are diminished bilaterally in the lung bases. No crackles, no rhonchi, no wheezes. Right subclavian hemodialysis catheter remains in place. Heart sounds are regular, positive S1 and S2 without any significant murmurs. Abdominal exam revealed normal bowel sounds. Abdomen seems to be slightly tender, no rebound, no guarding, negative bowel sounds. No organomegaly, The right inguinal surgical site is bruised and there is a potential he an underlying hematoma. Peritoneal dialysis catheter is noted in the left lower quadrant area. The subcutaneous hematomas seems to be resolving and improving compared to how it was few days ago. Extremities are showing + edema there is no cyanosis or clubbing. Pulses are quite diminished and there obtainable by Doppler signals. Skin is negative for any open wounds or sores or any ulceration. Neuro is or 83 and the neurologic exam is nonfocal at this point. Psych is negative for any mood or change in affect. - Labs CBC & Chem 7: 03/12/17 06:10 03/13/17 05:40 Labs: Abnormal Lab Results - Last 24 Hours (Table) 03/13/17 Range/Units 05:40 Potassium 3.4 L (3.5-5.1) mmol/L Chloride 97 L (98-107) mmol/L BUN 23 H (9-20) mg/dL Creatinine 2.91 H (0.66-1.25) mg/dL Calcium 8.3 L (8.4-10.2) mg/dL Assessment and Plan Plan: 1 acute non-ST segment elevation myocardial infarction with secondary chest pain shortness of breath. The patient continues to have episodes of chest pain and IV heparin has been discontinued due to evaluation of an abdominal and the right inguinal hematoma. 2 acute CHF exacerbation secondary to above. ProBNP is elevated and the CAT scan of the chest showing CHF/edema with small better pleural effusion. ProBNP level is quite elevated 3 chronic renal failure with stage 4-5 chronic kidney disease, awaiting hemodialysis. Is very much like to the patient will require dialysis soon as possible knowing that he has received contrast dye during this current hospitalization which probably is going to contribute to his renal failure progression 4 right inguinal hernia repair in 03/02/2017 along with placement of a mesh and insertion of a peritoneal dialysis catheter 5 right inguinal hematoma at the site of the surgical wound, in addition to another hematoma over the anterior abdominal wall and the site of insertion of a PD catheter. 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 19 hyponatremia , improved 20: Partial small bowel obstruction, improved, patient is presently on full liquid diet. Recommendation: Continue present supportive care measures, patient is already receiving hemodialysis, his GI symptoms have significantly improved, and he has no active pulmonary symptoms today. Consider discharge planning in the next 24- 48 hours. Time with Patient: Less than 30
--- NOTE | 2017-03-13 12:38 | P.PN ---
Subjective This is a 76-year-old male who is new on dialysis. He is known with chronic kidney disease stage V secondary to solitary kidney and nephrosclerosis. He had a CAPD catheter and the hernia repair on 2016. He was readmitted on 03/04/2017 with chest pain and had an acute MA.. In the past has had coronary artery bypass graft and multiple stents. Here in the hospital he also had small bowel obstruction. He was started on hemodialysis temporarily until the CAPD catheter can be used. His been dialyzed 3 days in a row on , and 03/12/2017. In spite of ultrafiltration only 0.5 L he did feel somewhat tired after dialysis. He continues to make fair amount of urine last 24-hour urine was 550 mL. today and is feeling much better. Denies any dizziness chest pain shortness of breath and sweating. His appetite is improving is currently on regular diet and is able to walk. Discharge planning is underway Objective - Vital Signs Vital signs: Vital Signs Temp 98.3 F 03/13/17 11:55 Pulse 50 L 03/13/17 11:55 Resp 16 03/13/17 11:55 BP 135/62 03/13/17 11:55 Pulse Ox 97 03/13/17 11:55 Intake & Output 03/12/17 03/13/17 03/13/17 18:59 06:59 18:59 Intake Total 680 10 10 Output Total 200 Balance 480 10 10 Weight 78.6 kg Intake: IV 10 10 FLush 10 10 Oral 680 Output: Urine 200 Other: Voiding Method Urinal Urinal # Voids 2 On examination is awake alert oriented cheerful HEENT exam JVP cannot be seen on the right he has a permacath going in. There is some tenderness over the site but it looks clean there is minimal blood. Lungs are clear to auscultation percussion good air entry bilaterally Heart sounds are unremarkable for any murmur rub gallop Is soft nontender there is a PD catheter in. There is fair amount of bruising on his abdominal wall. Extremity exam was no edema. Neurologically awake alert oriented comfortable - Labs CBC & Chem 7: 03/12/17 06:10 03/13/17 05:40 Labs: Abnormal Lab Results - Last 24 Hours (Table) 03/13/17 Range/Units 05:40 Potassium 3.4 L (3.5-5.1) mmol/L Chloride 97 L (98-107) mmol/L BUN 23 H (9-20) mg/dL Creatinine 2.91 H (0.66-1.25) mg/dL Calcium 8.3 L (8.4-10.2) mg/dL Assessment and Plan Plan: Impression. 1. New end-stage renal failure, etiology is solitary kidney secondary to right nephrectomy and history of PTCA of the left kidney and therefore etiology is both ischemic as well as nephrosclerosis. 2. CAPD catheter inserted 03/02/2017 with inguinal hernia repair, with fair amount of bruising in the abdominal wall. 3. Readmission with acute MA 03/02/2017 with small bowel obstruction additionally. Improving , currently on full regular diet today 4. Started on hemodialysis with a permacath. Doing better dialyzed 3 days in a row on 03/10/2017, 03/11/2017 and 03/12/2017. Minimal UF of 0.5 L as he has good urine output 5. History of ASHD with CABG and multiple stents in the past 6. Anemia was 8.3 going down as of yesterday 03/12/2017. 7. Mild hypokalemia secondary to dialysis. Potassium is improved to 3.4 this morning. Recommendation. 1. No changes in medications for right now. 2. No need to in replace potassium expecting that over the next 48 hours his potassium will go up with food intake 3. Next dialysis Tuesday, tomorrow 4. Check iron saturation Time with Patient: Less than 30
--- NOTE | 2017-03-13 13:46 | PN ---
PROGRESS NOTE Mr. Mejia is a 76-year-old male who has a history of coronary disease status post bypass grafting, who presented and has end-stage renal disease on dialysis, who presented with symptoms of dyspnea and abdominal discomfort and recurrent chest pain. He is feeling much better today. He had a bowel movement. His breathing is stable. He denies any dizziness palpitation. His appetite has been good. He continues to be at this time on aspirin 81 mg daily, Lipitor 40 mg daily, Plavix 75 mg daily, diltiazem CD 120 mg twice a day, Lasix 80 mg IV q.12 hours, hydralazine 50 mg 3 times a day, isosorbide mononitrate 30 mg daily, metoprolol tartrate 50 mg twice a day, Ranexa 5 mg twice a day. PHYSICAL EXAMINATION: Blood pressure 135/60 with a heart rate in the 60s. LUNGS: No wheezes or rales. HEART: Regular rate and rhythm. S1, S2. No S3, no gallop with a systolic murmur at the base. ABDOMEN: Soft, nontender. EXTREMITIES: No significant edema. LAB DATA: BUN and creatinine 23 and 2.91. Potassium 3.4. IMPRESSION: 1. Unstable anginal status post coronary artery bypass grafting, improving. 2. History of end-stage renal disease on dialysis. 3. Abdominal discomfort, resolving. 4. Ischemic cardiomyopathy. 5. History of peripheral arterial disease. 6. Hyperlipidemia. 7. Hypertension. RECOMMENDATION: Will continue present therapy. Increases his level of activity. Expect if he will continue to do well that he may be able to be discharged home in the next 24-48 hours. MMODL / IJN: [id number] /
[2017-03-13 17:09] LABS: Iron Saturation 21.2 (15.00-50.00)
[2017-03-13 20:37] LABS: Glucose,Whole Blood 123 mg/dL (75-99)
[2017-03-13] MEDS: traZODone HCL 50 MG TAB PO SCH (21:31)
[2017-03-13] MEDS: ATORVASTATIN 40 MG TAB PO SCH (21:32)
[2017-03-14] MEDS: HYDROmorphone 1 MG/ML 1 ML SYRINGE IVP PRN ×4 (07:15→16:02)
[2017-03-14 07:53] LABS: Glucose,Whole Blood 100 mg/dL (75-99)
[2017-03-14] MEDS: ASPIRIN 81 MG PO SCH (08:23)
[2017-03-14] MEDS: ACETAMINOPHEN TAB 500 MG TAB PO SCH (08:23)
[2017-03-14] MEDS: RANOLAZINE 500 MG TAB.ER.12H PO SCH (08:23)
[2017-03-14] MEDS: DILTIAZEM CD 120 MG CAP.ER.24H PO SCH (08:24)
[2017-03-14] MEDS: hydrALAZINE HCL 50 MG TAB PO SCH (08:24)
[2017-03-14] MEDS: CHOLECALCIFEROL 1,000 UNIT TAB PO SCH (08:24)
[2017-03-14] MEDS: FAMOTIDINE 20 MG TAB PO SCH (08:24)
[2017-03-14] MEDS: CLOPIDOGREL 75 MG TAB PO SCH (08:24)
[2017-03-14] MEDS: ISOSORBIDE MONONITRATE ER 30 MG TAB.ER.24H PO SCH (08:24)
[2017-03-14] MEDS: FUROSEMIDE 10 MG/ML 10 ML VIAL IV SCH (09:28)
[2017-03-14] MEDS: METOPROLOL TARTRATE 50 MG TAB PO SCH (10:20)
--- NOTE | 2017-03-14 10:20 | P.PN ---
<Jazmine Goncalvessherman Marlow - Last Filed: 03/14/17 10:11> Subjective 76-year-old being seen and examined at the bedside. Patient's resting comfortably. Patient states he has had a bowel movement there is less abdominal distention. Patient is tolerating a diet is no nausea no vomiting Patient's been seen by surgical service at the request of the attending for abdominal pain due to a partial small bowel obstruction which has improved patient is scheduled to have hemodialysis. The discharge plan is in progress patient is to go to subacute rehab when bed is available. Objective - Vital Signs Vital signs: Vital Signs Temp 98.3 F 03/14/17 07:00 Pulse 56 L 03/14/17 07:00 Resp 16 03/14/17 07:00 BP 144/65 03/14/17 07:00 Pulse Ox 100 03/14/17 07:00 Intake & Output 03/13/17 03/14/17 03/14/17 18:59 06:59 18:59 Intake Total 970 720 Output Total 500 Balance 970 220 Weight 75.2 kg Intake: IV 10 FLush 10 Oral 960 720 Output: Urine 500 Other: Voiding Method Urinal # Voids 2 - Exam Physical exam 76-year-old male pleasant cooperative talkative appears in no acute distress states abdominal discomfort improved Lungs essentially clear with adequate air movement on room air Heart S1-S2 audible and regular denying chest pain Abdomen soft nontender no guarding bowel tones present right inguinal surgical site bruised. Peritoneal catheter in the left lower quadrant area Extremities bilateral lower extremities trace pedal edema noted - Labs CBC & Chem 7: 03/12/17 06:10 03/13/17 05:40 Labs: Abnormal Lab Results - Last 24 Hours (Table) 03/13/17 03/13/17 03/14/17 Range/Units 05:40 20:14 07:31 POC Glucose (mg/dL) 123 H 100 H (75-99) mg/dL Iron 46 L (65-175) ug/dL TIBC 217 L (228-460) ug/dL Assessment and Plan Plan: Impression Abdominal pain likely due to a partial small bowel obstruction improved Abdominal and descending thoracic aortic aneurysm without evidence of dissection Peripheral vascular disease severe with prior vascular intervention and stenting COPD no evidence of an exacerbation stable Known coronary artery disease with prior coronary stenting Right inguinal hernia repair 03/02/2017 with placement of mesh with insertion of a peritoneal dialysis catheter Plan Diet has been advanced Tolerating diet Continue medical care defer to the attending Discharge plan and progress possible subacute rehab defer to the attending No further surgical recommendations at this time we'll sign off re-eval as needed The above impression and plan of care have been discussed and directed by signing physician. Odessa Goncalves nurse practitioner acting as scribe for signing physician. <Romel Bradley - Last Filed: 03/14/17 17:03> Objective - Vital Signs Vital signs: Vital Signs Temp 98.0 F 03/14/17 15:00 Pulse 55 L 03/14/17 15:00 Resp 18 03/14/17 15:00 BP 121/55 03/14/17 15:00 Pulse Ox 96 03/14/17 11:43 Intake & Output 03/13/17 03/14/17 03/14/17 18:59 06:59 18:59 Intake Total 970 720 780 Output Total 500 600 Balance 970 220 180 Weight 75.2 kg 75.2 kg Intake: IV 10 FLush 10 Oral 960 720 780 Output: Urine 500 600 Other: Voiding Method Urinal Urinal # Voids 2 3 - Labs CBC & Chem 7: 03/12/17 06:10 03/13/17 05:40 Labs: Abnormal Lab Results - Last 24 Hours (Table) 03/13/17 03/13/17 03/14/17 Range/Units 05:40 20:14 07:31 POC Glucose (mg/dL) 123 H 100 H (75-99) mg/dL Iron 46 L (65-175) ug/dL TIBC 217 L (228-460) ug/dL Assessment and Plan (1) Groin hematoma Status: Acute Plan: Patient is discharged prior to my having opportunity to see him today. Further above note the patient seemed to be doing well from a surgical standpoint and was tolerating his diet. He will follow-up with me in the office post discharge.
--- NOTE | 2017-03-14 10:30 | P.PN ---
Subjective Mr Mejia is a 76-year-old male with past medical history significant for CAD with triple vessel CABG, ESRD on HD, PVD, carotid artery disease with stent placement, HLD, HTN and COPD. He is being seen today in follow up for dyspnea and recurrent chest pain. He is seen today resting comfortably in bed. He currently denies chest pain, shortness of breath, palpitations or dizziness. He is currently wearing oxygen via nasal cannula for comfort. Current cardiac medications include: aspirin 81 mg daily, lipitor 40 mg daily, plavix 75 mg daily, cardizem CD 120 mg BID, lasix IV 80mg per nephrology, hydralazine 50 mg TID, imdur 30 mg daily, metoprolol 50 mg BID and ranexa 5 mg BID. He follows regularly with a edger technician out of town. Blood pressure 144/65 with heart rate 56. Objective - Vital Signs Vital signs: Vital Signs Temp 98.3 F 03/14/17 07:00 Pulse 56 L 03/14/17 07:00 Resp 16 03/14/17 07:00 BP 144/65 03/14/17 07:00 Pulse Ox 100 03/14/17 07:00 Intake & Output 03/13/17 03/14/17 03/14/17 18:59 06:59 18:59 Intake Total 970 720 Output Total 500 Balance 970 220 Weight 75.2 kg Intake: IV 10 FLush 10 Oral 960 720 Output: Urine 500 Other: Voiding Method Urinal # Voids 2 - Exam GENERAL: Well-appearing, well-nourished and in no acute distress. NECK: Supple without JVD or thyromegaly. LUNGS: Breath sounds clear to auscultation bilaterally. Respiration equal and unlabored. No wheezes, rales or rhonchi. HEART: Regular rate and rhythm with systolic ejection murmur at the base, no rubs or gallops. S1 and S2 heard. EXTREMITIES: Normal range of motion, no edema. No clubbing or cyanosis. Peripheral pulses intact and strong. - Labs CBC & Chem 7: 03/12/17 06:10 03/13/17 05:40 Labs: Abnormal Lab Results - Last 24 Hours (Table) 03/13/17 03/13/17 03/14/17 Range/Units 05:40 20:14 07:31 POC Glucose (mg/dL) 123 H 100 H (75-99) mg/dL Iron 46 L (65-175) ug/dL TIBC 217 L (228-460) ug/dL Assessment and Plan Plan: ASSESSMENT 1. Unstable angina status post CABG and CAD, resolved 2. History of end-stage renal disease on peritoneal dialysis 3. Abdominal discomfort, resolved 4. Chronic ischemic cardiomyopathy 5. History of peripheral arterial disease 6. Hyperlipidemia 7. Hypertension PLAN From cardiology perspective Mr. Mejia is stable and appropriate for discharge home on the current medications as ordered. Lasix dosing can be adjusted per nephrology. He should follow up with his primary edger technician in 2- weeks. Nurse Practitioner note has been reviewed, I agree with a documented findings and plan of care. Patient was seen and examined.
--- NOTE | 2017-03-14 11:21 | P.DS ---
Providers Date of admission: 03/04/17 04:51 Attending physician: Jessie Cobian Consults: 03/04/17 04:50 Consult Physician Routine Consulting Provider: Romel Bradley Consult Reason/Comments: your post-op patient Do you want consulting provider notified?: Yes Consult Physician Urgent Consulting Provider: Ghulam Olivera Consult Reason/Comments: renal failure patient, requires dialysis Do you want consulting provider notified?: Yes 03/04/17 04:51 Consult Physician ONCE Consulting Provider: Tommie Scott Consult Reason/Comments: Acute coronary syndrome Do you want consulting provider notified?: Already Contacted 03/04/17 07:38 Consult Physician Routine Consulting Provider: Ale Ennis 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 Do you want consulting provider notified?: Already Contacted 03/09/17 09:12 Consult Physician Urgent Consulting Provider: Fidel Hughes Consult Reason/Comments: perma cath placement for dialysis tomorrow Do you want consulting provider notified?: Yes Primary care physician: [facility] Course: Patient is a 76-year-old male with a known history of coronary artery disease and history of CABG, CKD stage 5 and had peritoneal dialysis as well as recent right inguinal hernia repair came to the hospital with complaints of pressure- like sensation in the chest and was found to have elevated troponin level. Patient is being treated for acute non-ST elevated PR. Chest x-ray initially showed pulmonary edema. On 03/05/2017 Patient was found to have possible hematoma at the peritoneal masses catheter insertion and also right inguinal area. IV heparin has been stopped. Cardiology and nephrology and pulmonary is following this patient. Chest x-ray showed pulmonary edema consistent with CHF. 2-D echo cardiac exam showed his ejection fraction 30-35 percent. Patient denied any complaints of chest pain are worse and short of breath patient does complain of pain at the surgical site and abdominal. Patient has been afebrile. No nausea vomiting. Patient is diuresing well with IV Lasix. 03/06/2017 Patient is still having chest pain in the morning today. Patient is being continued on nitro drip. Right inguinal hematoma seems to be reduced in size. Hemoglobin is stable. Patient denied any short of breath. No nausea vomiting. No fever no chills. Cardiac catheterization tomorrow. 03/07/2017 Patient says that his abdominal pain is better. Patient had cardiac catheterization today and no new stents were placed. No complaints of chest pain or short of breath. No acute overnight serious issues. 03/08/2017 Patient's cardiac catheterization did not show any significant atherosclerotic occlusive disease, patient's abdomen is still distended patient is declining NG tube at this point of time patient will be nothing by mouth patient appears to have ileus does have fairly good bowel sounds and passing gas. March 09: 17 Patient's abdomen is still distended does have fairly good bowel sounds did have a bowel movement repeat abdominal x-ray did show continued ileus 03/09/2017 Patient's ileus improved as per the abdominal x-ray today patient does feel much better today, abdomen although is still quite distended passing gas 03/11/2017 Patient's abdominal distention improved patient is still passing as not unable to move his bowel yet. Patient blood pressure is low because of which limit was changed to metoprolol and decrease the dose of hydralazine. 03/12/2017 Patient did have a small bowel movement today abdominal distention did improve patient is doing much better today and hydralazine will be increased to 75 mg today 03/14/2017 Patient is significantly doing better and patient will be discharged to subacute rehabilitation today no overnight events no complaints. PHYSICAL EXAMINATION: GENERAL: The patient is alert and oriented x3, not in any acute distress. Well developed, well nourished. HEENT: Pupils are round and equally reacting to light. EOMI. No scleral icterus. No conjunctival pallor. Normocephalic, atraumatic. No pharyngeal erythema. No thyromegaly. CARDIOVASCULAR: S1 and S2 present. No murmurs, rubs, or gallops. PULMONARY: Chest is clear to auscultation, no wheezing or crackles. ABDOMEN: Soft, nontender, nondistended, normoactive bowel sounds. No palpable organomegaly. MUSCULOSKELETAL: No joint swelling or deformity. EXTREMITIES: No cyanosis, clubbing, or pedal edema. NEUROLOGICAL: Gross neurological examination did not reveal any focal deficits. SKIN: No rashes. #1 elevated troponin: Secondary to demand ischemia and patient underwent cardiac catheterization as mentioned above, nonobstructive coronary disease. #2 acute CHF with systolic dysfunction ejection fraction 30-35%, was in significant acute exacerbation which improved now patient is fairly euvolemic. #3 chronic kidney disease stage V: Patient may have acute kidney injury as well patient has a peroneal dialysis catheter in place and nephrology is following the patient. Patient will undergo hemodialysis and patient's hemodialysis catheter is being placed yesterday. #4 possible right inguinal hematoma #5 right inguinal hernia repair in 03/02/2017 along with placement of a mesh and insertion of a peritoneal dialysis catheter. #6 hyponatremia: Hypervolemic hyponatremia which resolved now with Lasix. 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 #8 history of severe coronary artery disease. With the multiple stents in the past. #9 atherosclerotic renovascular and peripheral vascular disease and carotid endarterectomy. 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 #15 ileus: Improved Patient Condition at Discharge: Serious Plan - Discharge Summary New Discharge Prescriptions: New Clopidogrel [Plavix] 75 mg PO DAILY #0 tab hydrALAZINE HCL [Apresoline] 50 mg PO TID tab Metoprolol Tartrate [Lopressor] 50 mg PO BID tab Ranolazine [Ranexa] 500 mg PO Q12HR tab Continue Polyethylene Glycol 3350 [Miralax] 17 gm PO DAILY Nitroglycerin Sl Tabs [Nitrostat] 0.4 mg SUBLINGUAL Q5M PRN PRN Reason: Chest Pain Simvastatin [Zocor] 20 mg PO HS Furosemide [Lasix] 20 mg PO DAILY PRN PRN Reason: Edema traZODone HCL 50 mg PO HS Ranitidine HCl 150 mg PO DAILY PRN PRN Reason: Heartburn Epoetin Brandon [Procrit] 20,000 unit INJ [id number] PRN PRN Reason: If HBG is below 10 Diltiazem HCl [Cartia Xt] 120 mg PO DAILY Aspirin [Adult Low Dose Aspirin EC] 81 mg PO DAILY Cholecalciferol [Vitamin D3] 5,000 unit PO DAILY diphenhydrAMINE HCL [Benadryl] 25 mg PO QID PRN PRN Reason: Allergy Symptoms Isosorbide Dinitrate [Isordil] 10 mg PO BID HYDROcodone/APAP 5-325MG [[place] 5-325] 1 tab PO DAILY PRN #20 PRN Reason: Pain Discontinued hydrALAZINE HCL [Hydralazine HCl] 50 mg PO QAM Labetalol [Trandate] 100 mg PO BID hydrALAZINE HCL [Hydralazine HCl] 25 mg PO BID@1500,2200 Discharge Medication List Aspirin [Adult Low Dose Aspirin EC] 81 mg PO DAILY 02/28/17 [History] Diltiazem HCl [Cartia Xt] 120 mg PO DAILY 02/28/17 [History] Epoetin Brandon [Procrit] 20,000 unit INJ [id number] PRN 02/28/17 [History] Furosemide [Lasix] 20 mg PO DAILY PRN 02/28/17 [History] Nitroglycerin Sl Tabs [Nitrostat] 0.4 mg SUBLINGUAL Q5M PRN 02/28/17 [History] Polyethylene Glycol 3350 [Miralax] 17 gm PO DAILY 02/28/17 [History] Ranitidine HCl 150 mg PO DAILY PRN 02/28/17 [History] Simvastatin [Zocor] 20 mg PO HS 02/28/17 [History] traZODone HCL 50 mg PO HS 02/28/17 [History] Cholecalciferol [Vitamin D3] 5,000 unit PO DAILY 03/02/17 [History] Isosorbide Dinitrate [Isordil] 10 mg PO BID 03/02/17 [History] diphenhydrAMINE HCL [Benadryl] 25 mg PO QID PRN 03/02/17 [History] Clopidogrel [Plavix] 75 mg PO DAILY #0 tab 03/14/17 [Rx] HYDROcodone/APAP 5-325MG [[place] 5-325] 1 tab PO DAILY PRN #20 03/14/17 [Rx] Metoprolol Tartrate [Lopressor] 50 mg PO BID tab 03/14/17 [Rx] Ranolazine [Ranexa] 500 mg PO Q12HR tab 03/14/17 [Rx] hydrALAZINE HCL [Apresoline] 50 mg PO TID tab 03/14/17 [Rx] Follow up Appointment(s)/Referral(s): Bess Mcclendon MD [Primary Care Provider] - 3 Days Discharge Disposition: TRANSFER TO SNF/ECF
[2017-03-14 11:49] VITALS: RESP 18
[2017-03-14 12:20] LABS: Glucose,Whole Blood 86 mg/dL (75-99)
--- NOTE | 2017-03-14 14:53 | P.PN ---
Subjective Principal diagnosis: Acute non-ST segment elevation myocardial infarction. 77-year-old male patient who underwent a repair of a inguinal hernia and insertion of a peritoneal catheter for hemodialysis by general surgery on 2016. Since then the patient is been having episodes it chest pain. He had been in the emergency department for the same. He was noted to have elevated troponins however he decided to be released and go home. Yesterday the patient started having chest pain along with shortness of breath and based on his extensive cardiac history the patient came back to the burst department and the patient was found to have post his troponins which peaked at 1.5 and abnormal EKG that showed ST segment depressions involving the anterolateral leads in addition to sinus rhythm with LVH and widening of QRS with repolarization abnormality. An underlying SEPTAL infarct cannot be completely excluded. D- dimer was elevated at 4.6. The proBNP elevated was 33,000. Creatinine was abnormal due to his chronic renal failure with a creatinine of 4.5. A CT aorta the chest was done and it showed aortic aneurysm in the distal thoracic aorta measuring 4.7 cm in size at the level of the hiatus of the diaphragm. Aorta measures 4.8 cm size just above the SMA. 3.8 cm in the mid abdomen at 3.2 cm just above the bifurcation. There is also evidence of evidence of subcutaneous air likely related to the recent dialysis catheter insertion and the peritoneal cavity. There is also evidence of fecal impaction. CT of the chest was also done and it showed no evidence of any pulmonary embolism. The aortic aneurysm was noted without any dissection. There is also evidence of pulmonary edema with small bilateral pleural effusion right more than left. This is consistent with CHF. The patient also has been producing urine and he was in the process of being prepared for dialysis. Nephrology saw the patient special that his current contrast intake and to give the patient Lasix 80 mg IV every 12 hours. At this point that the patient is resting comfortably in the intensive care unit. He is minimal diffuse chest pain, on and off of varying severity. The patient has undergone coronary artery bypass surgery for diffuse CAD back in 1986. Since then he has had multiple myocardial infarctions for which she has required cardiac catheterization a total of 6 or 7 stents have been inserted over the years. He was being followed up by publicist in [facility]. 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 He has also known to have carotid artery disease and undergone right carotid endarterectomy. On 03/05/2017, the patient is being seen in follow-up in intensive care unit. On and off is still having chest pain. He still IV heparin. IV heparin was stopped this morning I give the patient is developing some increased hematoma over the anterior abdominal wall at the site of the insertion of the peritoneal dialysis catheter. There is also a hematoma in his right groin area/and this has extended to his scrotum and back. Nevertheless the right inguinal hematomas quite soft. Hemoglobin is dropped by half a gram and for that reason I stopped IV heparin. Awaiting final cardiology recommendations regarding the possibility of the need for cardiac catheterization. Meanwhile the patient is receiving Lasix and he is diuresing well and he is a negative fluid balance. Renal function stable with a GFR of 13 and a creatinine of 4.4. No hyperkalemia. Hemoglobin is at 8.4. The chest x-ray showed CHF and unchanged compared to yesterday's study. The echocardiogram showed an ejection fraction of 30-35% with some dilation of the right ventricle and right atrium. The right ventricular systolic pressure was 43 mmHg. No other major abnormalities noted. On 03/06/2017, the patient is being seen in follow-up. He is still having on and off chest pain. I took the patient off heparin due to concern of a abdominal hematoma and the right groin hematoma. The hematoma itself is unchanged and stable for today. The patient is clinically the same. He remains in CHF. He continues to have angina. He will be undergoing a cardiac catheterization tomorrow. He remains on nitroglycerin drip which is being titrated based on his chest pain. The patient's renal function is stable and his GFR is still around 10. He'll be undergoing a cardiac catheterization by Dr. Snow tomorrow. He is on IV Lasix 80 mg every 12 hours. The patient is producing urine output and the negative of 2 L for yesterday another 1.5 L for today. Chest x-ray is consistent with CHF. Patient was reevaluated today on 03/07/2017, underwent cardiac catheterization, and the plan is mostly medical therapy. Report of the cardiac catheterization was noted. Pulmonary-ramos, the patient denies any cough no wheezing no shortness of breath and no chest pain at present. Chest x-ray showed mild interstitial prominence and tiny right pleural effusion. Labs were reviewed, hemoglobin is 8.5 WBC count is 7.7. Basic metabolic profile is normal, BUN is 56 creatinine is 4.70. Reevaluated today on 03/08/2017, patient is doing well from the pulmonary perspective, however he developed severe abdominal pain mostly in the right lower quadrant. CT of the abdomen is consistent with possible small bowel obstruction. Patient is refusing nasogastric tube placement, hence he was seen by Dr. dick and he recommended that the patient remains nothing by mouth. Patient is also against the idea of surgery is considered at any point. However he is complaining of pain and tenderness in the lower right lower quadrant. No bowel movements. No nausea no vomiting at this point. CBC is relatively unremarkable. Renal profile is worsening with a BUN of 58 creatinine of 5.0. Reevaluated today on 03/09/2017, patient isn't ready feeling better, his abdominal pain is less, apparently had a bowel movement today. Continues to refuse nasogastric tube, patient will likely undergo dialysis and I believe if vascular surgery consult was initiated for dialysis catheter placement. Less abdominal pain is noted today. No shortness of breath no cough no wheezing. CBC is relatively normal hemoglobin is 9.1. Electrodes lites are normal. BUN is on the rise at 64 creatinine is 5.34. Chest x-ray is showing mild congestive heart failure changes. Reevaluated today on 03/10/2017, patient seems to be doing well from the GI perspective, passing some flatus , no nausea no vomiting less abdominal discomfort, and he already had a right subclavian hemodialysis catheter placed to hopefully start dialysis today or tomorrow. Pulmonary-ramos, no cough no wheezing no shortness of breath, patient is doing well from the pulmonary perspective. Reevaluated today on 03/11/2017, patient continues to do well, he is on a full liquid diet, he is receiving dialysis today for the first time. Relatively asymptomatic. Continues to have some vague abdominal discomfort. But no bloating, and no nausea or vomiting. CBC was reviewed hemoglobin is 8.5 basic metabolic profile is normal BUN is 73 creatinine 5.44. No chest x-ray and no abdominal x-rays were done today. Reevaluated today on 03/12/2017, patient is doing relatively well, his diet will be advanced today, patient is passing gas, but no bowel movement yet. Patient is tolerating dialysis and he received another dialysis today. Continues to have a peritoneal catheter in place, but has not been used yet. Patient is now on hemodialysis via right supple and dialysis catheter which was placed recently by vascular surgery. Pulmonary-ramos, no cough no wheezing no shortness of breath. GI ramos, slight bloating, but no abdominal pain, no nausea no vomiting. Labs were reviewed hemoglobin is 8.3 potassium is 3.2 renal profile is improving with dialysis. Reevaluated today on 03/13/2017, patient is doing well, this is the best he has felt today. No cough no wheezing no shortness of breath no nausea no vomiting no abdominal pain, patient is heading to the bathroom to have a bowel movement from the way he felt. Again he feels much better today and much improved compared to the last few days. On his labs were reviewed. Renal profile continues to show BUN of 23 creatinine 2.91, patient is now on hemodialysis. New 03/14/2017 patient is doing well, no specific complaints offered. Shortness of breath, wheezing or chest congestion. He has been weaned off oxygen, he is on room air currently with O2 saturation around 96%. He has been tolerating hemodialysis well. Afebrile, no abdominal pain, no nausea no vomiting. Objective - Vital Signs Vital signs: Vital Signs Temp 98.3 F 03/14/17 11:43 Pulse 56 L 03/14/17 11:43 Resp 18 03/14/17 11:43 BP 144/65 03/14/17 11:43 Pulse Ox 96 03/14/17 11:43 Intake & Output 03/13/17 03/14/17 03/14/17 18:59 06:59 18:59 Intake Total 970 720 Output Total 500 300 Balance 970 220 -300 Weight 75.2 kg 75.2 kg Intake: IV 10 FLush 10 Oral 960 720 Output: Urine 500 300 Other: Voiding Method Urinal Urinal # Voids 2 2 - Exam Exam Gen. appearance , patient is not in any form of respiratory distress at present. Comfortable, sitting in a chair next to bed. Head is atraumatic normocephalic. Neck is positive for JVDs no goiter or neck masses point. There is a scar of a previous carotid endarterectomy on the right. Lung sounds are diminished bilaterally in the lung bases. No crackles, no rhonchi, no wheezes. Right subclavian hemodialysis catheter remains in place. Heart sounds are regular, positive S1 and S2 without any significant murmurs. Abdominal exam revealed normal bowel sounds. Abdomen seems to be slightly tender, no rebound, no guarding, negative bowel sounds. No organomegaly, The right inguinal surgical site is bruised and there is a potential he an underlying hematoma. Peritoneal dialysis catheter is noted in the left lower quadrant area. The subcutaneous hematomas seems to be resolving and improving compared to how it was few days ago. Extremities are showing + edema there is no cyanosis or clubbing. Pulses are quite diminished and there obtainable by Doppler signals. Skin is negative for any open wounds or sores or any ulceration. Neuro is or 83 and the neurologic exam is nonfocal at this point. Psych is negative for any mood or change in affect. - Labs CBC & Chem 7: 03/12/17 06:10 03/13/17 05:40 Labs: Abnormal Lab Results - Last 24 Hours (Table) 03/13/17 03/13/17 03/14/17 Range/Units 05:40 20:14 07:31 POC Glucose (mg/dL) 123 H 100 H (75-99) mg/dL Iron 46 L (65-175) ug/dL TIBC 217 L (228-460) ug/dL Assessment and Plan Plan: Assessment and Plan Plan: 1 acute non-ST segment elevation myocardial infarction with secondary chest pain shortness of breath. The patient continues to have episodes of chest pain and IV heparin has been discontinued due to evaluation of an abdominal and the right inguinal hematoma. 2 acute CHF exacerbation secondary to above. ProBNP is elevated and the CAT scan of the chest showing CHF/edema with small better pleural effusion. ProBNP level is quite elevated 3 chronic renal failure with stage 4-5 chronic kidney disease, awaiting hemodialysis. Is very much like to the patient will require dialysis soon as possible knowing that he has received contrast dye during this current hospitalization which probably is going to contribute to his renal failure progression 4 right inguinal hernia repair in 03/02/2017 along with placement of a mesh and insertion of a peritoneal dialysis catheter 5 right inguinal hematoma at the site of the surgical wound, in addition to another hematoma over the anterior abdominal wall and the site of insertion of a PD catheter. 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 19 hyponatremia , improved 20: Partial small bowel obstruction, improved, patient has been advanced to soft foods. Tolerating it well. Recommendation: Continue present supportive care measures, patient is already receiving hemodialysis, his GI symptoms have significantly improved, and he has no active pulmonary symptoms today. Patient will be discharged to subacute rehab today. I performed a history & physical examination of the patient and discussed their management with my nurse practitioner, Bruna Parekh. I reviewed the nurse practitioner's note and agree with the documented findings and plan of care.
[2017-03-14 15:37] VITALS: BP 121/55; PULSE 55; TEMP 98
--- NOTE | 2017-03-14 15:50 | PN ---
PROGRESS NOTE The patient is seen for followup for end-stage renal disease. He has been started on hemodialysis and he is due for hemodialysis today. The patient feels well. He denies any significant complaints. He will be discharged [facility] with plans to come to the [place] [facility] for temporary hemo until we can start using his PD catheter. EXAMINATION: Blood pressure 144/65, heart rate of 56 per minute. He is afebrile. Examination of the heart S1, S2. Examination of the lungs bilateral breath sounds are heard. ABDOMEN: Soft. There is significant bruising noted. Tenderness is decreased significantly. LABORATORY DATA: The labs show sodium 137, potassium 3.4, hemoglobin was 8.3 g/dL. ASSESSMENT: 1. End-stage renal disease with status post PD catheter placement, but currently on hemodialysis until we are able to use his PD catheter. 2. Status post abdominal bruising after IV heparin. 3. Status post acute myocardial infarction. 4. CHF, currently improved. 5. Anemia of chronic disease and with history of bleeding this admission. Currently maintained on Aranesp. PLAN: Hemodialysis today and then patient can be discharged. He will follow up as outpatient. We will flush his PD catheter as outpatient. MMODL / IJN: [id number] /
== END 2017-03-14 16:15 | DRG 286 ==
LOC: EC 23:49 → 6ICU 03-04 04:51 → 6SEL 03-08 19:03 → 5MS5E 03-13 18:06
PROVIDERS: ADMIT Internal Medicine; ATTEND Internal Medicine
PROC: 5A1D70Z Performance of Urinary Filtration, Intermittent, Less than 6 Hours Per Day (ICD-10-PCS; 2017-03-04)
PROC: B2121ZZ Fluoroscopy of Single Coronary Artery Bypass Graft using Low Osmolar Contrast (ICD-10-PCS; principal; 2017-03-07 09:14)
PROC: 4A023N7 Measurement of Cardiac Sampling and Pressure, Left Heart, Percutaneous Approach (ICD-10-PCS; principal; 2017-03-07 09:14)
PROC: B2181ZZ Fluoroscopy of Left Internal Mammary Bypass Graft using Low Osmolar Contrast (ICD-10-PCS; principal; 2017-03-07 09:14)
PROC: 02HV33Z Insertion of Infusion Device into Superior Vena Cava, Percutaneous Approach (ICD-10-PCS; 2017-03-09 17:00)
DX: I24.8 Other forms of acute ischemic heart disease (principal); I50.23 Acute on chronic systolic (congestive) heart failure; N17.0 Acute kidney failure with tubular necrosis; K56.609 Unspecified intestinal obstruction, unspecified as to partial versus complete obstruction; E87.2 Acidosis; N18.6 End stage renal disease; Q60.0 Renal agenesis, unilateral; I25.82 Chronic total occlusion of coronary artery; E87.1 Hypo-osmolality and hyponatremia; I13.2 Hypertensive heart and chronic kidney disease with heart failure and with stage 5 chronic kidney disease, or end stage renal disease; J44.1 Chronic obstructive pulmonary disease with (acute) exacerbation; I69.351 Hemiplegia and hemiparesis following cerebral infarction affecting right dominant side; D63.1 Anemia in chronic kidney disease; E78.5 Hyperlipidemia, unspecified; D72.829 Elevated white blood cell count, unspecified; E87.6 Hypokalemia; I25.110 Atherosclerotic heart disease of native coronary artery with unstable angina pectoris; I25.5 Ischemic cardiomyopathy; I71.2 Thoracic aortic aneurysm, without rupture; I73.9 Peripheral vascular disease, unspecified; K21.9 Gastro-esophageal reflux disease without esophagitis; M19.90 Unspecified osteoarthritis, unspecified site; N14.1 Nephropathy induced by other drugs, medicaments and biological substances; R33.9 Retention of urine, unspecified; S30.1XXA Contusion of abdominal wall, initial encounter; T50.2X5A Adverse effect of carbonic-anhydrase inhibitors, benzothiadiazides and other diuretics, initial encounter; T50.8X5A Adverse effect of diagnostic agents, initial encounter; Z79.02 Long term (current) use of antithrombotics/antiplatelets; Z79.82 Long term (current) use of aspirin; Z79.899 Other long term (current) drug therapy; Z82.49 Family history of ischemic heart disease and other diseases of the circulatory system; Z87.891 Personal history of nicotine dependence; Z90.5 Acquired absence of kidney; Z95.1 Presence of aortocoronary bypass graft; Z95.5 Presence of coronary angioplasty implant and graft; Z99.2 Dependence on renal dialysis; Z88.7 Allergy status to serum and vaccine
CPT/HCPCS: 36415; 36558; 51702; 51798; 71010; 71020; 71275; 74000; 74020; 74176; 75635; 76937; 77001; 80048; 80053; 80061; 80074; 82550; 82553; 83540; 83550; 83735; 83880; 84100; 84132; 84484; 85025; 85379; 85610; 85730; 88302; 90935; 93005; 93306; 93455; 94760; 96365; 96366; 96368; 96375; 99283; 99285; 99291